=== PATIENT | male | born 1945 | race Caucasian/White ===

== ENCOUNTER 2021-10-08 00:49 | Day surgery (SDC) | payer MEDICARE, SELFPAY ==
[2021-10-08] VITALS (19 sets, daily range): BP systolic 109–181; BP diastolic 40–74; PULSE 77–96; RESP 10–20; TEMP 36.1; O2SAT 94–98; BMI 22.6
[2021-10-08 07:57] LABS: Basophils Absolute Auto 0.1 K/mm3 (0.0-0.1); Basophils Percent Auto 0.8 % (0.2-1.2); Eosinophils Absolute Auto 0.3 K/mm3 (0-0.3); Eosinophils Percent Auto 4.2 % (0-4.4); Hematocrit 32.8 % (42.0-52.0); Hemoglobin 10.8 g/dL (14.0-18.0); Immature Granulocyte Absolute 0.02 K/mm3 (0.00-0.031); Immature Granulocyte Percent A 0.3 % (0-0.5); Lymphocytes Absolute Auto 1.74 K/mm3 (0.9-3.2); Lymphocytes Percent Auto 27.1 % (18.3-44.2); Mean Corpuscular HGB Conc 32.9 g/dl (32-36); Mean Corpuscular Hemoglobin 31.2 pg (26-34); Mean Corpuscular Volume 94.8 fl (80-100); Mean Platelet Volume 9.7 fl (7.4-10.4); Monocytes Absolute Auto 0.5 K/mm3 (0.1-0.6); Monocytes Percent Auto 8.1 % (2.6-8.5); Neutrophils Absolute Auto 3.8 K/mm3 (1.3-6.7); Neutrophils Percent Auto 59.5 % (45.5-73.1); Platelet Count Result 222 k/mm3 (150-375); Red Blood Count 3.46 M/mm3 (4.6-6.20); Red Cell Distribution Width 12.2 % (11.5-14.5); White Blood Count 6.4 K/mm3 (4.5-10.0)
[2021-10-08] MEDS: SODIUM CHLORIDE 0.9% IV 500 ML 100 ML IV CONT (08:00)
[2021-10-08 08:09] LABS: Anion Gap 7 mmol/L (8-16); Blood Urea Nitrogen 17 mg/dL (9-20); Calcium 8.1 mg/dL (8.4-10.2); Carbon Dioxide 28 mmol/L (22-30); Chloride 103 mmol/L (98-107); Estimated CRCL calculation 71 ml/min; Estimated Glomerular Filt Rate > 60; Glucose 198 mg/dL (65-110); Potassium 3.8 mmol/L (3.4-5.0); Sodium 138 mmol/L (137-145)
[2021-10-08 08:13] LABS: INR 1.1; Prothrombin Time 14.1 Seconds (11.1-14.7)
--- NOTE | 2021-10-08 08:46 | PM.IMHP ---
H&P: HPI History of Present Illness Date/Time: 10/08/21 08:46 Chief Complaint: Admission for elective catheterization because of at coronary CTA. Narrative: This is a 76-year-old man with longstanding diabetes who was a previous smoker. He experienced an episode of chest pain while walking out in the extremely cold weather earlier this winter. Following that a coronary CTA was performed which demonstrated a high calcium score of 4164. According to the angiogram he had a 70% stenosis within the proximal RCA, proximal LAD and 1st OM. According to this an angiogram was then recommended for today. The patient states that since then he has been carrying on normal activities when he is not in the cold and does not experience any exertional symptomatology. Previous to this he is not known to have coronary artery disease. He has been seen in the past for asymptomatic PVCs. Review of Systems Constitutional: Constitutional: Reports no additional constitutional complaints Eyes: Eyes: Reports no additional eye complaints ENT: Reports system reviewed and no additional complaints, except as documented Cardiovascular: Cardiovascular: Reports as per HPI Respiratory: Respiratory: Reports no additional respiratory complaints Gastrointestinal: Gastrointestinal: Reports no additional gastrointestinal complaints Musculoskeletal: Musculoskeletal: Reports arthralgias Integumentary/Breasts: Skin/Breast: Reports system reviewed and no additional complaints, except as docu Neurologic: Reports system reviewed and no additional complaints, except as documented [facility] Past Medical History Medical History Irregular heart beat Red blood cell abnormality Social History Social History Smoking status: Former smoker Alcohol intake: never Meds Home Medications and Allergies Home Medications Medication Instructions Recorded Confirmed Type aspirin 81 mg tablet,delayed 81 mg PO DAILY 02/21/21 10/08/21 History release dorzolamide-timolol (PF) 2 %-0.5 % 1 drp EACH EYE BID 02/21/21 10/08/21 History eye drops in a dropperette doxazosin 8 mg tablet 8 mg PO DAILY tablet 02/21/21 10/08/21 History esomeprazole magnesium 40 mg 40 mg PO DAILY PRN 02/21/21 10/08/21 History capsule,delayed release finasteride 5 mg tablet 5 mg PO DAILY 02/21/21 10/08/21 History insulin lispro 100 unit/mL 100 unit SUBCUT DAILY ml 02/21/21 10/08/21 History subcutaneous pen latanoprost 0.005 % eye drops 1 drp EACH EYE DAILY 02/21/21 10/08/21 History multivitamin 1 tablet PO DAILY 02/21/21 10/08/21 History quinapril 20 mg tablet 20 mg PO DAILY 02/21/21 10/08/21 History simvastatin 40 mg tablet 40 mg PO DAILY 02/21/21 10/08/21 History levetiracetam 1,000 mg tablet See Rx Instructions .ROUTE 03/09/21 10/08/21 Rx .COMPLEX #360 tablet phenytoin sodium extended 100 mg See Rx Instructions .ROUTE 08/01/21 10/08/21 Rx capsule .COMPLEX #90 cap furosemide 40 mg PO DAILY 10/05/21 10/08/21 History meloxicam 15 mg PO DAILY 10/05/21 10/08/21 History metoprolol tartrate 25 mg PO BID 10/05/21 10/08/21 History potassium chloride 20 meq PO DAILY 10/05/21 10/08/21 History simethicone 125 mg PO DAILY PRN 10/05/21 10/08/21 History Allergies Allergy/AdvReac Type Severity Reaction Status Date / Time No Known Allergies Allergy Unknown Other Verified 10/05/21 16:00 Vital Signs Vital Signs - 24 hr 10/08/21 07:45 Temperature 36.1 C L Pulse Rate 77 Respiratory Rate 14 Blood Pressure 181/66 H Pulse Oximetry 98 Exam Const: General: comfortable and no acute distress Other: Thin white male no apparent distress HENMT: Mouth: Yes moist mucous membranes Eyes: Sclera: sclerae normal Neck: Neck: supple and no JVD Other: Prescribed upstrokes with no bruits Resp: Effort & Inspection: normal respiratory effort Auscultation: clear to auscultation bilaterally Cardio
--- NOTE | 2021-10-08 08:51 | WPDMODSED ---
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 Longstanding diabetes Present Complaint: No complaints today Procedure to be performed/Plan: Left heart catheterization Allergies Allergy/AdvReac Type Severity Reaction Status Date / Time No Known Allergies Allergy Unknown Other Verified 10/05/21 16:00 Home Medications Medication Instructions Recorded Confirmed Type aspirin 81 mg tablet,delayed 81 mg PO DAILY 02/21/21 10/08/21 History release dorzolamide-timolol (PF) 2 %-0.5 % 1 drp EACH EYE BID 02/21/21 10/08/21 History eye drops in a dropperette doxazosin 8 mg tablet 8 mg PO DAILY tablet 02/21/21 10/08/21 History esomeprazole magnesium 40 mg 40 mg PO DAILY PRN 02/21/21 10/08/21 History capsule,delayed release finasteride 5 mg tablet 5 mg PO DAILY 02/21/21 10/08/21 History insulin lispro 100 unit/mL 100 unit SUBCUT DAILY ml 02/21/21 10/08/21 History subcutaneous pen latanoprost 0.005 % eye drops 1 drp EACH EYE DAILY 02/21/21 10/08/21 History multivitamin 1 tablet PO DAILY 02/21/21 10/08/21 History quinapril 20 mg tablet 20 mg PO DAILY 02/21/21 10/08/21 History simvastatin 40 mg tablet 40 mg PO DAILY 02/21/21 10/08/21 History levetiracetam 1,000 mg tablet See Rx Instructions .ROUTE 03/09/21 10/08/21 Rx .COMPLEX #360 tablet phenytoin sodium extended 100 mg See Rx Instructions .ROUTE 08/01/21 10/08/21 Rx capsule .COMPLEX #90 cap furosemide 40 mg PO DAILY 10/05/21 10/08/21 History meloxicam 15 mg PO DAILY 10/05/21 10/08/21 History metoprolol tartrate 25 mg PO BID 10/05/21 10/08/21 History potassium chloride 20 meq PO DAILY 10/05/21 10/08/21 History simethicone 125 mg PO DAILY PRN 10/05/21 10/08/21 History Current Medications: Active Medications Sodium Chloride (Normal Saline Iv) 500 mls @ 100 mls/hr IV CONT .Q5H RODOLFO Last Admin: 10/08/21 08:00 Dose: 100 mls/hr Documented by: Sedation/Anesthesia: No previous sedation/anesthesia problems (including family history). [facility] Past Medical History Medical History Irregular heart beat Red blood cell abnormality Social History Social History Smoking status: Former smoker Alcohol intake: never Mod Sed Physical Exam Physical Exam Pre Procedural Exam: Normal: Neck, Throat, Airway, Lungs, Heart Size, Heart Rate, Neuro Exam and Extremities and Variation: Appearance (Thin gentleman no apparent distress) and Heart Rhythm (Frequent ectopic activity) Hours since solid foods: 12 Hours since liquid intake: 12 Mallampati Classification: class II Internal Medicine - PN: Obj Da Vital Signs Vital Signs: Vital Signs - 24 hr 10/08/21 07:45 Temperature 36.1 C L Pulse Rate 77 Respiratory Rate 14 Blood Pressure 181/66 H Pulse Oximetry 98 Meds/Results Medications: Active Medications Generic Name Dose Route Start Last Admin Trade Name Freq PRN Reason Stop Dose Admin Sodium Chloride 500 mls @ 100 mls/hr 10/08/21 07:00 10/08/21 08:00 Normal Saline Iv IV CONT 100 mls/hr .Q5H [facility] Administration Labs CBC & Chem 7: 10/08/21 07:50 10/08/21 07:50 Labs: Laboratory Results - last 24 hr 10/08/21 10/08/21 10/08/21 07:49 07:50 07:50 WBC 6.4 RBC 3.46 L Hgb 10.8 L Hct 32.8 L MCV 94.8 MCH 31.2 MCHC 32.9 RDW 12.2 Plt Count 222 MPV 9.7 Immature Gran % (Auto) 0.3 Neut % (Auto) 59.5 Lymph % (Auto) 27.1 [place] % (Auto) 8.1 Eos % (Auto) 4.2 Baso % (Auto) 0.8 Lymph # (Auto) 1.74 [place] # (Auto) 0.5 Eos # (Auto) 0.3 Baso # (Auto) 0.1 Abs Immat Gran (auto) 0.02 Absolute Neuts (auto) 3.8 Absolute Nucleated RBC 0.0 Nucleated RBC % 0.0 PT 14.1 INR 1.1 Sodium 138 Potassium 3.8 Chloride 103 Carbon
--- NOTE | 2021-10-08 09:36 | WPDCARDPROC ---
Cardiac Cath Procedure Note Date of procedure:: 10/08/21 Performing physician:: Ludwin Buchanan MD Indication:: Episode of exertional chest discomfort abnormal coronary CTA Brief clinical history:: this is a 76-year-old man with longstanding diabetes who recently experienced an episode of exertional chest discomfort flutter. He for that reason underwent a coronary CTA which demonstrated calcified arteries with multivessel disease. An angiogram was therefore recommended. He does not report any going exertional symptoms warmer weather. Procedure Procedure performed:: Left ventriculogram coronary angiogram Sedation/Medication given:: fentanyl 25 mg Versed 2 mg case start time 9:05 a.m. case end time 9:26 a.m. Access site:: right femoral artery Estimated blood loss:: 20 cc Procedure note:: the patient was brought to the cardiac catheterization lab in the postabsorptive state the right femoral triangle was prepared and draped in the usual fashion. Anesthesia was provided with 1% lidocaine infiltrated locally. Using the modified Seldinger 5 Indonesian sheath was placed into the right femoral artery after this left heart catheterization was carried out. I used a 5 Indonesian angled pigtail catheter to perform a left ventriculogram in the OROPEZA projection and to measure left-sided hemodynamics. Following this A standard 5 Indonesian FL4 catheter was used to engage and inject the left coronary artery. A 5 Indonesian WRP catheter was used to engage and inject the right coronary artery. The cineangiograms were then reviewed and the case was terminated. The patient was taken to the holding area for manual sheath removal. Procedure was otherwise uncomplicated in there were no signs of groin hematoma upon leaving the cardiac cath lab technologist. Findings:: Hemodynamics: Central pressure is 1 86 over 56 left ventricle 1 78 over 5 end-diastolic pressure 16 there is no significant gradient on pullback across aortic valve. Left ventricle: The LV is normal in size all segments contract appropriately the global ejection fraction angiographically is 60-60%. The coronary arteries are heavily calcified particularly the left main and LAD prior to any angiography being performed. The left main coronary artery is large in caliber. It is a calcified vessel with a nodule of calcium in the midportion does not appear to be creating flow-limiting stenosis. There is from this nodule distal to the bifurcation mild diffuse narrowing of the left once again is a heavily calcified vessel but does not appear to have flow-limiting stenosis. The left anterior descending is heavily calcified as well. There is an 80-85% stenosis in the midportion of the LAD this segment that is heavily calcified and significantly tortuous as well. Distally the LAD continues down to around the apex is free of significant lesions. The circumflex is a moderate caliber artery giving rise to a bifurcating marginal branch. The circumflex is less severely calcified. The smaller of the bifurcating segments with marginal has a 60-70% proximal stenosis. Right coronary artery is Moderate to severely calcified and is dominant to the posterior circulation.. Proximally there is about a 70% stenosis in the RCA trunk. There is then a calcified [id number] disease. The RPDA has about 70% mid stenosis the PL branch is free of significant lesions. Conclusion:: 1. Right coronary dominant circulation heavily calcified vessels. 2. 80-85% mid LAD stenosis in a segment that is heavily calcified and tortuous. 3. 60-70% stenosis in subbranch of the OM circumflex. 4. Heavily calcified right coronary artery with about 70% proximal stenosis and about 70% mid stenosis in the RPDA. 5. Preserved left ventricular systolic function Ludwin Buchanan MD [facility]
[2021-10-08] MEDS: SODIUM CHLORIDE 0.9% IV 1,000 ML 125 ML IV CONT (09:49)
--- NOTE | 2021-10-08 10:36 | SUR.PHASEII ---
Dr Ocasio speaking with patient and about findings of [facility]
--- NOTE | 2021-10-08 14:01 | SUR.PHASEII ---
Discharge instructions read and given to pt and . Pt and states understanding.
--- NOTE | 2021-10-08 15:41 | SUR.PHASEII ---
Pt discharged home by wheelchair to front of hospital at 's vehicle. Re-inforced groin instructions - any bleeding, swelling - lye flat, put pressure over the r groin and call 911 - it's a medical emergency
== END 2021-10-08 15:30 | disposition home or self-care (01) ==
PROVIDERS: PCP Family Medicine; Visit Provider Specialist
PROC: 4A023N7 Measurement of Cardiac Sampling and Pressure, Left Heart, Percutaneous Approach (ICD-10-PCS; CPT 93452; principal; 2021-10-08 08:30)
DX: I25.10 Atherosclerotic heart disease of native coronary artery without angina pectoris (principal); R00.1 Bradycardia, unspecified; E10.59 Type 1 diabetes mellitus with other circulatory complications; R00.8 Other abnormalities of heart beat; R53.83 Other fatigue; R07.89 Other chest pain; I11.9 Hypertensive heart disease without heart failure; I15.2 Hypertension secondary to endocrine disorders; N40.0 Benign prostatic hyperplasia without lower urinary tract symptoms; M19.90 Unspecified osteoarthritis, unspecified site; G40.909 Epilepsy, unspecified, not intractable, without status epilepticus; G47.30 Sleep apnea, unspecified; Z87.891 Personal history of nicotine dependence; Z82.49 Family history of ischemic heart disease and other diseases of the circulatory system; Z79.82 Long term (current) use of aspirin; Z79.4 Long term (current) use of insulin; E78.2 Mixed hyperlipidemia; E10.319 Type 1 diabetes mellitus with unspecified diabetic retinopathy without macular edema
CPT/HCPCS: 36415; 80048; 85025; 85610; 93458; C1887; C1894; J1644; J2250; J3010; J7030; J7040

== ENCOUNTER 2022-02-28 11:00 | Outpatient (RCR) | payer MEDICARE, SELFPAY | END 2022-03-06 11:33 | disposition home or self-care (01) | LOC: ANHCPREHAB 11:00 | PROVIDERS: PCP Family Medicine; Visit Provider Internal Medicine Cardiovascular Disease | DX: Z95.5 Presence of coronary angioplasty implant and graft (principal) | CPT/HCPCS: 93798 ==

== ENCOUNTER 2022-03-02 10:44 | Emergency (ER) | payer MEDICARE, SELFPAY ==
--- NOTE | ~2022-03-02 | XR_ITS ---
[[id number] ] INDICATION: Left rib pain after fall TECHNIQUE: Frontal projection of the upper left ribs, frontal projection of the lower left ribs, obli que projection of all the left ribs, frontal inspiratory chest x-ray for interpretation. FINDINGS: There are no displaced rib fractures identified. There are no soft tissue abnormality see n. There is left basilar atelectasis. No pneumothorax. Osteopenia. IMPRESSION: 1:No acute displaced rib fractures. Reviewed, dictated and finalized at location A.
--- NOTE | ~2022-03-02 | XR_ITS ---
XR knee LT min 4V 03/02/2022 12:00 Indication: Left knee pain Procedure: 4 views left knee Comparison: No prior studies for comparison. Findings: There is a side plate and screws transfixing the proximal tibia. Osteopenia. There are vasc ular calcifications. There is a nondisplaced transverse patellar fracture inferiorly. Small joint eff usion. Impression: 1: Nondisplaced transversely oriented patellar fracture inferiorly. Reviewed, dictated and finalized at location A. Impression: 1: Nondisplaced transversely oriented patellar fracture inferiorly.
--- NOTE | ~2022-03-02 | XR_ITS ---
XR hand RT min 3V 03/02/2022 11:59 INDICATION: Right hand pain after fall PROCEDURE: 3 views right hand COMPARISON: No prior studies for comparison. FINDINGS: Fracture, dislocation or subluxation is not identified. Osteopenia. Mild polyarticular oste oarthritis. The soft tissues appear within normal limits. No foreign bodies are identified. IMPRESSION: 1: NO ACUTE BONE OR JOINT ABNORMALITY IDENTIFIED. Reviewed, dictated and finalized at location A.
--- NOTE | ~2022-03-02 | CT_ITS ---
EXAMINATION: CT BRAIN W/O DATE: 03/02/2022 12:05 INDICATION: Head injury. Patient on blood thinners. TECHNIQUE: Computed tomography (CT) of the head was performed without intravenous contrast. The dose- length product was 605.33 mGy-cm. Automated exposure control and iterative reconstruction technique w ere employed. COMPARISON: No prior studies for comparison. FINDINGS: Mild generalized atrophy. There are scattered mild periventricular and subcortical white ma tter changes, most likely related to small vessel ischemic disease (microangiopathy). There is intrac ranial atherosclerosis. No ventriculomegaly or midline shift. Midline sagittal images demonstrate a normal corpus callosum, c raniovertebral junction and sella turcica. Basilar cisterns are patent. Paranasal sinuses and mastoids are pneumatized. No depressed skull fractures. IMPRESSION: 1. No acute intracranial abnormality. Reviewed, dictated and finalized at location A.
--- NOTE | ~2022-03-02 | XR_ITS ---
XR elbow LT min 3V 03/02/2022 11:59 INDICATION: Left elbow pain PROCEDURE: 4 views left elbow COMPARISON: No prior studies for comparison. FINDINGS: Fracture, dislocation or subluxation is not identified. Osteopenia. The soft tissues appear within normal limits. No foreign bodies are identified. IMPRESSION: 1: NO ACUTE BONE OR JOINT ABNORMALITY IDENTIFIED. Reviewed, dictated and finalized at location A.
[2022-03-02 11:15] VITALS: BP 130/52; PULSE 64; RESP 16; TEMP 36.2; O2SAT 97
--- NOTE | 2022-03-02 11:32 | ED.FALL ---
HPI - Fall General Chief Complaint: Fall Stated Complaint: glf - hit head on concrete and left knee-thinners+ Time Seen by Provider: 03/02/22 11:10 Source: patient, family, RN notes reviewed and old records reviewed Limitations: no limitations History of Present Illness HPI Narrative: This is a 76 year old male who presents for evaluation after suffering a fall. He states he was coming to ER to pick someone up, and he tripped on curb walking into ER. He has abrasion to left elbow, right fingers, and left knee. He states his reports that he hit his head, and he takes plavix for heart disease. He denies headache, dizziness, nausea, vomiting or shortness of breath. He does think he hit his left ribs. He is unsure of last tetanus Related Data Home Medications Medication Instructions Recorded Confirmed aspirin 81 mg tablet,delayed 81 mg PO DAILY 02/21/21 10/08/21 release (Day Low Dose Aspirin) dorzolamide-timolol (PF) 2 %-0.5 % 1 drp EACH EYE BID 02/21/21 12/25/21 eye drops in a dropperette doxazosin 8 mg tablet 8 mg PO DAILY 02/21/21 10/08/21 esomeprazole magnesium 40 mg 40 mg PO DAILY PRN Acid Reflux 02/21/21 12/25/21 capsule,delayed release (Nexium) finasteride 5 mg tablet 5 mg PO DAILY 02/21/21 12/25/21 insulin lispro 100 unit/mL 100 unit subcut DAILY 02/21/21 10/08/21 subcutaneous pen latanoprost 0.005 % eye drops 1 drp EACH EYE DAILY 02/21/21 12/25/21 multivitamin 1 tablet PO DAILY 02/21/21 12/25/21 quinapril 20 mg tablet 20 mg PO DAILY 02/21/21 10/08/21 simvastatin 40 mg tablet 40 mg PO DAILY 02/21/21 10/08/21 furosemide 40 mg tablet 20 mg PO DAILY 10/05/21 12/25/21 metoprolol tartrate 25 mg tablet 25 mg PO BID 10/05/21 12/25/21 potassium chloride 20 mEq 20 meq PO DAILY 10/05/21 10/08/21 tablet,extended release simethicone 125 mg tablet 125 mg PO DAILY PRN (Drug) 10/05/21 12/25/21 Ingestion clopidogrel 75 mg tablet 75 mg PO DAILY 12/25/21 12/25/21 isosorbide mononitrate 30 mg 30 mg PO DAILY 12/25/21 12/25/21 tablet,extended release 24 hr Allergies Allergy/AdvReac Type Severity Reaction Status Date / Time No Known Allergies Allergy Unknown Other Verified 03/02/22 13:11 Review of Systems Review of Systems: All systems reviewed & are unremarkable except as noted in HPI and below PMFSH Past Medical History Medical History (Updated 03/02/22 @ 13:18 by Kait Neves MD) Irregular heart beat Red blood cell abnormality Surgical History Surgical History (Updated 03/02/22 @ 11:36 by Kait Neves MD) Stented coronary artery Family History Family History Father Heart disease Diabetes mellitus Heart attack Mother Diabetes mellitus Lung cancer Social History Social History Smoking packs per day: 3 Smoking cigarettes per day: 60.0 Years smoked: 37 Smoking pack-years: 111.00 Smoking status: Former smoker Tobacco type: cigarettes Alcohol intake: never Exam Const: General: alert Nutritional Appearance: well nourished Orientation/consciousness: patient oriented x3 Limitations: no limitations HENMT: Head: normal to inspection Ears: external ears normal Face and sinus: normal facial exam Mouth: Yes Normal oral and palatal mucosa present Throat: posterior oropharynx normal Eyes: Pupils: Equal, round and reactive pupils present EOM: EOMs intact bilaterally Neck: Neck: normal visual inspection Chest: Chest palpation & inspection: normal inspection of the chest and no tenderness Resp: Effort & Inspection: normal respiratory effort Auscultation: clear to auscultation bilaterally Cardio: Rate: regular rate Rhythm: regular rhythm Heart sounds: no murmurs GI: GI Palp: Yes Soft to palpation, No Tenderness to palpation present (GI), No Guarding due to palpation present (GI) and No Rigid due to palpation Auscultation: normal bowel sounds Skin:
[2022-03-02] MEDS: TETANUS,DIPHTHERIA,AC PERTUSSIS ADULT (0.5 ML) BOOSTRIX IM (12:13)
[2022-03-02 13:40] VITALS: BP 125/54; PULSE 62; RESP 16; O2SAT 98
== END 2022-03-02 14:00 | disposition home or self-care (01) ==
PROVIDERS: Emergency Provider General Practice; PCP Family Medicine
DX: S82.035A Nondisplaced transverse fracture of left patella, initial encounter for closed fracture (principal); S50.312A Abrasion of left elbow, initial encounter; S60.414A Abrasion of right ring finger, initial encounter; Z23 Encounter for immunization; Z95.5 Presence of coronary angioplasty implant and graft; Z79.82 Long term (current) use of aspirin; Z79.4 Long term (current) use of insulin; Z87.891 Personal history of nicotine dependence; W10.1XXA Fall (on)(from) sidewalk curb, initial encounter
CPT/HCPCS: 70450; 71101; 73080; 73130; 73564; 90471; 90715; 99284

== ENCOUNTER 2022-03-09 10:50 | Emergency (ER) | payer MEDICARE, SELFPAY ==
[2022-03-09] VITALS (21 sets, daily range): BP systolic 108–137; BP diastolic 38–48; PULSE 61–75; RESP 12–21; O2SAT 96–100
--- NOTE | ~2022-03-09 | CT_ITS ---
EXAMINATION: CT abdomen pelvis w con DATE: 03/09/2022 13:27 INDICATION: Left upper quadrant abdominal pain post fall TECHNIQUE: Computed tomography (CT) of the abdomen and pelvis was performed with 100 mL Omnipaque-300 intravenous contrast. Automated exposure control and iterative reconstruction technique were employe d. The dose-length product was 322.55 mGy-cm. COMPARISON: 02/18/2012 FINDINGS: Groundglass opacities and some septal line thickening at the bilateral lung bases most likely mild pu lmonary edema and/or atelectasis. No pleural effusion. Heart size is normal. Atherosclerotic coronary artery calcifications. No pericardial effusion. Liver, gallbladder, spleen, pancreas and bilateral a drenal glands are normal. Small linear atherosclerotic calcifications consistent with renal arteries at the bilateral renal veto. Unchanged 6 mm low-attenuation cyst at the upper pole of the left kidney . Prominent distention of the bladder which measures 16.9 x 13.7 x 9.5 cm. Minimal prostatomegaly acacia suring 3.7 x 2.6 cm. Large amount of stool scattered throughout the colon which could be seen with co nstipation. No bowel obstruction. The appendix is not visualized. No pericecal inflammatory change to suggest acute appendicitis. No free intraperitoneal gas or fluid. No pathologically enlarged abdomin al or pelvic lymphadenopathy. There is calcified atherosclerosis of the aorta and many of the other a rteries. Severe disc height loss with degenerative endplate changes at L2-L3. Nondisplaced fractures of the anterolateral left sixth-eighth ribs. Likely vasectomy clips along the bilateral spermatic cor ds. IMPRESSION: 1. Nondisplaced fractures of the anterolateral left sixth-eighth ribs. 2. No acute intra-abdominal/pelvic process. Reviewed, dictated and finalized at location A.
--- NOTE | ~2022-03-09 | CT_ITS ---
EXAMINATION: CT brain wo con DATE: 03/09/2022 11:20 INDICATION: Seizure and fall TECHNIQUE: Computed tomography (CT) of the head was performed without intravenous contrast. Sagittal and coronal reconstructions were performed. The mA was adjusted according to patient size. Iterative reconstruction technique was employed. The dose-length product was 605.33 mGy-cm. COMPARISON: head CT dated 03/02/2022 FINDINGS: No fracture. No acute intracranial hemorrhage, acute infarction or abnormal extra axial fluid collect ion. There is minimal scattered white matter hypoattenuation consistent with chronic small vessel isc hemic disease. Symmetric prominence of the sulci consistent with mild age-appropriate diffuse cerebra l volume loss. Ventricles are normal and symmetric. No mass/mass effect. The orbits, paranasal sinuse s and mastoid air cells are normal. Intracranial calcified cerebral atherosclerosis is noted. IMPRESSION: 1. No fracture or acute intracranial process. 2. Age-related changes including mild diffuse volume loss and mild scattered white matter hypoattenua tion consistent with chronic small vessel ischemic disease. Reviewed, dictated and finalized at location A. IMPRESSION: 1. No fracture or acute intracranial process. 2. Age-related changes including mild diffuse volume loss and mild scattered wh ite matter hypoattenuation consistent with chronic small vessel ischemic diseas e.
--- NOTE | ~2022-03-09 | XR_ITS ---
EXAMINATION: XR ribs LT 2V DATE: 03/09/2022 13:07 INDICATION: Lateral lower left rib pain post fall TECHNIQUE: 3 views of the left ribs were obtained. COMPARISON: Chest radiograph and CT abdomen and pelvis dated 03/09/2022 FINDINGS: No displaced rib fractures identified. There are nondisplaced fractures of the anterolateral left six th-eighth ribs which can be seen on the CT images but which are occult on the current radiographs. Vi sualized portions of the lungs are clear. No pulmonary edema, pneumothorax or left-sided pleural effu josesito. Cardiomediastinal silhouette is normal. Coronary artery stenting. IMPRESSION: 1. Nondisplaced anterolateral left sixth-eighth rib fractures which can be seen on the CT of the abdo men but which are occult on the current study. Reviewed, dictated and finalized at location A. IMPRESSION: 1. Nondisplaced anterolateral left sixth-eighth rib fractures which can be seen on the CT of the abdomen but which are occult on the current study.
--- NOTE | ~2022-03-09 | XR_ITS ---
EXAMINATION: XR chest 1V DATE: 03/09/2022 11:23 INDICATION: Seizure and fall TECHNIQUE: frontal view of the chest was obtained. COMPARISON: None FINDINGS: The lungs are clear with no focal airspace opacities, pulmonary edema, pleural effusion or pneumothor ax. The cardiomediastinal silhouette is normal. Coronary artery stenting. Mild scattered degenerative skeletal changes. IMPRESSION: 1. No acute cardiopulmonary disease. Reviewed, dictated and finalized at location A.
--- NOTE | 2022-03-09 10:55 | ECG_ITS ---
Measurements Intervals [place] Rate: 64 P: 75 [place]: 187 QRS: 71 QRSD: 98 T: 37 QT: 426 QTc: 440 Interpretive Statements SINUS RHYTHM FREQUENT VENTRICULAR PREMATURE COMPLEXES ABNORMAL ECG Electronically Signed On 03-09-2022 16:34:45 CDT by Sim Collins D.O.
--- NOTE | 2022-03-09 11:11 | PC.NURSE ---
Patient off unit to CT.
[2022-03-09 11:19] LABS: Basophils Percent Auto 0.7 % (0.2-1.2); Eosinophils Absolute Auto 0.2 K/mm3 (0-0.3); Eosinophils Percent Auto 3.8 % (0-4.4); Hematocrit 27.9 % (42.0-52.0); Hemoglobin 8.4 g/dL (14.0-18.0); Immature Granulocyte Absolute 0.02 K/mm3 (0.00-0.031); Immature Granulocyte Percent A 0.4 % (0-0.5); Mean Corpuscular HGB Conc 30.1 g/dl (32-36); Mean Corpuscular Hemoglobin 27.8 pg (26-34); Mean Corpuscular Volume 92.4 fl (80-100); Mean Platelet Volume 9.3 fl (7.4-10.4); Monocytes Absolute Auto 0.6 K/mm3 (0.1-0.6); Monocytes Percent Auto 9.8 % (2.6-8.5); Neutrophils Absolute Auto 3.4 K/mm3 (1.3-6.7); Neutrophils Percent Auto 60.3 % (45.5-73.1); Platelet Count Result 232 k/mm3 (150-375); Red Blood Count 3.02 M/mm3 (4.6-6.20); Red Cell Distribution Width 13.9 % (11.5-14.5); White Blood Count 5.6 K/mm3 (4.5-10.0)
[2022-03-09 11:29] LABS: Alanine Aminotransferase 20 U/L (6-50); Albumin Level 3.5 g/dL (3.5-5.1); Alkaline Phosphatase 116 U/L (38-126); Anion Gap 8 mmol/L (8-16); Aspartate Amino Transferase 28 U/L (17-59); Bilirubin,Total 0.2 mg/dL (0.2-1.3); Blood Urea Nitrogen 19 mg/dL (9-20); Calcium 7.8 mg/dL (8.4-10.2); Carbon Dioxide 27 mmol/L (22-30); Chloride 104 mmol/L (98-107); Estimated CRCL calculation 55 ml/min; Estimated Glomerular Filt Rate > 60; Glucose 137 mg/dL (65-110); Potassium 4.4 mmol/L (3.4-5.0); Sodium 139 mmol/L (137-145)
[2022-03-09 11:33] LABS: Phenytoin Dilantin 12 ug/mL (10-20)
[2022-03-09 11:41] LABS: INR 1.1; Prothrombin Time 13.3 Seconds (11.1-14.7)
--- NOTE | 2022-03-09 11:44 | ED.GENADULT ---
HPI - General Adult General Chief complaint: Seizure Stated complaint: SEIZURES Source: RN notes reviewed History of Present Illness HPI narrative: Patient presents to emergency department from home via EMS for seizures. Patient states he was working on the yard this morning when he began to feel unwell with some abdominal cramping and nauseous he then was noted to begin to have a seizure by the family who was able to catch him and keep him from falling. Patient was then moved inside he had a second seizure that was tonic-clonic in nature per the patient's EMS was called and the patient was transferred to the ER where he had a third seizure in route patient was postictal following the seizures. Patient states he has a seizure disorder and is followed by Dr. Coates he is currently on Keppra and Dilantin and states he has taken both of those including his doses this morning. He states that he is having some left-sided rib pain from a fall that he sustained a week ago and it had imaging was negative at that time but when he was held up by family they did squeeze on his ribs. He denies any fevers or chills chest pain shortness of breath or any other symptoms Related Data Home Medications Medication Instructions Recorded Confirmed aspirin 81 mg tablet,delayed 81 mg PO DAILY 02/21/21 10/08/21 release (Day Low Dose Aspirin) dorzolamide-timolol (PF) 2 %-0.5 % 1 drp EACH EYE BID 02/21/21 12/25/21 eye drops in a dropperette doxazosin 8 mg tablet 8 mg PO DAILY 02/21/21 10/08/21 esomeprazole magnesium 40 mg 40 mg PO DAILY PRN Acid Reflux 02/21/21 12/25/21 capsule,delayed release (Nexium) finasteride 5 mg tablet 5 mg PO DAILY 02/21/21 12/25/21 insulin lispro 100 unit/mL 100 unit subcut DAILY 02/21/21 10/08/21 subcutaneous pen latanoprost 0.005 % eye drops 1 drp EACH EYE DAILY 02/21/21 12/25/21 multivitamin 1 tablet PO DAILY 02/21/21 12/25/21 quinapril 20 mg tablet 20 mg PO DAILY 02/21/21 10/08/21 simvastatin 40 mg tablet 40 mg PO DAILY 02/21/21 10/08/21 furosemide 40 mg tablet 20 mg PO DAILY 10/05/21 12/25/21 metoprolol tartrate 25 mg tablet 25 mg PO BID 10/05/21 12/25/21 potassium chloride 20 mEq 20 meq PO DAILY 10/05/21 10/08/21 tablet,extended release simethicone 125 mg tablet 125 mg PO DAILY PRN (Drug) 10/05/21 12/25/21 Ingestion clopidogrel 75 mg tablet 75 mg PO DAILY 12/25/21 12/25/21 isosorbide mononitrate 30 mg 30 mg PO DAILY 12/25/21 12/25/21 tablet,extended release 24 hr Allergies Allergy/AdvReac Type Severity Reaction Status Date / Time No Known Allergies Allergy Unknown Other Verified 03/02/22 13:11 Review of Systems Review of Systems: Gen.: Denies fevers or chills Eyes: Denies eye pain or visual change ENT: Denies congestion Respiratory: Denies shortness of breath or cough CV: Denies chest pain or palpitations reports rib pain on the left GI: Reports lower abdominal pain and nausea vomiting x1 denies diarrhea Musculoskeletal: Denies back pain or muscle pain Neuro: See HPI Skin: Denies rash Except as documented, all other systems reviewed and negative REPLACED BY [facility] Past Medical History Medical History Irregular heart beat Red blood cell abnormality Surgical History Surgical History (Updated 03/02/22 @ 11:36 by Kait Neves MD) Stented coronary artery Family History Family History Father Heart disease Diabetes mellitus Heart attack Mother Diabetes mellitus Lung cancer Social History Social History Smoking packs per day: 3 Smoking cigarettes per day: 60.0 Years smoked: 37 Smoking pack-years: 111.00 Smoking status: Former smoker Tobacco type: cigarettes Alcohol intake: never Exam Narrative: APPEARANCE: No acute distress, nontoxic, resting in bed EYES: EOMI HEENT: Normocephalic, atraumatic, OMM RESP
[2022-03-09 12:35] LABS: Appearance Urine Clear (Clear); Bilirubin Urine Negative (Negative); Blood Urine Negative (Negative); Glucose Urine UA Negative (Negative); Ketones Urine Negative (Negative); Leukocyte Esterase Ur Negative LEU/UL (Negative); Nitrate Urine Negative (Negative); Protein Urine Negative (Negative); Urobilinogen Urine 0.2 mg/dL (<2.0); pH Urine 5.5 (5.0-9.0)
[2022-03-09 12:39] LABS: Add Urine Microscopic? NO; Color Urine Light Yellow (Yellow)
[2022-03-09 12:56] LABS: Lipase 57 U/L (23-300)
--- NOTE | 2022-03-09 15:15 | PC.NURSE ---
Patient report given to SAMUEL Aguirre. All questions answered and care of patient transferred.
--- NOTE | 2022-03-09 16:47 | PC.NURSE ---
[facility] phoned for report. Stated they would return call once pt has room.
[2022-03-09 18:10] LABS: SARS-CoV-2 RNA PCR Negative
--- NOTE | 2022-03-09 19:57 | PC.NURSE ---
This RN gave phone report to SAMUEL Paez at [facility].
== END 2022-03-09 19:03 | disposition short-term general hospital (02) ==
PROVIDERS: Emergency Provider Emergency Medicine; PCP Family Medicine
DX: G40.909 Epilepsy, unspecified, not intractable, without status epilepticus (principal); S22.42XA Multiple fractures of ribs, left side, initial encounter for closed fracture; R33.9 Retention of urine, unspecified; Z20.822 Contact with and (suspected) exposure to COVID-19; Z95.5 Presence of coronary angioplasty implant and graft; Z87.891 Personal history of nicotine dependence; Z79.4 Long term (current) use of insulin; Z79.82 Long term (current) use of aspirin; X58.XXXA Exposure to other specified factors, initial encounter
CPT/HCPCS: 36415; 51702; 70450; 71045; 71100; 74177; 80053; 80185; 81003; 83690; 83735; 85025; 85610; 85730; 93005; 96365; 99284; 99285; C9803; J0131; Q9967; U0003; U0005

== ENCOUNTER 2022-11-17 02:43 | Inpatient (IN) | payer MEDICARE, SELFPAY ==
[2022-11-17] VITALS (55 sets, daily range): BP systolic 100–163; BP diastolic 35–78; PULSE 38–107; RESP 11–35; TEMP 36.1–38.4; O2SAT 96–99
--- NOTE | ~2022-11-17 | CT_ITS ---
EXAMINATION: CTA abdomen pelvis DATE: 11/17/2022 04:44 INDICATION: Bloody stools. Generalized abdominal pain. Ischemic colitis. TECHNIQUE: Computed tomography (CT) of the abdomen and pelvis was performed with 100 CC Omnipaque 350 intravenous contrast. Automated exposure control and iterative reconstruction technique were employe d. Exam dose: 459.40 mGy-cm total exam DLP. COMPARISON: 03/09/2022 CT abdomen pelvis FINDINGS: There is mild bilateral dependent lower lobe atelectasis. Normal heart size. Coronary artery calcification. The liver, gallbladder, bile duct system, spleen, pancreas, pancreatic duct, and adrenal glands and k idneys are unremarkable. There is extensive atherosclerotic calcification of the abdominal aorta and prominent calcification a t the origins of the celiac, superior mesenteric and renal arteries. No abdominal aortic aneurysm. No intraperitoneal or retroperitoneal or pelvic mass lesion or adenopathy or ascites is detected. Diffuse prominent distention of the urinary bladder the bladder wall does not appear thickened. Prost ate enlargement. Prominent fluid level in the stomach. Proximal jejunum measures up to 3 cm, upper limits of normal ca liber with some jejunal air-fluid levels. Normal caliber of the ileum. No bowel obstruction, bowel wa ll thickening, pneumatosis or intraperitoneal free air is detected. Status post bilateral mastectomies. Diffuse osteopenia. Mild anterior wedging of L2. Severe degenerative disc disease and mild retrolisthesis at L2-3 IMPRESSION: Prominent gastric air-fluid level and some borderline dilated jejunum with air-fluid lev els. Consider gastroenteritis or adynamic ileus. Consider ischemic bowel. No bowel obstruction is evident No intraperitoneal free air Prostatomegaly, urinary bladder distention Extensive abdominal aortic, celiac, SMA, [place]OR[place] and renal atherosclerosis Reviewed, dictated and finalized at [facility]. Reviewed, dictated and finalized at location A. IMPRESSION: Prominent gastric air-fluid level and some borderline dilated jeju num with air-fluid levels. Consider gastroenteritis or adynamic ileus. Consider ischemic bowel. No bowel obstruction is evident No intraperitoneal free air Prostatomegaly, urinary bladder distention Extensive abdominal aortic, celiac, SMA, [place]OR[place] and renal atherosclerosis
[2022-11-17 03:16] LABS: INR 1.1; Prothrombin Time 13.3 Seconds (11.1-14.7)
[2022-11-17 03:17] LABS: Partial Thromboplastin Time 25.5 SECONDS (22.3-36.8)
[2022-11-17 03:18] LABS: Alanine Aminotransferase 29 U/L (6-50); Albumin Level 4.4 g/dL (3.5-5.1); Alkaline Phosphatase 148 U/L (38-126); Anion Gap 5 mmol/L (8-16); Aspartate Amino Transferase 47 U/L (17-59); Bilirubin,Total 0.5 mg/dL (0.2-1.3); Blood Urea Nitrogen 18 mg/dL (9-20); Calcium 8.3 mg/dL (8.4-10.2); Carbon Dioxide 32 mmol/L (22-30); Chloride 102 mmol/L (98-107); Estimated CRCL calculation 48 ml/min; Estimated Glomerular Filt Rate > 60; Glucose 156 mg/dL (65-110); Potassium 4.7 mmol/L (3.4-5.0); Sodium 139 mmol/L (137-145)
[2022-11-17 03:28] LABS: Basophils Absolute Auto 0.1 K/mm3 (0.0-0.1); Basophils Percent Auto 0.5 % (0.2-1.2); Eosinophils Absolute Auto 0.2 K/mm3 (0-0.3); Eosinophils Percent Auto 0.9 % (0-4.4); Hematocrit 37.4 % (42.0-52.0); Hemoglobin 12.3 g/dL (14.0-18.0); Immature Granulocyte Absolute 0.09 K/mm3 (0.00-0.031); Immature Granulocyte Percent A 0.5 % (0-0.5); Lymphocytes Absolute Auto 2.92 K/mm3 (0.9-3.2); Lymphocytes Percent Auto 15.7 % (18.3-44.2); Mean Corpuscular HGB Conc 32.9 g/dl (32-36); Mean Corpuscular Hemoglobin 31.9 pg (26-34); Mean Corpuscular Volume 96.9 fl (80-100); Mean Platelet Volume 9.5 fl (7.4-10.4); Monocytes Absolute Auto 1.9 K/mm3 (0.1-0.6); Monocytes Percent Auto 10.4 % (2.6-8.5); Neutrophils Absolute Auto 13.4 K/mm3 (1.3-6.7); Platelet Count Result 298 k/mm3 (150-375); Red Blood Count 3.86 M/mm3 (4.6-6.20); Red Cell Distribution Width 12.5 % (11.5-14.5); White Blood Count 18.6 K/mm3 (4.5-10.0)
--- NOTE | 2022-11-17 04:10 | ED.GIBLEED ---
HPI - GI Bleed General Chief complaint: GI Bleed <Eugenia Snell PA-C - Last Filed: 11/17/22 04:14> Stated complaint: blood in stool. <Eugenia Snell PA-C - Last Filed: 11/17/22 04:14> Time Seen by Provider: 11/17/22 03:59 <Eugenia Snell PA-C - Last Filed: 11/17/22 04:14> History of Present Illness HPI Narrative: 77-year-old male with a history of diabetes, seizure disorder, ischemic colitis reports for evaluation of abdominal pain and hematochezia that started 5 hours ago. Patient states 5 hours ago he began having severe generalized abdominal pain that is similar to his previous episodes of ischemic colitis, and had an episode of vomiting with diaphoresis. States 2 and half hours ago, he had a large volume of stool followed by a large amount of bright red blood per rectum that filled the toilet bowl. Patient has not had an episode of hematochezia or a bowel movement since. He reports 2 previous episodes of ischemic colitis. He saw a GI specialist about 10 years ago for ischemic colitis who did not perform any interventions at that time. He has not been evaluated since. Patient is taking aspirin and Plavix, he is not on anticoagulants. Denies fever, body aches, chills, chest pain, shortness of breath, urinary complaints. <Eugenia Snell PA-C - Last Filed: 11/17/22 04:14> Related Data Home medications: Home Medications Medication Instructions Recorded Confirmed aspirin 81 mg tablet,delayed 81 mg PO DAILY 02/21/21 11/18/22 release (Day Low Dose Aspirin) dorzolamide-timolol (PF) 2 %-0.5 % 1 drp EACH EYE BID 02/21/21 11/18/22 eye drops in a dropperette finasteride 5 mg tablet 5 mg PO DAILY 02/21/21 11/18/22 insulin lispro 100 unit/mL 100 unit subcut DAILY 02/21/21 11/17/22 subcutaneous pen latanoprost 0.005 % eye drops 1 drp EACH EYE HS 02/21/21 11/18/22 multivitamin 1 tablet PO DAILY 02/21/21 11/18/22 simvastatin 40 mg tablet 40 mg PO HS 02/21/21 11/18/22 furosemide 40 mg tablet 20 mg PO DAILY 10/05/21 11/18/22 metoprolol tartrate 25 mg tablet 25 mg PO BID 10/05/21 11/18/22 simethicone 125 mg tablet 125 mg PO TID PRN (Drug) Ingestion 10/05/21 11/18/22 clopidogrel 75 mg tablet 75 mg PO DAILY 12/25/21 11/18/22 isosorbide mononitrate 30 mg 30 mg PO DAILY 12/25/21 11/18/22 tablet,extended release 24 hr tamsulosin 0.4 mg capsule 0.4 mg PO 1700 03/20/22 11/18/22 lisinopril 20 mg tablet 20 mg PO DAILY 11/18/22 11/18/22 <Eugenia Snell PA-C - Last Filed: 11/17/22 04:14> Allergies/Adverse reactions: Allergies Allergy/AdvReac Type Severity Reaction Status Date / Time No Known Allergies Allergy Unknown Other Verified 11/19/22 10:10 <Eugenia Snell PA-C - Last Filed: 11/17/22 04:14> Review of Systems Review of Systems: CONSTITUTIONAL: Denies fever, chills EYES: Denies visual changes, redness, or discharge. ENT: Denies rhinorrhea, congestion, sore throat, or otalgia. CARDIOVASCULAR: Denies chest pain, palpitations, or edema. RESPIRATORY: Denies cough or dyspnea. GASTROINTESTINAL: See HPI GENITOURINARY: Denies dysuria or hematuria. SKIN: Denies rash or itching. MUSCULOSKELETAL: Denies back pain, joint pain, or myalgia. NEUROLOGIC: Denies headache, numbness, dizziness, or weakness. PSYCHIATRIC: Denies anxiety or depression. <Eugenia Snell PA-C - Last Filed: 11/17/22 04:14> [facility] Past Medical History Medical History: Medical History (Updated 11/19/22 @ 10:31 by Alfredito Multani MD) Acute ischemic colitis Bloody diarrhea BPH (benign prostatic hyperplasia) CAD (coronary artery disease) Diabetes HTN (hypertension) Hyperlipidemia Insulin pump in place Irregular heart beat JEAN CLAUDE (obstructive sleep apnea) Osteoarthritis Red blood cell abnormality Seizure disorder <Eugenia Snell PA-C - Last Filed: 11/17/22 04:14> Surgical History Surgical History: Surgical History Stented coronary a
--- NOTE | 2022-11-17 04:11 | ECG_ITS ---
Measurements Intervals [place] Rate: 69 P: 51 [place]: 156 QRS: 67 QRSD: 109 T: 44 QT: 431 QTc: 463 Interpretive Statements SINUS RHYTHM WITH FREQUENT VENTRICULAR PREMATURE COMPLEXES NONSPECIFIC T-WAVE ABNORMALITY ABNORMAL ECG COMPARED TO ECG 03/09/2022 10:54:29 T-WAVE ABNORMALITY NOW PRESENT Electronically Signed On 11-17-2022 13:46:27 CDT by Zion Demspey M.D.
[2022-11-17] MEDS: SODIUM CHLORIDE 0.9% IV 1,000 ML 999 ML IV CONT (04:26)
[2022-11-17] MEDS: MORPHINE SULFATE (*CRX) 4 MG/ML INJ IV PUSH (04:26)
[2022-11-17] MEDS: ONDANSETRON INJ 4 MG/2 ML VIAL IV PUSH (04:27)
[2022-11-17 04:40] LABS: Lipase 133 U/L (23-300)
[2022-11-17 04:41] LABS: Lactic Acid Reflex 1.4 mmol/L (0.7-2.0)
[2022-11-17 04:53] LABS: Troponin I 0.016 ng/mL (0.000-0.034)
[2022-11-17] MEDS: PIPERACILLN/TAZ 3.375GM/NS50ML 3.375 GM/50 ML BAG IVPB ×3 (05:36→19:35)
[2022-11-17 07:41] LABS: Hemoglobin 10.7 g/dL (14.0-18.0)
[2022-11-17 08:03] LABS: Troponin I < 0.012 ng/mL (0.000-0.034)
[2022-11-17] MEDS: HYDROmorphone HCL INJ (*CRX) 1 MG/ML SYR IV PUSH (10:42)
--- NOTE | 2022-11-17 11:03 | PC.NURSE ---
Pt accepted to [facility], no current bed assignment.Pt condition reported
[2022-11-17 11:41] LABS: Appearance Urine Clear (Clear); Bilirubin Urine Negative (Negative); Blood Urine Negative (Negative); Color Urine Yellow (Yellow); Glucose Urine UA Negative (Negative); Ketones Urine Negative (Negative); Leukocyte Esterase Ur Negative LEU/UL (Negative); Nitrate Urine Negative (Negative); Protein Urine Negative (Negative); Specific Grav Ur 1.025 (1.001-1.035); Urobilinogen Urine 0.2 mg/dL (<2.0)
[2022-11-17 11:48] LABS: Add Urine Microscopic? NO
[2022-11-17] MEDS: SODIUM CHLORIDE 0.9% IV 1,000 ML 125 ML IV CONT (11:48)
--- NOTE | 2022-11-17 17:09 | PC.NURSE ---
placed pt in a hospital bed at this time
[2022-11-17 17:17] LABS: Hematocrit 34.3 % (42.0-52.0); Hemoglobin 11.2 g/dL (14.0-18.0)
[2022-11-17 17:32] LABS: Anion Gap 5 mmol/L (8-16); Blood Urea Nitrogen 12 mg/dL (9-20); Calcium 7.8 mg/dL (8.4-10.2); Carbon Dioxide 27 mmol/L (22-30); Chloride 104 mmol/L (98-107); Estimated CRCL calculation 67 ml/min; Estimated Glomerular Filt Rate > 60; Glucose 135 mg/dL (65-110); Potassium 4.3 mmol/L (3.4-5.0); Sodium 136 mmol/L (137-145)
--- NOTE | 2022-11-17 22:13 | PC.NURSE ---
RN spoke with Ludivina at [facility] transfer center. Pt is still on the waitlist and unknown bed status.
[2022-11-17] MEDS: levETIRAcetam 500 MG TABLET 1000 MG PO (23:36)
[2022-11-18] VITALS (42 sets, daily range): BP systolic 112–175; BP diastolic 55–76; PULSE 80–114; RESP 11–21; TEMP 36.5–36.7; O2SAT 95–99; BMI 21.7
[2022-11-18] MEDS: PIPERACILLN/TAZ 3.375GM/NS50ML 3.375 GM/50 ML BAG IVPB ×4 (02:26→18:34)
[2022-11-18] MEDS: PHENYTOIN SODIUM 100 MG EXTENDED RELEASE CAP 200 MG PO (02:30)
--- NOTE | 2022-11-18 07:45 | PC.NURSE ---
This patient, Pablo Almeida, was admitted to [facility] Surg Room 329-01. Patient/family oriented to hospital policies and general routines including ID bracelet, bed and alarms, visiting hours, pain management, procedures, bathroom and other care routines, personal items, smoking policy, room service/diet, and visiting hours. Information on how to activate the Rapid Response Team has been discussed. Patient/Family are encouraged to report perceived risks to care and to ask questions if they do not understand what they are told or what they should do.
[2022-11-18 08:48] LABS: Hematocrit 31.1 % (42.0-52.0); Hemoglobin 10.4 g/dL (14.0-18.0)
[2022-11-18] MEDS: SIMVASTATIN 20 MG TABLET 40 MG PO (10:15)
[2022-11-18] MEDS: ISOSORBIDE MONONITRATE 30 MG TAB.ER.24H PO (10:15)
[2022-11-18] MEDS: METOPROLOL TARTRATE 25 MG TABLET PO ×2 (10:15→21:27)
[2022-11-18] MEDS: MULTIVITAMINS THERAPEUTIC TAB (*BKC) 1 TABLET PO (10:16)
[2022-11-18] MEDS: lisinopriL 20 MG TABLET PO (10:16)
[2022-11-18] MEDS: levETIRAcetam 500 MG TABLET 2000 MG BY MOUTH ×2 (10:16→21:26)
[2022-11-18] MEDS: ASPIRIN 81 MG ENTERIC TABLET PO (10:17)
[2022-11-18] MEDS: FINASTERIDE 5 MG TABLET PO (10:17)
[2022-11-18] MEDS: PHENYTOIN SODIUM 100 MG EXTENDED RELEASE CAP BY MOUTH (10:17)
[2022-11-18] MEDS: FUROSEMIDE 20 MG TABLET PO (10:18)
[2022-11-18] MEDS: DORZOLAMIDE/TIMOLOL OPHTH SOL 10 ML BOTTLE 1 DROP EACH EYE ×2 (10:18→21:26)
[2022-11-18] MEDS: LATANOPROST 0.005% OP SOLN 2.5 ML BTL 1 DROP EACH EYE (10:18)
[2022-11-18] MEDS: LACOSAMIDE (*CRX) 100 MG TABLET PO ×2 (10:25→17:33)
[2022-11-18 11:45] LABS: Glucose Point of Care 122 mg/dl (65-105)
--- NOTE | 2022-11-18 12:19 | PM.IMHP ---
H&P: HPI History of Present Illness Date/Time: 11/18/22 12:19 Chief Complaint: Abdominal pain and rectal bleeding Narrative: ED-HPI Narrative: ? ? ? 77-year-old male with a history of diabetes, seizure disorder, ischemic colitis reports for evaluation of abdominal pain and hematochezia that started 5 hours ago.? Patient states 5 hours ago he began having severe generalized abdominal pain that is similar to his previous episodes of ischemic colitis, and had an episode of vomiting with diaphoresis.? States 2 and half hours ago, he had a large volume of stool followed by a large amount of bright red blood per rectum that filled the toilet bowl.? Patient has not had an episode of hematochezia or a bowel movement since.? He reports 2 previous episodes of ischemic colitis. He saw a GI specialist about 10 years ago for ischemic colitis who did not perform any interventions at that time.? He has not been evaluated since.? Patient is taking aspirin and Plavix, he is not on anticoagulants.? Denies fever, body aches, chills, chest pain, shortness of breath, urinary complaints. Currently patient states the pain has improved and bleeding had resolved since yesterday, denies any abdominal pain nausea or vomiting, patient hemoglobin is slightly trending down will continue to monitor, patient has been accepted for transfer by GI department at [facility] however will consult GI and surgery service for further recommendation, will continue to monitor. Patient is admitted as observation status Review of Systems Review of Systems: CONSTITUTIONAL: Denies fever, chills EYES: Denies visual changes, redness, or discharge. ENT: Denies rhinorrhea, congestion, sore throat, or otalgia. CARDIOVASCULAR: Denies chest pain, palpitations, or edema. RESPIRATORY: Denies cough or dyspnea. GASTROINTESTINAL: See HPI GENITOURINARY: Denies dysuria or hematuria. SKIN: Denies rash or itching. MUSCULOSKELETAL: Denies back pain, joint pain, or myalgia. NEUROLOGIC: Denies headache, numbness, dizziness, or weakness. PSYCHIATRIC: Denies anxiety or depression. [facility] Past Medical History Medical History Irregular heart beat Red blood cell abnormality Surgical History Surgical History Stented coronary artery Family History Family History Father Heart disease Diabetes mellitus Heart attack Mother Diabetes mellitus Lung cancer Social History Social History Smoking packs per day: 3 Smoking cigarettes per day: 60.0 Years smoked: 30 Smoking pack-years: 90.00 Smoking status: Former smoker Tobacco type: cigarettes Second hand tobacco smoke exposure: Yes Smoking end date: 08/11/99 Alcohol intake: never Substance use: never Lack of Transportation: No Lack of Food: Never True Current Housing: I Have Housing Concerned About Future Housing: No Difficulty Paying Gas/Electric Bills: No Difficulty Paying for Meds: No Currently Unemployed: No Education: Decline to Answer Difficulty w/ Childcare or Family Care: No Spiritual care concerns: No Meds Home Medications and Allergies Home Medications Medication Instructions Recorded Confirmed Type aspirin 81 mg tablet,delayed 81 mg PO DAILY 02/21/21 11/18/22 History release (Day Low Dose Aspirin) dorzolamide-timolol (PF) 2 %-0.5 % 1 drp EACH EYE BID 02/21/21 11/18/22 History eye drops in a dropperette finasteride 5 mg tablet 5 mg PO DAILY 02/21/21 11/18/22 History insulin lispro 100 unit/mL 100 unit subcut DAILY 02/21/21 11/17/22 History subcutaneous pen latanoprost 0.005 % eye drops 1 drp EACH EYE HS 02/21/21 11/18/22 History multivitamin 1 tablet PO DAILY 02/21/21 11/18/22 History simvastatin 40 mg tablet 40 mg PO HS 02/21/21 11/18/22 History furosemide 40 mg tablet 20 mg
[2022-11-18 12:32] LABS: Anion Gap 4 mmol/L (8-16); Blood Urea Nitrogen 10 mg/dL (9-20); Calcium 7.5 mg/dL (8.4-10.2); Carbon Dioxide 24 mmol/L (22-30); Chloride 105 mmol/L (98-107); Estimated CRCL calculation 67 ml/min; Estimated Glomerular Filt Rate > 60; Glucose 129 mg/dL (65-110); Potassium 3.9 mmol/L (3.4-5.0); Sodium 133 mmol/L (137-145)
--- NOTE | 2022-11-18 13:11 | WPDGICN ---
Assessment and Plan Assessment and plan (1) Bloody diarrhea: Code(s): R19.7 - Diarrhea, unspecified Status: Acute Assessment and Plan: Bloody diarrhea noted admission. Differential diagnosis includes ischemic colitis because of patient's prior history as well as infectious colitis. Plan for broad-spectrum antibiotic coverage. Colonoscopy will be performed after preparation. It is noted patient's white count is elevated. His lactic acid level is normal. He has had a stable hemoglobin with only slight decline since admission. (2) Acute ischemic colitis: Code(s): K55.039 - Acute (reversible) ischemia of large intestine, extent unspecified Status: Acute Assessment and Plan: Patient gives a prior diagnosis of ischemic colitis with several episodes intermittently over the last 20 years. This appears consistent with CT scan imaging which shows atherosclerosis. Although no specific colitis identified. Nonspecific air-fluid levels were identified the small bowel. Clinically this has resolved. Plan to proceed with colonoscopy tomorrow. GI Consult Note Consult date/time: 11/18/22 13:11 Reason for consult: Lower GI bleeding, abdominal pain. HPI: Pablo Almeida is a 77 year old male In usual state of health till Friday evening. Friday evening he developed rather significant low abdominal pain. He ultimately developed rather significant diarrhea that became bloody with bright red blood. For this reason he went to the emergency room. CT scan imaging revealed some evidence of colitis. Patient was noted to have significant atherosclerosis. Patient reports that the abdominal pain has since abated over the of intervening day. He no longer has ongoing diarrhea stools. Fact he has had no recent stools. He has been kept NPO. Patient reports that 20 years ago was diagnosed with ischemic colitis. He has had several bouts of abdominal pain diarrhea and bleeding very similar to what occurred over the weekend. He states that typically were not this severe. Most recent episode was fiber 6 years ago. Previously treated in [place] as well as [facility]. He has never required surgery. Recent past history is significant for heart stent placement. He has been maintained on Plavix and aspirin. Patient currently denies any fever. He denies any recent travel. No one else in the family has been ill. Review of Systems Review of Systems: Review of systems noncontributory. [facility] Past Medical History Medical History Irregular heart beat Red blood cell abnormality Surgical History Surgical History Stented coronary artery Family History Family History Father Heart disease Diabetes mellitus Heart attack Mother Diabetes mellitus Lung cancer Social History Social History Smoking packs per day: 3 Smoking cigarettes per day: 60.0 Years smoked: 30 Smoking pack-years: 90.00 Smoking status: Former smoker Tobacco type: cigarettes Second hand tobacco smoke exposure: Yes Smoking end date: 08/11/99 Alcohol intake: never Substance use: never Lack of Transportation: No Lack of Food: Never True Current Housing: I Have Housing Concerned About Future Housing: No Difficulty Paying Gas/Electric Bills: No Difficulty Paying for Meds: No Currently Unemployed: No Education: Decline to Answer Difficulty w/ Childcare or Family Care: No Spiritual care concerns: No Meds Home Medications and Allergies Home Medications Medication Instructions Recorded Confirmed Type aspirin 81 mg tablet,delayed 81 mg PO DAILY 02/21/21 11/18/22 History release (Day Low Dose Aspirin) dorzolamide-timolol (PF) 2 %-0.5 % 1 drp EACH EYE BID 02/21/21 11/18/22 History ey
--- NOTE | 2022-11-18 15:24 | PM.CNGS ---
Assessment and Plan Assessment and plan (1) Acute ischemic colitis: Code(s): K55.039 - Acute (reversible) ischemia of large intestine, extent unspecified Status: Acute Assessment and Plan: exam benign today, lactate is normal, ok to have clears, plan for colonoscopy per GI tomorrow History of Present Illness Consult details Consult date: 11/18/22 Reason for consult: abdominal pain Requesting physician: Ludwin Dasilva MD Narrative: The patient is in the 77-year-old male presenting to the hospital complaining of severe lower abdominal pain associated with diarrhea and bright red blood per rectum. The patient reports that this started acutely early Friday morning and progressed through the day on Friday. The patient reports similar episodes in the past, stating he has a history of ischemic colitis. The patient denies any previous surgical intervention. Imaging in the emergency department is consistent with possible ischemic colitis. Of note, the patient reports that he has felt much better as of this morning. He reports that his abdominal pain is largely resolved at this time and he is hungry. Review of Systems Constitutional: Constitutional: Reports as per HPI, Reports anorexia, Denies chills, Reports fatigue, Denies fever(s), Denies increased appetite, Reports lethargy, Denies malaise, Reports poor appetite, Denies weakness, Denies weight gain and Denies weight loss Eyes: Eyes: Reports no additional eye complaints ENT: Reports system reviewed and no additional complaints, except as documented Cardiovascular: Cardiovascular: Reports no additional cardiovascular complaints Respiratory: Respiratory: Reports no additional respiratory complaints Gastrointestinal: Gastrointestinal: Reports as per HPI, Reports abdominal pain, Reports hematochezia, Reports change in bowel habits, Reports change in stool character, Reports GI cramping, Reports diarrhea, Reports loose stools, Denies nausea, Denies vomiting and Denies hematemesis Genitourinary: Genitourinary: Reports no additional male genitourinary complaints Musculoskeletal: Musculoskeletal: Reports no additional musculoskeletal complaints Integumentary/Breasts: Skin/Breast: Reports system reviewed and no additional complaints, except as docu Neurologic: Reports system reviewed and no additional complaints, except as documented Psychiatric: Psychiatric: Reports no additional psychiatric complaints Endocrine: Endocrine: Reports no additional endocrine complaints Hematologic/Lymphatic: Hematologic/Lymphatic: Reports no additional hematologic/lymphatic complaints Allergic/Immunologic: Allergic/Immunologic: Reports no additional allergic/immunologic complaints PMFSH Past Medical History Medical History Irregular heart beat Red blood cell abnormality Surgical History Surgical History Stented coronary artery Family History Family History Father Heart disease Diabetes mellitus Heart attack Mother Diabetes mellitus Lung cancer Social History Social History Smoking packs per day: 3 Smoking cigarettes per day: 60.0 Years smoked: 30 Smoking pack-years: 90.00 Smoking status: Former smoker Tobacco type: cigarettes Second hand tobacco smoke exposure: Yes Smoking end date: 08/11/99 Alcohol intake: never Substance use: never Lack of Transportation: No Lack of Food: Never True Current Housing: I Have Housing Concerned About Future Housing: No Difficulty Paying Gas/Electric Bills: No Difficulty Paying for Meds: No Currently Unemployed: No Education: Decline to Answer Difficulty w/ Childcare or Family Care: No Spiritual care concerns: No Meds Home Medications and Allergies Home Medications Me
[2022-11-18 17:06] LABS: Glucose Point of Care 137 mg/dl (65-105)
[2022-11-18] MEDS: PEG (High)/E-LYTE SOLN 4,000 ML BTL 4000 ML PO (17:28)
[2022-11-18 17:50] LABS: Hematocrit 29.6 % (42.0-52.0); Hemoglobin 9.6 g/dL (14.0-18.0)
[2022-11-18 21:24] LABS: Glucose Point of Care 177 mg/dl (65-105)
[2022-11-18] MEDS: PHENYTOIN SODIUM 100 MG EXTENDED RELEASE CAP 200 MG BY MOUTH (21:27)
[2022-11-19] VITALS (16 sets, daily range): BP systolic 108–149; BP diastolic 49–70; PULSE 66–98; RESP 16–19; TEMP 36.4–36.8; O2SAT 96–100
[2022-11-19] MEDS: PIPERACILLN/TAZ 3.375GM/NS50ML 3.375 GM/50 ML BAG IVPB ×3 (00:03→12:20)
[2022-11-19 01:17] LABS: Hematocrit 28.8 % (42.0-52.0); Hemoglobin 9.6 g/dL (14.0-18.0)
[2022-11-19 07:14] LABS: Hematocrit 28.9 % (42.0-52.0); Hemoglobin 9.5 g/dL (14.0-18.0)
--- NOTE | 2022-11-19 08:07 | PM.PNGS ---
Progress Note: A&P Assessment and Plan (1) Acute ischemic colitis: Code(s): K55.039 - Acute (reversible) ischemia of large intestine, extent unspecified Status: Acute Assessment and Plan: exam benign, await scope today Subjective Subjective Date/Time Seen: 11/19/22 08:07 no acute issues overnight, autumn clears, awaiting colonoscopy today Review of Systems Review of Systems: All systems reviewed & are unremarkable except as noted in HPI and below Exam Const: General: cooperative, comfortable and no acute distress Resp: Auscultation: clear to auscultation bilaterally Cardio: Rate: regular rate Rhythm: regular rhythm GI: Inspection: normal to inspection and non-distended GI Palp: No abdominal tenderness, Yes Soft to palpation, No Tenderness to palpation present (GI), No Guarding due to palpation present (GI) and No Rigid due to palpation Objective Data Vital Signs Vital Signs: Vital Signs - 24 hr 11/18/22 10:15 11/18/22 14:00 11/18/22 12:00 Temperature 36.6 C Pulse Rate 101 H 90 85 Respiratory Rate 16 Blood Pressure 112/55 L Pulse Oximetry 96 Oxygen Delivery 11/18/22 16:00 11/18/22 20:00 11/18/22 22:00 Temperature 36.5 C Pulse Rate 86 86 101 H Respiratory Rate 16 16 Blood Pressure 155/62 H Pulse Oximetry 96 99 Oxygen Delivery Room Air 11/19/22 00:00 11/19/22 04:00 11/19/22 05:43 Temperature 36.5 C Pulse Rate 98 83 82 Respiratory Rate 16 Blood Pressure 125/49 L Pulse Oximetry 97 Oxygen Delivery Intake/Output Intake/Output: Intake & Output 11/16/22 11/17/22 11/18/22 11/19/22 23:59 23:59 23:59 23:59 Intake Total 2200 370 250 Output Total 1000 1500 500 Balance 1200 -1130 -250 Meds/Results Medications: Active Medications Generic Name Dose Route Start Last Admin Trade Name Freq PRN Reason Stop Dose Admin Aspirin 81 mg 11/18/22 09:00 11/18/22 10:17 Aspirin 81 Mg Enteric Tablet PO 81 mg DAILY RODOLFO Administration Dextrose 12.5 gm 11/18/22 12:05 Dextrose 50% 25 Gm/50 Ml Syringe IV PUSH PRN PRN Hypoglycemia Protocol Dorzolamide/Timolol 1 drop 11/18/22 09:00 11/18/22 21:26 Dorzolamide/Timolol Ophth Tiffany 10 Ml Bottle EACH EYE 1 drop Q12HR RODOLFO Administration Finasteride 5 mg 11/18/22 09:00 11/18/22 10:17 Finasteride 5 Mg Tablet PO 5 mg DAILY RODOLFO Administration Furosemide 20 mg 11/18/22 09:00 11/18/22 10:18 Furosemide 20 Mg Tablet PO 20 mg DAILY RODOLFO Administration Glucagon 1 mg 11/18/22 12:05 Glucagon For Inj 1 Mg Vial IM PRN PRN Hypoglycemia Protocol Glucose 15 gm 11/18/22 12:05 Glucose Oral Gel 15 Gm Of Glucse In 37.5 Gm Tube PO PRN PRN Hypoglycemia Protocol Dextrose 1,000 mls @ 100 mls/hr 11/18/22 12:05 Dextrose 5% 1,000 Ml IVPB PRN PRN Hypoglycemia Protocol Piperacillin/Tazobactam/Dextrose 3.375 gm in 50 mls @ 100 mls/hr 11/18/22 14:00 11/19/22 05:45 Zosyn 3.375 Gm/Ns 50 Ml IVPB Infused Q6HR RODOLFO Infusion Insulin Human Regular 0 each 11/18/22 14:00 11/19/22 06:31 Insulin Lispro Insulin Pump XX 6 each Q8HR RODOLFO Administration Isosorbide Mononitrate 30 mg 11/18/22 09:00 11/18/22 10:15 Isosorbide Mononitrate 30 Mg Tab.Er.24h PO 30 mg DAILY RODOLFO Administration Lacosamide 100 mg 11/18/22 09:00 11/18/22 17:33 Lacosamide (*Crx) 100 Mg Tablet PO 100 mg BID RODOLFO Administration Latanoprost 1 drop 11/18/22 09:00 11/18/22 10:18 Latanoprost 0.005% Op Soln 2.5 Ml Btl EACH EYE 1 drop DAILY RODOLFO Administration Levetiracetam 2,000 mg 11/18/22 09:00 11/18/22 21:26 Levetiracetam 500 Mg Tablet BY MOUTH 2,000 mg Q12HR RODOLFO Administration Lisinopril 20 mg 11/18/22 09:00 11/18/22 10:16 Lisinopril 20 Mg Tablet PO 20 mg QAM RODOLFO Administration Metoprolol Tartrate 25 mg 11/18/22 09:00 11/18/22 21:27 Metoprolol Tartrate 25 Mg Tablet PO 25 m
[2022-11-19 08:12] LABS: Glucose Point of Care 162 mg/dl (65-105)
[2022-11-19] MEDS: DORZOLAMIDE/TIMOLOL OPHTH SOL 10 ML BOTTLE 1 DROP EACH EYE ×2 (09:09→20:26)
[2022-11-19] MEDS: lisinopriL 20 MG TABLET PO (09:13)
[2022-11-19] MEDS: levETIRAcetam 500 MG TABLET 2000 MG BY MOUTH ×2 (09:13→20:26)
[2022-11-19] MEDS: METOPROLOL TARTRATE 25 MG TABLET PO ×2 (09:14→20:25)
[2022-11-19] MEDS: PHENYTOIN SODIUM 100 MG EXTENDED RELEASE CAP BY MOUTH (09:14)
[2022-11-19] MEDS: LACOSAMIDE (*CRX) 100 MG TABLET PO ×2 (09:17→17:43)
[2022-11-19] MEDS: FUROSEMIDE 20 MG TABLET PO (09:17)
[2022-11-19] MEDS: ISOSORBIDE MONONITRATE 30 MG TAB.ER.24H PO (09:18)
--- NOTE | 2022-11-19 09:45 | PC.NURSE ---
To GI lab via [employer].
[2022-11-19 10:24] LABS: Glucose Point of Care 129 mg/dl (65-105)
[2022-11-19] MEDS: LACTATED RINGERS 1,000 ML 150 ML IV CONT (10:25)
--- NOTE | 2022-11-19 10:29 | WPDANESEPPF ---
Anes - Initial Pre Proc Eval Procedure: Operation Date: 11/19/22 14:15 Proposed Procedures p Colonoscopy - Thomas Beach MD Date/Time: 11/19/22 10:29 Surgeon: Terrie Mcintyre MD Pre Op Diagnosis: Ischemic Colitis,bloody stool Patient Data Age: 77 Gender: M Height: 1.7 m Weight: 63.1 kg Last Vital Signs Temp 36.6 C 11/19/22 10:13 Pulse 69 11/19/22 10:13 Resp 16 11/19/22 10:13 BP 127/56 L 11/19/22 10:13 Pulse Ox 97 11/19/22 10:13 O2 Del Method Room Air 11/19/22 10:13 Allergies Allergy/AdvReac Type Severity Reaction Status Date / Time No Known Allergies Allergy Unknown Other Verified 11/19/22 10:10 Home Medications Medication Instructions Recorded Confirmed Type aspirin 81 mg tablet,delayed 81 mg PO DAILY 02/21/21 11/18/22 History release (Day Low Dose Aspirin) dorzolamide-timolol (PF) 2 %-0.5 % 1 drp EACH EYE BID 02/21/21 11/18/22 History eye drops in a dropperette finasteride 5 mg tablet 5 mg PO DAILY 02/21/21 11/18/22 History insulin lispro 100 unit/mL 100 unit subcut DAILY 02/21/21 11/17/22 History subcutaneous pen latanoprost 0.005 % eye drops 1 drp EACH EYE HS 02/21/21 11/18/22 History multivitamin 1 tablet PO DAILY 02/21/21 11/18/22 History simvastatin 40 mg tablet 40 mg PO HS 02/21/21 11/18/22 History furosemide 40 mg tablet 20 mg PO DAILY 10/05/21 11/18/22 History metoprolol tartrate 25 mg tablet 25 mg PO BID 10/05/21 11/18/22 History simethicone 125 mg tablet 125 mg PO TID PRN (Drug) Ingestion 10/05/21 11/18/22 History clopidogrel 75 mg tablet 75 mg PO DAILY 12/25/21 11/18/22 History isosorbide mononitrate 30 mg 30 mg PO DAILY 12/25/21 11/18/22 History tablet,extended release 24 hr phenytoin sodium extended 100 mg See Rx Instructions .Route 03/01/22 11/18/22 Rx capsule .COMPLEX #270 caps tamsulosin 0.4 mg capsule 0.4 mg PO 1700 03/20/22 11/18/22 History levetiracetam 1,000 mg tablet See Rx Instructions .Route 03/26/22 11/18/22 Rx .COMPLEX #360 tabs lacosamide 100 mg tablet 100 mg PO BID #60 tabs 07/29/22 11/18/22 Rx lisinopril 20 mg tablet 20 mg PO DAILY 11/18/22 11/18/22 History Laboratory Tests 11/18/22 11/18/22 11/18/22 08:41 08:41 11:41 Hgb Hct Sodium 133 mmol/L L mmol/L (137-145) Potassium 3.9 mmol/L mmol/L (3.4-5.0) Chloride 105 mmol/L mmol/L (98-107) Carbon Dioxide 24 mmol/L mmol/L (22-30) Anion Gap 4 mmol/L L mmol/L (8-16) BUN 10 mg/dL mg/dL (9-20) Creatinine 0.70 mg/dL mg/dL (0.7-1.3) Estim Creat Clear Calc 67 ml/min ml/min Estimated GFR > 60 (59 - ) Glucose 129 mg/dL H mg/dL (65-110) POC Capillary Glucose 122 mg/dl H mg/dl (65-105) Calcium 7.5 mg/dL L mg/dL (8.4-10.2) Magnesium Cancelled 2.0 mg/dL mg/dL (1.6-2.3) 11/18/22 11/18/22 11/18/22 17:01 17:39 20:42 Hgb 9.6 g/dL L g/dL (14.0-18.0) Hct 29.6 % L % (42.0-52.0) Sodium Potassium Chloride Carbon Dioxide Anion Gap BUN Creatinine Estim Creat Clear Calc Estimated GFR Glucose POC Capillary Glucose 137 mg/dl H mg/dl 177 mg/dl H mg/dl (65-105) (65-105) Calcium Magnesium 11/19/22 11/19/22 11/19/22 00:39 06:58 07:57 Hgb 9.6 g/dL L g/dL 9.5 g/dL L g/dL (14.0-18.0) (14.0-18.0) Hct 28.8 % L % 28.9 % L % (42.0-52.0) (42.0-52.0) Sodium Potassium Chloride Carbon Dioxide Anion Gap BUN Creatinine Estim Creat Clear Calc Estimated GFR Glucose POC Capillary Glucose 162 mg/dl H mg/dl (65-105) Calcium Magnesium 11/19/22 10:21 Hgb H
--- NOTE | 2022-11-19 11:45 | PC.NURSE ---
Pt returned to floor from GI lab via stretcher.
[2022-11-19 12:05] LABS: Glucose Point of Care 162 mg/dl (65-105)
[2022-11-19] MEDS: MULTIVITAMINS THERAPEUTIC TAB (*BKC) 1 TABLET PO (12:21)
[2022-11-19] MEDS: FINASTERIDE 5 MG TABLET PO (12:22)
[2022-11-19] MEDS: SIMVASTATIN 20 MG TABLET 40 MG PO (12:22)
[2022-11-19] MEDS: ASPIRIN 81 MG ENTERIC TABLET PO (12:22)
[2022-11-19] MEDS: TAMSULOSIN HCL 0.4 MG CAPSULE PO (12:22)
--- NOTE | 2022-11-19 13:02 | PM.IMPN ---
Progress Note: A&P Assessment and Plan (1) Acute ischemic colitis: Code(s): K55.039 - Acute (reversible) ischemia of large intestine, extent unspecified Status: Acute Assessment and Plan: 11/18: patient states the pain has improved and bleeding had resolved since yesterday, denies any abdominal pain nausea or vomiting, patient hemoglobin is slightly trending down will continue to monitor Patient has been accepted for transfer by GI department at [facility] however will consult GI and surgery service for further recommendation, will continue to monitor. Zosyn started 11/18 11/19: GI saw the patient and recommended a colonoscopy which was completed this morning, surgery consult appreciated, recommended scope by GI, day 2 of Zosyn Colonoscopy from 11/19 showed left-sided colitis concerning for ischemic colitis, cannot exclude infectious etiology, biopsies taken and pending, GI is recommending 7-10 days of empiric antibiotic treatment, okay to discharge when pain and diarrhea improved, advanced diet and activity as tolerated (2) Seizure disorder: Code(s): G40.909 - Epilepsy, unspecified, not intractable, without status epilepticus Status: Acute Assessment and Plan: Patient remains clinically stable will continue home regimen Plan DVT prophylaxis with SCDs GI prophylaxis not indicated Code status full code Subjective Date/time seen: 11/19/22 13:02 Interval history: 77-year-old male with a history of diabetes, seizure disorder, ischemic colitis reports for evaluation of abdominal pain and hematochezia that started 5 hours before presenting to the ER.?Patient states he had severe generalized abdominal pain that is similar to his previous episodes of ischemic colitis, and had an episode of vomiting with diaphoresis.?States prior to coming to the ER he had a large volume of stool followed by a large amount of bright red blood per rectum that filled the toilet bowl.?Patient has not had an episode of hematochezia or a bowel movement since. He reports 2 previous episodes of ischemic colitis. He saw a GI specialist about 10 years ago for ischemic colitis who did not perform any interventions at that time.? He has not been evaluated since.?Patient is taking aspirin and Plavix, he is not on anticoagulants. Denies fever, body aches, chills, chest pain, shortness of breath, urinary complaints. No overnight events noted. No chest pain or shortness of breath. No nausea, vomiting or diarrhea. No fevers or chills. Review of Systems Review of Systems: 12 point review of systems was assessed and was negative except as noted in the HPI Exam Narrative: General: No acute distress, alert and oriented per baseline HEENT: Atraumatic, normocephalic, mucous membranes moist CV: Regular rate and rhythm, S1, S2 Lungs: Clear to auscultation bilaterally, no rales or crackles noted, no wheezes, good air entry Abdomen: Soft, nontender, nondistended Extremities: Normal to inspection Skin: No rashes noted, no lesions or wounds seen Psych: Euthymic, normal affect Objective Data Vital Signs Vital Signs: Vital Signs - 24 hr 11/18/22 14:00 11/18/22 16:00 11/18/22 20:00 Temperature 98 F Pulse Rate 90 86 86 Respiratory Rate 16 16 Blood Pressure 112/55 L Pulse Oximetry 96 96 Oxygen Delivery Room Air 11/18/22 22:00 11/19/22 00:00 11/19/22 04:00 Temperature 97.7 F Pulse Rate 101 H 98 83 Respiratory Rate 16 Blood Pressure 155/62 H Pulse Oximetry 99 Oxygen Delivery 11/19/22 05:43 11/19/22 09:14 11/19/22 10:13 Temperature 97.7 F 97.8 F Pulse Rate 82 88 69 Respiratory Rate 16 16 Blood Pressure 125/49 L 127/56 L Pulse Oximetry 97 97 Oxygen Delivery Room Air 11/19/22 11:11 11/19/22 11:21 11/19/22 11:31 Temperature Pulse Rate 75 82 74 Respiratory Rate 17 19 19 Blood Pressure 108/49 L 126/61 143/70 H Pulse Oximetry 96 100 100 Oxygen Delivery Room Air R
[2022-11-19 13:35] LABS: Hematocrit 27.6 % (42.0-52.0)
[2022-11-19 16:51] LABS: Glucose Point of Care 155 mg/dl (65-105)
[2022-11-19 19:04] LABS: Hematocrit 25.8 % (42.0-52.0); Hemoglobin 8.6 g/dL (14.0-18.0)
[2022-11-19] MEDS: CIPROFLOXACIN 500 MG TAB PO (20:25)
[2022-11-19] MEDS: PHENYTOIN SODIUM 100 MG EXTENDED RELEASE CAP 200 MG BY MOUTH (20:32)
[2022-11-19 21:35] LABS: Glucose Point of Care 262 mg/dl (65-105)
[2022-11-19] MEDS: metroNIDAZOLE 250 MG TABLET 500 MG PO (22:36)
[2022-11-20] VITALS: PULSE 88
[2022-11-20 01:00] LABS: Hematocrit 26.2 % (42.0-52.0); Hemoglobin 8.9 g/dL (14.0-18.0)
[2022-11-20 04:00] VITALS: PULSE 91
[2022-11-20 05:03] VITALS: BP 125/58; PULSE 93; RESP 16; TEMP 36.6; O2SAT 95
[2022-11-20] MEDS: metroNIDAZOLE 250 MG TABLET 500 MG PO ×2 (05:24→13:46)
[2022-11-20 06:34] LABS: Hematocrit 26.6 % (42.0-52.0); Hemoglobin 8.7 g/dL (14.0-18.0)
[2022-11-20 08:00] VITALS: PULSE 108
[2022-11-20 08:02] LABS: Glucose Point of Care 152 mg/dl (65-105)
--- NOTE | 2022-11-20 08:14 | WPDGIPROGNO ---
Progress Note: A&P Assessment and Plan (1) Acute ischemic colitis: Code(s): K55.039 - Acute (reversible) ischemia of large intestine, extent unspecified Status: Acute Assessment and Plan: Patient with acute episode of colitis most consistent with ischemic colitis. This should improve with conservative management. Recommend completing 1 week broad-spectrum antibiotics after discharge. If diarrhea or abdominal pain persists follow-up in the office GI office electively, otherwise follow-up with primary care office as scheduled. Subjective Date/time seen: 11/20/22 08:14 Interval history: Patient alert comfortable this morning. Tolerating diet with no pain. Denies any ongoing diarrhea or bleeding. Anxious to go home. Review of Systems Review of Systems: Review of systems noncontributory. Exam Narrative: Physical exam reveals patient be alert. Vital signs stable. HEENT exam unremarkable. Patient anicteric. Lungs are clear. Heart without murmur. Abdomen bowel sounds present soft nontender with no organomegaly. Objective Data Vital Signs Vital Signs: Vital Signs - 24 hr 11/19/22 09:14 11/19/22 10:13 11/19/22 11:11 Temperature 97.8 F Pulse Rate 88 69 75 Respiratory Rate 16 17 Blood Pressure 127/56 L 108/49 L Pulse Oximetry 97 96 Oxygen Delivery Room Air Room Air 11/19/22 11:21 11/19/22 11:31 11/19/22 12:30 Temperature 98.2 F Pulse Rate 82 74 74 Respiratory Rate 19 19 18 Blood Pressure 126/61 143/70 H 130/69 Pulse Oximetry 100 100 100 Oxygen Delivery Room Air Room Air 11/19/22 14:56 11/19/22 09:15 11/19/22 12:00 Temperature Pulse Rate 66 Respiratory Rate Blood Pressure Pulse Oximetry 97 Oxygen Delivery Room Air Room Air 11/19/22 14:07 11/19/22 16:00 11/19/22 21:38 Temperature 97.5 F L 97.6 F Pulse Rate 78 79 97 Respiratory Rate 16 16 Blood Pressure 123/69 149/59 H Pulse Oximetry 97 96 Oxygen Delivery 11/19/22 20:00 11/19/22 20:00 11/20/22 00:00 Temperature Pulse Rate 94 88 Respiratory Rate Blood Pressure Pulse Oximetry Oxygen Delivery Room Air 11/20/22 04:00 11/20/22 05:03 Temperature 97.8 F Pulse Rate 91 93 Respiratory Rate 16 Blood Pressure 125/58 L Pulse Oximetry 95 Oxygen Delivery Intake/Output Intake/Output: Intake & Output 11/17/22 11/18/22 11/19/22 11/20/22 23:59 23:59 23:59 23:59 Intake Total 2200 370 1260 400 Output Total 1000 1500 1675 200 Balance 1200 -1130 -415 200 Meds/Results Medications: Active Medications Generic Name Dose Route Start Last Admin Trade Name Freq PRN Reason Stop Dose Admin Aspirin 81 mg 11/18/22 09:00 11/19/22 12:22 Aspirin 81 Mg Enteric Tablet PO 81 mg DAILY RODOLFO Administration Ciprofloxacin 500 mg 11/19/22 21:00 11/19/22 20:25 Ciprofloxacin 500 Mg Tab PO 500 mg Q12HR RODOLFO Administration Dextrose 12.5 gm 11/18/22 12:05 Dextrose 50% 25 Gm/50 Ml Syringe IV PUSH PRN PRN Hypoglycemia Protocol Dextrose 12.5 gm 11/19/22 22:49 Dextrose 50% 25 Gm/50 Ml Syringe IV PUSH PRN PRN Hypoglycemia Protocol Dorzolamide/Timolol 1 drop 11/18/22 09:00 11/19/22 20:26 Dorzolamide/Timolol Ophth Tiffany 10 Ml Bottle EACH EYE 1 drop Q12HR RODOLFO Administration Finasteride 5 mg 11/18/22 09:00 11/19/22 12:22 Finasteride 5 Mg Tablet PO 5 mg DAILY RODOLFO Administration Furosemide 20 mg 11/18/22 09:00 11/19/22 09:17 Furosemide 20 Mg Tablet PO 20 mg DAILY RODOLFO Administration Glucagon 1 mg 11/18/22 12:05 Glucagon For Inj 1 Mg Vial IM PRN PRN Hypoglycemia Protocol Glucagon 1 mg 11/19/22 22:49 Glucagon For Inj 1 Mg Vial IM PRN PRN Hypoglycemia Protocol Glucose 15 gm 11/18/22 12:05 Glucose Oral Gel 15 Gm Of Glucse In 37.5 Gm Tube PO PRN PRN Hypoglycemia Protocol Glucose 15 gm 11/19/22 22:49 Glucose Oral Gel 15 G
[2022-11-20] MEDS: DORZOLAMIDE/TIMOLOL OPHTH SOL 10 ML BOTTLE 1 DROP EACH EYE (08:39)
[2022-11-20 08:40] VITALS: PULSE 94
[2022-11-20] MEDS: MULTIVITAMINS THERAPEUTIC TAB (*BKC) 1 TABLET PO (08:40)
[2022-11-20] MEDS: TAMSULOSIN HCL 0.4 MG CAPSULE PO (08:40)
[2022-11-20] MEDS: ISOSORBIDE MONONITRATE 30 MG TAB.ER.24H PO (08:40)
[2022-11-20] MEDS: lisinopriL 20 MG TABLET PO (08:40)
[2022-11-20] MEDS: LACOSAMIDE (*CRX) 100 MG TABLET PO (08:40)
[2022-11-20] MEDS: SIMVASTATIN 20 MG TABLET 40 MG PO (08:40)
[2022-11-20] MEDS: FUROSEMIDE 20 MG TABLET PO (08:40)
[2022-11-20] MEDS: FINASTERIDE 5 MG TABLET PO (08:40)
[2022-11-20] MEDS: METOPROLOL TARTRATE 25 MG TABLET PO (08:40)
[2022-11-20] MEDS: ASPIRIN 81 MG ENTERIC TABLET PO (08:41)
[2022-11-20] MEDS: CIPROFLOXACIN 500 MG TAB PO (08:41)
[2022-11-20] MEDS: levETIRAcetam 500 MG TABLET 2000 MG BY MOUTH (08:41)
[2022-11-20] MEDS: PHENYTOIN SODIUM 100 MG EXTENDED RELEASE CAP BY MOUTH (08:45)
--- NOTE | 2022-11-20 09:53 | PM.DS ---
DS: Admitting Diagnosis Discharge Date 11/20/2022 Admitting Diagnosis Abdominal pain and rectal bleeding DS: Discharge Diagnosis Discharge Diagnosis (1) Acute ischemic colitis: Code(s): K55.039 - Acute (reversible) ischemia of large intestine, extent unspecified Status: Acute Assessment and Plan: 11/18: patient states the pain has improved and bleeding had resolved since yesterday, denies any abdominal pain nausea or vomiting, patient hemoglobin is slightly trending down will continue to monitor Patient has been accepted for transfer by GI department at [facility] however will consult GI and surgery service for further recommendation, will continue to monitor. Zosyn started 11/18 11/19: GI saw the patient and recommended a colonoscopy which was completed this morning, surgery consult appreciated, recommended scope by GI, day 2 of Zosyn Colonoscopy from 11/19 showed left-sided colitis concerning for ischemic colitis, cannot exclude infectious etiology, biopsies taken and pending, GI is recommending 7-10 days of empiric antibiotic treatment, okay to discharge when pain and diarrhea improved, advanced diet and activity as tolerated (2) Seizure disorder: Code(s): G40.909 - Epilepsy, unspecified, not intractable, without status epilepticus Status: Acute Assessment and Plan: Patient remains clinically stable will continue home regimen Plan DVT prophylaxis with SCDs GI prophylaxis not indicated Code status full code DS: Summary Hospital Course Reason for hospitalization: Abdominal pain and rectal bleeding Narrative: ED-HPI Narrative: ? ? ? 77-year-old male with a history of diabetes, seizure disorder, ischemic colitis reports for evaluation of abdominal pain and hematochezia that started 5 hours ago.? Patient states 5 hours ago he began having severe generalized abdominal pain that is similar to his previous episodes of ischemic colitis, and had an episode of vomiting with diaphoresis.? States 2 and half hours ago, he had a large volume of stool followed by a large amount of bright red blood per rectum that filled the toilet bowl.? Patient has not had an episode of hematochezia or a bowel movement since.? He reports 2 previous episodes of ischemic colitis. He saw a GI specialist about 10 years ago for ischemic colitis who did not perform any interventions at that time.? He has not been evaluated since.? Patient is taking aspirin and Plavix, he is not on anticoagulants.? Denies fever, body aches, chills, chest pain, shortness of breath, urinary complaints. Currently patient states the pain has improved and bleeding had resolved since yesterday, denies any abdominal pain nausea or vomiting, patient hemoglobin is slightly trending down will continue to monitor, patient has been accepted for transfer by GI department at [facility] however will consult GI and surgery service for further recommendation, will continue to monitor. Hospital Course: 11/18: patient states the pain has improved and bleeding had resolved since yesterday, denies any abdominal pain nausea or vomiting, patient hemoglobin is slightly trending down will continue to monitor Patient has been accepted for transfer by GI department at [facility] however will consult GI and surgery service for further recommendation, will continue to monitor.? Zosyn started 11/18 11/19: GI saw the patient and recommended a colonoscopy which was completed this morning, surgery consult appreciated, recommended scope by GI, day 2 of Zosyn Colonoscopy from 11/19 showed left-sided colitis concerning for ischemic colitis, cannot exclude infectious etiology, biopsies taken and pending, GI is recommending 7-10 days of empiric antibiotic treatment, okay to discharge when pain and diarrhea improved, advanced diet and activity as tolerated Patient with a ischemic colitis seen by surgery service patient does not need any surgical intervention recommended conservat
[2022-11-20 11:12] LABS: Glucose Point of Care 193 mg/dl (65-105)
[2022-11-20 11:53] LABS: Hematocrit 26.2 % (42.0-52.0); Hemoglobin 8.8 g/dL (14.0-18.0)
[2022-11-20 12:00] VITALS: PULSE 87
--- NOTE | 2022-11-20 12:04 | PM.PNGS ---
Progress Note: A&P Assessment and Plan (1) Acute ischemic colitis: Code(s): K55.039 - Acute (reversible) ischemia of large intestine, extent unspecified Status: Acute Assessment and Plan: resolving c conservative measures, endoscopy report reviewed, exam benign, no acute surgical issues, will sign off Subjective Subjective Date/Time Seen: 11/20/22 12:04 feels good, no further bleeding, pain Review of Systems Review of Systems: All systems reviewed & are unremarkable except as noted in HPI and below Exam Const: General: cooperative, comfortable and no acute distress Resp: Auscultation: clear to auscultation bilaterally Cardio: Rate: regular rate Rhythm: regular rhythm GI: Inspection: normal to inspection GI Palp: No abdominal tenderness, Yes Soft to palpation, No Firmness to palpation present (GI), No Tenderness to palpation present (GI), No Guarding due to palpation present (GI) and No Rigid due to palpation Percussion: Yes normal to percussion Objective Data Vital Signs Vital Signs: Vital Signs - 24 hr 11/19/22 12:30 11/19/22 14:56 11/19/22 14:07 Temperature 36.8 C 36.4 C L Pulse Rate 74 78 Respiratory Rate 18 16 Blood Pressure 130/69 123/69 Pulse Oximetry 100 97 97 Oxygen Delivery Room Air 11/19/22 16:00 11/19/22 21:38 11/19/22 20:00 Temperature 36.4 C Pulse Rate 79 97 Respiratory Rate 16 Blood Pressure 149/59 H Pulse Oximetry 96 Oxygen Delivery Room Air 11/19/22 20:00 11/20/22 00:00 11/20/22 04:00 Temperature Pulse Rate 94 88 91 Respiratory Rate Blood Pressure Pulse Oximetry Oxygen Delivery 11/20/22 05:03 11/20/22 08:40 11/20/22 08:00 Temperature 36.6 C Pulse Rate 93 94 108 H Respiratory Rate 16 Blood Pressure 125/58 L Pulse Oximetry 95 Oxygen Delivery Intake/Output Intake/Output: Intake & Output 11/17/22 11/18/22 11/19/22 11/20/22 23:59 23:59 23:59 23:59 Intake Total 2200 370 1260 640 Output Total 1000 1500 1675 200 Balance 1200 1130 -415 440 Meds/Results Medications: Active Medications Generic Name Dose Route Start Last Admin Trade Name Freq PRN Reason Stop Dose Admin Aspirin 81 mg 11/18/22 09:00 11/20/22 08:41 Aspirin 81 Mg Enteric Tablet PO 81 mg DAILY RODOLFO Administration Ciprofloxacin 500 mg 11/19/22 21:00 11/20/22 08:41 Ciprofloxacin 500 Mg Tab PO 500 mg Q12HR RODOLFO Administration Dextrose 12.5 gm 11/18/22 12:05 Dextrose 50% 25 Gm/50 Ml Syringe IV PUSH PRN PRN Hypoglycemia Protocol Dextrose 12.5 gm 11/19/22 22:49 Dextrose 50% 25 Gm/50 Ml Syringe IV PUSH PRN PRN Hypoglycemia Protocol Dorzolamide/Timolol 1 drop 11/18/22 09:00 11/20/22 08:39 Dorzolamide/Timolol Ophth Tiffany 10 Ml Bottle EACH EYE 1 drop Q12HR RODOLFO Administration Finasteride 5 mg 11/18/22 09:00 11/20/22 08:40 Finasteride 5 Mg Tablet PO 5 mg DAILY RODOLFO Administration Furosemide 20 mg 11/18/22 09:00 11/20/22 08:40 Furosemide 20 Mg Tablet PO 20 mg DAILY RODOLFO Administration Glucagon 1 mg 11/18/22 12:05 Glucagon For Inj 1 Mg Vial IM PRN PRN Hypoglycemia Protocol Glucagon 1 mg 11/19/22 22:49 Glucagon For Inj 1 Mg Vial IM PRN PRN Hypoglycemia Protocol Glucose 15 gm 11/18/22 12:05 Glucose Oral Gel 15 Gm Of Glucse In 37.5 Gm Tube PO PRN PRN Hypoglycemia Protocol Glucose 15 gm 11/19/22 22:49 Glucose Oral Gel 15 Gm Of Glucse In 37.5 Gm Tube PO PRN PRN Hypoglycemia Protocol Dextrose 1,000 mls @ 100 mls/hr 11/18/22 12:05 Dextrose 5% 1,000 Ml IVPB PRN PRN Hypoglycemia Protocol Dextrose 1,000 mls @ 100 mls/hr 11/19/22 22:49 Dextrose 5% 1,000 Ml IVPB PRN PRN Hypoglycemia Protocol Insulin Aspart 4 - 8 units 11/20/22 08:00 11/20/22 08:47 Insulin Aspart (*Bkc) 100 Units/Ml SUB-Q Not Given TIDWM RODOLFO Pro
== END 2022-11-20 16:00 | disposition home health service (06) | DRG 394 ==
LOC: ANHED 11-18 06:39 → ANH3MEDSUR 11-18 07:00
PROVIDERS: Emergency Medicine; Internal Medicine Gastroenterology; Admitting Provider Internal Medicine; Emergency Provider Physician Assistant; PCP Family Medicine; Visit Provider Family Medicine
PROC: 0DJD8ZZ Inspection of Lower Intestinal Tract, Via Natural or Artificial Opening Endoscopic (ICD-10-PCS; CPT 45378; principal; 2022-11-19 14:15)
DX: K55.039 Acute (reversible) ischemia of large intestine, extent unspecified (principal); K92.1 Melena; E11.9 Type 2 diabetes mellitus without complications; G40.909 Epilepsy, unspecified, not intractable, without status epilepticus; Z79.82 Long term (current) use of aspirin; Z79.02 Long term (current) use of antithrombotics/antiplatelets; Z79.4 Long term (current) use of insulin; Z95.5 Presence of coronary angioplasty implant and graft; Z87.891 Personal history of nicotine dependence
CPT/HCPCS: 36415; 51702; 74174; 80048; 80053; 81003; 82948; 83605; 83690; 83735; 84484; 85014; 85018; 85025; 85610; 85730; 86850; 86900; 86901; 87040; 88305; 93005; 96361; 96365; 96375; 99285; A9270; J0131; J1170; J2270; J2405; J2543; J2704; J7030; J7120; Q9967

== ENCOUNTER 2024-12-05 03:32 | Emergency (ER) | payer MEDICARE, SELFPAY ==
--- NOTE | ~2024-12-05 | CT_ITS ---
EXAMINATION: CT abdomen pelvis w con DATE: 12/05/2024 05:06 INDICATION: Abdominal pain TECHNIQUE: Computed tomography (CT) of the abdomen and pelvis was performed with 100 mL Omnipaque-350 intravenous contrast. Automated exposure control and iterative reconstruction technique were employe d. The dose-length product was 569.01 mGy-cm. COMPARISON: None FINDINGS: There are peripheral groundglass opacities with irregular septal line thickening and honeycombing at the bilateral lung bases consistent with usual interstitial pneumonia (UIP) pattern chronic interstit ial lung disease. Small calcified right lower lobe nodule consistent with old granulomatous disease. Heart size is normal. Atherosclerotic coronary artery calcifications. No pericardial effusion. Liver, gallbladder, spleen, pancreas, bilateral adrenal glands are normal. Subcentimeter left renal cyst. A therosclerotic calcifications at the bilateral renal veto. Prominent distention of the bladder which measures 17.3 x 12.6 x 14.7 cm occupying and large portion of the pelvis. No bowel obstruction. There are appears be diffuse wall thickening of the colon suspicious for colitis.. Vasectomy clips along t he bilateral spermatic cords. No free intraperitoneal gas or fluid. No pathologically enlarged abdomi nal or pelvic lymphadenopathy. There is calcified atherosclerosis of the normal caliber abdominal aor ta and many of the other arteries. There is a moderate 50-70% stenosis at the origin of the superior mesenteric and right renal arteries. Additional mild, <50% stenosis of the origin of the superior mes enteric and left renal arteries. Likely at least moderate stenosis at the origin of the inferior mese nteric artery but with evaluation limited by the small caliber of the vessel. Severe upper lumbar spo ndylosis with chronic mild anterior wedging at L2. IMPRESSION: 1. Diffuse colonic wall thickening consistent with colitis which could be infectious, inflammatory or ischemic in etiology. 2. Extensive atherosclerotic disease with moderate stenosis at the origins of the superior mesenteric , right renal and likely inferior mesenteric artery and mild stenosis at the superior mesenteric and left renal arteries. 3. Marked distention of the bladder. Which is also present at the time of the prior study suggesting possible outlet obstruction or neurogenic bladder. 4. Interval worsening in UIP pattern chronic interstitial lung disease at the bilateral lung bases. Reviewed, dictated and finalized at location A. IMPRESSION: 1. Diffuse colonic wall thickening consistent with colitis which could be infec tious, inflammatory or ischemic in etiology. 2. Extensive atherosclerotic disease with moderate stenosis at the origins of t he superior mesenteric, right renal and likely inferior mesenteric artery and m ild stenosis at the superior mesenteric and left renal arteries. 3. Marked distention of the bladder. Which is also present at the time of the p rior study suggesting possible outlet obstruction or neurogenic bladder. 4. Interval worsening in UIP pattern chronic interstitial lung disease at the b ilateral lung bases.
[2024-12-05 03:35] VITALS: PULSE 87; RESP 15; TEMP 36.6
[2024-12-05 03:59] LABS: Basophils Absolute Auto 0.1 K/mm3 (0.0-0.1); Basophils Percent Auto 0.5 % (0.2-1.2); Eosinophils Absolute Auto 0.3 K/mm3 (0-0.3); Eosinophils Percent Auto 2.4 % (0-4.4); Hematocrit 34.9 % (42.0-52.0); Hemoglobin 10.6 g/dL (14.0-18.0); Immature Granulocyte Absolute 0.08 K/mm3 (0.00-0.031); Immature Granulocyte Percent A 0.6 % (0-0.5); Lymphocytes Absolute Auto 3.86 K/mm3 (0.9-3.2); Mean Corpuscular HGB Conc 30.4 g/dl (32-36); Mean Corpuscular Hemoglobin 27.7 pg (26-34); Mean Corpuscular Volume 91.1 fl (80-100); Mean Platelet Volume 9.3 fl (7.4-10.4); Monocytes Absolute Auto 0.7 K/mm3 (0.1-0.6); Monocytes Percent Auto 5.3 % (2.6-8.5); Neutrophils Absolute Auto 8.3 K/mm3 (1.3-6.7); Neutrophils Percent Auto 62.2 % (45.5-73.1); Platelet Count Result 368 k/mm3 (150-375); Red Blood Count 3.83 M/mm3 (4.6-6.20); Red Cell Distribution Width 13.4 % (11.5-14.5); White Blood Count 13.3 K/mm3 (4.5-10.0)
[2024-12-05 04:08] LABS: Alanine Aminotransferase 31 U/L (6-50); Albumin Level 4.4 g/dL (3.5-5.1); Alkaline Phosphatase 236 U/L (38-126); Anion Gap 14 mmol/L (4-12); Aspartate Amino Transferase 44 U/L (17-59); Bilirubin,Total 0.3 mg/dL (0.2-1.3); Blood Urea Nitrogen 25 mg/dL (9-20); Calcium 8.5 mg/dL (8.4-10.2); Carbon Dioxide 24 mmol/L (22-30); Chloride 99 mmol/L (98-107); Estimated CRCL calculation 39 ml/min; Estimated Glomerular Filt Rate 55; Glucose 160 mg/dL (65-110); Lipase 178 U/L (23-300); Potassium 4.4 mmol/L (3.4-5.0); Sodium 137 mmol/L (137-145)
[2024-12-05 05:25] VITALS: BP 122/51; PULSE 94; RESP 16; O2SAT 99
[2024-12-05 07:02] VITALS: BP 125/59; PULSE 95; RESP 16; O2SAT 98
--- OUTSIDE RECORDS SUMMARY | 2024-12-05 07:06 | XMS_ITS | Encounter Summary ---
Author Organization [facility] Address [address] [place] [address] Care Team Providers Care Nut Process Helper Name Role Phone aRdha Arauz MD Primary Care Provider [phone] Encounter Details Date Type Department Care Team (Late st Contact Info) Description 08/28/2023 Lab Requisition [facility] - DermPath Lab [address] [place] [id number] Cally Huntley MD [address] [facility] [address] [place] [address] Social History Tobacco Use Types Packs/Day Years Used Date Smoking Tobacco: Never Assessed Sex and Gender Information Value Date Recorded Sex Assigned at Not on file Legal Sex Male 6:02 PM CARDIAC MONITOR Gender Identity Not on file Sexual Orientation Not on file documented as of this encounter Plan of Treatment Not on file documented as of this encounter Procedures Procedure Name Priority Date/Time Associated Diagnosis Comments DERMATOPATHOLOGY Routine 08/28/2023 3:50 PM CARDIAC MONITOR documented in this encounter Results * DERMATOPATHOLOGY (08/28/2023 3:50 PM CARDIAC MONITOR) Case Report Dermatopathology Report Case: [id number] Authorizing Provider: Cally Huntley MD Collected: 08/28/2023 03:50 PM Ordering Location: [facility] DermPath Lab Received: 09/01/2023 10:54 AM Pathologist: Nhi Xiao MD Specimen: Skin, right forearm 4:26 PM CARDIAC MONITOR DERMATOPATHOLOGY LABORATORY Final Diagnosis Specimen A. 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 Check margins. 4:26 PM [facility] DERMATOPATHOLOGY LABORATORY Gross Description Specimen A: Received is one formalin filled container labeled with the patient's name and designated right forearm.The specimen consists of an ellipse measuring 28o29o1 mm and is oriented with the suture/notch at the 12 o'clock position labeled on the requisition as Superior. The 12 to 6 o'clock margin is inked green. The 6 o'clock to 12 o'clock margin is inked red. The 12 o'clock tip is submitted in cassette 1. The 6 o'clock tip is submitted in cassette 2. The remainder of the ellipse is serially sectioned and submitted in cassettes 3-5. Jar 0. 4:26 PM [facility] DERMATOPATHOLOGY LABORATORY Microscopic Description Specimen A. SKIN, right forearm: The epidermis shows focal parakeratosis, full thickness disorderly maturation of keratinocytes, mitoses at different levels, and dyskeratotic cells. This lesion is not present at the margin of the specimen. There are fibroblasts and collagen bundles oriented parallel to the skin surface with elongated blood vessels, some of which are oriented perpendicular to the skin surface. 4:26 PM [facility] DERMATOPATHOLOGY LABORATORY Disclaimer An external and internal positive and negative controls are appropriate for the histochemical, immunohistochemical and immunofluorescence stain(s) in this case (if any), except where stated explicitly. The performance characteristics of the stain(s) cited in this report were developed and its performance characteristic determined by the Dermatopathology Laboratory at [facility], directed by Dr. Caleb Goldman. These tests need not be, and therefore are not, approved by the [place] Food and Drug Administration. The tests are used for clinical purposes. Billing Codes Specimen Charges Stain Charges 71072 1 4:26 PM [facility] DERMATOPATHOLOGY LABORATORY Embedded Images 4:26 PM [facility] DERMATOPATHOLOGY LABORATORY Pathology/Cytolo gy TISSUE SPECIMEN FROM SKIN / Unknown 08/28/2023 3:50 PM CARDIAC MONITOR 09/01/2023 10:54 AM CARDIAC MONITOR us Cally Huntley MD LAB - PATHOLOGY/CYTOLOGY ORD ERABLES Final Result DERMATOPATHOLOGY LABORATORY [facility] - Department of Dermatology [facility] [address] [place] [address], [address] [phone] documented in this encounter Visit Diagnoses Not on filedocumented in this encounter Care Teams Nut Process Helper Relationship Specialty Start Date End Date Radha Arauz MD [address] [place] [address] [place] [address] PCP - General 12/05/22 documented as of this encounter
--- OUTSIDE RECORDS SUMMARY | 2024-12-05 07:06 | XMS_ITS | Referral Summary ---
Author Organization [address] Address [address] [place] [address] Care Team Providers Care Erp Business Analyst Name Role Phone Gus AlatorreNeri DO Unavailable [phone] Cj Ireland MD Primary Care Provider [phone] Encounters Date Type Department Care Team Description 12/03/2024 Results Follow-Up [facility] Diabetes and Endocrinology [address] [place] [phone] Jenna Jha NP 12/02/2024 9:05 PM CDT - 12/02/2024 11:59 PM CDT Hospital Encounter [address] [address] Type 1 diabetes mellitus with hyperglycemia, with long-term current use of insulin (HCC); Hypertension associated with type 1 diabetes mellitus (HCC); 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 (CMS/HCC) (HCC) Discharge Disposition: Discharge to home or self care 12/02/2024 12:15 PM CDT Lab [facility] Outpatient Lab at [address] [phone] Type 1 diabetes mellitus with hyperglycemia, with long-term current use of insulin (HCC) (Primary Dx); Hypertension associated with type 1 diabetes mellitus (HCC) 12/02/2024 11:30 AM CDT Office Visit [facility] Diabetes and Endocrinology [address] [place] [phone] Jenna Jha NP Type 1 diabetes mellitus with hyperglycemia, with long-term current use of insulin (HCC) (Primary Dx); Hypertension associated with type 1 diabetes mellitus (HCC); 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 (CMS/HCC) (HCC); Diabetic peripheral neuropathy (HCC); Insulin pump status 11/29/2024 Telephone [facility] Medical [facility] Diabetes and Endocrinology [address] [place] [phone] Jeanette Stack MD request to pcp for insurance referral 10/13/2024 Telephone [facility] Medical [facility] Diabetes and Endocrinology [address] [place] [phone] Jenna Jha NP Forms/questionnaires ([facility]) 09/22/2024 Telephone [facility] [id number] [place] [address] [address] [address] Jenna Jha NP Med Refill 09/09/2024 1:00 PM REMOTE SENSING TECHNOLOGIST Office Visit [facility] Cardiology [address] [place] [address] Kevin Ocasio MD 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 (Primary Dx); 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 (CMS/HCC) (HCC); Hypertension associated with type 1 diabetes mellitus (HCC); Ventricular ectopy from Last 3 Months Allergies No known active allergies Medications lancets (ONETOUCH SURESOFT LANCING DEV) [facility] Test sugars daily and as directed patient tests 4-6 times daily 750 3 03/02/20 07 Active phenytoin ER (DILANTIN) 100 mg ER capsuleIndication s:wean off over 3 months as instructed by neurology Take three by mouth one time per day 0 0 12/20/19 09 Active multivitamin tablet tablet take 1 tablet by oral route every day with food 0 09/25/19 11 Active simvastatin (ZOCOR) 40 mg tablet take 1 tablet (40MG) by oral route every day in the evening 90 3 09/25/19 11 Active aspirin 81 mg tablet take 1 tablet (81MG) by oral route every day 0 04/14/20 12 Active finasteride (PROSCAR) 5 mg tablet take 1 tablet (5MG) by oral route every day 0 04/14/20 12 Active dorzolamide-timol ol (COSOPT) 22.3-6.8 mg/mL ophthalmic solution instill 1 drop by ophthalmic route 2 times every day into affected eye(s) 0 09/16/19 13 Active levETIRAcetam (KEPPRA) 1,000 mg tablet take 2 tablet by oral route every 12 hours 0 0 06/09/20 13 Active Additional Information Patient taking differently: 2,000 mg oral 2 times daily, Reported on 12/02/2024 simethicone 125 mg tablet Take 1 tablet by mouth as needed Active DEXCOM G6 SENSOR deviceIndications :Type 1 diabetes mellitus with hyperglycemia (HCC) Change sensor every 10 days 3 Device 13 05/19/20 19 Active glucagon (glucagon) 1 mg kit Use as directed for low blood sugar. 1 kit 3 08/24/19 20 Active furosemide (LASIX) 20 mg tabletIndications :Bilateral lower extremity edema TAKE 1 TABLET(20 MG) BY MOUTH DAILY NEEDED FOR SWELLING 30 tablet 5 08/27/19 22 Active nitroglycerin (NITROSTAT) 0.[address] 1 tablet (0.4 mg total) under the tongue every 5 (five) minutes as needed for chest pain 90 tablet 10/20/19 22 Active tamsulosin (FLOMAX) 0.4 mg extended release capsule Take 1 capsule (0.4 mg total) by mouth daily with dinner 30 capsule 3 03/11/20 22 Active multivit blvnykkg-gimd-GO- calcium (THERA-M) 9 mg iron-400 mcg tablet Take 1 tablet by mouth daily 30 tablet 3 03/11/20 22 Active lidocaine (LIDODERM) 5 % Place 3 patches on the skin daily as needed for pain (back or hip pain) Remove & discard patch within 12 hours or as directed by . 30 patch 3 03/11/20 22 Active HYDROcodone-aceta minophen (NORCO) 5-325 mg per tabletIndications :Pain Take 1 tablet by mouth 4 (four) times a day as needed for pain 15 tablet 03/11/20 22 Active lacosamide (VIMPAT) 100 mg tablet Take 1 tablet (100 mg total) by mouth 2 (two) times a day 60 tablet 3 03/11/20 22 Active albuterol HFA (PROVENTIL HFA,VENTOLIN HFA,PROAIR HFA) 90 mcg/actuation inhaler 2 puffs every 4 (four) hours as needed 06/26/20 22 Active benzonatate (TESSALON) 100 mg capsule TAKE 1 CAPSULE BY MOUTH EVERY 8 HOURS NEEDED 06/26/20 22 Active doxazosin (CARDURA) 4 mg tablet Take 1 tablet (4 mg total) by mouth daily 05/29/20 22 Active celecoxib (CeleBREX) 200 mg capsule celecoxib 200 mg capsule Take 1 capsule twice a day by oral route as needed. Active diclofenac sodium (VOLTAREN) 1 % gel diclofenac 1 % topical gel APPLY 2 GRAM TO THE AFFECTED AREA(S) BY TOPICAL ROUTE 4 TIMES PER DAY prn Active diclofenac DR (VOLTAREN) 50 mg EC tablet diclofenac sodium 50 mg tablet,delayed release Take 1 tablet twice a day by oral route. Active lisinopriL (PRINIVIL,ZESTRIL ) 20 mg tablet Take 1 tablet (20 mg total) by mouth daily 11/07/19 23 Active furosemide (LASIX) 40 mg tablet Take 1 tablet (40 mg total) by mouth daily 11/25/19 23 Active glucagon (Baqsimi) 3 mg/actuation spray,non-aerosol Administer 1 spray (3 mg total) into one nostril as needed (to treat severe hypoglycemia) 2 each 03/04/20 23 Active mupirocin (BACTROBAN) 2 % ointment APPLY TO WOUND TWICE DAILY 09/11/19 24 Active lacosamide (VIMPAT) 50 mg tablet TAKE 1 TABLET BY MOUTH DAILY IN THE MORNING WITH 100 MG FOR A TOTAL OF 150 MG 12/14/19 24 Active lacosamide (VIMPAT) 50 mg tablet TAKE 1 TABLET BY MOUTH DAILY IN THE MORNING WITH 100 MG FOR A TOTAL OF 150 MG 11/18/19 24 Active lacosamide (VIMPAT) 150 mg tablet Take 1 tablet (150 mg total) by mouth every 12 (twelve) hours 02/25/[address] (PROTONIX) 40 mg EC tabletIndications :Gastroesophageal reflux disease, unspecified whether esophagitis present TAKE 1 TABLET BY MOUTH EVERY DAY 90 tablet 2 05/31/20 24 Active metoprolol tartrate (LOPRESSOR) 25 mg immediate release tabletIndications :Ventricular ectopy,Ventricula r trigeminy TAKE 1 TABLET(25 MG) BY MOUTH TWICE DAILY 180 tablet 3 09/14/19 25 Active blood glucose diagnostic (OneTouch Ultra Blue Test Strip) stripIndications: Type 1 diabetes mellitus with hyperglycemia (HCC) Use to test glucose 8 times daily on pump therapy 800 each 1 09/22/19 25 Active clopidogreL (PLAVIX) 75 mg tablet TAKE 1 TABLET(75 MG) BY MOUTH DAILY 90 tablet 2 09/28/19 25 Active isosorbide mononitrate ER (IMDUR) 30 mg 24 hr tablet TAKE 1 TABLET BY MOUTH EVERY DAY 90 tablet 2 10/08/19 25 Active latanoprost (XALATAN) 0.005 % ophthalmic solution INSTILL 1 DROP IN BOTH EYES EVERY DAY AT BEDTIME 11/14/19 25 Active traMADoL (ULTRAM) 50 mg tablet TAKE 1 TABLET BY MOUTH EVERY 6 TO 8 HOURS NEEDED 10/10/19 25 Active triamcinolone (KENALOG) 0.1 % cream APPLY TOPICALLY TO ITCHY AREA EVERY DAY NEEDED 10/05/19 25 Active insulin aspart (NovoLOG) 100 unit/mL vial for injectionIndicati ons:Type 1 diabetes mellitus with hyperglycemia, with long-term current use of insulin ([facility]) INJECT UP TO 100 UNITS VIA INSULIN PUMP DAILY 90 mL 2 12/03/19 25 Active insulin aspart (NovoLOG) 100 unit/mL vial for injectionIndicati ons:Type 1 diabetes mellitus with hyperglycemia, with long-term current use of insulin ([facility]) INJECT UP TO 100 UNITS VIA INSULIN PUMP DAILY 90 mL 2 01/06/20 24 025 Discontin ued(Reord er) Active Problems Problem Noted Date Diagnosed Date BMI 22.0-22.9, adult 09/03/2022 Assessment & Plan (09/03/2022 11:29 AM REMOTE SENSING TECHNOLOGIST): Discussed healthy diet and importance of regular physical activity (20- 30min/day, 150min/wk). 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 12/04/2021 CAD, multiple vessel 10/08/2021 Overview (10/08/2021): Added automatically from request for surgery [id number] Exertional chest pain 08/24/2021 Bilateral lower extremity edema 04/18/2021 Ventricular ectopy 06/15/2019 LANGE (dyspnea on exertion) 05/03/2019 Ventricular trigeminy 05/03/2019 JEAN CLAUDE (obstructive sleep apnea) 05/03/2019 Other fatigue 05/03/2019 Bradycardia 05/03/2019 Anemia, unspecified 11/27/2018 Iron deficiency anemia 09/18/2018 Mixed diabetic hyperlipidemi a associated with type 1 diabetes mellitus ([facility]) 07/09/2018 Assessment & Plan (12/02/2024 11:36 AM CDT): Chronic problem. Currently taking simvastatin 40mg daily. Last lipid panel: 09/18/23 LDL=99, ZN=827. Will update labs.Verified that he uses [employer]. Aware to check results/results letter in [employer]. Will contact by phone if needed. Assessment & Plan (07/06/2024 2:00 PM REMOTE SENSING TECHNOLOGIST): Chronic problem. Currently taking simvastatin 40mg daily. Last lipid panel: 09/18/23 LDL=99, ZZ=929. Assessment & Plan (03/24/2024 2:03 PM CDT): Chronic problem. Currently taking simvastatin 40mg daily. Last lipid panel: 09/18/23 LDL=99, PA=485. Assessment & Plan (01/06/2024 11:33 AM CDT): Chronic problem. Currently taking simvastatin 40mg daily. Last lipid panel: 09/18/23 LDL=99, FM=146. Assessment & Plan (09/18/2023 2:22 PM REMOTE SENSING TECHNOLOGIST): Chronic problem. Currently taking simvastatin 40mg daily. Last lipid panel: 09/03/22 LDL=83, TG=90. Will update labs today. Verified that he uses [employer]. Aware to check results/results letter in [employer]. Will contact by phone if needed. Assessment & Plan (06/12/2023 1:53 PM CDT): Chronic problem. Currently taking simvastatin 40mg daily. Last lipid panel: 09/03/22 LDL=83, TG=90. No changes at this time. Assessment & Plan (03/04/2023 1:31 PM CDT): Chronic, well-controlled Continue statin therapy with simvastatin Assessment & Plan (12/03/2022 11:31 AM CDT): Chronic problem. Currently taking simvastatin 40mg daily. Last lipid panel: 09/03/22 LDL=83, TG=90. No changes at this time. Assessment & Plan (09/02/2022 1:15 PM REMOTE SENSING TECHNOLOGIST): Chronic problem. Currently taking simvastatin 40mg daily. Will update lipid panel today. Verified that he uses [employer]. Aware to check results/results letter in [employer]. Will contact by phone if needed. Assessment & Plan (06/06/2022 1:18 PM CDT): Chronic problem. On statin therapy, no changes. Assessment & Plan (10/11/2021 10:56 AM REMOTE SENSING TECHNOLOGIST): Chronic problem. On statin therapy, no changes. Assessment & Plan (07/12/2021 4:55 PM REMOTE SENSING TECHNOLOGIST): LDL cholesterol goal under 80 Continue simvastatin 40 mg daily Check lipid profile today Assessment & Plan (05/10/2021 11:41 AM CDT): Chronic problem. On statin therapy, no changes. Assessment & Plan (01/26/2021 11:55 AM CDT): Continue statin Assessment & Plan (10/27/2020 11:32 AM CDT): LDL 91. Controlled on current medications. Continue plan. Assessment & Plan (06/29/2020 2:12 PM REMOTE SENSING TECHNOLOGIST): Goal of treatment , LDL cholesterol less than 100 ( less than 70 in patients with history of heart attacks and / or strokes ) NonHDL cholesterol ( total cholesterol minus HDL cholesterol ) goal less than 130 ( less than 100 in patients with history of heart attacks and / or strokes ) Low cholesterol, low fat diet was discussed and advised. Daily exercise On statin therapy with Simvastatin Assessment & Plan (03/30/2020 3:42 PM CDT): At goal on current medications. Continue statin therapy. Assessment & Plan (01/06/2020 2:32 PM CDT): At goal on current medications. Continue statin therapy. Assessment & Plan (09/19/2019 3:13 PM REMOTE SENSING TECHNOLOGIST): At goal on current medications. Continue statin therapy. Assessment & Plan (05/06/2019 11:50 AM CDT): Goal of treatment , LDL cholesterol less than 100 ( less than 70 in patients with history of heart attacks and / or strokes ) NonHDL cholesterol ( total cholesterol minus HDL cholesterol ) goal less than 130 ( less than 100 in patients with history of heart attacks and / or strokes ) Low cholesterol, low fat diet was discussed and advised. Daily exercise On statin therapy Assessment & Plan (01/28/2019 4:20 PM CDT): Continue statin therapy Assessment & Plan (10/15/2018 2:37 PM REMOTE SENSING TECHNOLOGIST): Continue statin therapy Assessment & Plan (07/09/2018 11:57 AM REMOTE SENSING TECHNOLOGIST): Goal of treatment , LDL cholesterol less than 100 ( less than 70 in patients with history of heart attacks and / or strokes ) NonHDL cholesterol ( total cholesterol minus HDL cholesterol ) goal less than 130 ( less than 100 in patients with history of heart attacks and / or strokes ) Low cholesterol, low fat diet was discussed and advised. Daily exercise On statin therapy Diabetic peripheral neuropathy 10/02/2017 Assessment & Plan (12/02/2024 12:03 PM CDT): Chronic problem. Reviewed foot care; needs to lotion daily. Aware to check feet nightly, not to go barefoot. Check with neurologist to see if you can use Gabapentin for nerve pain. Discussed OTC pain creams that may be helpful. Assessment & Plan (07/06/2024 2:00 PM REMOTE SENSING TECHNOLOGIST): Chronic problem. Reviewed foot care; needs to lotion daily. Aware to check feet nightly, not to go barefoot. Assessment & Plan (03/24/2024 2:03 PM CDT): Chronic problem. Reviewed foot care; needs to lotion daily. Aware to check feet nightly, not to go barefoot. Assessment & Plan (01/06/2024 11:34 AM CDT): Chronic problem. Reviewed foot care; needs to lotion daily. Aware to check feet nightly, not to go barefoot. Assessment & Plan (09/18/2023 2:22 PM REMOTE SENSING TECHNOLOGIST): Chronic problem. Aware to check feet nightly & to not go barefoot. Assessment & Plan (06/12/2023 2:13 PM CDT): Chronic problem. Aware to check feet nightly & to not go barefoot. Assessment & Plan (10/02/2017 11:33 AM REMOTE SENSING TECHNOLOGIST): foot care discussed. Insulin pump status 04/08/2017 Assessment & Plan (12/02/2024 12:03 PM CDT): Put pump settings back to what there were at last appt: -decreased correction factor from 60 to 45 -changed carb ratio back to 18 all day (from 12a 20, 630a 18, 8p 20 -set up sleep schedule for every day. Turn off if not helpful (in activity section). Current medications: Novolog via T-slimx2 insulin pump, CIQ Basal 12a 0.7 CR 18 CF 45 Target 110 AIT 5 hours Assessment & Plan (07/06/2024 1:59 PM REMOTE SENSING TECHNOLOGIST): No changes. Will take off exercise mode at HS to see if BG will come back into range overnoc. Assessment & Plan (03/24/2024 2:03 PM CDT): No pump setting at this time. Bolus with evening snack. Assessment & Plan (09/18/2023 3:45 PM REMOTE SENSING TECHNOLOGIST): No pump setting changes at this time. Will contact [employer] about either software upgrade or new pump. Assessment & Plan (06/12/2023 2:27 PM CDT): No pump setting changes at this time. Discussed correctional bolus. Not to undercalculate HS snack bolus. Assessment & Plan (12/03/2022 12:14 PM CDT): No pump setting changes at this time. Assessment & Plan (09/03/2022 12:59 PM REMOTE SENSING TECHNOLOGIST): No pump setting changes. Assessment & Plan (06/06/2022 3:47 PM CDT): No pump setting changes. Assessment & Plan (01/15/2022 12:04 PM CDT): In case of pump failure, take long acting insulin ( e.g Tresiba ), 18 units every 24 hours and bolus with Humalog, calculating according with your carbs and sugars readings. Assessment & Plan (10/11/2021 12:58 PM REMOTE SENSING TECHNOLOGIST): No pump setting changes. Assessment & Plan (01/26/2021 11:55 AM CDT): Continue current settings Assessment & Plan (03/30/2020 3:42 PM CDT): Lower MN basal to 0.6, 0430 to 0.7, 0630 to 0.7, 8 pm to 0.6, 10 pm to 0.6. = TD basal 15 units Change SF to 50 which is a 50% reduction. IC 20 Assessment & Plan (01/06/2020 2:14 PM CDT): No change to current settings as I do not see a pattern of hypoglycemia. Provided with samples of stainless infusions sets which he will try. We can change to this if he prefers. Instruction for use reviewed. Will contact [employer] to provide link for training and download for Control IQ Assessment & Plan (09/19/2019 3:09 PM REMOTE SENSING TECHNOLOGIST): No change to settings. Dexcom set up and connected with pump which will prevent hypoglycemia with basal IQ. Also instructed on use of temp basal for increased activity like shopping Assessment & Plan (01/28/2019 4:16 PM CDT): No change to settings today Assessment & Plan (07/09/2018 11:56 AM REMOTE SENSING TECHNOLOGIST): Have long acting , basal insulin ( e.g. Lantus, Levemir, NPH, ) and insulin syringes as back up in case of pump failure If you have to take your insulin pump off for more than 12 h, start taking basal insulin, every 24 h ( take 80 % of the 24 h insulin delivered to you via insulin pump as calculated based on your basal rates ) and inject meal time insulin by injections, calculating the same way you do with your pump bolus ( according with carb intake and blood sugar readings ) Assessment & Plan (03/26/2018 2:57 PM CDT): Education provided on various pump and sensor options. He would like to go with T Slim and Dexcom sensor. Pt is lean. Discussed using Sure T infusion set or similar stainless needle set. For now, increase 430 am basal to 0.8. Then can change. Time appt = 50 minutes Time spent on education = 40 minutes Assessment & Plan (12/30/2017 3:28 PM CDT): Have long acting , basal insulin ( e.g. Lantus, Levemir, NPH, ) and insulin syringes as back up in case of pump failure If you have to take your insulin pump off for more than 12 h, start taking basal insulin, every 24 h ( take 80 % of the 24 h insulin delivered to you via insulin pump as calculated based on your basal rates ) and inject meal time insulin by injections, calculating the same way you do with your pump bolus ( according with carb intake and blood sugar readings ) Assessment & Plan (04/08/2017 12:18 PM CDT): No severe lows in past few weeks. Will not make any adjustments to settings. Due to hypoglycemia unawareness, would benefit from CGM. Discussed options with [employer] pumps. He will check this out and let us know how to proceed. Type 1 diabetes mellitus wit h hyperglycemia, with long-term current use of insulin 01/16/2017 Assessment & Plan (12/02/2024 12:09 PM CDT): Chronic problem. A1c not at goal and worsened from 7.4% to now 7.7%. Put pump settings back to what there were at last appt: -decreased correction factor from 60 to 45 -changed carb ratio back to 18 all day (from 12a 20, 630a 18, 8p 20 -set up sleep schedule for every day. Turn off if not helpful (in activity section). -to get a hold of [employer] re: issues with pump & needles bending. May need to go to the steel set again. Current medications: Novolog via T-slimx2 insulin pump, CIQ Basal 12a 0.7 CR 18 CF 45 Target 110 AIT 5 hours Will update labs. Verified that he uses [employer]. Aware to check results/results letter in [employer]. Will contact by phone if needed. MND DM eye exam (09/2023). Has appt q10-11 weeks; letter sent to [facility] to get copy of recent eye exam. Strive for regular exercise (30min most days) and diet (get at least 4-5 servings of fruit and veggies daily, avoid processed foods, increase lean protein intake and decrease carb portions as well as fruit juices, regular soda & desserts). Watch carbs and simple sugars. Check the blood sugar dexcom. Check the feet daily for skin breakdown and infection. Assessment & Plan (07/06/2024 1:59 PM REMOTE SENSING TECHNOLOGIST): Chronic problem. A1c at goal at 6.9%. Has improved from 7.1% 12/2823. Has been using exercise mode on [employer] at HS to avoid lows but subsequently staying too high. Will not make BR changes at this time but will take off exercise mode at HS to see if overnoc readings improve. Current medications: Novolog via T-slimx2 insulin pump, CIQ Basal 12a 0.7 CR 18 CF 45 Target 110 AIT 5 hours UTD on labs. UTD DM eye exam (09/2023). Strive for regular exercise (30min most days) and diet (get at least 4-5 servings of fruit and veggies daily, avoid processed foods, increase lean protein intake and decrease carb portions as well as fruit juices, regular soda & desserts). Watch carbs and simple sugars. Check the blood sugar dexcom. Check the feet daily for skin breakdown and infection. Assessment & Plan (03/24/2024 2:03 PM CDT): Chronic problem. A1c at goal at 6.9%. Has improved from 7.1% 12/2823. Not feeling well today. Has not been eating nor drinking water. Will not make any pump setting changes today. To bolus more with evening snack. Current medications: Humalog via T-slimx2 insulin pump, CIQ Basal 12a 0.7, 630a 0.7, 8p 0.7 CR 18 CF 45 Target 110 AIT 5 hours UTD on labs. UTD DM eye exam (09/2023). Strive for regular exercise (30min most days) and diet (get at least 4-5 servings of fruit and veggies daily, avoid processed foods, increase lean protein intake and decrease carb portions as well as fruit juices, regular soda & desserts). Watch carbs and simple sugars. Check the blood sugar dexcom. Check the feet daily for skin breakdown and infection. Assessment & Plan (01/06/2024 11:33 AM CDT): Chronic problem. A1c near goal at 7.1%. Has improved from 7.6% 09/2023. Increased basal rates: -12a increased from 0.6 to 0.7 units/hr -8p increased from 0.6 to 0.7 units/hr -10p increased from 0.6 to 0.7 units/hr Current medications: Humalog via T-slimx2 insulin pump, CIQ Basal 12a 0.7, 630a 0.7, 8p 0.7 CR 18 CF 45 Target 110 AIT 5 hours UTD on labs. UTD DM eye exam (09/2023). Strive for regular exercise (30min most days) and diet (get at least 4-5 servings of fruit and veggies daily, avoid processed foods, increase lean protein intake and decrease carb portions as well as fruit juices, regular soda & desserts). Watch carbs and simple sugars. Check the blood sugar dexcom. Check the feet daily for skin breakdown and infection. Assessment & Plan (09/18/2023 3:45 PM REMOTE SENSING TECHNOLOGIST): Chronic problem. A1c near goal at 7.6%. has risen from 7.3% 06/12/23. No pump setting changes at this time. Unable to download Dexcom & [employer] today. To contact [employer] to get software update so we can download pump at our office. Will also see if he's due for a pump upgrade (if warranty is out). Unable to download dexcom clarity mimi on his phone d/t not knowing his apple ID. Will see if he can get it at home (aware he may need to get it reset). Share code for Dexcom given to Mrs Almeida to use once he can get into Dexcom Clarity so we can see his Dexcom info. Has been bolusing after eating d/t slow digestion. If he bolus before eating--he experiences lows. No pump setting changes at this time as we cannot see his pump nor CGM information. Discussed correctional bolus. Not to undercalculate HS snack bolus. Current medications: T-slim with Dexcom Basal 12a 0.6, 430a 0.7, 630a 0.7, 8p 0.6, 10p 0.6 CR 19 CF 45 AIT 4 Will update labs today. Verified that he uses mychart. Aware to check results/results letter in [employer]. Will contact by phone if needed. UTD DM eye exam 06/11/23. Had appt 09/17/23; letter sent to get copy of report. Strive for regular exercise (30min most days) and diet (get at least 4-5 servings of fruit and veggies daily, avoid processed foods, increase lean protein intake and decrease carb portions as well as fruit juices, regular soda & desserts). Watch carbs and simple sugars. Check the blood sugar dexcom. Check the feet daily for skin breakdown and infection. Assessment & Plan (06/12/2023 2:27 PM CDT): Chronic problem. A1c near goal at 7.3%. has risen from 6.9% 03/04/23. No pump setting changes at this time. Has been bolusing after eating d/t slow digestion. If he bolus before eating--he experiences lows. No pump setting changes at this time. Discussed correctional bolus. Not to undercalculate HS snack bolus. Current medications: T-slim with Dexcom Basal 12a 0.6, 430a 0.7, 630a 0.7, 8p 0.6, 10p 0.6 CR 19 CF 45 AIT 4 UTD on labs. DM eye exam Strive for regular exercise (30min most days) and diet (get at least 4-5 servings of fruit and veggies daily, avoid processed foods, increase lean protein intake and decrease carb portions as well as fruit juices, regular soda & desserts). Watch carbs and simple sugars. Check the blood sugar dexcom. Check the feet daily for skin breakdown and infection. Assessment & Plan (03/04/2023 1:30 PM CDT): Chronic, well-controlled with occasional hypoglycemia Continue pump at current settings Patient has long-acting insulin insulin syringes in case he needs to take injections because of pump failure Assessment & Plan (12/03/2022 12:15 PM CDT): Chronic problem. A1c at goal but still w/hyper/hypoglycemia. Current medications: T-slim with Dexcom Basal 12a 0.6, 430a 0.7, 630a 0.7, 8p 0.6, 10p 0.6 CR 19 CF 45 AIT 4 No pump setting changes at this time. Has been bolusing after eating d/t slow digestion. If he bolus before eating--he experiences lows. Assessment & Plan (09/03/2022 1:03 PM REMOTE SENSING TECHNOLOGIST): Chronic problem. Unable to download today. States that he calibrated today as dexcom stated 206 & [id number]. Current medications: T-slim with Dexcom Basal 12a 0.6, 430a 0.7, 630a 0.7, 8p 0.6, 10p 0.6 IC 19 SF 45 AI 4 Will update labs today. Verified that he uses [employer]. Aware to check results/results letter in [employer]. Will contact by phone if needed. Assessment & Plan (06/06/2022 3:47 PM CDT): Chronic stable problem. He's high pC with frequent CIQ boluses, but this is partially because he boluses pC (unsure what he'll be eating) and states he has slowed stomach emptying so prefers CIQ bolus methods. He puts pump on exercise mode overnight as this works better for him than sleep mode (less hypoglycemia). No pump setting changes today. Assessment & Plan (10/15/2018 2:39 PM REMOTE SENSING TECHNOLOGIST): A1c 7.1. Will not recommend any changes to insulin pump settings. Reviewed importance of rotating site to improve absorption and reduce site fatigue. Can change to stainless needle if continues with issues with current infusion sets crimping. Assessment & Plan (10/02/2017 11:17 AM REMOTE SENSING TECHNOLOGIST): Hba1c was 7.6 today, indicating sub-optimal DM control 1800 calorie, consistent carb diet recommended 30 min daily exercise, combining both aerobic and resistance exercise is strongly recommended and needed as part of diabetes management plan. The need to monitor blood glucose before meals and bedtime was discussed. Take prandial insulin before meals based on carb intake and blood glucose readings. Prevention and treatment of hyypoglcyemia discussed. Assessment & Plan (01/16/2017 12:07 PM CDT): hba1c 7.6 BG monitoring ac and hs and any time pt has symptoms of hypoglycemia Pump settings: Basal rates 12a 0.675, 530a 0.75, 12p 0.825 , 10p 0.675 ic 20, s 25, t 110 ait 4 h . For sugars over 300, take insulin injection ( with a syringe ), using one unit per every 25 over 150, no more than 12 u at a time. Recheck sugars in 2 h Hypertension associated with type 1 diabetes fran litus 06/09/2013 Overview (11/14/2016): HYPERTENSION NOS Assessment & Plan (12/02/2024 11:36 AM CDT): Chronic problem. Well controlled with current lisinopril 20mg daily, metoprolol tartrate 25mg bid, Imdur ER 30mg daily & lasix 20mg daily. No changes at this time. Will update labs. Verified that he uses [employer]. Aware to check results/results letter in [employer]. Will contact by phone if needed. Assessment & Plan (07/06/2024 2:00 PM REMOTE SENSING TECHNOLOGIST): Chronic problem. Well controlled with current lisinopril 20mg daily, metoprolol tartrate 25mg bid, Imdur ER 30mg daily & lasix 20mg daily. No changes at this time. Assessment & Plan (03/24/2024 2:03 PM CDT): Chronic problem. Well controlled with current lisinopril 20mg daily, metoprolol tartrate 25mg bid, Imdur ER 30mg daily & lasix 20mg daily. No changes at this time. Assessment & Plan (01/06/2024 11:34 AM CDT): Chronic problem. Well controlled with current lisinopril 20mg daily, metoprolol tartrate 25mg bid, Imdur ER 30mg daily & lasix 20mg daily. No changes at this time. Assessment & Plan (09/18/2023 2:22 PM REMOTE SENSING TECHNOLOGIST): Chronic problem. Well controlled with current lisinopril 20mg daily, metoprolol tartrate 25mg bid, Imdur ER 30mg daily & lasix 20mg daily. No changes at this time. Will update labs today. Verified that he uses [facility]. Aware to check results/results letter in [employer]. Will contact by phone if needed. Assessment & Plan (06/12/2023 1:51 PM CDT): Chronic problem. Well controlled with current lisinopril 20mg daily, metoprolol tartrate 25mg bid, Imdur ER 30mg daily & lasix 20mg daily. No changes at this time. Assessment & Plan (03/04/2023 1:31 PM CDT): Chronic, well-controlled Continue current regimen including lisinopril Assessment & Plan (12/03/2022 11:31 AM CDT): Chronic problem. Well controlled with current lisinopril 20mg daily, metoprolol tartrate 25mg bid, Imdur ER 30mg daily & lasix 20mg daily. No changes at this time. Assessment & Plan (09/02/2022 1:16 PM REMOTE SENSING TECHNOLOGIST): Chronic problem. Well controlled with current quinapril 20mg daily, metoprolol tartrate 25mg bid & lasix 20mg daily. Will update labs today. Verified that he uses [facility]. Aware to check results/results letter in [employer]. Will contact by phone if needed. Assessment & Plan (06/06/2022 1:17 PM CDT): Controlled on current medications, no changes. Assessment & Plan (10/11/2021 10:56 AM REMOTE SENSING TECHNOLOGIST): Controlled on current medications, no changes. Assessment & Plan (07/12/2021 4:55 PM REMOTE SENSING TECHNOLOGIST): Well controlled Continue quinapril 20 mg daily Check microalbumin today Assessment & Plan (05/10/2021 11:40 AM CDT): Controlled on current medications, no changes. Assessment & Plan (01/26/2021 11:55 AM CDT): Controlled on current medications. Continue plan. Assessment & Plan (10/27/2020 11:31 AM CDT): Controlled on current medications. Continue plan. Assessment & Plan (06/29/2020 2:12 PM REMOTE SENSING TECHNOLOGIST): Goal blood pressure is less than 140/85 Low salt diet was discussed andd recommended The importance of daily aerobic exercise was also emphasized. Continue current meds, including RUPERT-I or ARB, e.g. Assessment & Plan (03/30/2020 3:42 PM CDT): Controlled on current medications. Continue plan. Assessment & Plan (01/06/2020 2:31 PM CDT): Controlled on current medications. Continue plan. Assessment & Plan (09/19/2019 3:12 PM REMOTE SENSING TECHNOLOGIST): Controlled on current medications. Continue plan. Assessment & Plan (05/06/2019 11:50 AM CDT): Goal blood pressure is less than 140/85 Low salt diet recommended Daily aerobic exercise Continue current meds, including RUPERT-I or ARB Assessment & Plan (01/28/2019 4:20 PM CDT): Controlled on current medications. Assessment & Plan (10/15/2018 2:41 PM REMOTE SENSING TECHNOLOGIST): Controlled on current medications. Assessment & Plan (07/09/2018 11:57 AM REMOTE SENSING TECHNOLOGIST): Goal blood pressure is less than 140/85 Low salt diet recommended Daily aerobic exercise Continue current meds, including RUPERT-I or ARB Assessment & Plan (03/26/2018 2:58 PM CDT): Controlled on current medications. Assessment & Plan (10/02/2017 11:16 AM REMOTE SENSING TECHNOLOGIST): Goal blood pressure is less than 140/85 Low salt diet recommended Daily aerobic exercise Continue current meds, including RUPERT-I or ARB Assessment & Plan (07/10/2017 3:17 PM REMOTE SENSING TECHNOLOGIST): Goal blood pressure is less than 140/85 Low salt diet recommended Daily aerobic exercise Continue current meds, including RUPERT-I or ARB Assessment & Plan (04/08/2017 12:20 PM CDT): Controlled on current medications. Resolved Problems Problem Noted Date Diagnosed Date Resolved Date Type 1 diabetes mellitus with hyperglycemia 04/08/2017 09/02/2022 Assessment & Plan (01/15/2022 12:04 PM CDT): Hba1c was Lab Results Component Value Date HGBA1C 8.1 01/15/2022 today, indicating adequate DM control Goal Hba1c and blood glucose explained Diet and exercise were advised Prevention and treatment of hyypoglcyemia were discussed with the patient Blood glucose monitoring : DEXCOM Adjustment to medications: These are your new pump settings: Basal 12a 0.6, 430a 0.7, 630a 0.7, 8p 0.6, 10p 0.6 IC 18 SF 45 AI 4 Assessment & Plan (10/11/2021 1:03 PM REMOTE SENSING TECHNOLOGIST): Chronic problem, overall stable. No pump setting changes. Unfortunately, even on exercise mode with higher target he has trouble with fluctuating sugars and can drop low. In Control IQ there is not an option for further insulin decrease and he's understandably concerned about hypoglycemia prior to his procedure. Discussed options including setting a new profile, or exiting CIQ and using lower temp basal which he prefers as he can control it more. Eat a snack the night before the procedure w/o bolus and start temp rate at 40%. He has dexcom high alarm at 250, so if it alarms he should increase the temp basal by 10%. He'll try this out one night prior to his procedure as well to see how it works for him. Discussed insulin needs s/p CABG, call if any issues. Assessment & Plan (07/12/2021 4:54 PM REMOTE SENSING TECHNOLOGIST): Hba1c was Lab Results Component Value Date HGBA1C 6.9 07/12/2021 today, indicating adequate DM control Goal Hba1c and blood glucose explained Diet and exercise , discussed Prevention and treatment of hyypoglcyemia discussed. Blood glucose monitoring : DEXCOM Adjustment to medications: Continue pump at current settings. Assessment & Plan (05/10/2021 12:21 PM CDT): Chronic condition, overall stable based on pump settings. Recommend he call luz rosado if it is a current lot of products he's having more issues with. We also reviewed alternate site placement since he's thin and likely has some scar tissue from years of injections. He will try out some new locations and monitor closely. Also discussed trying extended bolus for certain meals. Assessment & Plan (01/26/2021 11:56 AM CDT): A1c 6.3 with rare hypoglycemia. CIQ working well. Continue current pump settings Assessment & Plan (10/27/2020 11:33 AM CDT): A1c 6.6 without hypoglycemia. Continue current settings. Assessment & Plan (06/29/2020 2:09 PM REMOTE SENSING TECHNOLOGIST): Hba1c was Lab Results Component Value Date HGBA1C 6.6 06/29/2020 today, indicating 134 DM control Goal blood sugars in the 120-150 range , with Hb1c under 7.0 % was explained 1800 calorie, consistent carb diet recommended. No more than 30-45 grams of carbs per meal recommended, as well as avoiding high concentrated sweet drinks . 25-45 min daily exercise, combining both aerobic and resistance exercise recommended. The need to monitor blood glucose before meals and bedtime was discussed. Prevention and treatment of hyypoglcyemia discussed. Pump settings adjusted: MN basal to 0.6, 0430 to 0.7, 0630 to 0.7, 8 pm to 0.6, 10 pm to 0.6. = TD basal 15 units SF to 50. IC 25 Assessment & Plan (03/30/2020 3:40 PM CDT): A1c is 6.2. Good understanding of how Control IQ works however he is over riding settings to prevent hypoglycemia. Not entering carbs for same reason. Will reduce basal pattern and lighten SF. Advised to bolus for food so we can evaluate setting. Instructed to lower SF to 45 if BG are now elevated after bolusing for elevated BG. Education provided on use of sleep and exercise program. Schedule eye exam Assessment & Plan (01/06/2020 2:34 PM CDT): A1c 6.7. No change to pump settings as daily pattern is stable. Any hyperglycemia is d/t site or cartridge issues. Will contact [employer] about the Control IQ training and evaluate pattern after in this mode for 2 weeks. BG goals reviewed. Assessment & Plan (09/19/2019 3:12 PM REMOTE SENSING TECHNOLOGIST): A1c 7.1. Variability will be addressed now that sensor is connected to pump. Will be further helped with in next month when Leonardo Rosado has Connect IQ. Rx sent for [place]. Advised to download pump once Connect IQ is downloaded. Schedule eye exam. Assessment & Plan (05/06/2019 11:50 AM CDT): Hba1c was Lab Results Component Value Date HGBA1C 6.9 05/06/2019 today, indicating adequate DM control 1800 calorie, consistent carb diet recommended. No more than 30-45 grams of carbs per meal recommended, as well as avoiding high concentrated sweet drinks . 25-45 min daily exercise, combining both aerobic and resistance exercise recommended. The need to monitor blood glucose before meals and bedtime was discussed. Will request DEXCOM Prevention and treatment of hyypoglcyemia discussed. Insulin dose: Continue pump at current settings. Assessment & Plan (01/28/2019 4:19 PM CDT): A1c 7.1 without hypoglycemia. Probably reasonable result as recent hyperglycemia is only last week and associated with infection. Will not recommend change to settings today since they appear to be appropriate for time prior to recent hospitalization. However advised to call if he notices that BG start to trend upward. Assessment & Plan (07/09/2018 11:56 AM REMOTE SENSING TECHNOLOGIST): Hba1c was Lab Results Component Value Date HGBA1C 7.0 07/09/2018 today, indicating adequate DM control 1800 calorie, consistent carb diet recommended 25-45 min daily exercise, combining both aerobic and resistance exercise recommended. The need to monitor blood glucose before meals and bedtime was discussed. Dose of basal and prandial insulin adjusted as follows: Continue pump at current settings. Prevention and treatment of hyypoglcyemia discussed. Assessment & Plan (03/26/2018 2:58 PM CDT): A1c 7.3. Wt loss and polys may be d/t higher BG not captured by finger sticks. Will make gentle changes to basal rate but will be able to make better adjustments with CGM. Will send in paperwork to start T Slim and Dexcom. Once trained on Dexcom, come in after 1-2 weeks for download and evaluation of basal rates. Assessment & Plan (12/30/2017 3:20 PM CDT): Your Hba1c today was: Lab Results Component Value Date HGBA1C 7.5 12/30/2017 meaning a 3 month average sugar of : 164 Your goal hba1c is under 7.0 to prevent oil heaterman diabetes complications ( eye , kidney and nerve damage ) . Your goal sugars are in the 90-130 range Daily aerobic ( walking, riding a bike, swimming ) and resistance exercises ( light weight lifting, resistance band stretching ) for at least 30 minutes is recommended If you can not walk, chair exercises is very acceptable. As little as 15-20 minutes exercise , in one or two sessions a day, is still very helpful and will help to improve your diabetes control . Eat small portion meals, no more than 1800 calories Diet Try to eat not more than than 2-3 servings of carbs ( starches ) wiith your meals. Avoid soft drinks, including regular sodas , fruit juices and sweetened tea. Drink water instead. Eat plenty of green and leafy vegetables, including salads. Take your medications regularly,including your insulin injections. Monitor your sugar levels with finger sticks regularly and keep a log sheet or book. Bring your sugar meter and /or a log book or log sheet to every office visit. Pump settings: Basal rates: 12 a 0.7, 430 a 0.775 12p 0.8 8p 0.7 IC 19, S 25 T 110 Assessment & Plan (07/10/2017 3:31 PM REMOTE SENSING TECHNOLOGIST): Hba1c was today, indicating DM control 1800 calorie, consistent carb diet recommended 30 min daily exercise, combining both aerobic and resistance exercise is strongly recommended and needed as part of diabetes management plan. The need to monitor blood glucose before meals and bedtime was discussed. Take prandial insulin before meals based on carb intake and blood glucose readings. Prevention and treatment of hyypoglcyemia discussed. Set reminders with your smart phone so do not forget to bolus Basal rates: 12a 0.7 430 s 0.775 12p 0.8 8p 0.7 ic 19, s 25, t 110 ait 4 h Assessment & Plan (04/08/2017 12:19 PM CDT): Variability appears d/t site issues or over treatment to prevent lows. Advised to be sure he is checking sugars regularly including hs. He is to call for pump download if he has severe or frequent lows. Hypoglycemia 08/24/2013 10/09/2018 Overview (11/14/2016): HYPOGLYCEMIA NOS Assessment & Plan (12/30/2017 3:28 PM CDT): Prevention and treatment of hypoglycemia were discussed Pa has glucagon emergency kit at home and family knows how to use it. Assessment & Plan (07/10/2017 3:35 PM REMOTE SENSING TECHNOLOGIST): Prevention and treatment of hypoglycemia were discussed Pa has glucagon emergency kit at home and family knows how to use it. Assessment & Plan (01/16/2017 12:08 PM CDT): Keep glucagon emergency kit Use it for major hypoglycemia For sugars under 60, take 3 glucose tabs or 30-45 grams of carbs Hyperlipidemia 06/09/2013 10/09/2018 Overview (11/14/2016): HYPERLIPIDEMIA NEC/NOS Assessment & Plan (03/26/2018 2:58 PM CDT): LDL at goal on statin Assessment & Plan (10/02/2017 11:18 AM REMOTE SENSING TECHNOLOGIST): Goal of treatment , LDL cholesterol less than 100 ( less than 70 in patients with history of heart attacks and / or strokes ) NonHDL cholesterol ( total cholesterol minus HDL cholesterol ) goal less than 130 ( less than 100 in patients with history of heart attacks and / or strokes ) Low cholesterol, low fat diet was discussed and advised. Daily exercise On statin therapy Assessment & Plan (07/10/2017 3:17 PM REMOTE SENSING TECHNOLOGIST): Goal of treatment , LDL cholesterol less than 100 ( less than 70 in patients with history of heart attacks and / or strokes ) NonHDL cholesterol goal less than 130 ( less than 100 in patients with history of heart attacks and / or strokes ) Continue statin therapy Assessment & Plan (04/08/2017 12:20 PM CDT): At goal on current medications. Assessment & Plan (01/16/2017 12:07 PM CDT): Lipids within range. continue simvastatin Low cholesterol diet. Type 1 diabetes mellitus 07/19/200903/2017 Overview (11/14/2016): DMI NEURO UNCNTRLD Immunizations Immunization Administration Dates Next Due Influenza, Unspecified 05/05/2020,05/11/2018 Pfizer SARS-CoV-2 Monovalent Vaccination (12+ Yrs) PURPLE 09/25/2020,09/04/2020 Pneumococcal Polysaccharide PPV23 08/11/2016 ZOSTER LIVE 08/11/2014 Social History Tobacco Use Types Packs/Day Years Used Date Smoking Tobacco: Former Cigarettes 3 30 0 05/03/1969 - 05/03/1999 Smokeless Tobacco: Never Alcohol Use Standard Drinks/Week Comments No 0 (1 standard drink = 0.6 oz pur e alcohol) AUDIT-C Answer Date Recorded Frequency of Alcohol Consumption Not on file 09/12/2022 Q2: How many drinks containi ng alcohol do you have on a typical day when you are drinking? 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 Not on file Not on file Last Filed Vital Signs Vital Sign Reading Time Taken Comments Blood Pressure 112/72 12/02/2024 11:14 AM CDT Pulse 64 12/02/2024 11:14 AM CDT Temperature 37.8 C (100 F) 03/24/2024 1:22 PM CDT Respiratory Rate 16 12/02/2024 11:14 AM CDT Oxygen Saturation 97% 09/09/2024 12:57 PM REMOTE SENSING TECHNOLOGIST Inhaled Oxygen Concentration - - Weight 68 kg (150 lb) 12/02/2024 11:14 AM CDT Height 170.2 cm (5' 7.01 ) 12/02/2024 11:14 AM C DT Body Mass Index 23.49 12/02/2024 11:14 AM CDT Plan of Treatment Not on file Medical Devices Implanted Type Area Career And Guidance Counselor Device Identifier Shelf Expiration Date Model / Serial / Lot Perclose 6fr Vascular Closure 24646-65 - [id number] Implanted:Qty: 1 on 11/15/2021 by Walter Green MD at [facility] V[facility] 07/10/2023 [id number] / / Perclose 6fr Vascular Closure [id number] - [id number] Implanted:Qty: 1 on 11/15/2021 by Walter Green MD at [facility] 07/10/2023 [id number] / / Impella Cp Percutaneous Left Ventricular Assist Device [id number] - [id number] Implanted:Qty: 1 on 11/15/2021 by Walter Green MD at [facility] [employer] 06/10/2023 [id number] / / Medtronic [employer] X [id number] Resolute [place] 3mm 2.1-2.7fr 12mm 140cm Rapid Exchange Radiopaque - [id number] Implanted:Qty: 1 on 11/15/2021 by Walter Green MD at [facility] [employer] 08/25/2024 [id number] / / Med[employer] X [id number] Resolute [place] 2.75mm 2.1-2.7fr 22mm 140cm Rapid Exchange - [id number] Implanted:Qty: 1 on 11/15/2021 by Walter Green MD at [facility] [employer] 07/19/2024 [id number] / / [employer] X [id number] Resolute Jaden 3mm 2.1-2.7fr 34mm 140cm Rapid Exchange Radiopaque - [id number] Implanted:Qty: 1 on 11/15/2021 by Walter Green MD at [facility] [employer] [facility] 08/22/2024 [id number] / / Perclose 6fr Vascular Closure [id number] - [id number] Implanted:Qty: 1 on 11/15/2021 by Walter Green MD at [facility] [employer] [facility] 07/10/2023 [id number] / / [employer] Angio-Seal Vip Bondek-Plus 8fr .038in 70cm Hemostatic Latex Free [id number] - [id number] Implanted:Qty: 1 on 11/15/2021 by Walter Green MD at [facility] [employer] 06/10/2022 [id number] / / [employer] Vascade 6/7fr Bioabsorbable Vascular System Compression Collagen [id number] - [id number] Implanted:Qty: 1 on 09/12/2022 by Walter Green MD at [facility] [employer] 01/03/2024 [id number] / / [id number] [facility] 3.5 X 12mm [place] Osborne Rx Coronary Stent [id number] - [id number] Implanted:Qty: 1 on 09/12/2022 by Walter Green MD at [facility] 01/21/2024 [id number] / / [id number] Procedures Procedure Name Priority Date/Time Associated Diagnosis Comments EGFR Routine 12/02/2024 12:00 PM CDT Type 1 diabetes mellitus with hyperglycemia, with long-term current use of insulin (HCC) Hypertension associated with type 1 diabetes mellitus (HCC) LIPID PANEL Routine 12/02/2024 12:00 PM CDT Type 1 diabetes mellitus with hyperglycemia, with long-term current use of insulin (HCC) 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 (CMS/HCC) (HCC) COMPREHENSIVE METABOLIC PANEL Routine 12/02/2024 12:00 PM CDT Type 1 diabetes mellitus with hyperglycemia, with long-term current use of insulin (HCC) Hypertension associated with type 1 diabetes mellitus (HCC) ALBUMIN CREATININE RATIO, URINE Routine 12/02/2024 12:00 PM CDT Type 1 diabetes mellitus with hyperglycemia, with long-term current use of insulin (HCC) POCT GLUCOSE Routine 12/02/2024 11:18 AM CDT Type 1 diabetes mellitus with hyperglycemia, with long-term current use of insulin ([facility]) POCT HEMOGLOBIN A1C Routine 12/02/2024 1 1:18 AM CDT Type 1 diabetes mellitus with hyperglycemia, with long-term current use of insulin ([facility]) HM DIABETES EYE EXAM Routine 09/17/2023 7:44 AM REMOTE SENSING TECHNOLOGIST THYROID FUNCTION CASCADE STAT 03/09/2022 8:58 PM CDT from Last 3 Months or Most Recently Relevant to Health Maintenance Results * eGFR (12/02/2024 12:00 PM CDT) [facility] eGFR 78 >=60 mL/min/1. 73 m2 Comment: Interpretive Data Reference Interval Normal >/= 90 mL/min/1.73m2 Mildly decreased* 60 - 89 mL/min/1.73m2 Mildly to moderately decreased 45 - 59 mL/min/1.73m2 Moderately to severely decreased 30 - 44 mL/min/1.73m2 Severely decreased 15 - 29 mL/min/1.73m2 Kidney Failure < 15 mL/min/1.73m2 *Relative to young adult level Estimated glomerular filtration rate is determined by the 2020 CKD-EPI equation recommended by the National Kidney Foundation (A Unifying Approach to GFR Estimation: Recommendations of the NKF-ASK Task Force on Reassessing the Inclusion of Race in Diagnosing Kidney Disease, JASN 2020). The CKD-EPI equation should not be used for patients with unstable renal function and has not been validated in children and those over 70. Current interpretive data was last reviewed 2021. Blood 12/02/2024 12:0 0 PM CDT 12/02/2024 9:36 PM CDT us Jennadinah Jha NP LAB BLOOD ORDERABLES María l Result Performing Organization Address City/[facility] Co de Phone Number BALJIT FLOREZ [id number] [place] [address] * Albumin Creatinine Ratio, Urine (12/02/2024 12:00 PM CDT) Albumin Ur <12.0 mg/L Comment: Interpretive Data No reference range established. Current interpretive data was last revised 2018. Creatinine Ur 33.0 mg/dL BALJIT FLOREZ Comment: Interpretive Data No reference range established. Current interpretive data was last revised 2018. Albumin Creatinine Ratio, Ur See Comment 1 - 29 BALJIT FLOREZ Comment:Unable to calculate Urine 12/02/2024 12:0 0 PM CDT 12/02/2024 9:27 PM CDT us Jenna Jha NP LAB URINE ORDERABLES María l Result Performing Organization Address City/[facility]/ZIP Co de Phone Number BALJIT FLOREZ [id number] [employer] [place], [place] [id number] * Lipid panel (12/02/2024 12:00 PM CDT) Cholesterol 192 30 - 199 mg/dL Comment: Interpretive Data Ages < or = 19 years Acceptable: <170 mg/dL Borderline high: 170-199 mg/dL High: >or= 200 mg/dL Ages > or = 20 years Desirable: <200 mg/dL Borderline high: 200-239 mg/dL High: >or= 240 mg/dL Literature References: 1. Expert Panel on Integrated Guidelines for Cardiovascular Health and Risk Reduction in Children and Adolescents. Pediatrics 2011;128:S213 2. NCEP Expert Panel. Circulation 2004;110:227 Current Interpretive Data was last revised on 2018. Triglycerides 74 <=149 mg/dL BALJIT FLOREZ Comment: Interpretive Data Ages < or = 9 years Acceptable: <75 mg/dL Borderline high: 75-99 mg/dL High: >or= 100 mg/dL Ages 10 to 20 years Acceptable: <90 mg/dL Borderline high: 90-129 mg/dL High: >or= 130 mg/dL Ages > or = 20 years Desirable: <150 mg/dL Borderline high: 150-199 mg/dL High: 200-499 mg/dL Very high: >or= 499 mg/dL Literature References: 1. Expert Panel on Integrated Guidelines for Cardiovascular Health and Risk Reduction in Children and Adolescents. Pediatrics 2011;128:S213 2. NCEP Expert Panel. Circulation 2004;110:227 Current Interpretive Data was last revised on 2018. HDL 78 >=40 mg/dL BALJIT FLOREZ Comment: Interpretive Data Ages < or = 19 years Acceptable: >45 mg/dL Borderline low: 40-45 mg/dL Low: <40 mg/dL Ages > or = 20 years Desirable: >or= 60 mg/dL Low: <40 mg/dL Literature References: 1. Expert Panel on Integrated Guidelines for Cardiovascular Health and Risk Reduction in Children and Adolescents. Pediatrics 2011;128:S213 2. NCEP Expert Panel. Circulation 2004;110:227 Current Interpretive Data was last revised on 2018. LDL, calculated 101 <=129 mg/dL BALJIT FLOREZ Comment: Interpretive Data Ages < or = 19 years Acceptable: <110 mg/dL Borderline high: 110-129 mg/dL High: >or= 130 mg/dL Ages > or = 20 years Optimal: <100 mg/dL Near optimal: 100-129 mg/dL Borderline high: 130-159 mg/dL High: >160 mg/dL Calculated using the Doty LDL-C estimating equation. This equation was implemented on 2024. Prior to this date LDL-C was estimated using the Friedewald equation. Literature References: 1. Expert Panel on Integrated Guidelines for Cardiovascular Health and Risk Reduction in Children and Adolescents. Pediatrics 2011;128:S213 2. NCEP Expert Panel. Circulation 2004;110:227 3. Soren Gastelum et al. CHARLY Cardiol. 2019December 09;5(5):540-548. doi: 10.1001/jamacardio.2020.0013 Current Interpretive Data was last revised on 2024. Non-HDL Cholesterol 114 mg/dL [facility] Comment: Interpretive Data Ages < or = 19 years Acceptable: <120 mg/dL Borderline high: 120-144 mg/dL High: >145 mg/dL Ages > or = 20 years When triglycerides are >200 mg/dL, Non-HDL cholesterol is a secondary target of therapy with treatment goals that are 30 mg/dL greater than the LDL cholesterol target. Literature References: 1. Expert Panel on Integrated Guidelines for Cardiovascular Health and Risk Reduction in Children and Adolescents. Pediatrics 2011;128:S213 2. NCEP Expert Panel. Circulation 2004;110:227 Current Interpretive Data was last revised on 2018. Chol/HDL ratio 2 [facility] Blood 12/02/2024 12:0 0 PM CDT 12/02/2024 9:27 PM CDT us Jenna Jha NP LAB BLOOD ORDERABLES María reed Result BALJIT [id number] [place] [address] * (ABNORMAL) Comprehensive metabolic panel (12/02/2024 12:00 PM CDT) Sodium 137 135 - 145 mmol/L Potassium, pl 5.4(H) 3.3 - 4.9 mmol/L [facility] Chloride 100 97 - 110 mmol/L [facility] CO2 28 22 - 32 mmol/L [facility] Anion gap 9 2 - 15 mmol/L [facility] BUN 21 6 - 25 mg/dL [facility] Creatinine 0.98 0.80 - 1.30 mg/dL [facility] Glucose 155 70 - 199 mg/dL [facility] Comment: Interpretive Data Fasting glucose >/= 126 mg/dl is diagnostic for diabetes. Fasting is defined as no caloric intake for at least 8 hours. Fasting glucose between 100 mg/dl to 125 mg/dl is diagnostic of prediabetes. In a patient with classic symptoms of hyperglycemia or hyperglycemic crisis, a random glucose >/= 200 mg/dl is diagnostic for diabetes. In the absence of unequivocal hyperglycemia, results should be confirmed by repeat testing. The classification and Diagnosis of Diabetes Diabetes Care 2021; 46: S19-S40. Current interpretive data was last revised 2022. Calcium 8.7 8.5 - 10.3 mg/dL [facility] Bilirubin, total <0.2 0.1 - 1.2 mg/dL [facility] Protein, pl 6.7 6.5 - 8.5 g/dL [facility] Albumin 4.0 3.5 - 5.0 g/dL [facility] Alk phos 162(H) 40 - 130 Units/L [facility] ALT 18 7 - 55 Units/L [facility] AST 34 10 - 50 Units/L [facility] Blood 12/02/2024 12:0 0 PM CDT 12/02/2024 9:27 PM CDT us Jenna Jha NP LAB BLOOD ORDERABLES María l Result [facility] [id number] [place] [address] * (ABNORMAL) POCT hemoglobin A1c (12/02/2024 11:18 AM CDT) Hemoglobin A1C, POC 7.7 4.0 - 5.6 % Blood 12/02/2024 11:1 8 AM CDT us Jenna Jha NP POINT OF CARE TEST ORDERA BLES Final Result * (ABNORMAL) POCT glucose (12/02/2024 11:18 AM CDT) Glucose Blood, POC 210 mg/dL Blood 12/02/2024 11:1 8 AM CDT Jenna Jha FAMILY REUNIFICATION SPECIALIST POINT OF CARE TEST ORDERA BLES Final Result * (ABNORMAL) DIABETES EYE EXAM (09/17/2023 7:44 AM REMOTE SENSING TECHNOLOGIST) Historical Provider HEALTH MAINTENANCE Final Result * TSH reflex to free T4 (03/09/2022 8:58 PM CDT) Pathologist [facility] TSH 0.57 0.30 - 4.20 mcIUnit/mL BALJIT Blood 03/09/2022 8:58 PM CDT 03/09/2022 9:08 PM CDT Sienna Man FAMILY REUNIFICATION SPECIALIST LAB BLOOD ORDERABLES Fi nal Result BALJIT [address] [facility] [place] [address] from Last 3 Months or Most Recently Relevant to Health Maintenance Insurance [facility] MEDICARE UHC MEDICARE ADVANTAGE [facility] MEDICARE Advance Directives For more information, please contact: [phone] * LIMITED - No CPR (Latest Code Status on File) Date Activated Date Inactivated Comments 03/10/2022 2:25 AM 03/11/2022 10:01 PM Question Answer Comments Provide aggressive medical m anagement before a full cardiopulmonary arrest occurs. Use antibiotics, IV Fluids, and medical treatment unless specifically selected below: No intubation Discussed with the following attending physician: Do not resuscitate/do not intubate * Full Code Date Activated Date Inactivated Comments 03/09/2022 8:28 PM 03/10/2022 2:25 AM Care Teams Erp Business Analyst Relationship Specialty Start Date End Date Cj Ireland MD [address] [address] PCP - General Family Medicine 02/03/24 Gus Alatorre DO [address] [place] [id number] Medical Oncologist/Wet Crown Blocking Operator Hematology and Oncology 09/21/18
--- OUTSIDE RECORDS SUMMARY | 2024-12-05 07:06 | XMS_ITS | CONTINUITY OF CARE DOCUMENT ---
Author Name nik zaragoza Address Unknown Organization [facility] Address [address] [place] [address] [address] [place] [address] Phone [phone] Care Team Providers Care Bridge Contractor Name Role Phone Tono Hughes MD Unavailable [phone] YAEL VALADEZ DO Unavailable [phone] YAEL VALADEZ DO Unavailable [phone] INSURANCE PROVIDERS Payer name Policy type / Coverage type [place] red libertarian ID [facility] MEDICARE ADVANTAGE (PPO) Other [id number]
--- OUTSIDE RECORDS SUMMARY | 2024-12-05 07:06 | XMS_ITS | Clinical Summary ---
[facility] Organization [facility] Address [address] [place] [address] Care Team Providers Care Lead Embedded Software Engineer Name Role Phone Gus AlatorreNeri DO Unavailable [phone] Cj Ireland MD Primary Care Provider [phone] Allergies No known active allergies Medications lancets (ONETOUCH SURESOFT LANCING DEV) misc Test sugars daily and as directed patient [...] 30 capsule 3 03/11/20 22 Active multivit qwiahyjm-opqm-FV- calcium (THERA-M) 9 mg iron-400 mcg tablet Take 1 tablet by mouth daily 30 tablet 3 03/11/20 22 Active lidocaine (LIDODERM) 5 % Place 3 patches on the skin daily as needed for pain (back or hip pain) Remove & discard patch within 12 hours or as directed by MD. 30 patch 3 03/11/20 22 Active HYDROcodone-aceta [...] needed (to treat severe hypoglycemia) 2 each 11 03/04/20 23 Active mupirocin (BACTROBAN) 2 % [...] 3 09/14/19 25 Active blood glucose diagnostic (Golf Pipelineuch Ultra Blue Test Strip) stripIndications: Type 1 [...] BOTH EYES EVERY DAY AT BEDTIME 11/14/19 Active traMADoL (ULTRAM) 50 mg tablet TAKE 1 TABLET BY MOUTH EVERY 6 TO 8 HOURS NEEDED 10/10/19 Active triamcinolone (KENALOG) 0.1 % cream APPLY TOPICALLY TO ITCHY AREA EVERY DAY NEEDED 10/05/19 25 Active insulin aspart (NovoLOG) 100 unit/mL vial for injectionIndicati ons:Type 1 diabetes mellitus with hyperglycemia, with long-term current use of insulin (HCC) INJECT UP TO 100 UNITS VIA INSULIN PUMP DAILY 90 mL 2 12/03/19 25 Active insulin aspart (NovoLOG) 100 unit/mL vial for injectionIndicati ons:Type 1 diabetes mellitus with hyperglycemia, with long-term current use of insulin (HCC) INJECT UP TO 100 UNITS VIA INSULIN PUMP DAILY 90 mL 2 01/06/20 24 025 Discontin ued(Reord er) Active Problems Problem Noted Date Diagnosed Date BMI 22.0-22.9, adult 09/03/2022 Assessment & Plan (09/03/2022 11:29 AM BINGO FLOATER): Discussed healthy diet and importance of regular physical activity (20- 30min/day, 150min/wk). Abnormal stress test 08/30/2022 Overview (08/30/2022): Added automatically from request for surgery [id number] Gastroesophageal reflux disease 08/16/2022 Chest pain 08/16/2022 BPH (benign prostatic hyperplasia) 03/10/2022 Fracture of multiple ribs 03/10/2022 Patellar fracture 03/10/2022 Fall 03/10/2022 Convulsions 03/09/2022 Dysuria 01/15/2022 Assessment & Plan (01/15/2022 1:14 PM CDT): UA reflex urine culture PSA Coronary artery disease of n ative artery of [place] heart with stable angina pectoris 12/04/2021 CAD, multiple vessel 10/08/2021 Overview (10/08/2021): Added automatically from request for surgery [id number] Exertional chest pain 08/24/2021 Bilateral lower extremity edema 04/18/2021 Ventricular ectopy 06/15/2019 LANGE (dyspnea on exertion) 05/03/2019 Ventricular trigeminy 05/03/2019 JEAN CLAUDE (obstructive sleep apnea) 05/03/2019 Other fatigue 05/03/2019 Bradycardia 05/03/2019 Anemia, unspecified 11/27/2018 Iron deficiency anemia 09/18/2018 Mixed diabetic hyperlipidemi a associated with type 1 diabetes mellitus (CMS/HCC) 07/09/2018 Assessment & Plan (12/02/2024 11:36 AM CDT): Chronic problem. Currently taking simvastatin 40mg daily. Last lipid panel: 09/18/23 LDL=99, UK=678. Will update labs.Verified that he uses [email or web address]. Aware to check results/results letter in [email or web address]. Will contact by phone if needed. Assessment & Plan (07/06/2024 2:00 PM BINGO FLOATER): Chronic problem. Currently taking simvastatin 40mg daily. Last lipid panel: 09/18/23 LDL=99, ID=618. Assessment & Plan (03/24/2024 2:03 PM CDT): Chronic problem. Currently taking simvastatin 40mg daily. Last lipid panel: 09/18/23 LDL=99, BW=017. Assessment & Plan (01/06/2024 11:33 AM CDT): Chronic problem. Currently taking simvastatin 40mg daily. Last lipid panel: 09/18/23 LDL=99, DF=946. Assessment & Plan (09/18/2023 2:22 PM BINGO FLOATER): Chronic problem. Currently taking simvastatin 40mg daily. Last lipid panel: 09/03/22 LDL=83, TG=90. Will update labs today. Verified that he uses [employer]. Aware to check results/results letter in [email or web address]. Will contact by phone if needed. Assessment [...] time. Assessment & Plan (09/02/2022 1:15 PM BINGO FLOATER): Chronic problem. Currently taking simvastatin 40mg daily. Will update lipid panel today. Verified that he uses [email or web address]. Aware to check results/results letter in [email or web address]. Will contact by phone if needed. Assessment & Plan (06/06/2022 1:18 PM CDT): Chronic problem. On statin therapy, no changes. Assessment & Plan (10/11/2021 10:56 AM BINGO FLOATER): Chronic problem. On statin therapy, no changes. Assessment & Plan (07/12/2021 4:55 PM BINGO FLOATER): LDL cholesterol goal under 80 Continue simvastatin 40 mg daily Check lipid profile today Assessment & Plan (05/10/2021 11:41 AM CDT): Chronic problem. On statin therapy, no changes. Assessment & Plan (01/26/2021 11:55 AM CDT): Continue statin Assessment & Plan (10/27/2020 11:32 AM CDT): LDL 91. Controlled on current medications. Continue plan. Assessment & Plan (06/29/2020 2:12 PM BINGO FLOATER): Goal of treatment , LDL cholesterol less [...] therapy. Assessment & Plan (09/19/2019 3:13 PM BINGO FLOATER): At goal on current medications. Continue statin [...] therapy Assessment & Plan (10/15/2018 2:37 PM BINGO FLOATER): Continue statin therapy Assessment & Plan (07/09/2018 11:57 AM BINGO FLOATER): Goal of treatment , LDL cholesterol less [...] helpful. Assessment & Plan (07/06/2024 2:00 PM BINGO FLOATER): Chronic problem. Reviewed foot care; needs to [...] barefoot. Assessment & Plan (09/18/2023 2:22 PM BINGO FLOATER): Chronic problem. Aware to check feet nightly & to not go barefoot. Assessment & Plan (06/12/2023 2:13 PM CDT): Chronic problem. Aware to check feet nightly & to not go barefoot. Assessment & Plan (10/02/2017 11:33 AM BINGO FLOATER): foot care discussed. Insulin pump status 04/08/2017 [...] hours Assessment & Plan (07/06/2024 1:59 PM BINGO FLOATER): No changes. Will take off exercise mode at HS to see if BG will come back into range overnoc. Assessment & Plan (03/24/2024 2:03 PM CDT): No pump setting at this time. Bolus with evening snack. Assessment & Plan (09/18/2023 3:45 PM BINGO FLOATER): No pump setting changes at this time. Will contact tandem about either software upgrade or new pump. Assessment & Plan (06/12/2023 2:27 PM CDT): No pump setting changes at this time. Discussed correctional bolus. Not to undercalculate HS snack bolus. Assessment & Plan (12/03/2022 12:14 PM CDT): No pump setting changes at this time. Assessment & Plan (09/03/2022 12:59 PM BINGO FLOATER): No pump setting changes. Assessment & Plan (06/06/2022 3:47 PM CDT): No pump setting changes. Assessment & Plan (01/15/2022 12:04 PM CDT): In case of pump failure, take long acting insulin ( e.g Tresiba ), 18 units every 24 hours and bolus with Humalog, calculating according with your carbs and sugars readings. Assessment & Plan (10/11/2021 12:58 PM BINGO FLOATER): No pump setting changes. Assessment & Plan [...] IQ Assessment & Plan (09/19/2019 3:09 PM BINGO FLOATER): No change to settings. Dexcom set up and connected with pump which will prevent hypoglycemia with basal IQ. Also instructed on use of temp basal for increased activity like shopping Assessment & Plan (01/28/2019 4:16 PM CDT): No change to settings today Assessment & Plan (07/09/2018 11:56 AM BINGO FLOATER): Have long acting , basal insulin ( [...] would benefit from CGM. Discussed options with Medtronic pumps. He will check this out and [...] Will update labs. Verified that he uses [email or web address]. Aware to check results/results letter in [email or web address]. Will contact by phone if needed. UTD DM eye exam (09/2023). Has appt q10-11 weeks; letter sent to [facility] to get copy of recent eye [...] infection. Assessment & Plan (07/06/2024 1:59 PM BINGO FLOATER): Chronic problem. A1c at goal at 6.9%. [...] infection. Assessment & Plan (09/18/2023 3:45 PM BINGO FLOATER): Chronic problem. A1c near goal at 7.6%. has risen from 7.3% 06/12/23. No pump setting changes at this time. Unable to download Dexcom & Tandem today. To contact [employer] to get software update so we can download pump at our office. Will also see if he's due for a pump upgrade (if warranty is out). Unable to download dexcom PasswordBox mimi on his phone d/t not knowing [...] mychart. Aware to check results/results letter in [email or web address]. Will contact by phone if needed. UTD [...] lows. Assessment & Plan (09/03/2022 1:03 PM BINGO FLOATER): Chronic problem. Unable to download today. States that he calibrated today as dexcom stated 206 & gbrmihnibno=706. Current medications: T-slim with Dexcom Basal 12a 0.6, 430a 0.7, 630a 0.7, 8p 0.6, 10p 0.6 IC 19 SF 45 AI 4 Will update labs today. Verified that he uses [employer]. Aware to check results/results letter in [email or web address]. Will contact by phone if needed. Assessment [...] today. Assessment & Plan (10/15/2018 2:39 PM BINGO FLOATER): A1c 7.1. Will not recommend any changes to insulin pump settings. Reviewed importance of rotating site to improve absorption and reduce site fatigue. Can change to stainless needle if continues with issues with current infusion sets crimping. Assessment & Plan (10/02/2017 11:17 AM BINGO FLOATER): Hba1c was 7.6 today, indicating sub-optimal DM [...] Will update labs. Verified that he uses [email or web address]. Aware to check results/results letter in [email or web address]. Will contact by phone if needed. Assessment & Plan (07/06/2024 2:00 PM BINGO FLOATER): Chronic problem. Well controlled with current lisinopril [...] time. Assessment & Plan (09/18/2023 2:22 PM BINGO FLOATER): Chronic problem. Well controlled with current lisinopril 20mg daily, metoprolol tartrate 25mg bid, Imdur ER 30mg daily & lasix 20mg daily. No changes at this time. Will update labs today. Verified that he uses [employer]. Aware to check results/results letter in [email or web address]. Will contact by phone if needed. Assessment [...] time. Assessment & Plan (09/02/2022 1:16 PM BINGO FLOATER): Chronic problem. Well controlled with current quinapril 20mg daily, metoprolol tartrate 25mg bid & lasix 20mg daily. Will update labs today. Verified that he uses [employer]. Aware to check results/results letter in [email or web address]. Will contact by phone if needed. Assessment & Plan (06/06/2022 1:17 PM CDT): Controlled on current medications, no changes. Assessment & Plan (10/11/2021 10:56 AM BINGO FLOATER): Controlled on current medications, no changes. Assessment & Plan (07/12/2021 4:55 PM BINGO FLOATER): Well controlled Continue quinapril 20 mg daily Check microalbumin today Assessment & Plan (05/10/2021 11:40 AM CDT): Controlled on current medications, no changes. Assessment & Plan (01/26/2021 11:55 AM CDT): Controlled on current medications. Continue plan. Assessment & Plan (10/27/2020 11:31 AM CDT): Controlled on current medications. Continue plan. Assessment & Plan (06/29/2020 2:12 PM BINGO FLOATER): Goal blood pressure is less than 140/85 Low salt diet was discussed andd recommended The importance of daily aerobic exercise was also emphasized. Continue current meds, including RUPERT-I or ARB, e.g. Assessment & Plan (03/30/2020 3:42 PM CDT): Controlled on current medications. Continue plan. Assessment & Plan (01/06/2020 2:31 PM CDT): Controlled on current medications. Continue plan. Assessment & Plan (09/19/2019 3:12 PM BINGO FLOATER): Controlled on current medications. Continue plan. Assessment & Plan (05/06/2019 11:50 AM CDT): Goal blood pressure is less than 140/85 Low salt diet recommended Daily aerobic exercise Continue current meds, including RUPERT-I or ARB Assessment & Plan (01/28/2019 4:20 PM CDT): Controlled on current medications. Assessment & Plan (10/15/2018 2:41 PM BINGO FLOATER): Controlled on current medications. Assessment & Plan (07/09/2018 11:57 AM BINGO FLOATER): Goal blood pressure is less than 140/85 Low salt diet recommended Daily aerobic exercise Continue current meds, including RUPERT-I or ARB Assessment & Plan (03/26/2018 2:58 PM CDT): Controlled on current medications. Assessment & Plan (10/02/2017 11:16 AM BINGO FLOATER): Goal blood pressure is less than 140/85 Low salt diet recommended Daily aerobic exercise Continue current meds, including RUPERT-I or ARB Assessment & Plan (07/10/2017 3:17 PM BINGO FLOATER): Goal blood pressure is less than 140/85 [...] 4 Assessment & Plan (10/11/2021 1:03 PM BINGO FLOATER): Chronic problem, overall stable. No pump setting [...] issues. Assessment & Plan (07/12/2021 4:54 PM BINGO FLOATER): Hba1c was Lab Results Component Value Date HGBA1C 6.9 07/12/2021 today, indicating adequate DM control Goal Hba1c and blood glucose explained Diet and exercise , discussed Prevention and treatment of hyypoglcyemia discussed. Blood glucose monitoring : DEXCOM Adjustment to medications: Continue pump at current settings. Assessment & Plan (05/10/2021 12:21 PM CDT): Chronic condition, overall stable based on pump settings. Recommend he call t- slim if it is a current lot of [...] settings. Assessment & Plan (06/29/2020 2:09 PM BINGO FLOATER): Hba1c was Lab Results Component Value Date [...] reviewed. Assessment & Plan (09/19/2019 3:12 PM BINGO FLOATER): A1c 7.1. Variability will be addressed now that sensor is connected to pump. Will be further helped with in next month when Leonardo Rosado has Connect IQ. Rx sent for [employer] [place]. Advised to download pump once Connect IQ [...] upward. Assessment & Plan (07/09/2018 11:56 AM BINGO FLOATER): Hba1c was Lab Results Component Value Date [...] Will send in paperwork to start T Alonzo and Dexcom. Once trained on Dexcom, come in after 1-2 weeks for download and evaluation of basal rates. 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 Assessment & Plan (07/10/2017 3:35 PM BINGO FLOATER): Prevention and treatment of hypoglycemia were discussed [...] statin Assessment & Plan (10/02/2017 11:18 AM BINGO FLOATER): Goal of treatment , LDL cholesterol less [...] therapy Assessment & Plan (07/10/2017 3:17 PM BINGO FLOATER): Goal of treatment , LDL cholesterol less [...] mellitus 07/19/200903/2017 Overview (11/14/2016): DMI NEURO UNCNTRLD Encounters Date Type Department Care Team Description 12/03/2024 Results Follow-Up [facility] Diabetes and Endocrinology [address] [place] [phone] Jenna Jha NP 12/02/2024 9:05 PM CDT - 12/02/2024 11:59 PM CDT Hospital Encounter [address] [address] Type 1 diabetes mellitus with hyperglycemia, with long-term current use of insulin (HCC); Hypertension associated with type 1 diabetes mellitus (HCC); 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 (CMS/HCC) (HCC) Discharge Disposition: Discharge to home or self care 12/02/2024 12:[address] [facility] Outpatient Lab at [address] [phone] Type 1 diabetes mellitus with hyperglycemia, with long-term current use of insulin (HCC) (Primary Dx); Hypertension associated with type 1 diabetes mellitus (HCC) 12/02/2024 11:30 AM CDT Office Visit [facility] Diabetes and Endocrinology [address] [place] [phone] Jenna Jha NP Type 1 diabetes mellitus with hyperglycemia, with long-term current use of insulin (HCC) (Primary Dx); Hypertension associated with type 1 diabetes mellitus (HCC); 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 (CMS/HCC) (HCC); Diabetic peripheral neuropathy (HCC); Insulin pump status 11/29/[address] [facility] Diabetes and Endocrinology [address] [place] [phone] Jeanette Stack MD request to pcp for insurance referral 10/13/2024 Telephone [facility] Diabetes and Endocrinology [address] [place] [phone] Jenna Jha NP Forms/questionnaires (Chloe) 09/22/2024 Telephone [facility] [id number] [place] [address] [address], [place] [address] Jenna Jha NP Med Refill 09/09/2024 1:00 PM BINGO FLOATER Office Visit [facility] Cardiology [address] [place] [address] Kevin Ocasio MD Coronary artery disease of [place] artery of [place] heart with stable angina pectoris (Primary Dx); 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 (CMS/HCC) (HCC); Hypertension associated with type 1 diabetes mellitus (HCC); Ventricular ectopy from Last 3 Months Immunizations Immunization Administration Dates Next Due Influenza, Unspecified 05/05/2020,05/11/2018 Pfizer SARS-CoV-2 Monovalent Vaccination (12+ Yrs) PURPLE 09/25/2020,09/04/2020 Pneumococcal Polysaccharide PPV23 08/11/2016 ZOSTER LIVE 08/11/2014 Surgical History Surgery Date Site/Laterality Comments OTHER SURGICAL HISTORY 08/11/2009 - 08/10/2010 Rotator cuff tear (right): Drug therapy OTHER SURGICAL HISTORY 08/11/2009 - 08/10/2010 skin cancer of the right upper arm: wide and deep excision TIBIA FRACTURE SURGERY ARTHROSCOPIC SURGERY Bilateral knees ORCHIECTOMY Left LIPOMA RESECTION CARDIAC CATHETERIZATION Medical History Medical History Date Comments Hx Other Medical 2009 Rotator cuff te ar (right); Outcome: worsened Hx Other Medical 2009 skin cancer of the right upper arm; Outcome: improved Seizure disorder (HCC) Epilepsy Hx Other Medical 2011 ischemic cholit is Hx Other Medical Not Claustropho bic; Comments: [facility] 06/01/2014 - Diabetes mellitus (HCC) Sleep apnea Osteoarthritis of lower back BPH (benign prostatic hyperplasia) Pneumonia Glaucoma Cataracts, bilateral Enlarged prostate Retinopathy Bradycardia Ventricular ectopy Hard to intubate Hypertension Lung nodule Ischemic colitis GERD (gastroesophageal reflux disease) Diabetes mellitus type I (HCC) Petit mal (HCC) History of skin cancer History of blood transfusion Osteoporosis Torn rotator cuff Bilateral Family History Medical History Relation Name Comments No Known Problems Brother Cancer Father Coronary artery disease Father Diabetes type II Father Diabetes me llitus type 2; Heart disease Father Heart disease; Heart failure Father No Known Problems Maternal Grandfather No Known Problems Maternal Grandmother Diabetes type II Mother Lung cancer Mother Cancer, lung; No Known Problems Paternal Grandfather No Known Problems Paternal Grandmother Relation Name Status Comments Brother Father (Age 78) Maternal Grandfather Maternal Grandmother Mother (Age 78) Paternal Grandfather Paternal Grandmother Social History Tobacco Use Types Packs/Day Years [...] on file Legal Sex Male 10:32 AM BINGO FLOATER Gender Identity Not on file Sexual Orientation Not on file 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 Not on file Not on file Obstetrics History Last Filed Vital Signs Vital Sign Reading Time Taken Comments Blood Pressure 112/72 12/02/2024 11:14 AM CDT Pulse 64 12/02/2024 11:14 AM CDT Temperature 37.8 C (100 F) 03/24/2024 1:22 PM CDT Respiratory Rate 16 12/02/2024 11:14 AM CDT Oxygen Saturation 97% 09/09/2024 12:57 PM BINGO FLOATER Inhaled Oxygen Concentration - - Weight 68 kg (150 lb) 12/02/2024 11:14 AM CDT Height 170.2 cm (5' 7.01 ) 12/02/2024 11:14 AM C DT Body Mass Index 23.49 12/02/2024 11:14 AM CDT Plan of Treatment Health Maintenance Due Date Last Done Comments DTaP/Tdap/Td Vaccine (1 - Tdap) 1956 Hepatitis B Screening 1962 Abdominal Aortic Aneurysm (A AA) Screen 2009 Well Visit 65+ 2009 Zoster Vaccine (2 of 3) 05/01/2016 03/06/2016, 08/11 Pneumococcal vaccine 65+ (2 of 2 - PCV) 08/11/2017 08/11/2016 Depression Screening 01/15/2023 01/15/2022, 05/10/2021, 06/29/2020, Additional history exists TSH Level 03/09/2023 03/09/2022, 05/06/2019 Fall Risk Assessment 09/12/2023 09/12/2022 Covid-19 Vaccine (2023-2 5 season) 2024 05/10/2021, 09/25/2020, 09/04/2020, Additional history exists Dilated Eye Exam 09/17/2024 09/17/2023, 08/2022, 12/22/2020, Additional history exists Influenza Vaccine (Season Ended) 2025 05/13/2022, 04/17/2021, 04/12/2021, Additional history exists Hemoglobin A1C 06/03/2025 12/02/2024, 06/12, 03/24/2024, Additional history exists Albumin Creatinine Ratio, Urine 12/02/2025 12/02/2024, 09/18/2023, 09/03/2022, Additional history exists Foot Exam 12/02/2025 12/02/2024, 06/12, 06/12/2023, Additional history exists Lipid Panel 12/02/2025 12/02/2024, 0 03/2024, 09/03/2022, Additional history exists eGFR 12/02/2025 12/02/2024, 0 03/2024, 09/09/2022, Additional history exists Medical Devices Implanted Type Area Photogrammetric Technician Device Identifier Shelf Expiration Date Model / Serial / Lot Perclose 6fr Vascular Closure 02453-17 - [id number] Implanted:Qty: 1 on 11/15/2021 by Walter Green MD at [facility] Vascular 07/10/2023 63662-59 / / Perclose 6fr Vascular Closure 87795-99 - [id number] Implanted:Qty: 1 on 11/15/2021 by Walter Green MD at [facility] V[facility] 07/10/2023 [id number] / / Impella Cp Percutaneous Left Ventricular Assist Device 0976-0497 - [id number] Implanted:Qty: 1 on 11/15/2021 by Walter Green MD at [facility] [employer] 06/10/2023 [id number] / / Medtronic U[employer] X [id number] Resolute Jaden 3mm 2.1-2.7fr 12mm 140cm Rapid Exchange Radiopaque - [id number] Implanted:Qty: 1 on 11/15/2021 by Walter Green MD at [facility] Medtronic Inc 08/25/2024 [id number] / / Medtronic Usa Inc X [id number] Resolute Shiner 2.75mm 2.1-2.7fr 22mm 140cm Rapid Exchange - [id number] Implanted:Qty: 1 on 11/15/2021 by Walter Green MD at [facility] Medtronic Inc 07/19/2024 [id number] / / Medtronic Usa Inc X [id number] Resolute Shiner 3mm 2.1-2.7fr 34mm 140cm Rapid Exchange Radiopaque - [id number] Implanted:Qty: 1 on 11/15/2021 by Walter Green MD at [facility] Medtronic Inc 08/22/2024 [id number] / / Perclose 6fr Vascular Closure 25960-72 - [id number] Implanted:Qty: 1 on 11/15/2021 by Walter Green MD at [facility] [employer] 07/10/2023 [id number] / / [employer] Bob Angio-Seal Vip Bondek-Plus 8fr .038in 70cm Hemostatic Latex Free [id number] - [id number] Implanted:Qty: 1 on 11/15/2021 by Walter Green MD at [facility] [employer] Bob 06/10/2022 [id number] / / Cardiva Medical Inc Vascade 6/7fr Bioabsorbable Vascular System Compression Collagen [id number] - [id number] Implanted:Qty: 1 on 09/12/2022 by Walter Green MD at [facility] [employer] 01/03/2024 [id number] / / [id number] Medtronic Card Vasc Surgery 3.5 X 12mm Shiner [place] Rx Coronary Stent [id number] - [id number] Implanted:Qty: 1 on 09/12/2022 by Walter Green MD at [facility] Medtronic Card Vasc Surgery 01/21/2024 [id number] / / [id number] Procedures Procedure Name Priority Date/Time Associated Diagnosis [...] long-term current use of insulin (HCC) POCT HEMOGLOBIN A1C Routine 12/02/2024 1 1:18 AM CDT Type 1 diabetes mellitus with hyperglycemia, with long-term current use of insulin (HCC) HM DIABETES EYE EXAM Routine 09/17/2023 7:44 AM BINGO FLOATER THYROID FUNCTION CASCADE STAT 03/09/2022 8:58 PM CDT from Last 3 Months or Most Recently Relevant to Health Maintenance Results * eGFR (12/02/2024 12:00 PM CDT) eGFR 78 >=60 mL/min/1. 73 m2 Comment: [...] PM CDT 12/02/2024 9:36 PM CDT us Jenna Jha NP LAB BLOOD ORDERABLES María reed Result [facility] [address] Department [place] [address] * Albumin Creatinine Ratio, Urine (12/02/2024 12:00 [...] NP LAB URINE ORDERABLES María l Result BALJIT FLOREZ [address] Department [place] [address] * Lipid panel (12/02/2024 12:00 PM CDT) [...] mg/dL High: >160 mg/dL Calculated using the Soren LDL-C estimating equation. This equation was implemented on 2024. Prior to this date LDL-C was estimated using the Friedewald equation. Literature References: 1. Expert Panel on Integrated Guidelines for Cardiovascular Health and Risk Reduction in Children and Adolescents. Pediatrics 2011;128:S213 2. NCEP Expert Panel. Circulation 2004;110:227 3. Soren Alexander. CHARLY Cardiol. 2019December 09;5(5):540-548. doi: 10.1001/jamacardio.2020.0013 Current Interpretive Data was last revised on 2024. Non-HDL Cholesterol 114 mg/dL BALJIT FLOREZ Comment: Interpretive Data Ages [...] 12/02/2024 9:27 PM CDT us Jenna Jha SEISMOGRAPH OPERATOR HELPER LAB BLOOD ORDERABLES María brianna Result [facility] [address] Department [place] [address] * (ABNORMAL) Comprehensive metabolic panel (12/02/2024 12:00 PM CDT) Sodium 137 135 - 145 mmol/L Potassium, pl 5.4(H) 3.3 - 4.9 mmol/L CERNER [facility] Chloride 100 97 - 110 mmol/L [facility] CO2 28 22 - 32 mmol/L [facility] Anion gap 9 2 - 15 mmol/L [facility] BUN 21 6 - 25 mg/dL [facility] Creatinine 0.98 0.80 - 1.30 mg/dL [facility] Glucose 155 70 - 199 mg/dL CERNER [facility] Comment: Interpretive Data Fasting glucose >/= 126 [...] classification and Diagnosis of Diabetes Diabetes Care 202; 46: S19-S40. Current interpretive data was last revised 2022. Calcium 8.7 8.5 - 10.3 mg/dL CERNER CH Bilirubin, total <0.2 0.1 - 1.2 mg/dL CERN[facility] Protein, pl 6.7 6.5 - 8.5 g/dL [facility] Albumin 4.0 3.5 - 5.0 g/dL [facility] Alk phos 162(H) 40 - 130 Units/L [facility] ALT 18 7 - 55 Units/L [facility] AST 34 10 - 50 Units/L [facility] Blood 12/02/2024 12:0 0 PM CDT 12/02/2024 9:27 PM CDT Jenna Jha NP LAB BLOOD ORDERABLES María l Result BALJIT [address] [place] [address] * (ABNORMAL) POCT hemoglobin A1c (12/02/2024 11:18 AM CDT) Hemoglobin A1C, POC 7.7 4.0 - 5.6 % Blood 12/02/2024 11:1 8 AM CDT us Jenna Jha NP POINT OF CARE TEST ORDERA BLES Final Result * (ABNORMAL) POCT glucose (12/02/2024 11:18 AM CDT) Glucose Blood, POC 210 mg/dL Blood 12/02/2024 11:1 8 AM CDT Jenna Jha NP POINT OF CARE TEST ORDERA BLES Final Result * (ABNORMAL) DIABETES EYE EXAM (09/17/2023 7:44 AM BINGO FLOATER) us Historical Provider HEALTH MAINTENANCE Final Result * TSH reflex to free T4 (03/09/2022 8:58 PM CDT) TSH 0.57 0.30 - 4.20 mcIUnit/mL [facility] Blood 03/09/2022 8:58 PM CDT 03/09/2022 9:08 PM CDT us Sienna Man NP LAB BLOOD ORDERABLES nal Result [facility] [address] [facility] Department [place] [address] from Last 3 Months or Most Recently Relevant to Health Maintenance Insurance [facility] MEDICARE [facility] MEDICARE ADVANTAGE [facility] MEDICARE Advance Directives For more information, please contact: [phone] * LIMITED - No CPR (Latest Code [...] 8:28 PM 03/10/2022 2:25 AM Care Teams Lead Embedded Software Engineer Relationship Specialty Start Date End Date Cj Ireland MD [address] [address] PCP - General Family Medicine 02/03/24 Gus Alatorre DO [address] [place] [address] Medical Oncologist/Independent Jeweler Hematology and Oncology 09/21/18
--- OUTSIDE RECORDS SUMMARY | 2024-12-05 07:06 | XMS_ITS | Encounter Summary ---
Author Organization [facility] Address [address] [place] [address] Care Team Providers Care Knife Machine Operator Name Role Phone Radha Arauz MD Primary Care Provider [phone] Encounter Details Date Type Department Care Team (Late st Contact Info) Description 12/10/2018 Lab Requisition [facility] Care Pathology Lab [address] [place] [address] Claudio Ballard MD [address] [facility] [address] [place] [address] Social History Tobacco Use Types Packs/Day Years Used Date Smoking Tobacco: Never Assessed Sex and Gender Information Value Date Recorded Sex Assigned at Not on file 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 Gender Identity Not on file Sexual Orientation Not on file documented as of this encounter Plan of Treatment Not on file documented as of this encounter Procedures Procedure Name Priority Date/Time Associated Diagnosis Comments BONE MARROW BIOPSY (STL) Routine 12/08/2018 9:40 AM CDT documented in this encounter Results * BONE MARROW BIOPSY (STL) (12/08/2018 9:40 AM CDT) Case Report Bone Marrow Patholog y Report Case: [id number] Authorizing Provider: Claudio Ballard MD Collected: 12/08/2018 09:40 AM Pathologist: Luz Marina Alfredo MD Received: 12/10/2018 09:41 AM Specimens: A) - Bone Marrow Core, [id number] B) - Bone Marrow Clot, BM19-13 C) - Blood Peripheral, BM19-13 D) - Bone Marrow Aspirate, [id number] 12/11/2018 10:16 AM CDT [facility] Final Diagnosis Bone marrow, aspirate, clot section, and core biopsy (B19-13): - Mildly hypocellular marrow with maturing trilineage hematopoiesis. - No evidence of lymphoma, high-grade myeloid neoplasm, or plasma cell dyscrasia. - See description. Peripheral blood smear: - Normochromic, normocytic anemia. - See description. 12/11/2018 10:16 AM [facility] Comment Overall, the bone marrow specimen is mildly hypocellular for age with maturing trilineage hematopoiesis and no evidence of lymphoma, a high-grade myeloid neoplasm, a plasma cell dyscrasia, or significant dyspoiesis. Due to the inadequate nature of the aspirate smears, adequate evaluation for dyspoiesis is hindered. Concurrent bone marrow flow cytometry ([id number]) demonstrates no evidence of non-Hodgkin lymphoma or a high-grade myeloid neoplasm. Correlation with clinical findings and relevant cytogenetic/molecular testing is required. AQ/NW 12/11/2018 10:16 AM [facility] Peripheral Smear Description Outside CBC results: WBC = 5.8 K/uL RBC = 3.89 M/uL Plt = 259 K/uL Hgb = 12.3 g/dL Hct = 37.4% MCV = 96.1 fL MCH = 31.6 pg MCHC = 32.9 g/dL RDW = 13.2% Manual Differential Count (100 cells): 59% neutrophils, 29% lymphocytes, 8% monocytes, 3% eosinophils, and 1% basophils. Leukocyte number: normal. Granulocyte morphology: normal. Lymphocyte morphology: normal. Erythrocyte number: decreased. Erythrocyte morphology: normochromic/normocyt ic. Anisopoikilocytosis: not signifcant. Polychromasia: not significant. Platelet number: normal. Platelet morphology: normal. 12/11/2018 10:16 AM [facility] Bone Marrow Aspirate Due to the aspicular, paucicellular, and hemodilute nature of the specimen, microscopic assessment of the bone marrow aspirate is not performed. No overt dyspoiesis is identified. Please note that due to the lack of spicules, the morphologic assessment is limited. An iron stain performed on the aspirate smear, with appropriately reactive control, shows decreased stainable storage and sideroblastic iron, but is suboptimal due to a lack of spicules and low number of erythroid progenitor cells present. 12/11/2018 10:16 AM [facility] Bone Marrow Core Biopsy and Clot Section Description Specimen quality: Suboptimal; short with abundant aspiration artifact. Cellularity: Mildly hypocellular; estimated 20%. Trilineage Hematopoiesis: present. Myeloid: Erythroid ratio: Normal to decreased. Myeloid maturation: normal. Erythroid maturation: normal. Megakaryocyte number: normal. Megakaryocyte distribution: normal. Lymphoid aggregates: absent. Bone trabeculae: normal. Blood vessels: normal. Other: No increased numbers or clusters of blasts or plasma cells, granulomas, extrinsic cell population, or other marrow infiltrative process seen. Clot section marrow particles: present. Clot section morphology: similar to core biopsy. Clot section storage iron (by special stain): adequate. Immunohistochemical stains and EVARISTO stains for kappa and lambda light chains are performed on the clot in the [facility] Department of Pathology, with appropriately reactive controls, and demonstrate the following: CD34 shows no increase in blasts (estimated less than 1%). CD138 highlights a population of plasma cells comprising an estimated 2-3% of marrow cellularity. [place] and lambda each highlight appropriate proportions of the plasma cells, confirming a polyclonal population. 12/11/2018 10:16 AM [facility] Flow Cytometry Summary Concurrent bone marrow flow cytometry ([id number]) demonstrates no evidence of non-Hodgkin lymphoma or a high-grade myeloid neoplasm. 12/11/2018 10:16 AM [facility] Clinical History 12/11/2018 10:16 AM [facility] Materials Received Received are 15 slides and 2 blocks labeled as [id number] along with the outside pathology report. The [place] [address]. All materials are returned to the referring institution, along with a copy of our final report. 12/11/2018 10:16 AM [facility] Disclaimer The performance characteristics of all immunohistochemical and indirect immunofluorescence stains (if any) cited in this report were determined by the Histopathology Laboratory of [facility]. Some of these tests were developed by our own laboratory and have not been cleared or approved by the US Food and Drug Administration. The FDA does not require this test to go through premarket FDA review. These tests are used for clinical purposes. They should not be regarded as investigational or for research. This laboratory is certified under the Clinical Laboratory Improvement Amendments (CLIA) as qualified to perform high complexity clinical laboratory testing. This case has been personally reviewed and interpreted by the attending (teaching) pathologist. 12/11/2018 10:16 AM CDT [facility] PATH[facility] Embedded Images 12/11/2018 10:16 AM CDT [facility] Pathology/Cytology SPECIMEN FROM BONE MARROW OBTAINED BY ASPIRATION / Unknown 12/08/2018 9:40 AM CDT 12/10/2018 9:41 AM CDT Miscellaneous samples (specimen) BONE MARROW CLOT SPECIMEN / Unknown 12/08/2018 9:40 AM CDT 12/10/2018 9:41 AM CDT Miscellaneous samples (specimen) PERIPHERAL BLOOD / Unknown 12/08/2018 9:40 AM CDT 12/10/2018 9:41 AM CDT Miscellaneous samples (specimen) SPECIMEN FROM BONE MARROW OBTAINED BY ASPIRATION / Unknown 12/08/2018 9:40 AM CDT 12/10/2018 9:41 AM CDT Claudio Ballard MD LAB - PATHOLOGY/CYTOLOGY ORDER JEFFERSON Final Result [facility] PATH[facility] LAB [address] [phone] documented in this encounter Visit Diagnoses Not on filedocumented in this encounter Care Teams Knife Machine Operator Relationship Specialty Start Date End Date Radha Arauz MD [address] [id number] PCP - General 12/05/22 documented as of this encounter
--- OUTSIDE RECORDS SUMMARY | 2024-12-05 07:06 | XMS_ITS | Encounter Summary ---
Author Organization [facility] Address [address] [place] [address] Care Team Providers Care Reinforcer Name Role Phone Radha Arauz MD Primary Care Provider Encounter Details Date Type Department Care Team (Late st Contact Info) Description 12/08/2018 Lab Requisition 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 Gender Identity Not on file Sexual Orientation Not on file documented as of this encounter Plan of Treatment Not on file documented as of this encounter Procedures Procedure Name Priority Date/Time Associated Diagnosis Comments FLOW CYTOMETRY BONE MARROW Routine 12/08/2018 10:00 AM CDT Anemia documented in this encounter Results * FLOW CYTOMETRY BONE MARROW (12/08/2018 10:00 AM CDT) Case Report Flow Cytometry Case: [id number] Authorizing Provider: Claudio Ballard MD Collected: 12/08/2018 10:00 AM Pathologist: Luz Marina Alfredo MD Received: 12/08/2018 01:06 PM Specimen: Bone Marrow 12/09/2018 9:55 AM CDT [facility] Final Diagnosis Bone marrow, flow cytometric immunophenotypic analysis ([id number]): - No evidence of non-Hodgkin lymphoma or high-grade myeloid neoplasm. - See interpretation. 12/09/2018 9:55 AM CDT [facility] Flow Cytometry Interpretation The bone marrow specimen has a viability of 89%. The lymphocyte and monocyte badillo show mild relative expansion. Within the lymphocyte gate, there is no monotypic B-cell population identified (kappa: lambda ratio = 2.1:1). There is no aberrant co-expression of CD5 or CD10 on the B-cells. There is no expanded T-cell population seen. By CD34, 0.2% of all events analyzed are blasts. A bone marrow aspirate smear prepared from the flow cytometry specimen is reviewed for rn quality purposes. The bone marrow aspirate specimen shows no evidence of involvement by non-Hodgkin lymphoma or a high-grade myeloid neoplasm. Correlation with clinical findings, concurrent bone marrow core biopsy, and relevant cytogenetic/molecu lar studies is required. AQ/NW 12/09/2018 9:55 AM [facility] Flow Cytometry Results Differential Result Comment Flow Cell Count /uL [id number] Total Viability % 89.0 Lymphocytes % 15 Dim CD45 Region % 1 Monocytes % 12 Granulocytes % 68 12/09/2018 9:55 AM [facility] Reason for test Anemia 285.9 019 9:55 AM [facility] Client Specimen ID # [id number] 12/09/2018 9:55 AM [facility] Number of markers 10 were performed. A Flow CD10 A Flow CD13 A Flow CD20 A Flow CD5 A Flow CD19 A Flow CD33 A Flow CD34 A Flow CD45 A [place]+CD19+ A Lambda+CD19+ 12/09/2018 9:55 AM [facility] Disclaimer Test performed at [facility], [address] [place] [address], [address]. *The established laboratory minimum viability is 70%. Values below the minimum may result in the failure to find an abnormal population of cells. This test was developed and its performance characteristics determined by the Flow Cytometry Laboratory. It has not been cleared by the [place] Food and Drug Administration (FDA). The FDA has determined that such clearance or approval is not necessary. This test is used for clinical purposes. It should not be regarded as investigational or for research. This laboratory is regulated under the Clinical Laboratory Improvement Amendments of 1998 (CLIA) as a qualified to perform high complexity clinical testing. 12/09/2018 9:55 AM CDT [facility] Embedded Images 9:55 AM CDT [facility] Pathology/Cytolo gy BONE MARROW SPECIMEN / Unknown 12/08/2018 10:00 AM CDT 12/08/2018 1:06 PM CDT Claudio Ballard MD LAB - PATHOLOGY/CYTOLOGY ORDER JEFFERSON Final Result Performing Organization Address City/State/[facility] Co de Phone Number [facility] [address] [phone] documented in this encounter Visit Diagnoses Diagnosis Anemia Anemia, unspecified documented in this encounter Care Teams Reinforcer Relationship Specialty Start Date End Date Radha Arauz MD [address] [place] [phone] PCP - General 12/05/22 documented as of this encounter
--- OUTSIDE RECORDS SUMMARY | 2024-12-05 07:06 | XMS_ITS | Clinical Summary ---
Author Organization [facility] Address [address] [facility] [place] [address] Care Team Providers Care Grinder Outside Diameter Name Role Phone Radha Arauz MD Primary Care Provider [phone] Source Comments [facility],non-owned Affiliates and Associated Physician Practices is amultiple site organization consisting of ambulatory clinics and hospital sitesin [place], [place], [place] and [place]. This disclosure is being madepursuant to the Care Everywhere program and may not contain all information available regarding this patient. 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 Gender Identity Not on file Sexual Orientation Not on file Plan of Treatment Health Maintenance Due Date Last Done Comments DTAP/TDAP/TD VACCINES (1 - Tdap) 1963 PNEUMOCOCCAL VACCINE 50+ (1 of 1 - PCV) 1994 ZOSTER VACCINE (1 of 2) 1994 Respiratory Syncytial Virus (RSV) Vaccine Pt: or over 60 yrs (1 - 1-dose 75+ series) 2019 COVID-19 VACCINE ( - 2023-2 5 season) 2024 DEPRESSION SCREENING 08/11/2024 MEDICARE AWV CALENDAR YEAR 2024 INFLUENZA VACCINE (Season Ended) 2025 HEPATITIS B VACCINE Aged Out No longe r eligible based on patient's age to complete this topic HIB VACCINE Aged Out No longer eligi ble based on patient's age to complete this topic HPV VACCINE Aged Out No longer eligi ble based on patient's age to complete this topic MENINGOCOCCAL (Group B) VACC INE SHARED DECISION-MAKING Aged Out No longer eligibl e based on patient's age to complete this topic MENINGOCOCCAL GROUPS A/C/Y/W VACCINE Aged Out No longer eligible b ased on patient's age to complete this topic Insurance AETNA AETNA MEDICARE [facility] Care Teams Grinder Outside Diameter Relationship Specialty Start Date End Date Radha Arauz MD [address] [place] [address] [place] [phone] PCP - General 12/05/22
--- OUTSIDE RECORDS SUMMARY | 2024-12-05 07:06 | XMS_ITS | Data Portability ---
Author Organization [place] [facility] [employer], Main Office Address [address] [place] [address] Assessment Encounter Date Assessment Date Assessment LastModified by Organization Details LastModified Time 10/08/2024 10/08/2024 By x-ray and exam the patient is noted to have a minimally displaced fracture of the distal clavicle left shoulder after a fall in the yd yesterday. He has a sling he is using this for comfort. He also has been icing and keeping it protected. I have advised him he can do some gentle Codman exercises and some passive motion with the shoulder at home his can help him with this. He is not to overdo it nothing heavy or repetitive he is not to sleep on that side. He will wear the sling full-time except to take it off to do some very gentle exercises with passive range of motion and he can work on active range of motion of his hand wrist and elbow to keep that loosen and limber. I will see him back in 2 weeks for another x-ray to make sure the fracture is staying in good alignment. The patient was also given 20 tramadol to be taken every 8 hours p.r.n. severe pain he states he will use this mainly to sleep at night. The patient voiced understanding agreed with the above plan he will call for any further problems difficulties or questions. We talked about the fact this may take 8-12 weeks to completely heal anticipate getting him out of the sling and the next few weeks as long as he is comfortable. Not available 10/08/2024 12:00:31 10/22/2024 10/22/2024 The patient has a healing fracture of the left distal clavicle. Today's x-rays show good maintenance of the alignment. No significant callus formation noted yet he is only 1 week status post injury. I will see him back in a couple of weeks we will continue to monitor this he can be out of the sling as tolerated. He is going to work on gentle range of motion with active assisted motion at home with his . If he has any problems difficulties or questions he is instructed call he is not to do anything heavy repetitive for now. Not available 10/22/2024 11:31:23 11/02/2024 11/02/2024 The patient has a healing fracture of the left distal clavicle. Today's x-rays show new callus formation the fracture lines are barely visible at this point he has made a nice leap towards recovery and healing. He is going to work on gentle range of motion he is not to do anything heavy or repetitive with the shoulder quite yet given another month. Today's x-rays look so good and he has such good comfort and function that I think he can be dismissed I have offered to see him back again in 1 month for final recheck if necessary but he thinks that he can get by with continue with what he is doing. I will see him back as needed if he has any problems difficulties or questions he is instructed call if he still has significant pain in a month he will call and we will get him back in for another x-ray he voiced understanding and agreed with the above plan. Not available 11/02/2024 11:35:38 Plan of Treatment Reminders Order Date Submit Date Provider Last Modified By Organization Details Last Modified Time Details Appointments Any 30 2024 02:30P Oriana Atkins NP Not available Not available Not available Lab CBC w/ auto diff 2023 024 [email or web address] [facility], [address] [address], [place], [address], 04/26/2024 08:13:03 CMP, serum or plasma 2023 024 [facility], [address] [address], [place], [address], 04/26/2024 08:13:03 Referral None recorded. Procedures None recorded. Surgeries None recorded. Imaging XR, clavicle 2024 025 [facility] [place], [address], [place], [address], 11/02/2024 11:36:34 XR, clavicle 2024 025 [facility] [place], [address], [address], 10/22/2024 11:53:01 Medication Orders tramadol 50 mg tablet 2024 025 [id number], [address], [place], [place], [id number], 10/08/2024 12:24:23 Patient TargetsNo targets recorded. Patient InstructionsNo instructions recorded. Reason for Referral None Reported. Results Created Date Observation Date Name Description Value Unit Range Abnormal Flag Note LastModifiedBy Organization Detail LastModifiedTime 10/07/1910/07/2024 XR, shoul adrienne, 2 or more view No observ ation record ed. [facility] [address] [place], [address], 10/09/2024 13:44:33 10/23/19 25 XR, clavi cyndi No observ ation record ed. [facility] [place] [address], [address], 10/22/2024 11:32:04 11/03/19 25 XR, clavi cyndi No observ ation record ed. [facility] [place] [address], [address], 11/02/2024 11:36:33 Result Notes None recorded. Problems Name Problem SNOMED Code Status Onset Date Resolution Date Notes Provider Name and Address Organization Details Recorded Time Closed fracture of left patella 77807253365 173427 Active 2021 Not Available [facility] 02:29:34 Leukocyt osis 274925668 Active Not Available [facility] 02:29:34 Benign essentia l hyperten josesito 1877864 Active Not Available [facility] 3 02:29:34 Se[address] 9[address]48 [address] Coates neurolog y Not Available [facility] 3 02:29:34 Constipa tion 37541028 Active Not Available [facility] 3 02:29:34 Cobalami n deficien cy 397660402 Active 2017 Not Available [facility] 02:29:34 Anemia of chronic disease 080866218 Active Not Available [facility] 3 02:29:34 Gastroes ophageal reflux disease 850050725 Active Not Available [facility] 02:29:34 Glaucoma 62719701 Active Not Available [facility] 3 02:29:34 Benign prostati c hyperpla marielena 546758751 Active Not Available [facility] 3 02:29:34 Anemia 322219303 Completed Not Available [facility] 02:29:34 Malaise and fatigue 914689567 Active Not Available [facility] 3 02:29:34 History of gastroin testinal bleed 565993854 Active due to ischemic colitis in 2011 Not Available [facility] 3 02:29:34 Low back pain 113461078 Active Not Available [facility] 3 02:29:35 Ischemic colitis 22379952 Active Not Available [facility] 02:29:35 Type 2 diabetes mellitus without complica tion 513453855 Completed Not Available [facility] 02:29:35 Hyperten sive disorder 99008759 Completed Not Available [facility] 3 02:29:35 Neurogen ic urinary bladder 994492837 Active Not Available [facility] 3 02:29:35 Dizzines s 776115243 Active Not Available [facility] 3 02:29:35 Blood leukocyt e number above referenc e range 706890816 Active Not Available [facility] 3 02:29:35 Pain of left knee joint 45055259296 4107 Active 2021 Not Available [facility] 02:29:35 Pain of hip region 26237031 Active Not Available [facility] 02:29:35 Upper respirat ory infectio n 32754661 Active Not Available [facility] 3 02:29:35 Hyperlip idemia 40204460 Active Not Available [facility] 02:29:35 Pain of joint 84969303 Active Not Available [facility] 3 02:29:35 Essentia l hyperten josesito 14908332 Active Not Available [facility] 3 02:29:35 Colitis 66089704 Completed Not Available [facility] 3 02:29:36 Rhinitis 00452284 Active Not Available [facility] 3 02:29:36 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 703896841 Active 2018 Not Available [facility] 02:29:36 Diabetes mellitus 22971729 Active on insulin pump Not Available [facility] 02:29:36 Sleep apnea 76704791 Active Not Available [facility] 3 02:29:36 Obstruct marlyn sleep apnea syndrome 78147004 Active Not Available [facility] 3 02:29:36 Seizure 60231900 Active Not Available [facility] 3 02:29:36 Iron deficien cy anemia 11900616 Active 2022 Radha Arauz MD [address], [place], [address] , [facility] 3 14:44:01 Vitamin D deficien cy 74312163 Active 2022 Radha Arauz MD [address], [place], [address] , [facility] [employer] [facility] 3 14:44:20 Acute sinusiti s 48653954 Active 2023 Radha Arauz MD [address], [place], [address] , [employer] 4 15:58:57 COVID-19 752114834 Active 2023 JOAN Bradshaw [address], [address], [place], [address] , [employer] 4 14:00:17 Plantar fasciiti s 104027358 Active 2023 JOAN Bradshaw [address], [address], [place], [address] , [employer] 4 14:36:10 Fracture of clavicle 14166365 Active 2024 Ignacia Wellington ATC L null, [employer] 5 11:35:52 Closed fracture of left clavicle 90532320739 138863 Active 2024 LEILA Sanford [address], [place], [address] , [employer] 5 11:48:45 Notes:Medical History: Epile psy Bilateral glaucoma Bilateral cataracts Rhinitis Eosinophils 240/uL IgE 53 IU/mL Alpha-1 antitrypsin PiMM 161 mg% Early REM onset Moderate OSAHS, AHI = 28, 10/08/04, on Henriquez CPAP c/o IVRC Hypertension Hyperlipidemia T2DM with gastroparesis/retinopathy CAD Left pulm nodule MICHELLE Ischemic colitis with LGIB BPH Neurogenic bladder B12 deficiency Iron deficiency Normocytic anemia Dr. 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 Procedures Surgical History Date Name Laterality Status Provider Name and Address Organization Details Recorded Time 01/15/20 24 Cerumen Removal completed JOAN Bradshaw [address], [place], [address], [employer] 01/15/2024 16:32:42 10/27/19 24 Medicare Wellness CPT Code, subsequent completed Jennifer Guajardo RN [employer] 10/27/2023 14:45:48 11/20/19 23 colonoscopy completed Kiersten Reyesiner [facility] [employer] 12/02/2022 15:31:25 10/23/19 23 Medicare Wellness CPT Code, Initial completed Ying Miller RN [facility] [employer] 10/21/2022 12:22:22 08/11/19 08 Rotator cuff surgery completed Not Available [facility] 10/09/2022 02:27:10 Imaging Results Imaging Date Name Status LastModified by Organiz ation Details LastModified Time 10/07/2024 XR, shoulder, 2 or more view completed [email or web address] [facility] [address] [place], [address], 10/09/2024 13:44:33 10/22/2024 XR, clavicle completed [facility] [place] [address] [facility] [address], [place], [address], 10/22/2024 11:32:04 11/02/2024 XR, clavicle completed [facility] [place] [address] [facility] [address], [place], [address], 11/02/2024 11:36:33 Procedure Notes None recorded. Medical Equipment None Reported. Allergies No known drug allergies Medications Name Sig Start Date Stop Date Status Note LastModified by Organization Details LastModified Time celecoxib 200 mg capsule Take 1 capsule twice a day by oral route as needed. active Not Available Not Available No t Available furosemide 40 mg tablet TAKE 1 TABLET BY MOUTH EVERY DAY active Not Available Not Available No t Available latanoprost 0.005 % eye drops INSTILL 1 DROP IN BOTH EYES EVERY DAY AT BEDTIME active Not Available Not Available No t Available Colace 100 mg capsule Take 1 capsule twice a day by oral route. 10/01 completed Not Available Not Available Not Available doxycycline hyclate 100 mg capsule TAKE 1 CAPSULE BY MOUTH TWICE DAILY FOR 7 DAYS 01/14 completed Not Available Not Available Not Available azithromyci n 250 mg tablet TAKE 2 TABLETS (500 MG) BY ORAL ROUTE ONCE DAILY FOR 1 DAY THEN 1 TABLET (250 MG) BY ORAL ROUTE ONCE DAILY FOR 4 DAYS active Not Available Not Available No t Available Glucagon Emergency Kit 1 mg solution for injection 10/01 completed Not Available Not Available Not Available ofloxacin 0.3 % eye drops 01/14 completed Not Available Not Available Not Available levetiracet am 500 mg tablet active Not Available Not Available Not Available hydrocodone 5 mg-acetamin ophen 325 mg tablet TAKE 1 TABLET BY MOUTH FOUR TIMES DAILY NEEDED FOR PAIN 01/14 completed Not Available Not Available Not Available meloxicam 15 mg tablet 1 po qday active Not Available Not Available No t Available lisinopril 20 mg tablet TAKE 1 TABLET BY MOUTH EVERY DAY active Not Available Not Available No t Available isosorbide mononitrate ER 30 mg tablet,exte nded release 24 hr TAKE 1 TABLET BY MOUTH EVERY DAY active Not Available Not Available No t Available atenolol 25 mg tablet TAKE 1 TABLET BY MOUTH DAILY 04/28 completed Not Available Not Available Not Available Lantus U-100 Insulin 100 unit/mL subcutaneou s solution 04/26 completed Not Available Not Available Not Available cyanocobala min (vit B-12) 1,000 mcg tablet 1 sl qday active Not Available Not Available Not Available Nexium 40 mg capsule,del ayed release take 1 capsule daily active Not Available Not Available No t Available metronidazo le 500 mg tablet 03/30 completed Not Available Not Available Not Available phenytoin sodium extended 100 mg capsule TAKE 1 CAPSULE BY MOUTH EVERY MORNING AND 2 CAPSULES BY MOUTH AT BEDTIME active Not Available Not Available No t Available clopidogrel 75 mg tablet active Not Available Not Available Not Available ciprofloxac in 250 mg tablet active Not Available Not Available Not Available ciprofloxac in 500 mg tablet Take 1 tablet every 12 hours by oral route for 10 days. 03/06 completed Not Available Not Available Not Available tramadol 50 mg tablet TAKE 1 TABLET BY MOUTH EVERY 6 TO 8 HOURS NEEDED active Not Available Not Available No t Available triamcinolo ne acetonide 0.1 % topical cream APPLY TOPICALLY TO ITCHY AREA EVERY DAY NEEDED active Not Available Not Available No t Available simvastatin 40 mg tablet TAKE 1 TABLET BY MOUTH EVERY DAY 2024 active Not Available Not Available Not Avai lable ketorolac 0.5 % eye drops INSTILL 1 DROP IN BOTH EYES THREE TIMES DAILY 01/14 completed Not Available Not Available Not Available bethanechol chloride 25 mg tablet TAKE 1/2 TABLET BY MOUTH TWICE DAILY 07/26 completed Not Available Not Available Not Available Nexium 20 mg capsule,del ayed release Take 1 capsule every day by oral route. 01/25 completed Not Available Not Available Not Available erythromyci n 250 mg tablet 1 po TID 30 minutes prior to meals active Not Available Not Available No t Available Azopt 1 % eye drops,suspe nsion INSTILL 1 DROP INTO AFFECTED EYE(S) BY OPHTHALMI C ROUTE 3 TIMES PER DAY 01/25 completed Not Available Not Available Not Available amoxicillin 875 mg tablet Take 1 tablet every 12 hours by oral route for 7 days. 01/14 completed Not Available Not Available Not Available doxazosin 8 mg tablet 1 tablet daily active Not Available Not Available No t Available prednisolon e acetate 1 % eye drops,suspe nsion SHAKE LIQUID AND INSTILL 1 DROP IN BOTH EYES TWICE DAILY 04/19 completed Not Available Not Available Not Available metoclopram jhonny 5 mg tablet Take 1 tablet 4 times a day by oral route. active Not Available Not Available No t Available tamsulosin 0.4 mg capsule 01/14 completed Not Available Not Available Not Available levetiracet am 250 mg tablet TK 8 TS PO Q 12 H 01/25 completed Not Available Not Available Not Available Xylocaine 10 mg/mL (1 %) injection solution 3 ml injected right shoulder x 1 03/30 completed Not Available Not Available Not Available Humalog U-100 Insulin 100 unit/mL subcutaneou s solution INJECT UP TO 100 UNITS VIA INSULIN PUMP DAILY 01/14 completed Not Available Not Available Not Available Kenalog 10 mg/mL suspension for injection In office injection administe red by the provider 04/26 completed [facility]: [phone] Not Available Not Available Not Available benzonatate 100 mg capsule TAKE 1 CAPSULE BY MOUTH EVERY 8 HOURS NEEDED 01/14 completed Not Available Not Available Not Available triamcinolo ne acetonide 40 mg/mL suspension for injection 2 ml injected right shoulder x 1 10/01 completed Not Available Not Available Not Available pantoprazol e 40 mg tablet,geovanny yed release TAKE 1 TABLET BY MOUTH EVERY DAY active Not Available Not Available No t Available naproxen sodium 550 mg tablet Take 1 tablet every 12 hours by oral route. active Not Available Not Available No t Available ferrous sulfate 325 mg (65 mg iron) tablet 1 po qhs 09/10 completed Not Available Not Available Not Available diclofenac 0.1 % eye drops INSTILL 1 DROP INTO BOTH EYES TWICE DAILY 04/19 completed Not Available Not Available Not Available lidocaine 5 % topical patch 04/19 completed Not Available Not Available Not Available nitroglycer in 0.4 mg sublingual tablet 2023 active Not Available Not Available Not Avai lable Xylocaine 20 mg/mL (2 %) injection solution 3 ml injected right shoulder x 1 10/01 completed Not Available Not Available Not Available doxazosin 4 mg tablet TAKE 1 TABLET BY MOUTH EVERY DAY 01/14 completed Not Available Not Available Not Available dorzolamide 22.3 mg-timolol 6.8 mg/mL eye drops INSTILL 1 DROP IN BOTH EYES TWICE DAILY active Not Available Not Available No t Available hydrocodone 5 mg-acetamin ophen 500 mg tablet active Not Available Not Available No t Available codeine 10 mg-guaifene sin 100 mg/5 mL oral liquid TAKE 5 TO 10 ML BY MOUTH EVERY 6 HOURS NEEDED FOR COUGH 01/14 completed Not Available Not Available Not Available quinapril 20 mg tablet TK 1 T PO QD 11/05 completed Not Available Not Available Not Available mupirocin 2 % topical ointment APPLY TO WOUND TWICE DAILY 01/14 completed Not Available Not Available Not Available diclofenac sodium 50 mg tablet,geovanny yed release Take 1 tablet twice a day by oral route. 01/14 completed Not Available Not Available Not Available furosemide 20 mg tablet 08/27 completed Not Available Not Available Not Available Levaquin 500 mg tablet Take 1 tablet every 24 hours by oral route in the morning for 10 days. 10/14 completed Not Available Not Available Not Available metoprolol succinate ER 25 mg tablet,exte nded release 24 hr TK 1 T PO QD 03/30 completed Not Available Not Available Not Available Novolog U-100 Insulin aspart 100 unit/mL subcutaneou s solution INJECT UP TO 100 UNITS VIA INSULIN PUMP DAILY active Not Available Not Available No t Available diazepam 10 mg tablet 03/30 completed Not Available Not Available Not Available albuterol sulfate HFA 90 mcg/actuati on aerosol inhaler INHALE 2 PUFFS BY MOUTH EVERY 4 HOURS NEEDED 01/14 completed Not Available Not Available Not Available timolol maleate 0.5 % eye drops 1 drop in affected eye (s) daily 01/25 completed Not Available Not Available Not Available ketoconazol e 2 % topical cream active Not Available Not Available Not Available fluticasone propionate 50 mcg/actuati on nasal spray,suspe nsion Inhale 1 spray twice a day by intranasa l route as directed for 30 days. active Not Available Not Available No t Available doxycycline hyclate 100 mg tablet TAKE 1 TABLET BY MOUTH TWICE DAILY 01/14 completed Not Available Not Available Not Available atenolol 50 mg tablet guille 1 tab by mouth qd active Not Available Not Available No t Available finasteride 5 mg tablet TAKE 1 TABLET BY MOUTH EVERY DAY active Not Available Not Available No t Available amoxicillin 500 mg-potassiu m clavulanate 125 mg tablet TAKE 1 TABLET BY MOUTH EVERY 8 HOURS 01/14 completed Not Available Not Available Not Available metoprolol tartrate 25 mg tablet bid active Not Available Not Available No t Available doxazosin ER 8 mg tablet,exte nded release 24 hr Take 1 tablet every day by oral route. [address]Ra zapata Not Available Not Available Not Available Calcium 500 + D daily 01/25 completed Not Available Not Available Not Available levetiracet am 1,000 mg tablet TAKE 2 TABLET BY MOUTH EVERY 12 HOURS active Not Available Not Available No t Available lidocaine (PF) 10 mg/mL (1 %) injection solution In office injection administe red by the provider 04/26 completed [facility]: [phone]- [phone]- [phone] Not Available Not Available Not Available Zostavax (PF) 19,400 unit/0.65 mL subcutaneou s suspension 01/25 completed Not Available Not Available Not Available diclofenac 1 % topical gel APPLY 2 GRAM TO THE AFFECTED AREA(S) BY TOPICAL ROUTE 4 TIMES PER DAY prn active Not Available Not Available No t Available aspirin 81 mg effervescen t tablet Take 1 tablet every day by oral route. 2023 active Not Available Not Available Not Avai lable lacosamide 50 mg tablet TAKE 1 TABLET BY MOUTH DAILY IN THE MORNING WITH 100 MG FOR A TOTAL OF 150 MG 01/14 completed Not Available Not Available Not Available lacosamide 150 mg tablet TAKE 1 TABLET BY MOUTH EVERY 12 HOURS active Not Available Not Available No t Available lacosamide 100 mg tablet TAKE 1 TABLET BY MOUTH TWICE DAILY 04/19 completed Not Available Not Available Not Available Prevnar 13 (PF) 0.5 mL intramuscul ar syringe ADM 0.5ML IM UTD active Not Available Not Available No t Available OneTouch Verio test strips TEST BLOOD SUGAR 8 TIMES DAILY ON PUMP THERAPY active Not Available Not Available No t Available dorzolamide -timolol (PF) 2 %-0.5 % eye drops in a dropperette INT 1 GTT IN OU BID 10/01 completed Not Available Not Available Not Available [employer] D 12 Hour 5 mg-120 mg tablet,exte nded release TK 1 T PO Q 12 H PRN active Not Available Not Available No t Available potassium chloride ER 20 mEq tablet,exte nded release TAKE 1 TABLET BY MOUTH EVERY DAY 01/14 completed Not Available Not Available Not Available Fluzone High-Dose (PF) 180 mcg/0.5 mL intramuscul ar syringe INJECT 0.5 ML INTRAMUSC ULARLY DIRECTED. active Not Available Not Available No t Available Fluzone High-Dose (PF) 180 mcg/0.5 mL intramuscul ar syringe 03/04 completed Not Available Not Available Not Available Fluzone High-Dose (PF) 180 mcg/0.5 mL intramuscul ar syringe ADM 0.5ML IM UTD active Not Available Not Available No t Available ferrous sulfate 220 mg (44 mg iron)/5 mL oral elixir 03/30 completed Not Available Not Available Not Available Linzess 72 mcg capsule TAKE ONE CAPSULE BY MOUTH ONCE DAILY 05/31 completed Not Available Not Available Not Available Fluzone High-Dose (PF) 180 mcg/0.5 mL intramuscul ar syringe ADM 0.5ML IM UTD active Not Available Not Available No t Available OneTouch Ultra Blue Test Strip USE TO TEST GLUCOSE 8 TIMES DAILY ON PUMP THERAPY 10/01 completed Not Available Not Available Not Available Fluad 2018- 65yr up(PF)45 mcg(15 mcgx3)/0.5 mL intramuscul ar syringe PHARMACIS T ADMINISTE RED IMMUNIZAT ION ADMINISTE RED AT TIME OF DISPENSIN G 10/01 completed Not Available Not Available Not Available Baqsimi 3 mg/actuatio n nasal spray ADMINISTE R 1 SPRAY INTO ONE NOSTRIL NEEDED FOR SEVERE HYPOGLYCE ARI 01/14 completed Not Available Not Available Not Available Paxlovid 300 mg (150 mg x 2)-100 mg tablets in a dose pack TAKE 1 TABLET BY MOUTH TWICE DAILY DIRECTED FOR 5 DAYS 04/19 completed Not Available Not Available Not Available Vitals Date Recorded Body height Body mass index (BMI) Body weight Respiratory rate Heart rate Oxygen saturation Oxygen saturation in Arterial blood by Pulse oximetry Body temperature Systolic blood pressure Diastolic blood pressure Provider Name and Address Organization Details Last Updated DateTime 4 167.64 cm 24 kg/m2 96336.1 2 g 16 /min 72 /min 97 % 97 % 97.9 [degF] 128 mm[Hg] 62 mm[Hg] Denton [place] [employer] OB10 4 14:51:48 Date Recorded Body height Body mass index (BMI) Body weight Body temperature Heart rate Respiratory rate Oxygen saturation Oxygen saturation in Arterial blood by Pulse oximetry Pain severity - 0-10 verbal numeric rating [Score] - Reported Systolic blood pressure Diastolic blood pressure Provider Name and Address Organization Details Last Updated DateTime 4 167.64 cm 24.3 kg/m2 52576.0 1 g 97.3 [degF] 79 /min 20 /min 97 % 97 % 0 142 mm[Hg] 58 mm[Hg] Dixie Ng RN [facility] [employer] 4 14:06:50 Date Recorded Body height Body mass index (BMI) Body weight Provider Name and Address Organization Details Last Updated DateTime 10/08/2024 170.18 cm 24.1 kg/m2 07900.22 g Gemma Robertson CNA [facility] 10/08/2024 11:11:57 Date Recorded Body height Body mass index (BMI) Body weight Provider Name and Address Organization Details Last Updated DateTime 10/22/2024 170.18 cm 23.8 kg/m2 52769.04 porter Ignacia Wellington, LEELA L [place] [employer] [facility] [employer] 10/22/2024 10:43:00 Date Recorded Body height Body mass index (BMI) Body weight Provider Name and Address Organization Details Last Updated DateTime 11/02/2024 170.18 cm 23.8 kg/m2 06786.04 porter CamMARTITA garcia [place] [employer] [facility] [employer] 11/02/2024 11:02:50 Social History Question Answer Notes LastModified by Organization Details LastModified Time Tobacco Smoking Status Former Smoker Patient stated he quit 30 years ago. Ying Miller RN [facility], [place] [employer] [facility] [employer] 10/21/2022 12:24:00 Do You Have An Advance Directive? Yes Information not available 10/21/2022 What Is Your Level Of Alcohol Consumption? None MIGRATION.030 [id number] Information not available 10/09/2022 Are You Blind Or Do You Have Difficulty Seeing? Yes Cataracts Information not available 10/21/2022 Is Blood Transfusion Acceptable In An Emergency? Yes Information not available 04/19/2024 What Is Your Level Of Caffeine Consumption? Moderate MIGRATION.0301 [id number] Information not available 10/09/2022 What Is Your Code Status? DNR Information not available 04/19/2024 In The 14 Days Before Symptom Onset, Have You Had Close Contact With A Laboratory-conf irmed COVID-19 While That Case Was Ill? No MIGRATION.030 [id number] Information not available 10/09/2022 In The 14 Days Before Symptom Onset, Have You Had Close Contact With A Person Who Is Under Investigation For COVID-19 While That Person Was Ill? No MIGRATION.0301 [id number] Information not available 10/09/2022 Are You Currently Employed? No Information not available 04/19/2024 Are You Deaf Or Do You Have Serious Difficulty Hearing? No MIGRATION.0301 [id number] Information not available 10/09/2022 What Type Of Diet Are You Following? REGULAR Information not available 10/21/2022 Do You Have An Electrostatic Air Filter? No MIGRATION.0301 678353 Information not available 10/09/2022 What Is Your Occupation? Retired MIGRATION.0301 [id number] Information not available 10/09/2022 Have There Been Any Changes To Your Family Or Social Situation? No Information not available 04/19/2024 When Did You Quit Smoking? 16+yearssincelastc igarette Information not available 10/21/2022 Are There Any Guns Present In Your Home? No MIGRATION.0301 [id number] Information not available 10/09/2022 Do You Have A Humidifier? No MIGRATION.0301 [id number] Information not available 10/09/2022 Do You Use Insect Repellent Routinely? No Information not available 10/21/2022 [facility] MIGRATION.0301 [id number] Information not available 10/09/2022 Presence Of Domestic Violence No Information not available 10/21/2022 Guns Present In The Home? No Information not available 10/21/2022 Are You Able To Care For Yourself? Yes Information not available 10/21/2022 Are You Blind Or Do Yo Have Difficulty Seeing? Yes Cataracts Information not available 10/21/2022 Are You Deaf Or Do You Have Serious Difficulty Hearing? No Information not available 10/21/2022 General Stress Level? Low Information not available 10/21/2022 Live Alone Of With Others? 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 Yes Evelyn Almeida Information not available 04/19/2024 Do You Have Moisture Problems In Your Home? No MIGRATION.0301 267491 Information not available 10/09/2022 What Was The Date Of Your Most Recent Tobacco Screening? 10/21/2022 Information not available 10/21/2022 How Many Children Do You Have? 2 Information not available 04/19/2024 Do You Have Any Pets? Yes Dog MIGRATION.0301 [id number] Information not available 10/09/2022 What Is Your Relationship Status? Information not available 10/21/2022 Do You Use Your Seat Belt Or Car Seat Routinely? Yes Information not available 10/21/2022 Do You Have Smoke And Carbon Monoxide Detectors In Your Home? Yes MIGRATION.0301 [id number] Information not available 10/09/2022 Are You Passively Exposed To Smoke? No MIGRATION.0301 592013 Information not available 10/09/2022 Are There Any Smokers In Your House? No Information not available 10/21/2022 How Much Tobacco Do You Smoke? No MIGRATION.0301 039206 Information not available 10/09/2022 Do You Participate In Social [employer]? Yes Information not available 04/19/2024 Do You Feel Stressed (tense, Restless, Nervous, Or Anxious, Or Unable To Sleep At Night)? [id number] Information not available 10/21/2022 Do You Use Sunscreen Routinely? No Information not available 10/21/2022 Has Tobacco Cessation Counseling Been Provided? No Information not available 10/21/2022 Have You Recently Traveled Abroad? No Information not available 04/19/2024 Do You Have Any Dietary Restrictions? No Information not available 10/21/2022 Sex: Male Functional Status Question Answer Note LastModified by Organizat ion Details LastModified Time Do you have difficulty walking or climbing stairs? No MIGRATION.59203 16090 Information not available 10/09/2022 Do you have transportation difficulties? No MIGRATION.39675 94775 Information not available 10/09/2022 Are you able to walk? YESASSIST occasional use of assistive device Information not available 10/21/2022 Do you have difficulty doing errands alone? Yes Patient stated he does not drive. Information not available 10/21/2022 Are you able to care for yourself? Yes MIGRATION.92305 00043 Information not available 10/09/2022 Do you have difficulty dressing or bathing? No MIGRATION.11163 05859 Information not available 10/09/2022 What is your exercise level? Occasional Information not available 10/21/2022 Mental Status Question Answer Note LastModified by Organizat ion Details LastModified Time Do you have difficulty concentrating, remembering or making decisions? No MIGRATION.[id number] 6 Information not available 10/09/2022 Family History Relationship Description Onset Age of this Age Resolved Age Notes LastModified by Organization Details LastModified Time Father Heart disease MIGRATION.880 [id number] Not available 10/09/2022 02:27:11 Father Type 1 diabetes mellitus MIGRATION.880 [id number] Not available 10/09/2022 02:27:11 Father Family history of stroke MIGRATION.020 [id number] Not available 10/09/2022 02:27:11 Father Hypertensive disorder MIGRATION.630 [id number] Not available 10/09/2022 02:27:11 Mother Family history of malignant neoplasm MIGRATION.405 [id number] Not available 10/09/2022 02:27:11 Paternal Uncle Type 1 diabetes mellitus [email or web address] Not available 2024 11:15:30 Medical History Condition Response BLINDNESS N KIDNEY STONES N MRSA N CARPAL TUNNEL SYNDROME N LUNG DISEASE/DISORDER N HISTORY OF DRUG ABUSE N COPD N RADIATION / CHEMOTHERAPY N SPORTS INJURY N ANKLE PAIN N BLOOD DISEASES N SCHIZOPHRENIA N SHINGLES N SHOULDER PAIN N DEPRESSION (INCLUDING POST ) N BOWEL PROBLEMS N STROKE/TIA N ULCERS N KNEE PAIN N BENIGN PROSTATIC HYPERPLASIA N OBESITY N GERD/NAUSEA N ANEURYSM N URINARY/BLADDER/KIDNEY PROBLEMS N CORONARY ARTERY DISEASE (CAD) Y ADDICTION CONCERNS N USE OF BLOOD THINNERS Y SKIN PROBLEMS N EMPHYSEMA N MUSCLE,JOINT OR BONE PROBLEMS N DVT N STOMACH ULCERS N BLOOD CLOTS N USE OF NSAIDS N CONCUSSION OR SPINAL TRAUMA N NEUROPATHY N AIDS/HIV N FRACTURES N HYPERTENSION Y ELBOW PAIN N TOURETTE'S N Metal allergy N ANXIETY DISORDER N BLOOD TRANSFUSION N ANEMIA/BLOOD DISORDER Y BIPOLAR DISORDER N BRONCHITIS N OSTEOARTHRITIS N TUBERCULOSIS N GLAUCOMA Y FOOT PROBLEM Y HEART VALVE DISORDERS N SLEEP APNEA Y ALLERGIES/HAYFEVER N SOFT TISSUE INJURY N INFECTIOUS DISEASE N HEART ARRHYTHMIA N PROSTATE Y INSOMNIA N HIGH CHOLESTEROL / HYPERLIPIDEMIA Y RHEUMATOID ARTHRITIS N EYE PROBLEMS Y EDEMA N CHRONIC PAIN SYNDROME N CAROTID BLOCKAGE N BACK / NECK PROBLEMS N HAVE YOU BEEN HOSPITALIZED OR SEEN IN [facility] ER IN THE PAST YEAR ? N BURSITIS N HERNIATED DISC N DIALYSIS N FIBROMYALGIA N OSTEOPOROSIS N ARTHRITIS Y NO SIGNIFICANT PAST MEDICAL HISTORY N PERIPHERAL NEUROPATHY N DIABETES, TYPE Y HEARTBURN / REFLUX N HEPATITIS / LIVER DISEASE N GOUT N ALZHEIMER'S DISEASE N SLEEP DISORDER Y HERPES N HEADACHES/MIGRAINES N SEIZURES/EPILEPSY Y VASCULAR DISEASE N Blood Disorder N HIP PAIN N DIZZINESS N HEAD TRAUMA OR INJURY N HEART DISEASE/HEART PROBLEMS Y MULTIPLE SCLEROSIS N CANCER: SPECIFY N CARDIAC ARRHYTHMIA N ANESTHESIA COMPLICATIONS N ATRIAL FIBRILLATION N AUTOIMMUNE DISEASE N Immunizations Vaccine Type Date Status Note Provider Nam e and Address Organization Details Recorded Time influenza, [id number] 4 completed Not Available [facility] 10/09/2022 02:33:09 Influenza, high-dose, trivalent, PF 2 completed Not Available [facility] 10/09/2022 02:33:09 Influenza, high-dose, trivalent, PF 7 completed Dixie Ng RN null, [facility] 04/19/2024 14:01:43 Td (adult) 7 completed Dixie Ng RN null, [facility] 04/19/2024 14:01:43 pneumococcal polysaccharide PPV23 7 completed Dixie Ng RN null, [facility] 04/19/2024 14:01:43 Influenza, high-dose, trivalent, PF 3 completed Dixie Ng RN null, [facility] 04/19/2024 14:01:43 Influenza, split virus, quadrivalent, preservative 1 completed Not Available [facility] 10/09/2022 02:33:10 SARS-COV-2 (COVID-19) vaccine, UNSPECIFIED 1 completed Dixie Ng RN null, [facility] 04/19/2024 14:01:43 SARS-COV-2 (COVID-19) vaccine, UNSPECIFIED 1 completed Not Available [facility] 10/09/2022 02:33:10 Pneumococcal conjugate PCV 13 6 completed Dixie Ng RN null, [facility] 04/19/2024 14:01:43 Influenza, high-dose, trivalent, PF 0 completed Dixie Ng RN null, [facility] 04/19/2024 14:01:43 Influenza, high-dose, trivalent, PF 8 completed Not Available [facility] 10/09/2022 02:33:10 influenza, unspecified formulation completed Dixie Ng RN [facility], [place] - [facility] 04/19/2024 14:01:43 Past Encounters Encounter ID Performer Location Encounter Start Date Encounter Closed Date Diagnosis/Indication Diagnosis SNOMED-CT Code Diagnosis ICD10 Code Diagnosis Note [id number] [facility] [place] [address] [facility] [address] [place] [address] 10/24/2020 00:00:00 10/24/2020 13:36:42 [id number] [facility] [place] [address] [facility] [address] [place] [address] 11/07/2020 00:00:00 11/07/2020 14:59:12 [id number] [facility] [place] [address] [facility] [address] [place] [address] 04/26/2021 00:00:00 05/08/2021 18:44:37 [id number] [facility] [place] [address] [facility] [address] [place] [address] 07/26/2021 00:00:00 08/09/2021 10:40:26 [id number] [facility] [place] [address] [address] 10/03/2021 00:00:00 10/03/2021 12:51:16 [id number] [facility] [place] [address] [facility] [address] [place] [address] 10/24/2021 00:00:00 11/08/2021 07:57:18 [id number] [facility] [place] [address] [facility] [address] [place] [address] 12/05/2021 00:00:00 12/07/2021 09:32:15 [id number] [facility] [place] [address] [facility] [address] [place] [address] 03/04/2022 00:00:00 03/04/2022 18:27:51 [id number] [facility] [place] [address] [facility] [address] [place] [address] 03/06/2022 00:00:00 03/08/2022 10:46:43 [id number] [facility] [place] [address] [place] [address] 04/01/2022 00:00:00 04/01/2022 17:07:[id number] [facility] [place] [address] [facility] [address] [place] [address] 04/24/2022 00:00:00 05/09/2022 19:24:46 [id number] [facility] [place] [address] [place] [address] 05/06/2022 00:00:00 05/06/2022 16:02:[id number] [facility] Primary Care [place] [address] [facility] [address] [place] [address] 10/22/2022 14:03:51 10/22/2022 15:20:20 Adult health examination 898255832 Z00.00 Up to date with pneumonia vaccinesSh ingrix vaccine recommende d Screening for disorder 336780473 Z13.9 Essential hypertension 96162560 I10 Benign pro static hyperplasia 421848761 N40.1 Cobalamin deficiency 190 294425 E53.8 Hyperlipidemia 38254459 E78.5 Z79.899 Iron defic iency anemia 26082088 D50.9 Vitamin D deficiency 347 20335 E55.9 E83.51 [id number] [facility] Primary Care [place] [address] [facility] [address] [place] [address] 03/12/2023 16:04:56 03/12/2023 16:42:43 Essential hypertension 50557701 I10 In good controlcon tinue daily walkingsee s cardiology Dr. Ocasio q4 months Cobalamin deficiency 190 611612 E53.8 recheck labs Iron defic iency anemia 34008647 D50.9 recheck labs Vitamin D deficiency 347 02056 E55.9 E83.[id number] [facility] [address] [facility] [address] [place] [address] 10/27/2023 14:41:37 10/27/2023 15:58:14 Adult health examination 070007576 Z00.00 Up to date with pneumonia vaccinesSh ingrix vaccine recommende d Pnuemovax 23 2007Prevna r 13 2017Shingr ix x 2RSVfastin g labs up to date-sees endocrinol ogy Acute sinusitis 11735485 J01.90 [id number] JOAN Bradshaw [facility] Kenny [address] [place] [address] 01/15/2024 14:42:10 01/15/2024 17:20:40 Hyperlipidemia 79660299 E78.5 Z79.899 Annual labs with [facility] in ontinue low fat/grease diet Diabetes mellitus 078773 09 E13.9 Type 1, insulin pumpContin ue FU with endocrineC urrently bridging from Humalog to Novolog Glaucoma 10463121 H40.9 Continue procedure as planned with [facility] [id number] JOAN Bradshaw [facility] [address] [place] [address] 04/19/2024 13:55:54 04/19/2024 15:15:23 Plantar fasciitis 484824704 M72.2 VoltarenCo ntinue PTIce/heat Adult heal th examination 279380717 Z00.00 [id number] [facility] [place] [address] [place] [address] 10/08/2024 10:55:11 10/08/2024 12:46:03 Closed fracture of left clavicle 0309915625 3727269 S42.035A [id number] [facility] [place] [address] [place] [address] 10/22/2024 10:40:02 10/22/2024 11:34:12 Closed fracture of left clavicle 3024716678 0622248 S42.002D [id number] LEILA Sanford [facility] [place] [address] [facility] [address] [place] [address] 11/02/2024 10:58:25 11/02/2024 11:28:01 Closed fracture of left clavicle 0696696393 1350670 S42.002D Health Concerns Section Related Observation LastModified by Organization Detai ls LastModified Time None Recorded Concern Status LastModified by Organization Details LastModified Time None Recorded Advance Directives Directive Y: Payers Encounter Date Sequence Insurance Name Policy Number Policy Kirby Covered Member ID Kirby Member ID Guarantor Name 01/15/2024 1 [employer] (MEDICARE REPLACEMENT PPO) [id number] Pablo Cantus [id number] Pablo Cantus 04/19/2024 1 [employer] (MEDICARE REPLACEMENT PPO) [id number] Pablo Cantus [id number] Pablo Cantus 10/08/2024 1 [employer] (MEDICARE REPLACEMENT PPO) [id number] Pablo Cantus [id number] Pablo Cantus 10/22/2024 1 [employer] (MEDICARE REPLACEMENT PPO) [id number] Pablo Almeida [id number] Pablo Cantus 11/02/2024 1 [employer] (MEDICARE REPLACEMENT PPO) [id number] Pablo Almeida [id number] Pablo Almeida Notes Date Note Type Note Provider Name and Address Organization Details Recorded Time 01/15/2024 text/html Pablo is a 78 y ear old male here to establish care. He was previously under the care of Dr. Arauz. His past medical history is significant for type 1 DM. This is managed by endocrinology. He goes in for A1C q3 months. He is currently taking Novolog via insulin pump. He has a history of hypertension. His BP on arrival is 128/62. He does ocasionally take his BP at home. He is currently taking, lisinopril, metoprolol tartrate 25mg bid. He does see cardiology. He has a history of epilepsy. He is seeing neurology. He has a history of hyperlipidemia. His last lipid panel (10/22/2022) was WNL. He is taking simvastatin 40 mg PO HS. He denies muscle cramping. He has multiple eye issues. He recently had cataract surgery which did not correct his vision issues, He is now having injections in his eyes. Somewhat recently had an exacerbation of ischemic colitis over [place], caused petite mal seizure. Surgery HistoryT&A 1956Left testicular tumor excision 1982Left rotator cuff repair 1991Left leg plate placement 1999Left arm lipoma resection 2012Nasal skin ca excision 2016 Social HistoryHas a dog, keeps him and his activeEx-smoker quit 25 years ago 40 pack year historyNo alcohol or drug use PreventativePnuemov ax 23 2007Prevnar 13 2017Shingrix both doses 2022RSV OVID-19 05/10/23Annual labs will be with [facility] in april JOAN Bradshaw [address] [facility] [address], [place], [address], [employer] 01/16/2024 12:25:52 04/19/2024 text/html Pablo Almeida i s an 79 year old male patient here today for a follow-up. He has concerns with plantar fascitis in the right foot. He is doing physical therapy. Discussed topical anti-inflammatory. Want to avoid oral anti-inflammatory to protect kidneys. Fatigue. States heart doctor told him this is likely due to heart issues. states he sleeps all day. JOAN Bradshaw [address] [facility] [address], [place], [address], [employer] 04/19/2024 15:10:07 10/08/2024 text/html The patient is a n 79-year-old male who suffered an injury to his left shoulder yesterday. The patient states he was walking in the yd when he stumbled fell and landed on his left shoulder. He had immediate pain started to develop swelling and ecchymosis. He went to [facility] had x-rays performed. X-rays demonstrated a closed acute traumatic minimally displaced fracture of the distal left clavicle. No other fracture lesion or mass is seen. He does have some advanced degenerative change of the AC joint moderate changes in the glenohumeral joint otherwise unremarkable. I have reviewed the x-rays in detail today with the patient I agree with the above findings. He is in a sling currently he states his pain is about a 9 on a scale of 1-10 if he tries to move his shoulder much or if he has to cough or sneeze. He has difficulty getting his clothing change but otherwise is in no acute distress. He denies any neck pain no radicular pain down the arm no numbness or tingling no abrasions or lacerations to the skin. He was given a very limited amount of tramadol he needs a refill on that he states because it does help him sleep. He will not have enough to get him through the weekend into next week. Comes in today for initial evaluation treatment. New past medical history sheet was reviewed and signed on the intake sheet of today's date drug allergies current medications family social history previous surgical history 10 point review of systems was reviewed and discussed in detail today with the patient. LEILA Sanford [address]ing[address], [place], [address], [employer] 10/08/2024 12:24:25 10/22/2024 text/html Patient returns for recheck of his left shoulder he had a minimally displaced fracture of the distal clavicle of the left shoulder. He had fallen 1 week ago. He is using a sling for comfort and support but working on Codman exercises. He states his pain has significantly improved over the last week. The pain today is about a 3 on a scale of 1-10 is able to raise his arm up easily beyond 90 he has had some chronic stiffness in weakness in the shoulder because he had a previous rotator cuff repair and has had some chronic issues with the shoulder but overall is starting to improve quite a bit the ecchymosis is resolving and he is feeling pretty good at rest. He comes in today for new x-rays and recheck. LEILA Sanford [address], [place], [address], [employer] 10/22/2024 11:33:09 11/02/2024 text/html Patient returns he is now 1 month status post injury to his left distal clavicle. The patient fell on his shoulder he suffered a mildly displaced distal clavicle fracture. Previous x-rays showed good alignment he comes in today for new x-rays. His comfort level is getting much better it is about a 3 on a scale of 1-10. He can raise his arm up overhead does have some chronic rotator cuff issues from previous repair and has somewhat limited motion and weakness otherwise unremarkable. He has resolving ecchymosis doing much better comes in today for new x-rays and recheck. LEILA Sanford [address] [facility] [address], [place], [address], [facility] [employer] 11/02/2024 11:37:01
--- OUTSIDE RECORDS SUMMARY | 2024-12-05 07:06 | XMS_ITS | Clinical Summary ---
Author Organization [facility] Address [address] [place] [address] Care Team Providers Care Bath Mix Operator Name Role Phone Dev Guzman MD Primary Care Provider [phone] Social History Tobacco Use Types Packs/Day Years Used Date Smoking Tobacco: Never Assessed Sex and Gender Information Value Date Recorded Sex Assigned at Not on file Legal Sex Male 4:47 PM CDT Gender Identity Not on file Sexual Orientation Not on file Plan of Treatment Health Maintenance Due Date Last Done Comments DTaP, Tdap and Td Vaccines ( 1 - Tdap) 1963 Pneumococcal Vaccine: 50+ Ye ars (1 of 1 - PCV) 1994 Zoster Vaccines (1 of 2) 1994 RSV Immunization or 60+ Years (1 - 1-dose 75+ series) 2019 COVID-19 Vaccine ( - 2023-2 5 season) 2024 Meningococcal B Vaccine Aged Out No l onger eligible based on patient's age to complete this topic Meningococcal Vaccine Aged Out No goldie po eligible based on patient's age to complete this topic RSV Immunizations Under 20 Months Aged Out No longer eligible based on patient's age to complete this topic Care Teams Bath Mix Operator Relationship Specialty Start Date End Date Dev Guzman MD PCP - General 02/13/13
--- OUTSIDE RECORDS SUMMARY | 2024-12-05 07:06 | XMS_ITS | Encounter Summary ---
Author Organization [facility] Address [address] [place] [address] Care Team Providers Care Salon Coordinator Name Role Phone Radha Arauz MD Primary Care Provider [phone] Encounter Details Date Type Department Care Team (Late st Contact Info) Description 07/28/2023 Lab Requisition [facility] - DermPath Lab [address] [facility] [facility] [place] [id number] Cally Huntley MD [address] [facility] [address] [place] [address] Social History Tobacco Use Types Packs/Day Years Used Date Smoking Tobacco: Never Assessed Sex and Gender Information Value Date Recorded Sex Assigned at Not on file Legal Sex Male 6:02 PM FUSE ASSEMBLER Gender Identity Not on file Sexual Orientation Not on file documented as of this encounter Plan of Treatment Not on file documented as of this encounter Procedures Procedure Name Priority Date/Time Associated Diagnosis Comments DERMATOPATHOLOGY Routine 07/28/2023 2:25 PM FUSE ASSEMBLER documented in this encounter Results * DERMATOPATHOLOGY (07/28/2023 2:25 PM FUSE ASSEMBLER) Case Report Dermatopathology Report Case: [id number] Authorizing Provider: Cally Huntley MD Collected: 07/28/2023 02:25 PM Ordering Location: [facility] DermPath Lab Received: 07/29/2023 01:10 PM Pathologist: Sunshine Garcia MD Specimens: A) - Skin, left buddhism B) - Skin, right forearm 11:34 AM FUSE ASSEMBLER DERMATOPATHOLOGY LABORATORY Final Diagnosis Specimen A. 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 SKIN, right forearm: SQUAMOUS CELL CARCINOMA IN SITU (SNOWDEN'S DISEASE), PIGMENTED (D04.61) 11:[address] [facility] DERMATOPATHOLOGY LABORATORY Clinical History A: R/O [place] Plaque, Drug Eruption, Nevus, SCC B: R/O Brown papule, Melanoma, Other 11:[address] [facility] DERMATOPATHOLOGY LABORATORY Gross Description Specimen A: Received is one formalin filled container labeled with the patient's name and designated left buddhism. The specimen consists of a shave biopsy measuring 84w97t7 mm. Jar 0. Specimen B: Received is one formalin filled container labeled with the patient's name and designated right forearm. The specimen consists of a shave biopsy measuring 6x4x1 mm. Jar 0. 11:[address] [facility] DERMATOPATHOLOGY LABORATORY Microscopic Description Specimen A. SKIN, left buddhism: The epidermis shows parakeratosis, full thickness disorderly maturation of keratinocytes, mitoses at different levels, and dyskeratotic cells. There is overlying parakeratosis with serum and neutrophils. Specimen B. SKIN, right forearm: The epidermis shows focal parakeratosis, full thickness disorderly maturation of keratinocytes, and mitoses at different levels. There is prominent basilar hyperpigmentation. 11:[address] [facility] DERMATOPATHOLOGY LABORATORY Disclaimer An external and internal positive and negative controls are appropriate for the histochemical, immunohistochemical and immunofluorescence stain(s) in this case (if any), except where stated explicitly. The performance characteristics of the stain(s) cited in this report were developed and its performance characteristic determined by the Dermatopathology Laboratory at [facility], directed by Dr. Caleb Goldman. These tests need not be, and therefore are not, approved by the [place] Food and Drug Administration. The tests are used for clinical purposes. Billing Codes Specimen Charges Stain Charges 71100 [id number] 1 1 3 11:[address] [facility] DERMATOPATHOLOGY LABORATORY Embedded Images 11:[address] [facility] DERMATOPATHOLOGY LABORATORY Pathology/Cytology TISSUE SPECIMEN FROM SKIN / Unknown 07/28/2023 2:25 PM FUSE ASSEMBLER 07/29/2023 1:10 PM FUSE ASSEMBLER Miscellaneous samples (specimen) TISSUE SPECIMEN FROM SKIN / Unknown 07/28/2023 2:25 PM FUSE ASSEMBLER 07/29/2023 1:10 PM FUSE ASSEMBLER Cally Huntley MD LAB - PATHOLOGY/CYTOLOGY ORD ERABLES Final Result DERMATOPATHOLOGY LABORATORY [facility] - Department of Dermatology [facility] [address] [place] [address], [address] [phone] documented in this encounter Visit Diagnoses Not on filedocumented in this encounter Care Teams Salon Coordinator Relationship Specialty Start Date End Date Radha Arauz MD [address] [place] [id number] PCP - General 12/05/22 documented as of this encounter
--- NOTE | 2024-12-05 07:35 | ED_ITS ---
HPI - General Adult General Chief complaint: Weakness Stated complaint: weakness Time Seen by Provider: 12/05/24 06:55 History of Present Illness HPI narrative: 79-year-old male history of colitis presents emergency department for evaluation for onset of nausea vomiting diarrhea at approximately 2:00 a.m. in the morning. Patient does feel this is similar to previous bouts of colitis. At time of evaluation patient states he does feel improved. Patient denies any current abdominal pain. Patient does not currently follow up with GI. And patient is currently between primary care physicians. Related Data Home Medications ?Medication ?Instructions ?Recorded ?Confirmed ?Last Taken ?Type aspirin 81 mg tablet,delayed 81 mg PO DAILY 02/21/21 11/18/22 11/16/22 History release (Day Low Dose Aspirin) dorzolamide-timolol (PF) 2 %-0.5 % 1 drp EACH EYE BID 02/21/21 11/18/22 11/16/22 History eye drops in a dropperette finasteride 5 mg tablet 5 mg PO DAILY 02/21/21 11/18/22 11/16/22 History insulin lispro 100 unit/mL 100 unit subcut DAILY 02/21/21 11/17/22 10/07/21 18:00 History subcutaneous pen multivitamin 1 tablet PO DAILY 02/21/21 11/18/22 11/16/22 History simvastatin 40 mg tablet 40 mg PO HS 02/21/21 11/18/22 11/16/22 History furosemide 40 mg tablet 20 mg PO DAILY 10/05/21 11/18/22 11/16/22 History metoprolol tartrate 25 mg tablet 25 mg PO BID 10/05/21 11/18/22 11/16/22 History simethicone 125 mg tablet 125 mg PO TID PRN (Drug) Ingestion 10/05/21 11/18/22 10/07/21 22:00 History clopidogrel 75 mg tablet 75 mg PO DAILY 12/25/21 11/18/22 11/16/22 History isosorbide mononitrate 30 mg 30 mg PO DAILY 12/25/21 11/18/22 11/16/22 History tablet,extended release 24 hr lisinopril 20 mg tablet 20 mg PO DAILY 11/18/22 11/18/22 11/16/22 History diclofenac sodium 0.1 % eye drops 1 drp EACH EYE QID 11/13/23 Unknown History hydrocodone 5 mg-acetaminophen 325 1 tablet PO QHS PRN 11/13/23 Unknown History mg tablet nitroglycerin 0.4 mg sublingual 0.4 mg sublingual Q5M PRN 11/13/23 Unknown History tablet prednisolone acetate 1 % eye 1 drp EACH EYE Q12H 11/13/23 Unknown History drops,suspension Allergies Allergy/AdvReac Type Severity Reaction Status Date / Time No Known Allergies Allergy Unknown Other Verified 12/05/24 03:39 Review of Systems 2 Review of Systems: All systems reviewed & are unremarkable except as noted in HPI and below PMFSH Past Medical History Medical History Acute ischemic colitis Bloody diarrhea BPH (benign prostatic hyperplasia) CAD (coronary artery disease) Diabetes HTN (hypertension) Hyperlipidemia Insulin pump in place Irregular heart beat JEAN CLAUDE (obstructive sleep apnea) Osteoarthritis Red blood cell abnormality Seizure disorder Surgical History Surgical History History of cataract surgery 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 of left buddhism Stented coronary artery Family History Family History Father Heart disease Diabetes mellitus Heart attack Mother Diabetes mellitus Lung cancer Social History Social History Social History: Caffeine- daily Smoking packs per day: 3 Smoking cigarettes per day: 60.0 Years smoked: 30 Smoking pack-years: 90.00 Smoking status: Former smoker Tobacco type: cigarettes Second hand tobacco smoke exposure: Yes Smoking end date: 08/11/99 Alcohol intake: never Substance use: never Substance use type: does not use Lack of Transportation: No Lack of Food: Never True Current Housing: I Have Housing Concerned About Future Housing: No Difficulty Paying Gas/Electric Bills: No Difficulty Paying for Meds: No Currently Unemployed: No Education: Decline to Answer Difficulty w/ Childcare or Family Care: No Spiritual care concerns: No Exam 2 Narrative: APPEARANCE: Well appearing, no pain, no distress, well-nourished. HEAD: normocephalic, atraumatic. EYES: PERRLA/EOMI, conjunctivae clear. NOSE: Normal no drainage EARS:TMS clear with good light reflex. THROAT: Pharynx clear, no exudate. NECK: Supple. No adenopathy, no masses. RESPIRATORY: Airway patent, respirations nonlabored. Clear to auscultation bilaterally, no rales, rhonchi, wheezing. CARDIOVASCULAR: Regular rate and rhythm without murmurs rubs or gallops. ABDOMINAL: Soft, nontender, nondistended, normal bowel sounds MUSCULOSKELETAL: Moves all extremities. Strength/ROM intact, No edema, No calf tenderness. NEURO: Alert. Cranial nerves II through XII intact. Good gait. Good coordination SKIN: Warm, dry. Normal Color Course Vital Signs Vital signs: Vital Signs Temperature 97.8 F 12/05/24 03:35 Pulse Rate 87 12/05/24 03:35 Respiratory Rate 15 12/05/24 03:35 Oxygen Delivery Room Air 12/05/24 03:35 Temperature 97.8 F 12/05/24 03:35 Pulse Rate 98 12/05/24 07:45 Respiratory Rate 16 12/05/24 07:45 Blood Pressure 125/60 12/05/24 07:45 Pulse Oximetry 98 12/05/24 07:45 Oxygen Delivery Room Air 12/05/24 03:35 Medical Decision Making MDM Narrative Medical decision making narrative: 79-year-old male presents emergency department for evaluation for nausea vomiting diarrhea. Patient is currently afebrile but does have a leukocytosis of 13.3 hemoglobin of 10.6. Patient's kidney function is similar to his baseline. Patient does have diabetes with insulin pump and his blood sugars are running about 160 with mild anion gap. Patient was offered IV fluids but declined states he feels improved and is requesting to be discharged home. Patient's family is also comfortable this plan. CT scan did show diffuse mild to moderate colonic wall thickening concerning for infectious versus inflammatory colitis. Patient was advised to follow a clear liquid diet, patient will be provided antibiotics for colitis. Patient declined any medications for pain control. Differential Diagnosis Differential Diagnosis: Colitis, diverticulitis, ischemic bowel, small bowel obstruction, nausea vomiting diarrhea Vital Signs Vital Signs: Vital Signs Temperature 97.8 F 12/05/24 03:35 Pulse Rate 87 12/05/24 03:35 Respiratory Rate 15 12/05/24 03:35 Oxygen Delivery Room Air 12/05/24 03:35 Temperature 97.8 F 12/05/24 03:35 Pulse Rate 98 12/05/24 07:45 Respiratory Rate 16 12/05/24 07:45 Blood Pressure 125/60 12/05/24 07:45 Pulse Oximetry 98 12/05/24 07:45 Oxygen Delivery Room Air 12/05/24 03:35 Lab Data Lab results reviewed: Yes I reviewed the patient's lab results. 12/05/24 03:51 12/05/24 03:51 Labs: Lab Results 12/05/24 Range/Units 03:51 WBC 13.3 H (4.5-10.0) K/mm3 RBC 3.83 L (4.6-6.20) M/mm3 Hgb 10.6 L (14.0-18.0) g/dL Hct 34.9 L (42.0-52.0) % MCV 91.1 (80-100) fl MCH 27.7 (26-34) pg MCHC 30.4 L (32-36) g/dl RDW 13.4 (11.5-14.5) % Plt Count 368 (150-375) k/mm3 MPV 9.3 (7.4-10.4) fl Immature Gran % (Auto) 0.6 H (0-0.5) % Neut % (Auto) 62.2 (45.5-73.1) % Lymph % (Auto) 29.0 (18.3-44.2) % [place] % (Auto) 5.3 (2.6-8.5) % Eos % (Auto) 2.4 (0-4.4) % Baso % (Auto) 0.5 (0.2-1.2) % Lymph # (Auto) 3.86 H (0.9-3.2) K/mm3 [place] # (Auto) 0.7 H (0.1-0.6) K/mm3 Eos # (Auto) 0.3 (0-0.3) K/mm3 Baso # (Auto) 0.1 (0.0-0.1) K/mm3 Abs Immat Gran (auto) 0.08 H (0.00-0.031) K/mm3 Absolute Neuts (auto) 8.3 H (1.3-6.7) K/mm3 Absolute Nucleated RBC 0.000 (0.0-0.012) K/mm3 Nucleated RBC % 0.0 (0.0-0.2) % Sodium 137 (137-145) mmol/L Potassium 4.4 (3.4-5.0) mmol/L Chloride 99 (98-107) mmol/L Carbon Dioxide 24 (22-30) mmol/L Anion Gap 14 H (4-12) mmol/L BUN 25 H D (9-20) mg/dL Creatinine 1.26 (0.7-1.3) mg/dL Estim Creat Clear Calc 39 ml/min Estimated GFR 55 L (59 - ) Glucose 160 H (65-110) mg/dL Calcium 8.5 (8.4-10.2) mg/dL Total Bilirubin 0.3 (0.2-1.3) mg/dL AST 44 (17-59) U/L ALT 31 (6-50) U/L Alkaline Phosphatase 236 H (38-126) U/L Total Protein 8.0 (6.3-8.2) g/dL Albumin 4.4 (3.5-5.1) g/dL Lipase 178 (23-300) U/L Discharge Plan Discharge Clinical Impression: Colitis Patient Disposition: Home Condition: Stable Instructions: Antibiotic Form, Clear Liquid Diet (ED), Colitis (ED) Additional Instructions: Clear liquid diet for the next few days. Zofran as needed for nausea control. Antibiotics as directed until completed. Have close follow-up with your primary care physician. Have close follow-up with GI. If you have any worsening symptoms then please call or return to the emergency department. Patient Language: Kenyan Prescriptions: New ondansetron 4 mg tablet,disintegrating 4 mg PO Q8H PRN (Reason: nausea and vomiting) Qty: 14 0RF amoxicillin-pot clavulanate 875-125 mg tablet 1 tablet PO Q12H 7 Days Qty: 14 0RF No Action insulin lispro 100 unit/mL insulin pen 100 unit subcut DAILY Patient Comments: insulin pump- last bolus 10/07/21 1800 3.6 units Rx Instructions: use as directed simvastatin 40 mg tablet 40 mg PO HS finasteride 5 mg tablet 5 mg PO DAILY dorzolamide-timolol (PF) 2-0.5 % dropperette 1 drp EACH EYE BID aspirin [Day Low Dose Aspirin] 81 mg tablet,delayed release (DR/EC) 81 mg PO DAILY multivitamin Tablet 1 tablet PO DAILY prednisolone acetate 1 % drops,suspension 1 drp EACH EYE Q12H diclofenac sodium 0.1 % drops 1 drp EACH EYE QID nitroglycerin 0.4 mg tablet, sublingual 0.4 mg sublingual Q5M PRN Rx Instructions: do not exceed 3 doses per episode hydrocodone-acetaminophen 5-325 mg tablet 1 tablet PO QHS PRN phenytoin sodium extended 100 mg capsule See Rx Instructions .ROUTE .COMPLEX Qty: 270 3RF Dose Instruction: TAKE ONE CAPSULE BY MOUTH EVERY MORNING AND 2 CAPSULES AT BEDTIME Rx Instructions: TAKE ONE CAPSULE BY MOUTH EVERY MORNING AND 2 CAPSULES AT BEDTIME furosemide 40 mg tablet 20 mg PO DAILY metoprolol tartrate 25 mg tablet 25 mg PO BID simethicone 125 mg Tablet 125 mg PO TID PRN (Reason: (Drug) Ingestion) clopidogrel 75 mg Tablet 75 mg PO DAILY isosorbide mononitrate 30 mg Tablet Extended Release 24 Hr 30 mg PO DAILY lisinopril 20 mg tablet 20 mg PO DAILY lacosamide 150 mg tablet 150 mg PO Q12H Qty: 180 1RF levetiracetam 1,000 mg tablet See Rx Instructions .ROUTE .COMPLEX Qty: 360 3RF Dose Instruction: TAKE 2 TABLETS BY MOUTH EVERY 12 HOURS Rx Instructions: TAKE 2 TABLETS BY MOUTH EVERY 12 HOURS Follow-up/Referrals: Sin Minor MD [Physician] - [place],Cha Larose NP [Primary Care Provider] -
[2024-12-05 07:45] VITALS: BP 125/60; PULSE 98; RESP 16; O2SAT 98
== END 2024-12-05 07:45 | disposition home or self-care (01) ==
PROVIDERS: Emergency Medicine; Emergency Provider Emergency Medicine; PCP Nurse Practitioner Family
DX: K52.9 Noninfective gastroenteritis and colitis, unspecified (principal); I25.10 Atherosclerotic heart disease of native coronary artery without angina pectoris; I10 Essential (primary) hypertension; E11.9 Type 2 diabetes mellitus without complications; E78.5 Hyperlipidemia, unspecified; G47.33 Obstructive sleep apnea (adult) (pediatric); N40.0 Benign prostatic hyperplasia without lower urinary tract symptoms; M19.90 Unspecified osteoarthritis, unspecified site; G40.909 Epilepsy, unspecified, not intractable, without status epilepticus; Z95.5 Presence of coronary angioplasty implant and graft; Z85.828 Personal history of other malignant neoplasm of skin; Z98.49 Cataract extraction status, unspecified eye; Z87.891 Personal history of nicotine dependence; Z79.4 Long term (current) use of insulin; Z79.899 Other long term (current) drug therapy; Z79.02 Long term (current) use of antithrombotics/antiplatelets; Z79.82 Long term (current) use of aspirin
CPT/HCPCS: 36415; 74177; 80053; 83690; 85025; 99284; Q9967

== ENCOUNTER 2025-04-14 03:12 | Inpatient (IN) | payer MEDICARE, SELFPAY ==
--- OUTSIDE RECORDS SUMMARY | 2010-06-07 03:30 | XMS_ITS | Continuity of Care Document ---
Author Organization [facility] Address [address] [facility] [address] Khanna [address] [place] [id number] Phone Care Team Providers Care Auger Operator Name Role Phone Rip Johnston Unavailable Unavailable Procedures Procedure Date Office/outpatient Visit, Est Optic Nerve Head Eval IPO Reduced 15% Office/outpatient Visit, Est Optic Nerve Head Eval IPO Reduced 15% Dilated Retinal Exam W Interpretation Ju Dilated Macular Or Fundus Exam Findings Communicat Macular Or Fundus Exam Performed 2009 Communication Performed Fundus Photography W/ Report Visual Field Examination-Professional Jennifer Visual Field Examination(s) Office/outpatient Visit, Est Optic Nerve Head Eval IPO Reduced 15% No Script Eye Exam & Treatment Fundus Photography W/ Report Visual Field Examination(s) Office/outpatient Visit, Est Visual Field Examination(s) Office/outpatient Visit, Est Fundus Photography W/ Report Post-op Follow-up Visit Laser Surgery Of Eye Eye Exam Established Pt Visual Field Examination(s) Office/outpatient Visit, Est Office/outpatient Visit, Est Office/outpatient Visit, Est Fundus Photography W/ Report Advance Directives Directive Yes / No Effective Date File Name No Information Encounters Encounter Description Practice Location Reason(s) For Visit Diagnoses Date Provider Providers Copied on Encounter Office/outpat ient Visit, [facility], [address] [place] [address] [address], [place], [place], [id number], tel:[phone] [facility] No Information 8201 0 Vickie Erwin. [facility] , [address], [place], [place], [facility], . tel:[phone] Office/outpat ient Visit, [facility], [address] [place] [address] [address], [place], [place], [id number], tel:[phone] [facility] No Information 1-201 0 Vickie Erwin. [facility] [address], [address], [place], [place], [facility], . tel:[phone] Referring Provider: Mark Chung [facility] [address], [place], [facility]. tel:[phone] [facility], [address] [place] [address] [address], [place], [place], [id number], tel:[phone] [facility] No Information 4-201 0 Vickie Erwni. [facility] [address] [place], [address], [place], [facility], . tel:[phone] Referring Provider: Mark Chung [employer] [address], [place], [facility]. tel:[phone] [facility], [address] [place] [address] [address], [place], [place], [id number], tel:[phone] [facility] No Information 3-201 0 Vickie Erwin. [facility] [address] [place], [address], [place], [facility], . tel:[phone] Referring Provider: Rip Ferrara, [facility] [address], [place], [address]. tel:[phone] Office/outpat ient Visit, [facility], [address], [place], [place], [id number], tel:[phone] [facility] No Information May- 4-200 9 Vickie Erwin. [facility] [facility] , [address], [place], [facility], [place]. tel:[phone] [facility], [address], [place], [place], [address], [place] tel:[phone] [facility] No Information Darin- 0-200 9 Vickie Erwin. [facility] , [address], [place], [facility], . tel:[phone] Referring Provider: Rip Ferrara, [facility] [address], [place], [facility]. tel:[phone] [facility], [address], [place], [place], [address], [place] tel:[phone] [facility] No Information Feb- 0-200 9 Vickie Erwin. [facility] [address] [place], [address], [place], [facility], [place]. tel:[phone] Referring Provider: Rip Ferrara, [facility] [address], [place], [facility]. tel:[phone] Office/outpat ient Visit, [facility], [address], [place], [place], [address], [place] tel:[phone] [facility] No Information May-1 6-200 8 Vickie Erwin. [facility] , [address], [place], [facility], [place]. tel:[phone] [facility], [address] [place] [address] [address], [place], [place], [id number], [place] tel:[phone] [facility] No Information 8 Vickie Erwin. [address] [facility] , [address], [place], [address], [place]. tel:[phone] Referring Provider: Rip Ferrara, [facility] [address], [place], [facility]. tel:[phone] Office/outpat ient Visit, [facility], [address] [place] [address] [address], [place], [place], [address], [place] tel:[phone] [facility] No Information 8 Vickie Erwin. [facility] [address] [place], [address], [place], [facility], [place]. tel:[phone] Referring Provider: Rip Ferrara, [facility] [address], [place], [facility]. tel:[phone] [facility], [address] [place] [address] [address], [place], [place], [id number], [place] tel:[phone] [facility] No Information 7 Vickie Erwin. [facility] [address] [place], [address], [place], [address], [place]. tel:[phone] [facility], [address] [place] [address] [address], [place], [place], [address], [place] tel:[phone] [facility] No Information 7 Vickie Erwin. [address] [facility] [address], [address], [place], [address], [place]. tel:[phone] Referring Provider: Mark Chung [address], [place], [address]. tel:[phone] [facility], [address] [place], [place] [address] [address], [place], [place], [id number], [place] tel:[phone] [facility] No Information May-1 7-200 7 Vickie Erwin. [address] [facility] , [address], [place], [address], [place]. tel:[phone] [facility], [address], [place], [place], [id number], [place] tel:[phone] [facility] No Information May-0 8-200 7 Vickie Erwin. [address] [facility] , [address], [place], [address], [place]. tel:[phone] Referring Provider: Rip Ferrara, [address] [place], [place] [address], [place], [facility]. tel:[phone] Office/outpat ient Visit, [facility], [address] [place] [address] [address], [place], [place], [id number], [place] tel:[phone] [facility] No Information 3 0-200 7 Vickie Erwin. [address] [facility] , [address], [place], [facility], [place]. tel:[phone] Office/outpat ient Visit, [facility], [address], [place], [place], [address], [place] tel:[phone] [facility] No Information 2 3-200 7 Margi Langford. [address] [facility], [address], [place], [place], [address], [place]. tel:[phone] Office/outpat ient Visit, [facility], [address], [place], [place], [address], [place] tel:[phone] [facility] No Information 3 1-200 7 Vickie Erwin. [address] [facility] , [address], [place], [address], [place]. tel:[phone] Referring Provider: Rip Ferrara, [address], [place], [address]. tel:[phone] Family History Family Member Type Diagnosis Age At Onset No Information Payers Payer name Insurance type Covered republican ID Authoriza tion(s) [place] [id number] Social History Type Description Quantity Date Captured Comments Sex Male Smoking Status No Information Chief Complaint And Reason For Visit No Information Reason For Referral Reason For Referral No Information History Of Present Illness Encounter Date Complaint History Of Prese nt Illness No Information Functional Status Date Functional Assessmen t No Information Instructions Date Instruction Additional Infor mation No Information Assessments Type Assessment Date No Information Patient Care Teams Name Effective Dates (start - stop) Status Members No Information
[2025-04-14] VITALS (32 sets, daily range): BP systolic 90–153; BP diastolic 37–56; PULSE 58–119; RESP 12–18; TEMP 34.8–38.7; O2SAT 87–99; BMI 23.8
--- NOTE | ~2025-04-14 | CT_ITS ---
EXAMINATION: CTA abdomen pelvis DATE: 04/14/2025 04:19 INDICATION: Left lower quadrant abdominal pain. Possible ischemic colitis. TECHNIQUE: Computed tomographic angiography (CTA) of the abdomen and pelvis was performed with 100 mL Omnipaque-350 intravenous contrast. Additional 3D reconstructions utilizing rotating maximum intensity projection (MIP) were performed. Automated exposure control and iterative reconstruction technique were employed. The dose-length product was 395.07 mGy-cm. COMPARISON: 12/05/2024 FINDINGS: Increased interstitial pattern and mild groundglass opacities in the bilateral lower lungs most prominent in the dependent lower lobes which could be due to atelectasis, mild pulmonary edema, pneumonia or chronic interstitial lung disease. Calcified nodules in the right lower lobe consistent with old g ranulomatous disease. Heart size is normal. Atherosclerotic coronary artery calcific location. No pericardial or pleural effusion. There is calcified atherosclerosis of the normal caliber aorta and many of the other arteries. There is a moderate 60% stenosis at the origin of the superior mesenteric art morales, 70% stenosis at the origin of the right common iliac artery, 50% stenosis along the right internal iliac artery and 50% stenosis at the right common femoral artery. Liver, gallbladder, spleen, pancreas, bilateral adrenal glands and kidneys are normal. Marked distention of the bladder which extends into the right lower quadrant above the level of the umbilicus measuring approximately 18.6 x 13.7 x 11.3 cm. There is fluid throughout the colon consistent with nonspecific diarrhea. No bowel obstruction. The appendix is not visualized. No pericecal inflammatory change to suggest acute appendicitis. No bowel wall thickening and uniform mucosal enhancement throughout the bowels. No free intraperitoneal gas or fluid. No pathologically enlarged abdominal or pelvic lymphadenopathy. Severe upper lumbar spondylosis. Bilateral vasectomy clips along the spermatic cords at the base of the scrotum. Likely old healed avulsion fracture fragment at the right ischial tuberosity. IMPRESSION: 1. Nonspecific diarrhea. No other acute intra-abdominal/pelvic process. 2. Prominent distention of the bladder. 3. Scattered atherosclerotic disease consistent with a prominent coronary artery calcifications and with moderate stenosis at the superior mesenteric and right common iliac arteries and mild to moderate stenosis at the right internal iliac and right common femoral arteries. 4. Persistent increased interstitial pattern and groundglass opacities at the bilateral lung bases with dependent predominance which could represent atelectasis, mild pulmonary edema or pneumonia in the acute setting or more chronic interstitial lung disease. Reviewed, dictated and finalized at location A. IMPRESSION: 1. Nonspecific diarrhea. No other acute intra-abdominal/pelvic process. 2. Prominent distention of the bladder. 3. Scattered atherosclerotic disease consistent with a prominent coronary arter y calcifications and with moderate stenosis at the superior mesenteric and righ t common iliac arteries and mild to moderate stenosis at the right internal june ac and right common femoral arteries. 4. Persistent increased interstitial pattern and groundglass opacities at the b ilateral lung bases with dependent predominance which could represent atelectas is, mild pulmonary edema or pneumonia in the acute setting or more chronic inte rstitial lung disease.
--- NOTE | ~2025-04-14 | CT_ITS ---
EXAMINATION: CT diagnostic chest wo con DATE: 04/14/2025 14:13 INDICATION: Cough, fever and hypotension TECHNIQUE: Computed tomography (CT) of the chest was performed without intravenous contrast. The dose-length product was 183.71 mGy-cm. Automated exposure control and iterative reconstruction technique were employed. COMPARISON: Chest x-ray dated 03/09/[address] dated 04/14/2025 FINDINGS: There are groundglass opacities and nodular opacities of the right middle and lower lobes predominantly, consistent with pneumonia. No endobronchial abnormality. No pneumothorax. No significant mediastinal or hilar lymph node enlargement. There is atherosclerosis of the aorta and coronary art eries. There is dependent atelectasis in the left lower lobe. No pneumothorax. There is residual contrast in the renal collecting systems and ureters, consistent with prior contrast study. IMPRESSION: 1. Persistent mixed groundglass and nodular opacities of the right middle and lower lobes, consistent with pneumonia. Reviewed, dictated and finalized at location O. IMPRESSION: 1. Persistent mixed groundglass and nodular opacities of the right middle and l ower lobes, consistent with pneumonia.
--- NOTE | 2025-04-14 03:13 | ECG_ITS ---
Test Date: 2025-04-14 03:13:39 Measurements Intervals [place] Rate: 59 P: 75 MT: 192 QRS: 87 QRSD: 109 T: 70 QT: 453 QTc: 452 Interpretive Statements SINUS BRADYCARDIA No previous ECG available for comparison Electronically Signed On 04-14-2025 11:37:07 CDT by Ender Castillo M.D.
[2025-04-14] MEDS: SODIUM CHLORIDE 0.9% IV 1,000 ML 999 ML (03:25)
[2025-04-14] MEDS: ONDANSETRON INJ 4 MG/2 ML VIAL IV PUSH (03:26)
[2025-04-14] MEDS: MORPHINE SULFATE (*CRX) 4 MG/ML INJ IV PUSH (03:27)
[2025-04-14 03:29] LABS: Hematocrit 32.2 % (42.0-52.0); Hemoglobin 10.0 g/dL (14.0-18.0); Immature Granulocyte Percent A 0.3 % (0-0.5); Lymphocytes Absolute Auto 3.64 K/mm3 (0.9-3.2); Mean Corpuscular HGB Conc 31.1 g/dl (32-36); Mean Corpuscular Hemoglobin 27.9 pg (26-34); Mean Corpuscular Volume 89.9 fl (80-100); Nucleated Red Blood Cells Absolute Auto 0.000 K/mm3 (0.0-0.012); Nucleated Red Blood Cells Perc 0.0 % (0.0-0.2); Platelet Count Result 335 k/mm3 (150-375); Red Blood Count 3.58 M/mm3 (4.6-6.20); White Blood Count 7.7 K/mm3 (4.5-10.0)
--- NOTE | 2025-04-14 03:39 | ED.NAVMDI ---
HPI - Nausea/Vomiting/Diarrhea General Chief complaint: Nausea/Vomiting/Diarrhea Stated complaint: HYPOTENSIVE S/P 3 HOURS OF DIARRHEA Time Seen by Provider: 04/14/25 03:14 History of Present Illness HPI Narrative: this is an 80-year-old male with history of diabetes, JEAN CLAUDE, hyperlipidemia, hypertension, CAD Status post stents x2, ischemic colitis, seizure disorder who presents to the ED for abdominal pain, nausea, vomiting, diarrhea. Patient states that about 2 hours prior to arrival, he had onset of diarrhea and left lower quadrant abdominal pain. He states this was similar to his prior episodes ischemic colitis. Denies lightheadedness, dizziness. No recent illnesses. No known sick contacts. He is on Plavix but no blood thinners. Related Data Home Medications ?Medication ?Instructions ?Recorded ?Confirmed ?Last Taken ?Type aspirin 81 mg tablet,delayed 81 mg PO DAILY 02/21/21 11/18/22 11/16/22 History release (Day Low Dose Aspirin) dorzolamide-timolol (PF) 2 %-0.5 % 1 drp EACH EYE BID 02/21/21 11/18/22 11/16/22 History eye drops in a dropperette finasteride 5 mg tablet 5 mg PO DAILY 02/21/21 11/18/22 11/16/22 History insulin lispro 100 unit/mL 100 unit subcut DAILY 02/21/21 11/17/22 10/07/21 18:00 History subcutaneous pen multivitamin 1 tablet PO DAILY 02/21/21 11/18/22 11/16/22 History simvastatin 40 mg tablet 40 mg PO HS 02/21/21 11/18/22 11/16/22 History furosemide 40 mg tablet 20 mg PO DAILY 10/05/21 11/18/22 11/16/22 History metoprolol tartrate 25 mg tablet 25 mg PO BID 10/05/21 11/18/22 11/16/22 History clopidogrel 75 mg tablet 75 mg PO DAILY 12/25/21 11/18/22 11/16/22 History isosorbide mononitrate 30 mg 30 mg PO DAILY 12/25/21 11/18/22 11/16/22 History tablet,extended release 24 hr lisinopril 20 mg tablet 20 mg PO DAILY 11/18/22 11/18/22 11/16/22 History diclofenac sodium 0.1 % eye drops 1 drp EACH EYE QID 11/13/23 Unknown History nitroglycerin 0.4 mg sublingual 0.4 mg sublingual Q5M PRN 11/13/23 Unknown History tablet Allergies Allergy/AdvReac Type Severity Reaction Status Date / Time No Known Allergies Allergy Unknown Other Verified 01/17/25 14:28 Review of Systems Review of Systems: Gen.: Denies fevers or chills Eyes: Denies eye pain or visual change ENT: Denies congestion Respiratory: Denies shortness of breath or cough CV: Denies chest pain or palpitations GI: As per HPI denies burning, urgency, frequency or hematuria Musculoskeletal: Denies back pain or muscle pain Neuro: Denies numbness, tingling, weakness or focal weakness Skin: Denies rash Except as documented, all other systems reviewed and negative [facility] Past Medical History Medical History Broken collarbone Insulin pump in place Diabetes Osteoarthritis BPH (benign prostatic hyperplasia) JEAN CLAUDE (obstructive sleep apnea) Hyperlipidemia HTN (hypertension) CAD (coronary artery disease) Bloody diarrhea Acute ischemic colitis Seizure disorder Red blood cell abnormality Irregular heart beat Surgical History Surgical History 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 of left anabaptist History of cataract surgery Stented coronary artery Family History Family History Father Heart disease Diabetes mellitus Heart attack Mother Diabetes mellitus Lung cancer Social History Social History Social History: Caffeine- daily Smoking packs per day: 3 Smoking cigarettes per day: 60.0 Years smoked: 30 Smoking pack-years: 90.00 Smoking status: Former smoker Tobacco type: cigarettes Second hand tobacco smoke exposure: Yes Smoking end date: 08/11/99 Alcohol intake: never Substance use: never Substance use type: does not use Lack of Transportation: No Lack of Food: Never True Current Housing: I Have Housing Concerned About Future Housing: No Difficulty Paying Gas/Electric Bills: No Difficulty Paying for Meds: No Currently Unemployed: No Education: Decline to Answer Difficulty w/ Childcare or Family Care: No Spiritual care concerns: No Exam Narrative: APPEARANCE: toxic appearing, cool to touch, resting in bed EYES: EOMI HEENT: Normocephalic, atraumatic, OMM RESPIRATORY: No respiratory distress Clear to auscultation bilaterally with no rhonchi wheezing or rales. CARDIOVASCULAR: Regular rate and rhythm without murmurs rubs or gallops. ABDOMINAL: Soft, tenderness palpation to the left lower quadrant MUSCULOSKELETAl: Moves all extremities. No clubbing, cyanosis or edema. NEURO: Awake and alert. Following commands, speech normal, no focal deficits SKIN:: Pale. cool to touch, dry. No rashes lesions or abrasions PSYCHIATRIC: Normal affect/mood, Course Vital Signs Vital signs: Vital Signs Pulse Rate 68 04/14/25 03:17 Respiratory Rate 18 04/14/25 03:17 Blood Pressure 105/50 L 04/14/25 03:17 Pulse Oximetry 95 04/14/25 03:17 Temperature 94.7 F L 04/14/25 03:52 Pulse Rate 87 04/14/25 04:26 Respiratory Rate 18 04/14/25 04:53 Blood Pressure 115/56 L 04/14/25 04:53 Pulse Oximetry 97 04/14/25 04:53 MDM - Nausea/Vomiting/Diarrhea MDM Narrative Medical decision making narrative: 80-year-old male who presented to the ED for diarrhea and abdominal pain. On initial evaluation, patient was hypotensive to 80s/60s. He was also hypothermic to 94.7. He was given 2 L NS bolus. He was placed on the Summer Hugger. Abdomen is soft with tenderness to palpation of the left lower quadrant. CBC showed a mild anemia at 10.0. CMP without significant abnormalities. Lactic acid elevated at 2.9. CTA abdomen/ pelvis showed mild diffuse colonic wall prominence which could be inflammatory or infectious. his blood pressure did improve to the 130s/40s. his bladder was significantly distended and had greater than 900 cc so Ruiz was placed and this was slowly drained with fluid replacement at the same time. Patient will require admission for hypothermia and hypotension of unclear source at this point. It may be the colitis but this seems rather extreme for his colitis. Patient was given vanc/Zosyn. Discussed case with hospitalist who will admit the patient. CRITICAL CARE Indication: Time type: intermittent I provided a total of 35 minutes of critical care excluding separately billable procedures. This includes time w/ EMS, initial bedside evaluation, reviewing old records, review of testing done while under my care, discussion w/ the family, nurses, business sales consultant and guiding the patient's care while in the emergency department. Differential Diagnosis Differential diagnosis: Likely other ( Ischemic colitis, colitis, enterocolitis, UTI, urinary retention, anemia, sepsis) Medical Records Attestation: I reviewed the patient's medical records. Lab Data Attestation: I reviewed the patient's lab results. 04/14/25 03:23 04/14/25 03:23 Labs: Lab Results 04/14/25 04/14/25 04/14/25 Range/Units 03:19 03:23 05:53 WBC 7.7 (4.5-10.0) K/mm3 RBC 3.58 L (4.6-6.20) M/mm3 Hgb 10.0 L (14.0-18.0) g/dL Hct 32.2 L (42.0-52.0) % MCV 89.9 (80-100) fl MCH 27.9 (26-34) pg MCHC 31.1 L (32-36) g/dl RDW 13.2 (11.5-14.5) % Plt Count 335 (150-375) k/mm3 MPV 9.2 (7.4-10.4) fl Immature Gran % (Auto) 0.3 (0-0.5) % Neut % (Auto) 42.6 L (45.5-73.1) % Lymph % (Auto) 47.2 H (18.3-44.2) % Will % (Auto) 6.7 (2.6-8.5) % Eos % (Auto) 2.6 (0-4.4) % Baso % (Auto) 0.6 (0.2-1.2) % Lymph # (Auto) 3.64 H (0.9-3.2) K/mm3 Will # (Auto) 0.5 (0.1-0.6) K/mm3 Eos # (Auto) 0.2 (0-0.3) K/mm3 Baso # (Auto) 0.1 (0.0-0.1) K/mm3 Abs Immat Gran (auto) 0.02 (0.00-0.031) K/mm3 Absolute Neuts (auto) 3.3 (1.3-6.7) K/mm3 Absolute Nucleated RBC 0.000 (0.0-0.012) K/mm3 Nucleated RBC % 0.0 (0.0-0.2) % Sodium 135 L (137-145) mmol/L Potassium 4.8 (3.4-5.0) mmol/L Chloride 100 (98-107) mmol/L Carbon Dioxide 22 (22-30) mmol/L Anion Gap 13 H (4-12) mmol/L BUN 29 H (9-20) mg/dL Creatinine 1.38 H (0.7-1.3) mg/dL Estim Creat Clear Calc 35 ml/min Estimated GFR 49 L (59 - ) Glucose 166 H (65-110) mg/dL POC Capillary Glucose 146 H (65-105) mg/dl Lactic Acid 2.9 H 1.2 (0.7-2.0) mmol/L Calcium 9.0 (8.4-10.2) mg/dL Total Bilirubin 0.2 (0.2-1.3) mg/dL AST 57 (17-59) U/L ALT 34 (6-50) U/L Alkaline Phosphatase 198 H (38-126) U/L Total Protein 7.8 (6.3-8.2) g/dL Albumin 4.5 (3.5-5.1) g/dL Lipase 206 (23-300) U/L Blood Type A Positive Antibody Screen Negative Imaging Data Radiologist's impression: V rad read: Discoid atelectasis seen in the lower lobes. Mild diffuse colonic wall prominence which could be from inflammatory or infectious colitis. No bowel or biliary obstruction. Urinary bladder is distended, measuring up to 17.7 cm in length, similar to prior study from 12/05/2024. Moderately advanced degenerative disc disease changes seen in the upper lumbar spine Critical Care Time Critical Care Time Critical Care Time: Yes Total Critical Care Time: 35 Discharge Plan Discharge Clinical Impression: Acute colitis, Acute hypotension, Acute urinary retention, Acute lactic acidosis Hypothermia Qualifiers: Encounter type: initial encounter Qualified Code(s): T68.XXXA - Hypothermia, initial encounter Anemia Qualifiers: Anemia type: unspecified type Qualified Code(s): D64.9 - Anemia, unspecified Patient Disposition: Still a Patient Condition: Guarded Prognosis Patient Language: Slovenian Prescriptions: No Action insulin lispro 100 unit/mL insulin pen 100 unit subcut DAILY Patient Comments: insulin pump- last bolus 10/07/21 1800 3.6 units Rx Instructions: use as directed simvastatin 40 mg tablet 40 mg PO HS finasteride 5 mg tablet 5 mg PO DAILY dorzolamide-timolol (PF) 2-0.5 % dropperette 1 drp EACH EYE BID aspirin [Day Low Dose Aspirin] 81 mg tablet,delayed release (DR/EC) 81 mg PO DAILY multivitamin Tablet 1 tablet PO DAILY diclofenac sodium 0.1 % drops 1 drp EACH EYE QID nitroglycerin 0.4 mg tablet, sublingual 0.4 mg sublingual Q5M PRN Rx Instructions: do not exceed 3 doses per episode lacosamide 150 mg tablet 150 mg PO Q12H Qty: 180 1RF levetiracetam 1,000 mg tablet See Rx Instructions .ROUTE .COMPLEX Qty: 360 3RF Dose Instruction: TAKE 2 TABLETS BY MOUTH EVERY 12 HOURS Rx Instructions: TAKE 2 TABLETS BY MOUTH EVERY 12 HOURS phenytoin sodium extended 100 mg capsule See Rx Instructions .ROUTE .COMPLEX Qty: 270 3RF Dose Instruction: TAKE ONE CAPSULE BY MOUTH EVERY MORNING AND 2 CAPSULES AT BEDTIME Rx Instructions: TAKE ONE CAPSULE BY MOUTH EVERY MORNING AND 2 CAPSULES AT BEDTIME furosemide 40 mg tablet 20 mg PO DAILY metoprolol tartrate 25 mg tablet 25 mg PO BID clopidogrel 75 mg Tablet 75 mg PO DAILY isosorbide mononitrate 30 mg Tablet Extended Release 24 Hr 30 mg PO DAILY lisinopril 20 mg tablet 20 mg PO DAILY Follow-up/Referrals: Wilbert,Cha Larose NP [Primary Care Provider, Unknown]
[2025-04-14 03:45] LABS: Alanine Aminotransferase 34 U/L (6-50); Albumin Level 4.5 g/dL (3.5-5.1); Alkaline Phosphatase 198 U/L (38-126); Anion Gap 13 mmol/L (4-12); Aspartate Amino Transferase 57 U/L (17-59); Bilirubin,Total 0.2 mg/dL (0.2-1.3); Blood Urea Nitrogen 29 mg/dL (9-20); Calcium 9.0 mg/dL (8.4-10.2); Carbon Dioxide 22 mmol/L (22-30); Chloride 100 mmol/L (98-107); Estimated CRCL calculation 35 ml/min; Estimated Glomerular Filt Rate 49; Glucose 166 mg/dL (65-110); Lipase 206 U/L (23-300); Sodium 135 mmol/L (137-145); Total Protein 7.8 g/dL (6.3-8.2)
--- NOTE | 2025-04-14 03:52 | PC.NURSE ---
ERP made aware of temperature. Summer zazueta applied.
[2025-04-14 03:53] LABS: Potassium 4.8 mmol/L (3.4-5.0)
--- NOTE | 2025-04-14 04:26 | PC.NURSE ---
pt back from CT. Bladder scanning pt per ERP
[2025-04-14] MEDS: SODIUM CHLORIDE 0.9% IV 1,000 ML 999 ML IV CONT (04:51)
--- NOTE | 2025-04-14 04:52 | PC.NURSE ---
temp sensing valentino placed
--- NOTE | 2025-04-14 04:52 | PC.NURSE ---
400ml drained from valentino. Clamped at this time.
--- NOTE | 2025-04-14 06:15 | PC.NURSE ---
600ml urine drained. Ruiz catheter clamped again. ERP aware.
[2025-04-14] MEDS: PIPERACILLIN/TAZOBACTAM SOD 4.5 GM in SODIUM CHLORIDE 0.9% IV 100 ML 200 ML IVPB (06:34)
[2025-04-14] MEDS: VANCOMYCIN 1,750 MG/NS 500 ML 1,750 MG/500 ML BAG 250 MG IVPB (06:42)
--- NOTE | 2025-04-14 06:45 | PC.NURSE ---
pt o2 dropped to 85% on room air. 2L NC applied.
--- NOTE | 2025-04-14 07:54 | PM.IMHP ---
H&P: HPI History of Present Illness Date/Time: 04/14/25 07:54 Chief Complaint: abdominal pain, diarrhea Narrative: Patient is a 80 year old male with PMH of DM, HTN, HLD, CAD, seizure disorder, BPH, JEAN CLAUDE and colitis. Patient presented to the ER with complaints of acute onset of abdomnial pain, diarrhea, vomiting and diaphoresis. Patient reports he was feeling well prior to this and tolerating a regular diet. Patient does report a productive cough that started a few days ago. Patient was hypotensive on arrival and responded to IV fluid resucitation. Patient was hypothermic on arrival and was placed on a valerie hugger. Patient had an abdominal CTA in the ER and was admitted for acute colitis. Patient was started on IV vancomycin and IV zosyn. GI was consulted. Patient was admitted to ICU as an IMU overflow patient. Review of Systems Review of Systems: All systems reviewed & are unremarkable except as noted in HPI and below PMFSH Past Medical History Medical History (Updated 04/14/25 @ 16:27 by Camron Bowers MD) Lower abdominal pain Pneumonia Pre-syncope Dehydration Diarrhea Broken collarbone Insulin pump in place Diabetes Osteoarthritis BPH (benign prostatic hyperplasia) JEAN CLAUDE (obstructive sleep apnea) Hyperlipidemia HTN (hypertension) CAD (coronary artery disease) Bloody diarrhea Acute ischemic colitis Seizure disorder Red blood cell abnormality Irregular heart beat Surgical History Surgical History 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 of left jew History of cataract surgery Stented coronary artery Family History Family History Father Heart disease Diabetes mellitus Heart attack Mother Diabetes mellitus Lung cancer Social History Social History Social History: Caffeine- daily Smoking packs per day: 3 Smoking cigarettes per day: 60.0 Years smoked: 30 Smoking pack-years: 90.00 Smoking status: Former smoker Second hand tobacco smoke exposure: Yes Alcohol intake: never Substance use: never Substance use type: does not use Lack of Transportation: No Lack of Food: Never True Current Housing: I Have Housing Concerned About Future Housing: No Difficulty Paying Gas/Electric Bills: No Difficulty Paying for Meds: No Currently Unemployed: No Education: Bachelor's Degree Difficulty w/ Childcare or Family Care: No Spiritual care concerns: No Meds Home Medications and Allergies Home Medications ?Medication ?Instructions ?Recorded ?Confirmed ?Type aspirin 81 mg tablet,delayed 81 mg PO DAILY 02/21/21 04/14/25 History release (Day Low Dose Aspirin) dorzolamide-timolol (PF) 2 %-0.5 % 1 drp EACH EYE BID 02/21/21 11/18/22 History eye drops in a dropperette finasteride 5 mg tablet 5 mg PO DAILY 02/21/21 04/14/25 History insulin lispro 100 unit/mL 100 unit subcut DAILY 02/21/21 04/14/25 History subcutaneous pen multivitamin 1 tablet PO DAILY 02/21/21 04/14/25 History simvastatin 40 mg tablet 40 mg PO HS 02/21/21 04/14/25 History furosemide 40 mg tablet 40 mg PO DAILY 10/05/21 04/14/25 History metoprolol tartrate 25 mg tablet 25 mg PO BID 10/05/21 04/14/25 History clopidogrel 75 mg tablet 75 mg PO DAILY 12/25/21 04/14/25 History isosorbide mononitrate 30 mg 30 mg PO DAILY 12/25/21 04/14/25 History tablet,extended release 24 hr lisinopril 20 mg tablet 20 mg PO DAILY 11/18/22 04/14/25 History diclofenac sodium 0.1 % eye drops 1 drp EACH EYE QID 11/13/23 History nitroglycerin 0.4 mg sublingual 0.4 mg sublingual Q5M PRN chest 11/13/23 04/14/25 History tablet pain lacosamide 150 mg tablet 150 mg PO Q12H #180 tabs 01/17/25 04/14/25 Rx levetiracetam 1,000 mg tablet See Rx Instructions .Route 01/17/25 04/14/25 Rx .COMPLEX #360 tabs phenytoin sodium extended 100 mg See Rx Instructions .Route 01/17/25 04/14/25 Rx capsule .COMPLEX #270 caps latanoprost 0.005 % eye drops 1 drp EACH EYE QPM 04/14/25 04/14/25 History pantoprazole 40 mg tablet,delayed 40 mg PO DAILY 04/14/25 04/14/25 History release Allergies Allergy/AdvReac Type Severity Reaction Status Date / Time No Known Allergies Allergy Unknown Other Verified 01/17/25 14:28 Vital Signs Vital Signs - 24 hr 04/14/25 03:17 04/14/25 03:30 04/14/25 03:35 Temperature 94.7 F L Pulse Rate 68 63 58 L Respiratory Rate 18 18 18 Blood Pressure 105/50 L 90/40 L 90/40 L Pulse Oximetry 95 98 96 04/14/25 03:42 04/14/25 03:45 04/14/25 03:52 Temperature 94.7 F L Pulse Rate 62 60 Respiratory Rate 18 18 Blood Pressure 110/37 L 108/39 L Pulse Oximetry 97 97 04/14/25 04:00 04/14/25 04:26 04/14/25 04:30 Temperature Pulse Rate 84 87 84 Respiratory Rate 18 18 18 Blood Pressure 114/40 L 140/48 L 143/48 H Pulse Oximetry 97 96 99 04/14/25 04:53 04/14/25 05:00 04/14/25 05:30 Temperature 95.1 F L 95.6 F L Pulse Rate 79 84 Respiratory Rate 18 18 18 Blood Pressure 115/56 L 117/46 L 123/53 L Pulse Oximetry 97 97 98 04/14/25 05:30 04/14/25 05:45 04/14/25 06:00 Temperature 95.6 F L 95.9 F L 96.4 F L Pulse Rate 84 87 89 Respiratory Rate 18 18 18 Blood Pressure 123/53 L 139/46 L 153/51 H Pulse Oximetry 97 99 99 04/14/25 06:15 04/14/25 06:37 04/14/25 06:45 Temperature 96.9 F L 98.0 F Pulse Rate 85 87 90 Respiratory Rate 18 18 18 Blood Pressure 120/42 L 118/42 L 131/38 L Pulse Oximetry 97 92 87 L 04/14/25 06:59 Temperature 99.0 F Pulse Rate 94 Respiratory Rate 18 Blood Pressure Pulse Oximetry 95 Exam Narrative: General: alert, elderly, in no acute distress HEENT: normocephalic, . Mucous membranes moist. EOMI Respiratory: crackles to bilateral bases. Cardiovascular: Regular rate and rhythm, normal S1-S2 upon ascultation. No murmurs, rubs, or clicks. Abdomen: Soft, round, no pulsatile masses, nondistended and nontender. No rebound, no guarding. Bowel sounds present to all four quadrants Extremities: No cyanosis, clubbing, or edema present. Neuro: Alert and orientated x 4. Cranial nerves 2-12 intact without focal deficit. Skin: Warm, dry, and intact, without rash, erythema, or lesion.? Psych: pleasant, cooperative, normal speech, normal affect H&P: Results Labs Labs: Short CBC 04/14/25 Range/Units 03:23 WBC 7.7 (4.5-10.0) K/mm3 Hgb 10.0 L (14.0-18.0) g/dL Hct 32.2 L (42.0-52.0) % Plt Count 335 (150-375) k/mm3 BMP 04/14/25 03:23 Sodium 135 L Potassium 4.8 Chloride 100 Carbon Dioxide 22 BUN 29 H Creatinine 1.38 H Glucose 166 H Calcium 9.0 Liver Function 04/14/25 Range/Units 03:23 Total Bilirubin 0.2 (0.2-1.3) mg/dL AST 57 (17-59) U/L ALT 34 (6-50) U/L Alkaline Phosphatase 198 H (38-126) U/L Albumin 4.5 (3.5-5.1) g/dL Imaging CT scan - abdomen: Radiologist's impression: EXAMINATION: CTA abdomen pelvis DATE: 04/14/2025 04:19 INDICATION: Left lower quadrant abdominal pain. Possible ischemic colitis. TECHNIQUE: Computed tomographic angiography (CTA) of the abdomen and pelvis was performed with 100 mL Omnipaque-350 intravenous contrast. Additional 3D reconstructions utilizing rotating maximum intensity projection (MIP) were performed. Automated exposure control and iterative reconstruction technique were employed. The dose-length product was 395.07 mGy-cm. COMPARISON: 12/05/2024 FINDINGS: Increased interstitial pattern and mild groundglass opacities in the bilateral lower lungs most prominent in the dependent lower lobes which could be due to atelectasis, mild pulmonary edema, pneumonia or chronic interstitial lung disease. Calcified nodules in the right lower lobe consistent with old granulomatous disease. Heart size is normal. Atherosclerotic coronary artery calcific location. No pericardial or pleural effusion. There is calcified atherosclerosis of the normal caliber aorta and many of the other arteries. There is a moderate 60% stenosis at the origin of the superior mesenteric artery, 70% stenosis at the origin of the right common iliac artery, 50% stenosis along the right internal iliac artery and 50% stenosis at the right common femoral artery. Liver, gallbladder, spleen, pancreas, bilateral adrenal glands and kidneys are normal. Marked distention of the bladder which extends into the right lower quadrant above the level of the umbilicus measuring approximately 18.6 x 13.7 x 11.3 cm. There is fluid throughout the colon consistent with nonspecific diarrhea. No bowel obstruction. The appendix is not visualized. No pericecal inflammatory change to suggest acute appendicitis. No bowel wall thickening and uniform mucosal enhancement throughout the bowels. No free intraperitoneal gas or fluid. No pathologically enlarged abdominal or pelvic lymphadenopathy. Severe upper lumbar spondylosis. Bilateral vasectomy clips along the spermatic cords at the base of the scrotum. Likely old healed avulsion fracture fragment at the right ischial tuberosity. IMPRESSION: 1. Nonspecific diarrhea. No other acute intra-abdominal/pelvic process. 2. Prominent distention of the bladder. 3. Scattered atherosclerotic disease consistent with a prominent coronary artery calcifications and with moderate stenosis at the superior mesenteric and right common iliac arteries and mild to moderate stenosis at the right internal iliac and right common femoral arteries. 4. Persistent increased interstitial pattern and groundglass opacities at the bilateral lung bases with dependent predominance which could represent atelectasis, mild pulmonary edema or pneumonia in the acute setting or more chronic interstitial lung disease. CT scan - chest: Radiologist's impression: EXAMINATION: CT diagnostic chest wo con DATE: 04/14/2025 14:13 INDICATION: Cough, fever and hypotension TECHNIQUE: Computed tomography (CT) of the chest was performed without intravenous contrast. The dose-length product was 183.71 mGy-cm. Automated exposure control and iterative reconstruction technique were employed. COMPARISON: Chest x-ray dated 03/09/[address] dated 04/14/2025 FINDINGS: There are groundglass opacities and nodular opacities of the right middle and lower lobes predominantly, consistent with pneumonia. No endobronchial abnormality. No pneumothorax. No significant mediastinal or hilar lymph node enlargement. There is atherosclerosis of the aorta and coronary arteries. There is dependent atelectasis in the left lower lobe. No pneumothorax. There is residual contrast in the renal collecting systems and ureters, consistent with prior contrast study. IMPRESSION: 1. Persistent mixed groundglass and nodular opacities of the right middle and lower lobes, consistent with pneumonia. Assessment and Plan Assessment and plan (1) Lower abdominal pain: Code(s): R10.30 - Lower abdominal pain, unspecified Status: Acute Assessment and Plan: patient with acute onset of abdominal pain, diarrhea, vomiting and pre-syncope patient reported it was similar to his previous episodes of colitis final read on abdomen CT does not show acute colitis GI was consulted CLD for now pain control (2) Diarrhea: Code(s): R19.7 - Diarrhea, unspecified Status: Acute Assessment and Plan: CT abdomen does not show acute colitis GI consulted IV fluids CLD for now (3) Pre-syncope: Code(s): R55 - Syncope and collapse Status: Acute Assessment and Plan: patient with pre-syncope with diaphoresis at home prior to arriving s/p fluid resucitation admit to IMU telemetry continue IV fluids IV abx for pneumonia (4) Pneumonia: Code(s): J18.9 - Pneumonia, unspecified organism Status: Acute Assessment and Plan: s/p CT chest shows Persistent mixed groundglass and nodular opacities of the right middle and lower lobes, consistent with pneumonia. patient reports he developed a new productive cough a few days ago patient on oxygen by NC, normally on room air MRSA negative febrile continue IV Zosyn add IV azthromycin AM labs (5) Hypothermia: Qualifiers: Encounter type: initial encounter Qualified Code(s): T68.XXXA - Hypothermia, initial encounter Code(s): T68.XXXA - Hypothermia, initial encounter Status: Acute Assessment and Plan: s/p valerie hugger in ED resolved (6) Acute hypotension: Code(s): I95.9 - Hypotension, unspecified Status: Acute Assessment and Plan: patient hypotensive on arrival to ED s/p fluid resuscitation continue IV fluids hold home BP medications for now (7) Diabetes: Code(s): E11.9 - Type 2 diabetes mellitus without complications Status: Acute Assessment and Plan: continue home insulin pump patient able to operate monitor blood sugars (8) BPH (benign prostatic hyperplasia): Code(s): N40.0 - Benign prostatic hyperplasia without lower urinary tract symptoms Status: Acute Assessment and Plan: patient with urinary retention in ED requiring placement of valentino catheter UA reviewed and no signs of infection continue finasteride (9) HTN (hypertension): Code(s): I10 - Essential (primary) hypertension Status: Acute Assessment and Plan: patient was hypotensive on arrival hold home furosemide, metoprolol and lisinopril for now (10) Seizure disorder: Code(s): G40.909 - Epilepsy, unspecified, not intractable, without status epilepticus Status: Acute Assessment and Plan: seizure precautions continue home phenytoin, Keppra, lacosamide Quality VTE Prophylaxis VTE prophylaxis: mechanical ordered
--- OUTSIDE RECORDS SUMMARY | 2025-04-14 08:10 | XMS_ITS | Clinical Summary ---
Author Organization [facility] Address [address] [place] [address] Care Team Providers Care Engraver Tire Mold Name Role Phone Radha Arauz MD Primary Care Provider [phone] Source Comments [facility],non-owned Affiliates and Associated Physician Practices is amultiple site organization consisting of ambulatory clinics and hospital sitesin [place], [place], [place] and [place]. This disclosure is being madepursuant to the Care Everywhere program and may not contain all information available regarding this patient. 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 [address] PCP - General 12/05/22
--- OUTSIDE RECORDS SUMMARY | 2025-04-14 08:10 | XMS_ITS | Encounter Summary ---
Author Organization [facility] Address [address] [place] [address] Care Team Providers Care Fish Filleter Name Role Phone Radha Arauz MD Primary Care Provider [phone] Encounter Details Date Type Department Care Team (Late st Contact Info) Description 08/28/2023 Lab Requisition [facility] - DermPath Lab [address] [place] [id number] Cally Huntley MD [address] [facility] [place] [address] Social History Tobacco Use Types Packs/Day Years Used Date Smoking Tobacco: Never Assessed Sex and Gender Information Value Date Recorded Sex Assigned at Not on file 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 Gender Identity Not on file Sexual Orientation Not on file documented as of this encounter Plan of Treatment Not on file documented as of this encounter Procedures Procedure Name Priority Date/Time Associated Diagnosis Comments DERMATOPATHOLOGY Routine 08/28/2023 3:50 PM PRODUCT SAFETY LEAD documented in this encounter Results * DERMATOPATHOLOGY (08/28/2023 3:50 PM PRODUCT SAFETY LEAD) Case Report Dermatopathology Report Case: [id number] Authorizing Provider: Cally Huntley MD Collected: 08/28/2023 03:50 PM Ordering Location: [facility] DermPath Lab Received: 09/01/2023 10:54 AM Pathologist: Nhi Xiao MD Specimen: Skin, right forearm 4:26 PM PRODUCT SAFETY LEAD DERMATOPATHOLOGY LABORATORY Final Diagnosis Specimen A. 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 Check margins. 4:26 PM [facility] DERMATOPATHOLOGY LABORATORY Gross Description Specimen A: Received is one formalin filled container labeled with the patient's name and designated right forearm.The specimen consists of an ellipse measuring [id number] mm and is oriented with the suture/notch [...] in cassettes 3-5. Jar 0. 4:26 PM [facility] DERMATOPATHOLOGY LABORATORY Microscopic Description Specimen [...] perpendicular to the skin surface. 4:26 PM [facility] DERMATOPATHOLOGY LABORATORY Disclaimer An external and internal positive and negative controls are appropriate for the histochemical, immunohistochemical and immunofluorescence stain(s) in this case (if any), except where stated explicitly. The performance characteristics of the stain(s) cited in this report were developed and its performance characteristic determined by the Dermatopathology Laboratory at [facility], directed by Dr. Caleb Goldman. These tests need not be, and therefore are not, approved by the [place] Food and Drug Administration. The tests are used for clinical purposes. Billing Codes Specimen Charges Stain Charges 58454 1 4:26 PM [facility] DERMATOPATHOLOGY LABORATORY Embedded Images 4:26 PM [facility] DERMATOPATHOLOGY LABORATORY Pathology/Cytolo gy TISSUE SPECIMEN FROM SKIN / Unknown 08/28/2023 3:50 PM [facility] 09/01/2023 10:54 AM PRODUCT SAFETY LEAD us Cally Huntley MD LAB - PATHOLOGY/CYTOLOGY ORD ERABLES Final Result DERMATOPATHOLOGY LABORATORY [facility] - Department of Dermatology [facility] [address] [place] [address], [address] [phone] documented in this encounter Visit Diagnoses Not on filedocumented in this encounter Care Teams Fish Filleter Relationship Specialty Start Date End Date Radha Arauz MD [address] [place] [address] [place] [phone] PCP - General 12/05/22 documented as of this encounter
--- OUTSIDE RECORDS SUMMARY | 2025-04-14 08:10 | XMS_ITS | Clinical Summary ---
Author Organization [facility] Address [address] [place] [id number] Care Team Providers Care Unarmed Security Officer Name Role Phone Dev Guzman MD Primary Care Provider [phone] Social History Tobacco Use Types Packs/Day Years [...] COVID-19 Vaccine ( - 2023-2 5 season) 2025 Meningococcal B Vaccine Aged Out No l onger eligible based on patient's age to complete this topic Meningococcal Vaccine Aged Out No goldie po eligible based on patient's age to complete this topic RSV Immunizations Under 20 Months Aged Out No longer eligible based on patient's age to complete this topic Care Teams Unarmed Security Officer Relationship Specialty Start Date End Date Dev Guzman MD PCP - General 02/13/13
--- OUTSIDE RECORDS SUMMARY | 2025-04-14 08:10 | XMS_ITS | Clinical Summary ---
[facility] Organization [facility] Address [address] [place] [address] Care Team Providers Care Ordnance Handler Name Role Phone Gus Alatorre DO Unavailable [phone] Cha Atkins NP Primary Care Provider [phone] Allergies No known active allergies Medications lancets (ONETOUCH SURESOFT LANCING DEV) misc Test sugars daily and as directed patient tests 4-6 times daily 750 3 7 Active phenytoin ER (DILANTIN) 100 mg ER capsuleIndication s:wean off over 3 months as instructed by neurology Take three by mouth one time per day 0 0 9 Active multivitamin tablet tablet take 1 tablet by oral route every day with food 0 1 Active simvastatin (ZOCOR) 40 mg tablet take 1 tablet (40MG) by oral route every day in the evening 90 3 1 Active aspirin 81 mg tablet take 1 tablet (81MG) by oral route every day 0 2 Active finasteride (PROSCAR) 5 mg tablet take 1 tablet (5MG) by oral route every day 0 2 Active dorzolamide-timol ol (COSOPT) 22.3-6.8 mg/mL ophthalmic solution instill 1 drop by ophthalmic route 2 times every day into affected eye(s) 0 3 Active levETIRAcetam (KEPPRA) 1,000 mg tablet take 2 tablet by oral route every 12 hours 0 0 3 Active Additional Information Patient taking differently: 2,000 mg oral 2 times daily, Reported on 02/23/2025 simethicone 125 mg tablet Take 1 tablet by mouth as needed Active DEXCOM G6 SENSOR deviceIndications :Type 1 diabetes mellitus with hyperglycemia (HCC) Change sensor every 10 days 3 Device 13 9 Active glucagon (glucagon) 1 mg kit Use as directed for low blood sugar. 1 kit 3 0 Active nitroglycerin (NITROSTAT) 0.[address] 1 tablet (0.4 mg total) under the tongue every 5 (five) minutes as needed for chest pain 90 tablet 2 Active tamsulosin (FLOMAX) 0.4 mg extended release capsule Take 1 capsule (0.4 mg total) by mouth daily with dinner 30 capsule 3 2 Active multivit beynjgwg-xwhk-SW- calcium (THERA-M) 9 mg iron-400 mcg tablet Take 1 tablet by mouth daily 30 tablet 3 2 Active lidocaine (LIDODERM) 5 % Place 3 patches on the skin daily as needed for pain (back or hip pain) Remove & discard patch within 12 hours or as directed by MD. 30 patch 3 2 Active lacosamide (VIMPAT) 100 mg tablet Take 1 tablet (100 mg total) by mouth 2 (two) times a day 60 tablet 3 2 Active albuterol HFA (PROVENTIL HFA,VENTOLIN HFA,PROAIR HFA) 90 mcg/actuation inhaler 2 puffs every 4 (four) hours as needed 2 Active benzonatate (TESSALON) 100 mg capsule TAKE 1 CAPSULE BY MOUTH EVERY 8 HOURS NEEDED 2 Active doxazosin (CARDURA) 4 mg tablet Take 1 tablet (4 mg total) by mouth daily 2 Active celecoxib (CeleBREX) 200 mg capsule celecoxib [...] tablet (20 mg total) by mouth daily 3 Active furosemide (LASIX) 40 mg tablet Take 1 tablet (40 mg total) by mouth daily 3 Active glucagon (Baqsimi) 3 mg/actuation spray,non-aerosol Administer 1 spray (3 mg total) into one nostril as needed (to treat severe hypoglycemia) 2 each 11 3 Active metoprolol tartrate (LOPRESSOR) 25 mg immediate release tabletIndications :Ventricular ectopy,Ventricula r trigeminy TAKE 1 TABLET(25 MG) BY MOUTH TWICE DAILY 180 tablet 3 5 Active blood glucose diagnostic ([employer] Ultra Blue Test Strip) stripIndications: Type 1 diabetes mellitus with hyperglycemia ([facility]) Use to test glucose 8 times daily on pump therapy 800 each 1 5 Active clopidogreL (PLAVIX) 75 mg tablet TAKE 1 TABLET(75 MG) BY MOUTH DAILY 90 tablet 2 5 Active isosorbide mononitrate ER (IMDUR) 30 mg 24 hr tablet TAKE 1 TABLET BY MOUTH EVERY DAY 90 tablet 2 5 Active latanoprost (XALATAN) 0.005 % ophthalmic solution INSTILL 1 DROP IN BOTH EYES EVERY DAY AT BEDTIME 5 Active triamcinolone (KENALOG) 0.1 % cream APPLY TOPICALLY TO ITCHY AREA EVERY DAY NEEDED 5 Active insulin aspart (NovoLOG) 100 unit/mL vial for injectionIndicati ons:Type 1 diabetes mellitus with hyperglycemia, with long-term current use of insulin ([facility]) INJECT UP TO 100 UNITS VIA INSULIN PUMP DAILY 90 mL [address] (PROTONIX) 40 mg EC tabletIndications :Gastroesophageal reflux disease, unspecified whether esophagitis present TAKE 1 TABLET BY MOUTH EVERY DAY 90 tablet 5 Active Active Problems Problem Noted Date Diagnosed Date BMI 22.0-22.9, adult 09/03/2022 Assessment & Plan (09/03/2022 11:29 AM NUCLEAR POWERPLANT MECHANIC): Discussed healthy diet and importance of regular physical activity (20- 30min/day, 150min/wk). Abnormal stress test 08/30/2022 Overview (08/30/2022): Added automatically from request for surgery [id number] Gastroesophageal reflux disease 08/16/2022 Chest pain 08/16/2022 BPH (benign prostatic hyperplasia) 03/10/2022 Fracture of multiple ribs 03/10/2022 Patellar fracture 03/10/2022 Fall 03/10/2022 Convulsions 03/09/2022 Dysuria 01/15/2022 Assessment & Plan (01/15/2022 1:14 PM CDT): UA reflex urine culture PSA Coronary artery disease of [place] artery of [place] heart with stable angina pectoris 12/04/2021 CAD, multiple vessel 10/08/2021 Overview (10/08/2021): Added automatically from request for surgery [id number] Exertional chest pain 08/24/2021 Bilateral lower extremity edema 04/18/2021 Ventricular ectopy 06/15/2019 LANGE (dyspnea on exertion) 05/03/2019 Ventricular trigeminy 05/03/2019 JEAN CLAUDE (obstructive sleep apnea) 05/03/2019 Other fatigue 05/03/2019 Bradycardia 05/03/2019 Anemia, unspecified 11/27/2018 Iron deficiency anemia 09/18/2018 Mixed diabetic hyperlipidemi a associated with type 1 diabetes mellitus ([facility]) 07/09/2018 Assessment & Plan (02/21/2025 3:13 PM CDT): Chronic problem. Currently taking simvastatin 40mg daily. Last lipid panel: 12/02/24 GNX=407, TG=74. Assessment & Plan (12/02/2024 11:36 AM CDT): Chronic problem. Currently taking simvastatin 40mg daily. Last lipid panel: 09/18/23 LDL=99, OP=311. Will update labs.Verified that he uses [employer]. Aware to check results/results letter in [employer]. Will contact by phone if needed. Assessment & Plan (07/06/2024 2:00 PM NUCLEAR POWERPLANT MECHANIC): Chronic problem. Currently taking simvastatin 40mg daily. Last lipid panel: 09/18/23 LDL=99, MT=724. Assessment & Plan (03/24/2024 2:03 PM CDT): Chronic problem. Currently taking simvastatin 40mg daily. Last lipid panel: 09/18/23 LDL=99, MJ=409. Assessment & Plan (01/06/2024 11:33 AM CDT): Chronic problem. Currently taking simvastatin 40mg daily. Last lipid panel: 09/18/23 LDL=99, CT=182. Assessment & Plan (09/18/2023 2:22 PM NUCLEAR POWERPLANT MECHANIC): Chronic problem. Currently taking simvastatin 40mg daily. Last lipid panel: 09/03/22 LDL=83, TG=90. Will update labs today. Verified that he uses [employer]. Aware to check results/results letter in [employer]. Will contact by phone if needed. Assessment [...] time. Assessment & Plan (09/02/2022 1:15 PM NUCLEAR POWERPLANT MECHANIC): Chronic problem. Currently taking simvastatin 40mg daily. Will update lipid panel today. Verified that he uses [employer]. Aware to check results/results letter in [employer]. Will contact by phone if needed. Assessment & Plan (06/06/2022 1:18 PM CDT): Chronic problem. On statin therapy, no changes. Assessment & Plan (10/11/2021 10:56 AM NUCLEAR POWERPLANT MECHANIC): Chronic problem. On statin therapy, no changes. Assessment & Plan (07/12/2021 4:55 PM NUCLEAR POWERPLANT MECHANIC): LDL cholesterol goal under 80 Continue simvastatin 40 mg daily Check lipid profile today Assessment & Plan (05/10/2021 11:41 AM CDT): Chronic problem. On statin therapy, no changes. Assessment & Plan (01/26/2021 11:55 AM CDT): Continue statin Assessment & Plan (10/27/2020 11:32 AM CDT): LDL 91. Controlled on current medications. Continue plan. Assessment & Plan (06/29/2020 2:12 PM NUCLEAR POWERPLANT MECHANIC): Goal of treatment , LDL cholesterol less [...] therapy. Assessment & Plan (09/19/2019 3:13 PM NUCLEAR POWERPLANT MECHANIC): At goal on current medications. Continue statin [...] therapy Assessment & Plan (10/15/2018 2:37 PM NUCLEAR POWERPLANT MECHANIC): Continue statin therapy Assessment & Plan (07/09/2018 11:57 AM NUCLEAR POWERPLANT MECHANIC): Goal of treatment , LDL cholesterol less [...] Diabetic peripheral neuropathy 10/02/2017 Assessment & Plan (02/21/2025 3:50 PM CDT): Chronic problem. Reviewed foot care; needs to lotion daily. Aware to check feet nightly, not to go barefoot. Again discussed checking with neurologist to see if he can use Gabapentin for nerve pain. Discussed OTC pain creams that may be helpful. Assessment & Plan (12/02/2024 12:03 PM CDT): Chronic problem. Reviewed foot care; needs to lotion daily. Aware to check feet nightly, not to go barefoot. Check with neurologist to see if you can use Gabapentin for nerve pain. Discussed OTC pain creams that may be helpful. Assessment & Plan (07/06/2024 2:00 PM NUCLEAR POWERPLANT MECHANIC): Chronic problem. Reviewed foot care; needs to [...] barefoot. Assessment & Plan (09/18/2023 2:22 PM NUCLEAR POWERPLANT MECHANIC): Chronic problem. Aware to check feet nightly & to not go barefoot. Assessment & Plan (06/12/2023 2:13 PM CDT): Chronic problem. Aware to check feet nightly & to not go barefoot. Assessment & Plan (10/02/2017 11:33 AM NUCLEAR POWERPLANT MECHANIC): foot care discussed. Insulin pump status 04/08/2017 Assessment & Plan (02/21/2025 3:35 PM CDT): Blood sugars persistently upper limits normal/hyperglycemia from 1p-3a Pump setting changes -add 8a 0.9 units/hr -add 12p 0.8 units/hr Current medications: Novolog via T-slimx2 insulin pump, CIQ on BR 12a 0.7, 8a 0.9, 12p 0.8 CR 18 CF 45 Target 110 AIT 5 hours Assessment & Plan (12/02/2024 12:03 PM CDT): [...] hours Assessment & Plan (07/06/2024 1:59 PM NUCLEAR POWERPLANT MECHANIC): No changes. Will take off exercise mode at HS to see if BG will come back into range overnoc. Assessment & Plan (03/24/2024 2:03 PM CDT): No pump setting at this time. Bolus with evening snack. Assessment & Plan (09/18/2023 3:45 PM NUCLEAR POWERPLANT MECHANIC): No pump setting changes at this time. Will contact [employer] about either software upgrade or new pump. Assessment & Plan (06/12/2023 2:27 PM CDT): No pump setting changes at this time. Discussed correctional bolus. Not to undercalculate HS snack bolus. Assessment & Plan (12/03/2022 12:14 PM CDT): No pump setting changes at this time. Assessment & Plan (09/03/2022 12:59 PM NUCLEAR POWERPLANT MECHANIC): No pump setting changes. Assessment & Plan (06/06/2022 3:47 PM CDT): No pump setting changes. Assessment & Plan (01/15/2022 12:04 PM CDT): In case of pump failure, take long acting insulin ( e.g Tresiba ), 18 units every 24 hours and bolus with Humalog, calculating according with your carbs and sugars readings. Assessment & Plan (10/11/2021 12:58 PM NUCLEAR POWERPLANT MECHANIC): No pump setting changes. Assessment & Plan [...] prefers. Instruction for use reviewed. Will contact [employer] to provide link for training and download for Control IQ Assessment & Plan (09/19/2019 3:09 PM NUCLEAR POWERPLANT MECHANIC): No change to settings. Dexcom set up and connected with pump which will prevent hypoglycemia with basal IQ. Also instructed on use of temp basal for increased activity like shopping Assessment & Plan (01/28/2019 4:16 PM CDT): No change to settings today Assessment & Plan (07/09/2018 11:56 AM NUCLEAR POWERPLANT MECHANIC): Have long acting , basal insulin ( [...] use of insulin 01/16/2017 Assessment & Plan (02/21/2025 3:38 PM CDT): Chronic problem. A1c not at goal and worsened from 7.7% 12/02/24 to now 7.2%. Blood sugars are persistently upper limits normal/hyperglycemia from 1p-3a. Pump setting changes -add 8a 0.9 units/hr -add 12p 0.8 units/hr Current medications: Novolog via T-slimx2 insulin pump, CIQ on BR 12a 0.7, 8a 0.9, 12p 0.8 CR 18 CF 45 Target 110 AIT 5 hours UTD on labs. UTD DM eye exam (11/04/[address] [facility]). Has appt q10-11 weeks for injections. Strive for regular exercise (30min most days) and diet (get at least 4-5 servings of fruit and veggies daily, avoid processed foods, increase lean protein intake and decrease carb portions as well as fruit juices, regular soda & desserts). Watch carbs and simple sugars. Check the blood sugar dexcom. Check the feet daily for skin breakdown and infection. Assessment & Plan (12/02/2024 12:09 PM CDT): [...] Will update labs. Verified that he uses my[employer]. Aware to check results/results letter in [employer]. Will contact by phone if needed. UTD DM eye exam (09/2023). Has appt q10-11 weeks; letter sent to [facility] to get copy of recent eye [...] infection. Assessment & Plan (07/06/2024 1:59 PM NUCLEAR POWERPLANT MECHANIC): Chronic problem. A1c at goal at 6.9%. [...] infection. Assessment & Plan (09/18/2023 3:45 PM NUCLEAR POWERPLANT MECHANIC): Chronic problem. A1c near goal at 7.6%. has risen from 7.3% 06/12/23. No pump setting changes at this time. Unable to download Dexcom & Tandem today. To contact [employer] to get software update so we can [...] mychart. Aware to check results/results letter in [employer]. Will contact by phone if needed. UTD [...] lows. Assessment & Plan (09/03/2022 1:03 PM NUCLEAR POWERPLANT MECHANIC): Chronic problem. Unable to download today. States that he calibrated today as dexcom stated 206 & [id number]. Current medications: T-slim with Dexcom Basal 12a 0.6, 430a 0.7, 630a 0.7, 8p 0.6, 10p 0.6 IC 19 SF 45 AI 4 Will update labs today. Verified that he uses [employer]. Aware to check results/results letter in [employer]. Will contact by phone if needed. Assessment [...] today. Assessment & Plan (10/15/2018 2:39 PM NUCLEAR POWERPLANT MECHANIC): A1c 7.1. Will not recommend any changes to insulin pump settings. Reviewed importance of rotating site to improve absorption and reduce site fatigue. Can change to stainless needle if continues with issues with current infusion sets crimping. Assessment & Plan (10/02/2017 11:17 AM NUCLEAR POWERPLANT MECHANIC): Hba1c was 7.6 today, indicating sub-optimal DM [...] Overview (11/14/2016): HYPERTENSION NOS Assessment & Plan (02/21/2025 3:56 PM CDT): Chronic problem. Well controlled with current lisinopril 20mg daily, metoprolol tartrate 25mg bid, Imdur ER 30mg daily & lasix 40mg daily. No changes at this time. Assessment & Plan (12/02/2024 11:36 AM CDT): Chronic problem. Well controlled with current lisinopril 20mg daily, metoprolol tartrate 25mg bid, Imdur ER 30mg daily & lasix 20mg daily. No changes at this time. Will update labs. Verified that he uses [employer]. Aware to check results/results letter in [employer]. Will contact by phone if needed. Assessment & Plan (07/06/2024 2:00 PM NUCLEAR POWERPLANT MECHANIC): Chronic problem. Well controlled with current lisinopril [...] time. Assessment & Plan (09/18/2023 2:22 PM NUCLEAR POWERPLANT MECHANIC): Chronic problem. Well controlled with current lisinopril 20mg daily, metoprolol tartrate 25mg bid, Imdur ER 30mg daily & lasix 20mg daily. No changes at this time. Will update labs today. Verified that he uses [employer]. Aware to check results/results letter in [employer]. Will contact by phone if needed. Assessment [...] time. Assessment & Plan (09/02/2022 1:16 PM NUCLEAR POWERPLANT MECHANIC): Chronic problem. Well controlled with current quinapril 20mg daily, metoprolol tartrate 25mg bid & lasix 20mg daily. Will update labs today. Verified that he uses [employer]. Aware to check results/results letter in [employer]. Will contact by phone if needed. Assessment & Plan (06/06/2022 1:17 PM CDT): Controlled on current medications, no changes. Assessment & Plan (10/11/2021 10:56 AM NUCLEAR POWERPLANT MECHANIC): Controlled on current medications, no changes. Assessment & Plan (07/12/2021 4:55 PM NUCLEAR POWERPLANT MECHANIC): Well controlled Continue quinapril 20 mg daily Check microalbumin today Assessment & Plan (05/10/2021 11:40 AM CDT): Controlled on current medications, no changes. Assessment & Plan (01/26/2021 11:55 AM CDT): Controlled on current medications. Continue plan. Assessment & Plan (10/27/2020 11:31 AM CDT): Controlled on current medications. Continue plan. Assessment & Plan (06/29/2020 2:12 PM NUCLEAR POWERPLANT MECHANIC): Goal blood pressure is less than 140/85 Low salt diet was discussed andd recommended The importance of daily aerobic exercise was also emphasized. Continue current meds, including RUPERT-I or ARB, e.g. Assessment & Plan (03/30/2020 3:42 PM CDT): Controlled on current medications. Continue plan. Assessment & Plan (01/06/2020 2:31 PM CDT): Controlled on current medications. Continue plan. Assessment & Plan (09/19/2019 3:12 PM NUCLEAR POWERPLANT MECHANIC): Controlled on current medications. Continue plan. Assessment & Plan (05/06/2019 11:50 AM CDT): Goal blood pressure is less than 140/85 Low salt diet recommended Daily aerobic exercise Continue current meds, including RUPERT-I or ARB Assessment & Plan (01/28/2019 4:20 PM CDT): Controlled on current medications. Assessment & Plan (10/15/2018 2:41 PM NUCLEAR POWERPLANT MECHANIC): Controlled on current medications. Assessment & Plan (07/09/2018 11:57 AM NUCLEAR POWERPLANT MECHANIC): Goal blood pressure is less than 140/85 Low salt diet recommended Daily aerobic exercise Continue current meds, including RUPERT-I or ARB Assessment & Plan (03/26/2018 2:58 PM CDT): Controlled on current medications. Assessment & Plan (10/02/2017 11:16 AM NUCLEAR POWERPLANT MECHANIC): Goal blood pressure is less than 140/85 Low salt diet recommended Daily aerobic exercise Continue current meds, including RUPERT-I or ARB Assessment & Plan (07/10/2017 3:17 PM NUCLEAR POWERPLANT MECHANIC): Goal blood pressure is less than 140/85 [...] 4 Assessment & Plan (10/11/2021 1:03 PM NUCLEAR POWERPLANT MECHANIC): Chronic problem, overall stable. No pump setting [...] issues. Assessment & Plan (07/12/2021 4:54 PM NUCLEAR POWERPLANT MECHANIC): Hba1c was Lab Results Component Value Date [...] settings. Assessment & Plan (06/29/2020 2:09 PM NUCLEAR POWERPLANT MECHANIC): Hba1c was Lab Results Component Value Date [...] reviewed. Assessment & Plan (09/19/2019 3:12 PM NUCLEAR POWERPLANT MECHANIC): A1c 7.1. Variability will be addressed now that sensor is connected to pump. Will be further helped with in next month when Leonardo Rosado has Connect IQ. Rx sent for Vizimax. Advised to download pump once Connect IQ [...] upward. Assessment & Plan (07/09/2018 11:56 AM NUCLEAR POWERPLANT MECHANIC): Hba1c was Lab Results Component Value Date [...] goal hba1c is under 7.0 to prevent residential diabetes complications ( eye , kidney and [...] 110 Assessment & Plan (07/10/2017 3:31 PM NUCLEAR POWERPLANT MECHANIC): Hba1c was today, indicating DM control 1800 [...] it. Assessment & Plan (07/10/2017 3:35 PM NUCLEAR POWERPLANT MECHANIC): Prevention and treatment of hypoglycemia were discussed [...] statin Assessment & Plan (10/02/2017 11:18 AM NUCLEAR POWERPLANT MECHANIC): Goal of treatment , LDL cholesterol less [...] therapy Assessment & Plan (07/10/2017 3:17 PM NUCLEAR POWERPLANT MECHANIC): Goal of treatment , LDL cholesterol less [...] Encounters Date Type Department Care Team Description 02/23/2025 11:30 AM CDT Office Visit [facility] Cardiology [address] [place] [id number] Kevin Ocasio MD Coronary artery disease of [place] artery of [place] heart with stable angina pectoris (Primary Dx); Hypertension associated with type 1 diabetes mellitus (HCC); 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 (CMS/HCC) (HCC); Ventricular trigeminy; JEAN CLAUDE (obstructive sleep apnea) 02/21/2025 3:00 PM CDT Office Visit [facility] Medical [facility] Diabetes and Endocrinology [facility] [address] [place] [address] Jenna Jha NP Type 1 diabetes mellitus with hyperglycemia, with long-term current use of insulin (HCC) (Primary Dx); Hypertension associated with type 1 diabetes mellitus (HCC); 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 (CMS/HCC) (HCC); Diabetic peripheral neuropathy (HCC); Insulin pump status from Last 3 Months Immunizations Immunization Administration [...] Hx Other Medical Not Claustropho bic; Comments: [facility] 06/01/2014 - Diabetes mellitus (HCC) Sleep apnea Osteoarthritis of lower back BPH (benign prostatic hyperplasia) Pneumonia Glaucoma Cataracts, bilateral Enlarged prostate Retinopathy Bradycardia Ventricular ectopy Hard to intubate Hypertension Lung nodule Ischemic colitis GERD (gastroesophageal reflux disease) Diabetes mellitus type I (HCC) Petit mal History of skin cancer History of blood [...] on file Legal Sex Male 10:32 AM NUCLEAR POWERPLANT MECHANIC Gender Identity Not on file Sexual Orientation Not on file 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 Not on file Not on file Obstetrics History Last Filed Vital Signs Vital Sign Reading Time Taken Comments Blood Pressure 124/56 02/23/2025 10:54 AM CDT Pulse 64 02/23/2025 10:54 AM CDT Temperature 37.8 C (100 F) 03/24/2024 1:22 PM CDT Respiratory Rate 18 02/21/2025 2:49 PM CDT Oxygen Saturation 96% 02/23/2025 10:54 AM CDT Inhaled Oxygen Concentration - - Weight 68.9 kg (152 lb) 02/23/2025 10:54 AM CDT Height 170.2 cm (5' 7) 02/23/2025 10:54 AM CDT Body Mass Index 23.81 02/23/2025 10:54 AM CDT Plan of Treatment Health Maintenance [...] Fall Risk Assessment 09/12/2023 09/12/2022 Covid-19 Vaccine (2024-2 6 season) 2025 05/10/2021, 09/25/2020, 09/04/2020, Additional history exists Influenza Vaccine (#1) 2025 , 04/17/2021, 04/12/2021, Additional history exists Hemoglobin A1C 08/24/2025 02/21/2025, 11/10, 07/06/2024, Additional history exists Dilated Eye Exam 11/04/2025 11/04/2024, 02/2024, 06/11/2023, Additional history exists Albumin Creatinine Ratio, Urine 12/02/2025 12/02/2024, 09/18/2023, 09/03/2022, Additional history exists Foot Exam 12/02/2025 12/02/2024, 06/12, 06/12/2023, Additional history exists Lipid Panel 12/02/2025 12/02/2024, 03/2024, 09/03/2022, Additional history exists eGFR 12/02/2025 12/02/2024, 0 03/2024, 09/09/2022, Additional history exists Medical Devices Implanted Type Area Supervisor Hot Dip Plating Device Identifier Shelf Expiration Date Model / Serial / Lot Perclose 6fr Vascular Closure 61823-62 - [id number] Implanted:Qty: 1 on 11/15/2021 by Walter Green MD at [facility] [employer] 07/10/2023 [id number] / / Perclose 6fr Vascular Closure 37530-09 - [id number] Implanted:Qty: 1 on 11/15/2021 by Walter Green MD at [facility] [employer] 07/10/2023 [id number] / / Impella Cp Percutaneous Left Ventricular Assist Device 9808-3758 - [id number] Implanted:Qty: 1 on 11/15/2021 by Walter Green MD at [facility] [employer] 06/10/2023 [id number] / / Medtronic [employer] X [id number] Resolute Jaden 3mm 2.1-2.7fr 12mm 140cm Rapid Exchange Radiopaque - [id number] Implanted:Qty: 1 on 11/15/2021 by Walter Green MD at [facility] [employer] 08/25/2024 [id number] / / [employer] X [id number] Resolute Jaden 2.75mm 2.1-2.7fr 22mm 140cm Rapid Exchange - [id number] Implanted:Qty: 1 on 11/15/2021 by Walter Green MD at [facility] [employer] 07/19/2024 [id number] / / [employer] X [id number] Resolute [place] 3mm 2.1-2.7fr 34mm 140cm Rapid Exchange Radiopaque - [id number] Implanted:Qty: 1 on 11/15/2021 by Walter Green MD at [facility] [employer] 08/22/2024 [id number] / / Perclose 6fr Vascular Closure 39254-16 - [id number] Implanted:Qty: 1 on 11/15/2021 by Walter Green MD at [facility] [employer] 07/10/2023 [id number] / / [employer] Medical Bob Angio-Seal Vip Bondek-Plus 8fr .038in 70cm Hemostatic Latex Free [id number] - [id number] Implanted:Qty: 1 on 11/15/2021 by Walter Green MD at [facility] [employer] 06/10/2022 [id number] / / [employer] Vascade 6/7fr Bioabsorbable Vascular System Compression Collagen [id number] - [id number] Implanted:Qty: 1 on 09/12/2022 by Walter Green MD at [facility] [employer] 01/03/2024 [id number] / / [id number] 3.5 X 12mm [employer] [employer] Coronary Stent [id number] - [id number] Implanted:Qty: 1 on 09/12/2022 by Walter Green MD at [facility] Surgery 01/21/2024 [id number] / / [id number] Procedures Procedure Name Priority Date/Time Associated Diagnosis Comments POCT GLUCOSE Routine 02/21/2025 2:54 PM CDT Type 1 diabetes mellitus with hyperglycemia, with long-term current use of insulin ([facility]) POCT HEMOGLOBIN A1C Routine 02/21/2025 2 :54 PM CDT Type 1 diabetes mellitus with hyperglycemia, with long-term current use of insulin ([facility]) EGFR Routine 12/02/2024 12:00 PM CDT Type 1 diabetes mellitus with hyperglycemia, with long-term current use of insulin (HCC) Hypertension associated with type 1 diabetes mellitus (HCC) LIPID PANEL Routine 12/02/2024 12:00 PM CDT Type 1 diabetes mellitus with hyperglycemia, with long-term current use of insulin (HCC) 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 (CMS/HCC) (HCC) ALBUMIN CREATININE RATIO, URINE Routine 12/02/2024 12:00 PM CDT Type 1 diabetes mellitus with hyperglycemia, with long-term current use of insulin (HCC) HM DIABETES EYE EXAM Routine 11/04/2024 7:53 AM CDT THYROID FUNCTION CASCADE STAT 03/09/2022 8:58 PM CDT from Last 3 Months or Most Recently Relevant to Health Maintenance Results * (ABNORMAL) POCT hemoglobin A1c (02/21/2025 2:54 PM CDT) Hemoglobin A1C, POC 7.2(A) 4.0 - 5.6 % Capillary blood 02/21/2025 2 :54 PM CDT us Jenna Jha DIESEL SCOOP OPERATOR POINT OF CARE TEST ORDERA BLES Final Result * (ABNORMAL) POCT glucose (02/21/2025 2:54 PM CDT) Pathologist [facility] Glucose Blood, POC 236 Normal Fasting 70 - 100, Random <200 mg/dL Comment:PPG 2 Hrs Blood 02/21/2025 2:54 PM CDT us Jenna Jha DIESEL SCOOP OPERATOR POINT OF CARE TEST ORDERA BLES Final Result * eGFR (12/02/2024 12:00 PM CDT) Pathologist [facility] eGFR 78 >=60 mL/min/1. 73 m2 Comment: [...] 0 PM CDT 12/02/2024 9:36 PM CDT Jenna Jha DIESEL SCOOP OPERATOR LAB BLOOD ORDERABLES María l Result Performing Organization Address [facility] Co de Phone Number BALJIT FLOREZ [address] [place] [address] * Albumin Creatinine Ratio, Urine (12/02/2024 12:00 PM CDT) Albumin Ur <12.0 mg/L Comment: Interpretive Data No reference range established. Current interpretive data was last revised 2018. Creatinine Ur 33.0 mg/dL BALJIT Comment: Interpretive Data No reference range established. Current interpretive data was last revised 2018. Albumin Creatinine Ratio, Ur See Comment 1 - 29 BALJIT Comment:Unable to calculate Urine 12/02/2024 12:0 0 PM CDT 12/02/2024 9:27 PM CDT Jenna Jha DIESEL SCOOP OPERATOR LAB URINE ORDERABLES María l Result Performing Organization Address [facility] de Phone Number BALJIT FLOREZ [address] [place] [address] * Lipid panel (12/02/2024 12:00 PM CDT) [...] on 2018. Triglycerides 74 <=149 mg/dL BALJIT Comment: Interpretive Data Ages < or = [...] on 2018. HDL 78 >=40 mg/dL BALJIT Comment: Interpretive Data Ages < or = [...] 2018. LDL, calculated 101 <=129 mg/dL BALJIT Comment: Interpretive Data Ages < or = [...] NCEP Expert Panel. Circulation 2004;110:227 3. Soren Hawthorne al. CHARLY Cardiol. 2020 December 09;5(5):540-548. doi: 10.1001/jamacardio.2020.0013 Current Interpretive Data was last revised on 2024. Non-HDL Cholesterol 114 mg/dL BALJIT Comment: Interpretive Data Ages < or = [...] last revised on 2018. Chol/HDL ratio 2 BALJIT Blood 12/02/2024 12:0 0 PM CDT 12/02/2024 9:27 PM CDT us Jenna Jha DIESEL SCOOP OPERATOR LAB BLOOD ORDERABLES María l Result BALJIT [id number] Department [place] [address] * (ABNORMAL) DIABETES EYE EXAM (11/04/2024 7:53 AM CDT) Historical Provider MD HEALTH MAINTENANCE Final Result * TSH reflex to free T4 (03/09/2022 8:58 PM CDT) TSH 0.57 0.30 - 4.20 mcIUnit/mL BALJIT Blood 03/09/2022 8:58 PM CDT 03/09/2022 9:08 PM CDT Sienna Man DIESEL SCOOP OPERATOR LAB BLOOD ORDERABLES Fi nal Result BALJIT [address] [facility] Department [place] [address] from Last 3 Months or Most Recently Relevant to Health Maintenance Insurance [employer] MEDICARE [id number] UHC MEDICARE ADVANTAGE [employer] MEDICARE Advance Directives For more information, please contact: [phone] * LIMITED - No CPR (Latest Code [...] 8:28 PM 03/10/2022 2:25 AM Care Teams Ordnance Handler Relationship Specialty Start Date End Date Cha Atkins NP [address] [place] [address] [place] [address] PCP - General Family Medicine 02/23/25 Gus Alatorre DO [address] [place] [id number] Medical Oncologist/[facility] H[facility] On[facility] 09/21/18
--- OUTSIDE RECORDS SUMMARY | 2025-04-14 08:10 | XMS_ITS | Encounter Summary ---
Author Organization [facility] Address [address] [place] [address] Care Team Providers Care Nozzleman Name Role Phone Radha Arauz MD Primary Care Provider Encounter Details Date Type Department Care Team (Late st Contact Info) Description 12/08/2018 Lab Requisition [facility] Care Pathology Lab [address] [place] [address] Claudio Ballard MD [address] [facility] [address] [place] [id number] Anemia Social History Tobacco Use Types Packs/Day Years Used Date Smoking Tobacco: Never Assessed Sex and Gender Information Value Date Recorded Sex Assigned at Not on file 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 Gender Identity Not on file Sexual Orientation Not on file documented as of this encounter Plan of Treatment Not on file documented as of this encounter Procedures Procedure Name Priority Date/Time Associated Diagnosis Comments FLOW CYTOMETRY BONE MARROW Routine 12/08/2018 10:00 AM CDT Anemia documented in this encounter Results * FLOW CYTOMETRY BONE MARROW (12/08/2018 10:00 AM CDT) Case Report Flow Cytometry Case: [id number] Authorizing Provider: Claudio Ballard MD Collected: 12/08/2018 10:00 AM Pathologist: Luz Marina Alfredo MD Received: 12/08/2018 01:06 PM Specimen: Bone Marrow 12/09/2018 9:55 AM CDT [facility] Final Diagnosis Bone marrow, flow cytometric immunophenotypic analysis ([id number]): - No evidence of non-Hodgkin lymphoma or high-grade myeloid neoplasm. - See interpretation. 12/09/2018 9:55 AM CDT [facility] at [address] Flow Cytometry Interpretation The bone marrow specimen [...] the flow cytometry specimen is reviewed for quality control lab tech purposes. The bone marrow aspirate specimen shows no evidence of involvement by non-Hodgkin lymphoma or a high-grade myeloid neoplasm. Correlation with clinical findings, concurrent bone marrow core biopsy, and relevant cytogenetic/molecu lar studies is required. AQ/NW 12/09/2018 9:55 AM [facility] PATHOLOGY LAB Flow Cytometry Results Differential Result Comment Flow Cell Count /uL 21786 Total Viability % 89.0 Lymphocytes % 15 Dim CD45 Region % 1 Monocytes % 12 Granulocytes % 68 12/09/2018 9:55 AM [facility] Reason for test Anemia 285.9 019 9:55 AM [facility] PATHOLOGY LAB Client Specimen ID # [id number] 12/09/2018 9:55 AM [facility] PATHOLOGY LAB Number of markers 10 were performed. A Flow CD10 A Flow CD13 A Flow CD20 A Flow CD5 A Flow CD19 A Flow CD33 A Flow CD34 A Flow CD45 A Hodgen+CD19+ A Lambda+CD19+ 12/09/2018 9:55 AM [facility] PATHOLOGY LAB Disclaimer Test performed at [facility], [address] [place] [address], [address]. *The established laboratory minimum viability is 70%. [...] complexity clinical testing. 12/09/2018 9:55 AM CDT [facility] PATHOLOGY LAB Embedded Images 9:55 AM CDT [facility] PATHOLOGY LAB Pathology/Cytolo gy BONE MARROW SPECIMEN / Unknown 12/08/2018 10:00 AM CDT 12/08/2018 1:06 PM CDT Claudio Ballard MD LAB - PATHOLOGY/CYTOLOGY ORDER JEFFERSON Final Result Performing Organization Address City/State/[facility] Co de Phone Number [facility] PATHOLOGY LAB [address] [phone] documented in this encounter Visit Diagnoses Diagnosis Anemia Anemia, unspecified documented in this encounter Care Teams Nozzleman Relationship Specialty Start Date End Date Radha Arauz MD [address] [place] [address] PCP - General 12/05/22 documented as of this encounter
--- OUTSIDE RECORDS SUMMARY | 2025-04-14 08:10 | XMS_ITS | Encounter Summary ---
Author Organization [facility] Address [address] [facility] [place] [address] Care Team Providers Care Cuff Matcher Name Role Phone Radha Arauz MD Primary Care Provider Encounter Details Date Type Department Care Team (Late st Contact Info) Description 07/28/2023 Lab Requisition [facility] - DermPath Lab [address] [facility], [place] [phone] Cally Huntley MD [address] [place] [address] Social History Tobacco Use Types Packs/Day Years Used Date Smoking Tobacco: Never Assessed Sex and Gender Information Value Date Recorded Sex Assigned at Not on file 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 Gender Identity Not on file Sexual Orientation Not on file documented as of this encounter Plan of Treatment Not on file documented as of this encounter Procedures Procedure Name Priority Date/Time Associated Diagnosis Comments DERMATOPATHOLOGY Routine 07/28/2023 2:25 PM INVESTMENT RECOVERY TECHNICIAN documented in this encounter Results * DERMATOPATHOLOGY (07/28/2023 2:25 PM INVESTMENT RECOVERY TECHNICIAN) Case Report Dermatopathology Report Case: [id number] Authorizing Provider: Cally Huntley MD Collected: 07/28/2023 02:25 PM Ordering Location: [facility] Derm[facility] Lab Received: 07/29/2023 01:10 PM Pathologist: Sunshine Garcia MD Specimens: A) - Skin, left islam B) - Skin, right forearm 11:34 AM INVESTMENT RECOVERY TECHNICIAN DERMATOPATHOLOGY LABORATORY Final Diagnosis Specimen A. 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 SKIN, right forearm: SQUAMOUS CELL CARCINOMA IN SITU (SNOWDEN'S DISEASE), PIGMENTED (D04.61) 11:34 AM [facility] DERMATOPATHOLOGY LABORATORY at [address] INVESTMENT RECOVERY TECHNICIAN Clinical History A: R/O Keeler Plaque, Drug Eruption, Nevus, SCC B: R/O Brown papule, Melanoma, Other 11:34 AM [facility] DERMATOPATHOLOGY LABORATORY Gross Description Specimen A: Received is one formalin filled container labeled with the patient's name and designated left islam. The specimen consists of a shave biopsy measuring 56j24k3 mm. Jar 0. Specimen B: Received is one formalin filled container labeled with the patient's name and designated right forearm. The specimen consists of a shave biopsy measuring 6x4x1 mm. Jar 0. 11:34 AM [facility] DERMATOPATHOLOGY LABORATORY Microscopic Description Specimen A. SKIN, left islam: The epidermis shows parakeratosis, full thickness disorderly maturation of keratinocytes, mitoses at different levels, and dyskeratotic cells. There is overlying parakeratosis with serum and neutrophils. Specimen B. SKIN, right forearm: The epidermis shows focal parakeratosis, full thickness disorderly maturation of keratinocytes, and mitoses at different levels. There is prominent basilar hyperpigmentation. 11:34 AM [facility] DERMATOPATHOLOGY LABORATORY Disclaimer An external and internal positive and negative controls are appropriate for the histochemical, immunohistochemical and immunofluorescence stain(s) in this case (if any), except where stated explicitly. The performance characteristics of the stain(s) cited in this report were developed and its performance characteristic determined by the Dermatopathology Laboratory at [facility], directed by Dr. Caleb Goldman. These tests need not be, and therefore are not, approved by the [place] Food and Drug Administration. The tests are used for clinical purposes. Billing Codes Specimen Charges Stain Charges 54338 62139 1 1 3 11:34 AM [facility] DERMATOPATHOLOGY LABORATORY Embedded Images 11:34 AM [facility] DERMATOPATHOLOGY LABORATORY Pathology/Cytology TISSUE SPECIMEN FROM SKIN / Unknown 07/28/2023 2:25 PM INVESTMENT RECOVERY TECHNICIAN 07/29/2023 1:10 PM INVESTMENT RECOVERY TECHNICIAN Miscellaneous samples (specimen) TISSUE SPECIMEN FROM SKIN / Unknown 07/28/2023 2:25 PM INVESTMENT RECOVERY TECHNICIAN 07/29/2023 1:10 PM INVESTMENT RECOVERY TECHNICIAN Cally Huntley MD LAB - PATHOLOGY/CYTOLOGY ORD ERABLES Final Result DERMATOPATHOLOGY LABORATORY [facility] - Department of Dermatology [facility] Specialized Medicine [address] [place] [address], [address] [phone] documented in this encounter Visit Diagnoses Not on filedocumented in this encounter Care Teams Cuff Matcher Relationship Specialty Start Date End Date Radha Arauz MD [address] [place] [address] PCP - General 12/05/22 documented as of this encounter
--- OUTSIDE RECORDS SUMMARY | 2025-04-14 08:10 | XMS_ITS | Encounter Summary ---
Author Organization [facility] Address [address] [place] [address] Care Team Providers Care Supply Manager Name Role Phone Radha Arauz MD Primary Care Provider [phone] Encounter Details Date Type Department Care Team (Late st Contact Info) Description 12/10/2018 Lab Requisition [facility] Care Pathology Lab [address] [place] [address] Claudio Ballard MD [address] [facility] [address] [place] [address] Social History Tobacco Use Types Packs/Day Years Used Date Smoking Tobacco: Never Assessed Sex and Gender Information Value Date Recorded Sex Assigned at Not on file 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 - See description. 12/11/2018 10:16 AM [facility] PATHOLOGY LAB at [address] [facility] Comment Overall, the bone marrow specimen is mildly hypocellular for age with maturing trilineage hematopoiesis and no evidence of lymphoma, a high-grade myeloid neoplasm, a plasma cell dyscrasia, or significant dyspoiesis. Due to the inadequate nature of the aspirate smears, adequate evaluation for dyspoiesis is hindered. Concurrent bone marrow flow cytometry ([id number]) demonstrates no evidence of non-Hodgkin lymphoma or a high-grade myeloid neoplasm. Correlation with clinical findings and relevant cytogenetic/molecular testing is required. AQ/NW 12/11/2018 10:16 AM [facility] PATH[facility] Peripheral Smear Description Outside CBC [...] normal. Platelet morphology: normal. 12/11/2018 10:16 AM [facility] PATH[facility] Bone Marrow Aspirate Due to [...] erythroid progenitor cells present. 12/11/2018 10:16 AM [facility] Bone Marrow Core Biopsy and [...] are performed on the clot in the [facility] Department of Pathology, with appropriately reactive controls, and demonstrate the following: CD34 shows no increase in blasts (estimated less than 1%). CD138 highlights a population of plasma cells comprising an estimated 2-3% of marrow cellularity. [place] and lambda each highlight appropriate proportions of the plasma cells, confirming a polyclonal population. 12/11/2018 10:16 AM [facility] Flow Cytometry Summary Concurrent bone marrow flow cytometry ([id number]) demonstrates no evidence of non-Hodgkin lymphoma or a high-grade myeloid neoplasm. 12/11/2018 10:16 AM [facility] Clinical History 12/11/2018 10:16 AM [facility] PATH[facility] Materials Received Received are 15 slides and 2 blocks labeled as [id number] along with the outside pathology report. [place] [address]. All materials are returned to the referring institution, along with a copy of our final report. 12/11/2018 10:16 AM [facility] Disclaimer The performance characteristics of all immunohistochemical and indirect immunofluorescence stains (if any) cited in this report were determined by the Histopathology Laboratory of [facility]. Some of these tests were developed [...] attending (teaching) pathologist. 12/11/2018 10:16 AM CDT [facility] PATHOLOGY LAB Embedded Images 12/11/2018 10:16 AM CDT [facility] PATHOLOGY LAB Pathology/Cytology SPECIMEN FROM [...] LAB - PATHOLOGY/CYTOLOGY ORDER JEFFERSON Final Result [facility] PATHOLOGY LAB [address] [phone] documented in this encounter Visit Diagnoses Not on filedocumented in this encounter Care Teams Supply Manager Relationship Specialty Start Date End Date Radha Arauz MD [address] [place] [phone] PCP - General 12/05/22 documented as of this encounter
[2025-04-14] MEDS: ISOSORBIDE MONONITRATE 30 MG TAB.ER.24H PO (09:55)
[2025-04-14] MEDS: ASPIRIN 81 MG ENTERIC TABLET PO (09:55)
[2025-04-14] MEDS: FINASTERIDE 5 MG TABLET PO (09:55)
[2025-04-14] MEDS: CLOPIDOGREL BISULFATE 75 MG TABLET PO (09:55)
[2025-04-14] MEDS: LACOSAMIDE (*CRX) 100 MG TABLET 150 MG BY MOUTH ×2 (09:55→21:21)
[2025-04-14] MEDS: PHENYTOIN SODIUM 100 MG EXTENDED RELEASE CAP BY MOUTH (09:56)
[2025-04-14] MEDS: PANTOPRAZOLE 40 MG TABLET PO (09:56)
[2025-04-14] MEDS: MULTIVITAMINS THERAPEUTIC TAB (*BKC) 1 TABLET PO (09:56)
[2025-04-14 10:18] LABS: Glucose Urine UA Negative (Negative); Leukocyte Esterase Ur Negative LEU/UL (Negative); Nitrate Urine Negative (Negative); Specific Grav Ur 1.031 (1.001-1.035)
[2025-04-14 10:20] LABS: Add Urine Microscopic? NO; Appearance Urine Clear (Clear)
[2025-04-14 11:21] LABS: MRSA (PCR) NOT DETECTED (NOT DETECTE)
[2025-04-14] MEDS: PIPERACILLIN/TAZOBACTAM SOD 3.375 GM in SODIUM CHLORIDE 0.9% IV 50 ML 100 ML IVPB ×2 (11:31→18:06)
[2025-04-14] MEDS: ACETAMINOPHEN 500 MG TABLET 1000 MG PO (11:31)
[2025-04-14] MEDS: SODIUM CHLORIDE 0.9% IV 1,000 ML 100 ML IV CONT (13:54)
--- NOTE | 2025-04-14 16:22 | WPDGICN ---
Assessment and Plan Assessment and plan (1) Diarrhea: Code(s): R19.7 - Diarrhea, unspecified Status: Acute Assessment and Plan: no obvious colitis in ct scan, no blood in stools but he has known recurrent ischemic colitis he completed CTA scan abdomen continue medical support, fluids, abx (also pneumonia and dehydration) (2) Dehydration: Code(s): E86.0 - Dehydration Status: Acute (3) Pre-syncope: Code(s): R55 - Syncope and collapse Status: Acute Assessment and Plan: from episode of diarrhea and n/v (4) CAD (coronary artery disease): Code(s): I25.10 - Atherosclerotic heart disease of [place] coronary artery without angina pectoris Status: Acute Assessment and Plan: on plavix (5) Pneumonia: Code(s): J18.9 - Pneumonia, unspecified organism Status: Acute Assessment and Plan: on rx (6) Diabetes: Code(s): E11.9 - Type 2 diabetes mellitus without complications Status: Acute (7) Lower abdominal pain: Code(s): R10.30 - Lower abdominal pain, unspecified Status: Acute GI Consult Note Consult date/time: 04/14/25 16:22 Reason for consult: diarrhea HPI: Pablo Almeida is a 80 year old male with history of diabetes, JEAN CLAUDE, hyperlipidemia, hypertension, CAD Status post stents x2, recurrent ischemic colitis for almost 12 years- confirmed with previous colonoscopy. He is here with new onset of abdominal pain and almost 2 hours of diarrhea- denies blood in stool- with nausea and vomiting, he was so weak that almost passed out and admitted to hospital, also had left lower quadrant abdominal pain. He states this was similar to his prior episodes ischemic colitis, last episode 11/2024, he has been in hospital at least 5-6 times for similar condition but some times he does not have to come in. He also had chills and sweat. CT did not show colitis but pneumonia. On iv fluids, feeling better. Initial lactic acid 2.9 then 1.2, wbc 7.7. Better with iv fluids and abx. Review of Systems Constitutional: Constitutional: Reports chills Eyes: Eyes: Denies blurry vision ENT: Reports Normal hearing present Cardiovascular: Cardiovascular: Denies chest pain Respiratory: Respiratory: Denies chest congestion Gastrointestinal: Gastrointestinal: Reports abdominal pain, Reports diarrhea, Reports nausea and Reports vomiting Genitourinary: Genitourinary: Denies hematuria Musculoskeletal: Musculoskeletal: Denies neck pain Integumentary/Breasts: Skin/Breast: Denies rash Neurologic: Comments: near syncope Psychiatric: Psychiatric: Denies behavioral changes [facility] Past Medical History Medical History (Updated 04/14/25 @ 16:27 by Camron Bowers MD) Lower abdominal pain Pneumonia Pre-syncope Dehydration Diarrhea Broken collarbone Insulin pump in place Diabetes Osteoarthritis BPH (benign prostatic hyperplasia) JEAN CLAUDE (obstructive sleep apnea) Hyperlipidemia HTN (hypertension) CAD (coronary artery disease) Bloody diarrhea Acute ischemic colitis Seizure disorder Red blood cell abnormality Irregular heart beat Surgical History Surgical History 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 of left restorationist History of cataract surgery Stented coronary artery Family History Family History Father Heart disease Diabetes mellitus Heart attack Mother Diabetes mellitus Lung cancer Social History Social History Social History: Caffeine- daily Smoking packs per day: 3 Smoking cigarettes per day: 60.0 Years smoked: 30 Smoking pack-years: 90.00 Smoking status: Former smoker Second hand tobacco smoke exposure: Yes Alcohol intake: never Substance use: never Substance use type: does not use Lack of Transportation: No Lack of Food: Never True Current Housing: I Have Housing Concerned About Future Housing: No Difficulty Paying Gas/Electric Bills: No Difficulty Paying for Meds: No Currently Unemployed: No Education: Bachelor's Degree Difficulty w/ Childcare or Family Care: No Spiritual care concerns: No Meds Home Medications and Allergies Home Medications ?Medication ?Instructions ?Recorded ?Confirmed ?Type aspirin 81 mg tablet,delayed 81 mg PO DAILY 02/21/21 04/14/25 History release (Day Low Dose Aspirin) dorzolamide-timolol (PF) 2 %-0.5 % 1 drp EACH EYE BID 02/21/21 11/18/22 History eye drops in a dropperette finasteride 5 mg tablet 5 mg PO DAILY 02/21/21 04/14/25 History insulin lispro 100 unit/mL 100 unit subcut DAILY 02/21/21 04/14/25 History subcutaneous pen multivitamin 1 tablet PO DAILY 02/21/21 04/14/25 History simvastatin 40 mg tablet 40 mg PO HS 02/21/21 04/14/25 History furosemide 40 mg tablet 40 mg PO DAILY 10/05/21 04/14/25 History metoprolol tartrate 25 mg tablet 25 mg PO BID 10/05/21 04/14/25 History clopidogrel 75 mg tablet 75 mg PO DAILY 12/25/21 04/14/25 History isosorbide mononitrate 30 mg 30 mg PO DAILY 12/25/21 04/14/25 History tablet,extended release 24 hr lisinopril 20 mg tablet 20 mg PO DAILY 11/18/22 04/14/25 History diclofenac sodium 0.1 % eye drops 1 drp EACH EYE QID 11/13/23 History nitroglycerin 0.4 mg sublingual 0.4 mg sublingual Q5M PRN chest 11/13/23 04/14/25 History tablet pain lacosamide 150 mg tablet 150 mg PO Q12H #180 tabs 01/17/25 04/14/25 Rx levetiracetam 1,000 mg tablet See Rx Instructions .Route 01/17/25 04/14/25 Rx .COMPLEX #360 tabs phenytoin sodium extended 100 mg See Rx Instructions .Route 01/17/25 04/14/25 Rx capsule .COMPLEX #270 caps latanoprost 0.005 % eye drops 1 drp EACH EYE QPM 04/14/25 04/14/25 History pantoprazole 40 mg tablet,delayed 40 mg PO DAILY 04/14/25 04/14/25 History release Allergies Allergy/AdvReac Type Severity Reaction Status Date / Time No Known Allergies Allergy Unknown Other Verified 01/17/25 14:28 Vital Signs Vital Signs - 24 hr 04/14/25 03:17 04/14/25 03:30 04/14/25 03:35 Temperature 94.7 F L Pulse Rate 68 63 58 L Respiratory Rate 18 18 18 Blood Pressure 105/50 L 90/40 L 90/40 L Pulse Oximetry 95 98 96 Oxygen Delivery Oxygen Flow Rate 04/14/25 03:42 04/14/25 03:45 04/14/25 03:52 Temperature 94.7 F L Pulse Rate 62 60 Respiratory Rate 18 18 Blood Pressure 110/37 L 108/39 L Pulse Oximetry 97 97 Oxygen Delivery Oxygen Flow Rate 04/14/25 04:00 04/14/25 04:26 04/14/25 04:30 Temperature Pulse Rate 84 87 84 Respiratory Rate 18 18 18 Blood Pressure 114/40 L 140/48 L 143/48 H Pulse Oximetry 97 96 99 Oxygen Delivery Oxygen Flow Rate 04/14/25 04:53 04/14/25 05:00 04/14/25 05:30 Temperature 95.1 F L 95.6 F L Pulse Rate 79 84 Respiratory Rate 18 18 18 Blood Pressure 115/56 L 117/46 L 123/53 L Pulse Oximetry 97 97 98 Oxygen Delivery Oxygen Flow Rate 04/14/25 05:30 04/14/25 05:45 04/14/25 06:00 Temperature 95.6 F L 95.9 F L 96.4 F L Pulse Rate 84 87 89 Respiratory Rate 18 18 18 Blood Pressure 123/53 L 139/46 L 153/51 H Pulse Oximetry 97 99 99 Oxygen Delivery Oxygen Flow Rate 04/14/25 06:15 04/14/25 06:37 04/14/25 06:45 Temperature 96.9 F L 98.0 F Pulse Rate 85 87 90 Respiratory Rate 18 18 18 Blood Pressure 120/42 L 118/42 L 131/38 L Pulse Oximetry 97 92 87 L Oxygen Delivery Oxygen Flow Rate 04/14/25 06:59 04/14/25 08:00 04/14/25 08:00 Temperature 99.0 F 100.8 F H Pulse Rate 94 101 H Respiratory Rate 18 12 Blood Pressure 150/53 H Pulse Oximetry 95 98 97 Oxygen Delivery Nasal Cannula Oxygen Flow Rate 2 04/14/25 08:00 04/14/25 09:49 04/14/25 10:00 Temperature Pulse Rate 105 H 104 H 103 H Respiratory Rate 18 Blood Pressure Pulse Oximetry 97 Oxygen Delivery Nasal Cannula Oxygen Flow Rate 2 04/14/25 11:31 04/14/25 11:39 04/14/25 12:00 Temperature 101.6 F H 101.4 F H Pulse Rate 97 Respiratory Rate 15 Blood Pressure 110/38 L Pulse Oximetry 97 98 Oxygen Delivery Nasal Cannula Oxygen Flow Rate 2 04/14/25 12:00 04/14/25 13:53 04/14/25 14:00 Temperature 100.8 F H Pulse Rate 100 96 Respiratory Rate Blood Pressure Pulse Oximetry Oxygen Delivery Oxygen Flow Rate 04/14/25 16:00 04/14/25 16:00 Temperature 100.5 F H Pulse Rate 87 Respiratory Rate 16 Blood Pressure 118/43 L Pulse Oximetry 96 99 Oxygen Delivery Nasal Cannula Oxygen Flow Rate 2 Exam Const: General: comfortable and no acute distress HENMT: Face/Nose/Sinus: Normal nares present Eyes: General: appearance normal, both eyes and all related structures Neck: Neck: supple Resp: Auscultation: clear to auscultation bilaterally Cardio: Rate: regular rate Rhythm: regular rhythm GI: Inspection: non-distended GI Palp: Yes Soft to palpation and No Guarding due to palpation present (GI) Auscultation: normal bowel sounds Other: mild ttp in llq Skin: General skin exam: normal color Neuro: Speech: normal speech Extrem: General: normal to inspection Psych: Mental Status: mental status grossly normal Results Labs 04/14/25 03:23 04/14/25 03:23 Labs: Short CBC 04/14/25 Range/Units 03:23 WBC 7.7 (4.5-10.0) K/mm3 Hgb 10.0 L (14.0-18.0) g/dL Hct 32.2 L (42.0-52.0) % Plt Count 335 (150-375) k/mm3 BMP 04/14/25 03:23 Sodium 135 L Potassium 4.8 Chloride 100 Carbon Dioxide 22 BUN 29 H Creatinine 1.38 H Glucose 166 H Calcium 9.0 Liver Function 04/14/25 Range/Units 03:23 Total Bilirubin 0.2 (0.2-1.3) mg/dL AST 57 (17-59) U/L ALT 34 (6-50) U/L Alkaline Phosphatase 198 H (38-126) U/L Albumin 4.5 (3.5-5.1) g/dL Urine 04/14/25 Range/Units 09:52 Urine Color Yellow (Yellow) Urine Appearance Clear (Clear) Urine pH 5.5 (5.0-9.0) Ur Specific [place] 1.031 (1.001-1.035) Urine Protein Negative (Negative) mg/dL Urine Glucose (UA) Negative (Negative) mg/dL
[2025-04-14 17:04] LABS: Influenza A QL RT-PCR Negative (Negative); Influenza B QL RT-PCR Negative (Negative); RSV RNA, RT-PCR Negative (Negative); SARS-CoV-2 RNA PCR Negative (Negative)
--- NOTE | 2025-04-14 17:59 | PC.NURSE ---
This patient, Pablo Almeida, was received from ICU on 04/14/25 at 1800. Patient/family oriented to unit policies and routines.
[2025-04-14] MEDS: AZITHROMYCIN IV 500 MG in SODIUM CHLORIDE 0.9% IV 250 ML IVPB (18:06)
[2025-04-14] MEDS: LATANOPROST 0.005% OP SOLN 2.5 ML BTL 1 DROP EACH EYE (18:07)
--- NOTE | 2025-04-14 19:34 | ECG_ITS ---
Test Date: 2025-04-14 19:37:27 Measurements Intervals [place] Rate: 119 P: 0 TN: 0 QRS: 92 QRSD: 113 T: 36 QT: 340 QTc: 479 Interpretive Statements SINUS TACHYCARDIA WITH DIFFUSE ST DEPRESSIONS SUGGESTIVE OF GLOBAL ISCHEMIA BORDERLINE RIGHT AXIS DEVIATION [QRS AXIS > 90] ABNORMAL RHYTHM ECG Compared to ECG 04/14/2025 03:13:39 ST DEPRESSIONS ARE NEW Sinus bradycardia no longer present Electronically Signed On 04-15-2025 12:21:17 CDT by Ender Castillo M.D.
[2025-04-14] MEDS: NITROGLYCERIN SL 0.4 MG TABLET (19:35)
[2025-04-14 20:33] LABS: Anion Gap 9 mmol/L (4-12); Blood Urea Nitrogen 21 mg/dL (9-20); Calcium 7.5 mg/dL (8.4-10.2); Carbon Dioxide 15 mmol/L (22-30); Chloride 108 mmol/L (98-107); Estimated CRCL calculation 41 ml/min; Estimated Glomerular Filt Rate 59; Glucose 254 mg/dL (65-110); Magnesium 2.0 mg/dL (1.6-2.3); Potassium 4.5 mmol/L (3.4-5.0); Sodium 132 mmol/L (137-145); Troponin I 0.018 ng/mL (0.000-0.034)
[2025-04-14] MEDS: SIMVASTATIN 20 MG TABLET 40 MG PO (21:21)
[2025-04-14] MEDS: PHENYTOIN SODIUM 100 MG EXTENDED RELEASE CAP 200 MG BY MOUTH (21:22)
[2025-04-15] VITALS (22 sets, daily range): BP systolic 128–170; BP diastolic 45–63; PULSE 92–114; RESP 16–18; TEMP 36.8–37.8; O2SAT 94–98; BMI 24.1
--- NOTE | 2025-04-15 | ECHO_ITS ---
Patient Info Name: Pablo Almeida Age: 80 years : 1945 Gender: Male Ht: 67 in Wt: 154 lbs BSA: 1.82 m2 HR: 91 bpm BP: 155 / 61 mmHg Technical Quality: Good Exam Date: 04/15/2025 2:04 PM Patient Status: I Admit Date: 04/15/2025 Exam Type: CA echo doppler color flow Complete two-dimensional, color flow and Doppler transthoracic echocardiogram is performed. Staff Referring Physician: Angie Briscoe Software Support Specialist: Marlena Atkins Attending Provider: Iqra Abdi Summary 1. Complete two-dimensional, color flow and Doppler transthoracic echocardiogram is performed. 2. There is normal biventricular size and systolic function. 3. There is mild mitral valve prolapse of the anterior leaflet with mild mitral regurgitation. There is mitral annular calcification. 4. The left atrium is mildly dilated. Left Ventricle The left ventricle is normal in size and systolic function. The left ventricular ejection fraction is visually estimated to be 55-60%. There are no regional wall motion abnormalities. Right Ventricle The right ventricle is normal in size and systolic function. Left Atria The left atrium is mildly dilated. Right Atria The right atrium is normal size. Atrial Septum The atrial septum is normal. Aortic Valve The aortic valve is trileaflet and sclerotic. There is no aortic stenosis. There is no aortic regurgitation. Pulmonic Valve The pulmonic valve is normal. There is trace pulmonic valve regurgitation. Mitral Valve There is mild mitral valve prolapse of the anterior leaflet with mild mitral regurgitation. There is mitral annular calcification. Tricuspid Valve The tricuspid valve is normal. There is trace tricuspid regurgitation. Pericardium/Pleural Pericardium is normal in appearance with no evidence for significant pericardial effusion. Inferior Vena Cava Dilated inferior vena cava with >50% collapse upon inspiration consistent with normal right atrial pressure, 8 mmHg. Aorta The aortic root at the level of the sinus of Valsalva measures 3.1 cm in diameter. Left Ventricular Outflow Tract Name Value Normal LVOT 2D LVOT Diameter 2.0 cm LVOT Doppler LVOT Peak Velocity 125 cm/s LVOT Peak Gradient 6 mmHg LVOT Mean Gradient 3 mmHg LVOT VTI 26 cm LVOT Stroke Volume 82 ml LVOT CO 7.5 l/min LVOT CI 4.1 l/min/m2 Pulmonic Valve Name Value Normal RVOT Doppler RVOT Peak Velocity 98 cm/s RVOT Peak Gradient 4 mmHg PV Doppler PV Peak Velocity 117 cm/s PV Peak Gradient 5 mmHg Mitral Valve Name Value Normal MV Diastolic Function MV E Peak Velocity 90 cm/s MV A Peak Velocity 134 cm/s MV E/A 0.7 MV Decel Time (PW) 139 ms MV Annular TDI MV E/e' (Septal) 10.8 MV E/e' (Lateral) 7.3 MV E/e' (Average) 9.0 Tricuspid Valve Name Value Normal Estimated PAP/RSVP RA Pressure 8 mmHg <=5 Aortic Valve Name Value Normal AV Doppler AV Peak Velocity 164 cm/s AV Peak Gradient 11 mmHg AV Area (Cont Eq [place]) 2.4 cm2 AV DI ([place]) 0.76 AV Regurgitation 2D LVOT Area 3.2 cm2 Ventricles Name Value Normal LV Dimensions 2D/MM IVS Diastolic Thickness (2D) 1.2 cm 0.6-1.0 LVID Diastole (2D) 4.7 cm 4.2-5.8 LVIW Diastolic Thickness (2D) 1.1 cm 0.6-1.0 LVID Systole (2D) 3.4 cm 2.5-4.0 LVOT Diameter 2.0 cm LV Mass (2D Cubed) 202.09 g 88.00-224.00 LV Mass Index (2D Cubed) 111 g/m2 49-115 Relative Wall Thickness (2D) 0.47 <=0.42 LV Fractional Shortening/Ejection Fraction 2D/MM LV Fractional Shortening (2D) 29 % 25-43 LV EF (2D [place]) 55 % LV Diastolic Volume (4C MOD) 94 ml LV EF (4C MOD) 63 % LV Diastolic Volume (2C MOD) 101 ml LV EF (2C MOD) 55 % LV Diastolic Volume (BP MOD) 99 ml 62-150 LV Diastolic Volume Index (BP MOD) 54 ml/m2 34-74 LV Systolic Volume (BP MOD) 43 ml 21-61 LV Systolic Volume Index (BP MOD) 24 ml/m2 11-31 LV EF (BP MOD) 57 % 52-72 LV Diastolic Length (4C) 8.5 cm LV Systolic Length (4C) 7.4 cm LV Stroke Volume (4C MOD) 59 ml Atria Name Value Normal LA Dimensions LA Volume (4C A-L) 76 ml LA Volume (BP A-L) 71 ml RA Dimensions RA Systolic Major [place] Length (4C) 5.2 cm 2.1-2.7 RA Area (4C) 13.0 cm2 <=18.0 Report Signatures
[2025-04-15] MEDS: PIPERACILLIN/TAZOBACTAM SOD 3.375 GM in SODIUM CHLORIDE 0.9% IV 50 ML 100 ML IVPB ×4 (00:25→18:43)
[2025-04-15] MEDS: SODIUM CHLORIDE 0.9% IV 1,000 ML 100 ML IV CONT (00:25)
[2025-04-15 02:45] LABS: Hematocrit 21.0 % (42.0-52.0); Immature Granulocyte Percent A 0.6 % (0-0.5); Lymphocytes Absolute Auto 1.35 K/mm3 (0.9-3.2); Mean Corpuscular HGB Conc 31.0 g/dl (32-36); Mean Corpuscular Hemoglobin 27.8 pg (26-34); Mean Corpuscular Volume 89.7 fl (80-100); Nucleated Red Blood Cells Absolute Auto 0.000 K/mm3 (0.0-0.012); Nucleated Red Blood Cells Perc 0.0 % (0.0-0.2); Platelet Count Result 213 k/mm3 (150-375); Red Blood Count 2.34 M/mm3 (4.6-6.20); White Blood Count 9.1 K/mm3 (4.5-10.0)
[2025-04-15 02:48] LABS: Hemoglobin 6.5 g/dL (14.0-18.0)
[2025-04-15 02:59] LABS: Alanine Aminotransferase 21 U/L (6-50); Albumin Level 2.9 g/dL (3.5-5.1); Alkaline Phosphatase 93 U/L (38-126); Anion Gap 5 mmol/L (4-12); Aspartate Amino Transferase 31 U/L (17-59); Bilirubin,Total 0.1 mg/dL (0.2-1.3); Blood Urea Nitrogen 19 mg/dL (9-20); Calcium 7.7 mg/dL (8.4-10.2); Carbon Dioxide 20 mmol/L (22-30); Chloride 107 mmol/L (98-107); Estimated CRCL calculation 42 ml/min; Estimated Glomerular Filt Rate > 60; Glucose 145 mg/dL (65-110); Potassium 4.1 mmol/L (3.4-5.0); Sodium 132 mmol/L (137-145); Total Protein 5.3 g/dL (6.3-8.2)
[2025-04-15 03:16] LABS: Troponin I 0.310 ng/mL (0.000-0.034)
[2025-04-15 03:49] LABS: Hematocrit 21.4 % (42.0-52.0)
[2025-04-15 03:51] LABS: Hemoglobin 6.7 g/dL (14.0-18.0)
[2025-04-15 04:06] LABS: INR 1.1; Prothrombin Time 14.2 Seconds (11.1-14.7)
[2025-04-15 04:07] LABS: Partial Thromboplastin Time 33.4 Seconds (22.3-36.8)
--- NOTE | 2025-04-15 08:01 | ECG_ITS ---
Test Date: 2025-04-15 08:08:30 Measurements Intervals [place] Rate: 114 P: 73 CT: 186 QRS: 85 QRSD: 113 T: 8 QT: 319 QTc: 440 Interpretive Statements SINUS TACHYCARDIA DIFFUSE ST DEPRESSIONS SUGGESTIVE OF GLOBAL ISCHEMIA Compared to ECG 04/14/2025 19:37:27 NO SIGNIFICANT CHANGES Electronically Signed On 04-15-2025 12:37:27 CDT by Ender Castillo M.D.
[2025-04-15 08:55] LABS: Troponin I 0.923 ng/mL (0.000-0.034)
--- NOTE | 2025-04-15 08:55 | P.PNIM_ITS ---
Progress Note: A&P Assessment and Plan (1) Lower abdominal pain: Code(s): R10.30 - Lower abdominal pain, unspecified Status: Acute Assessment and Plan: * patient with acute onset of abdominal pain, diarrhea, vomiting and pre-syncope * patient reported it was similar to his previous episodes of colitis * final read on abdomen CT does not show acute colitis * GI was consulted * CLD for now * pain control (2) Diarrhea: Code(s): R19.7 - Diarrhea, unspecified Status: Acute Assessment and Plan: * CT abdomen does not show acute colitis * GI consulted * IV fluids * CLD for now (3) NSTEMI (non-ST elevated myocardial infarction): Code(s): I21.4 - Non-ST elevation (NSTEMI) myocardial infarction Status: Acute Assessment and Plan: * Troponins obtained this AM as pt endorsing chest pain last night/early this am - uptrending from 0.018 -> 0.310 - > 0.923. * EKG not indicative of PR * Cardio consult * Could be 2/2 low hgb (drop from 10.0 -> 6.5) * Continue aspirin/plavix * Resume metoprolol 25mg * Trend troponins and repeat EKG once hgb > 8.0 * Echo (4) Anemia: Qualifiers: Anemia type: unspecified type Qualified Code(s): D64.9 - Anemia, unspecified Code(s): D64.9 - Anemia, unspecified Status: Acute Assessment and Plan: * Upon admission, Hgb 10.0 * add iron, TIBC, ferritin, B12, folic acid, and TSH * transfuse if <7 * trend H&H * 04/15: Hgb drop from 10.0 ->6.5 * Will transfuse 2 units PRBC * Discuss with GI further recommendations - no obvious signs of bleeding (5) Pre-syncope: Code(s): R55 - Syncope and collapse Status: Acute Assessment and Plan: * patient with pre-syncope with diaphoresis at home prior to arriving * s/p fluid resucitation * admit to IMU * telemetry * continue IV fluids * IV abx for pneumonia (6) Pneumonia: Code(s): J18.9 - Pneumonia, unspecified organism Status: Acute Assessment and Plan: * s/p CT chest shows Persistent mixed groundglass and nodular opacities of the right middle and lower lobes, consistent with pneumonia. * patient reports he developed a new productive cough a few days ago * patient on oxygen by NC, normally on room air * MRSA negative * febrile * continue IV Zosyn, add azithromycin * AM labs (7) Hypothermia: Qualifiers: Encounter type: initial encounter Qualified Code(s): T68.XXXA - Hypothermia, initial encounter Code(s): T68.XXXA - Hypothermia, initial encounter Status: Acute Assessment and Plan: * s/p valerie hugger in ED * resolved (8) Acute hypotension: Code(s): I95.9 - Hypotension, unspecified Status: Acute Assessment and Plan: * patient hypotensive on arrival to ED * s/p fluid resuscitation * continue IV fluids * hold home BP medications for now (9) Diabetes: Code(s): E11.9 - Type 2 diabetes mellitus without complications Status: Acute Assessment and Plan: * continue home insulin pump * patient able to operate * monitor blood sugars (10) BPH (benign prostatic hyperplasia): Code(s): N40.0 - Benign prostatic hyperplasia without lower urinary tract symptoms Status: Acute Assessment and Plan: * patient with urinary retention in ED requiring placement of valentnio catheter * UA reviewed and no signs of infection * continue finasteride (11) HTN (hypertension): Code(s): I10 - Essential (primary) hypertension Status: Acute Assessment and Plan: * patient was hypotensive on arrival * hold home furosemide, metoprolol and lisinopril for now (12) Seizure disorder: Code(s): G40.909 - Epilepsy, unspecified, not intractable, without status epilepticus Status: Acute Assessment and Plan: * seizure precautions * continue home phenytoin, Keppra, lacosamide (13) Hyperlipidemia: Code(s): E78.5 - Hyperlipidemia, unspecified Status: Acute Assessment and Plan: * Continue Simvastatin 40mg qHS * Outpt Repatha (14) CAD (coronary artery disease): Code(s): I25.10 - Atherosclerotic heart disease of [place] coronary artery without angina pectoris Status: Acute Assessment and Plan: * Continue DAPT * Isosorbide mononitrate 30mg daily Subjective Date/time seen: 04/15/25 08:55 Interval history: 80 year old male with PMH of DM, HTN, HLD, CAD, seizure disorder, BPH, JEAN CLAUDE and colitis. Patient presented to the ER with complaints of acute onset of abdomnial pain, diarrhea, vomiting and diaphoresis. Patient reports he was feeling well prior to this and tolerating a regular diet. Patient does report a productive cough that started a few days ago. 04/15/2025 Patient is sitting comfortably in bed at time of exam. Denies any chest pain, SOB, n/v or dizziness at this time. Troponins obtained this AM as pt endorsing chest pain last night/early this am - uptrending from 0.018 -> 0.310 - > 0.923. EKG does not indicate PR. Cardio consulted - agree that likely demand ischemia as Hgb dropped from 10 -> 6.5. Spoke with GI - recommend giving 2 units of blood. Cardio recommends echo adn reevaluation after blood transfusion, along with continuing Aspirin and Plavix 75mg. Will reassess patient after transfusion but right now he has no complaints of concerns. Review of Systems Review of Systems: All systems reviewed & are unremarkable except as noted in HPI and below Exam Narrative: General: alert, elderly, in no acute distress HEENT: normocephalic, . Mucous membranes moist. EOMI Respiratory: crackles to bilateral bases. Cardiovascular: Regular rate and rhythm, normal S1-S2 upon ascultation. No murmurs, rubs, or clicks. Abdomen: Soft, round, no pulsatile masses, nondistended and nontender. No rebound, no guarding. Bowel sounds present to all four quadrants Extremities: No cyanosis, clubbing, or edema present. Neuro: Alert and orientated x 4. Cranial nerves 2-12 intact without focal deficit. Skin: Warm, dry, and intact, without rash, erythema, or lesion.? Psych: pleasant, cooperative, normal speech, normal affect Objective Data Vital Signs Vital Signs: Vital Signs - 24 hr 04/14/25 09:49 04/14/25 10:00 04/14/25 11:31 Temperature 101.6 F H Pulse Rate 104 H 103 H Respiratory Rate 18 Blood Pressure Pulse Oximetry 97 Oxygen Delivery Nasal Cannula Oxygen Flow Rate 2 04/14/25 11:39 04/14/25 12:00 04/14/25 12:00 Temperature 101.4 F H Pulse Rate 97 100 Respiratory Rate 15 Blood Pressure 110/38 L Pulse Oximetry 97 98 Oxygen Delivery Nasal Cannula Oxygen Flow Rate 2 04/14/25 13:53 04/14/25 14:00 04/14/25 16:00 Temperature 100.8 F H Pulse Rate 96 Respiratory Rate Blood Pressure Pulse Oximetry 96 Oxygen Delivery Nasal Cannula Oxygen Flow Rate 2 04/14/25 16:00 04/14/25 16:00 04/14/25 18:00 Temperature 100.5 F H Pulse Rate 87 87 79 Respiratory Rate 16 Blood Pressure 118/43 L Pulse Oximetry 99 Oxygen Delivery Oxygen Flow Rate 04/14/25 18:40 04/14/25 20:00 04/14/25 20:00 Temperature 100 F H 99 F Pulse Rate 100 119 H 111 H Respiratory Rate 18 16 16 Blood Pressure 136/45 L 135/46 L Pulse Oximetry 94 96 94 Oxygen Delivery CPAP Oxygen Flow Rate 04/14/25 20:00 04/14/25 21:06 04/14/25 22:00 Temperature Pulse Rate 111 H 111 H 102 H Respiratory Rate Blood Pressure Pulse Oximetry 94 Oxygen Delivery CPAP Oxygen Flow Rate 04/15/25 00:00 04/15/25 00:00 04/15/25 00:00 Temperature 99.9 F H Pulse Rate 103 H 102 H 103 H Respiratory Rate 16 16 Blood Pressure 128/45 L Pulse Oximetry 94 95 Oxygen Delivery CPAP Oxygen Flow Rate 04/15/25 02:00 04/15/25 02:14 04/15/25 04:00 Temperature Pulse Rate 92 92 Respiratory Rate 16 Blood Pressure Pulse Oximetry 94 Oxygen Delivery CPAP CPAP Oxygen Flow Rate 04/15/25 04:00 04/15/25 04:00 04/15/25 06:00 Temperature 99.3 F Pulse Rate 92 94 100 Respiratory Rate 18 Blood Pressure 134/53 L Pulse Oximetry 98 Oxygen Delivery Oxygen Flow Rate 04/15/25 07:57 Temperature 99.2 F Pulse Rate 96 Respiratory Rate 18 Blood Pressure 155/61 H Pulse Oximetry 94 Oxygen Delivery Oxygen Flow Rate Intake/Output Intake/Output: Intake & Output 04/12/25 04/13/25 04/14/25 04/15/25 23:59 23:59 23:59 23:59 Intake Total 4090 350 Output Total 2500 850 Balance 1590 -500 Meds/Results Medications: Active Medications Generic Name Dose Route Start Last Admin Trade Name Freq PRN Reason Stop Dose Admin Acetaminophen 1,000 mg 04/14/25 10:52 04/14/25 11:31 Acetaminophen 500 Mg Tablet PO 1,000 mg Q6H PRN Administration Mild Pain (1-3) or Fever Aspirin 81 mg 04/14/25 09:00 04/14/25 09:55 Aspirin 81 Mg Enteric Tablet PO 81 mg DAILY RODOLFO Administration Clopidogrel Bisulfate 75 mg 04/14/25 09:00 04/14/25 09:55 Clopidogrel Bisulfate 75 Mg Tablet PO 75 mg DAILY RODOLFO Administration Dextrose 12.5 gm 04/14/25 11:42 Dextrose 50% 25 Gm/50 Ml Syringe IV PUSH PRN PRN Hypoglycemia Protocol Finasteride 5 mg 04/14/25 09:00 04/14/25 09:55 Finasteride 5 Mg Tablet PO 5 mg DAILY RODOLFO Administration Glucagon 1 mg 04/14/25 11:42 Glucagon For Inj 1 Mg Vial IM PRN PRN Hypoglycemia Protocol Glucose 15 gm 04/14/25 11:42 Glucose Oral Gel 15 Gm Of Glucse In 37.5 Gm Tube PO PRN PRN Hypoglycemia Protocol Piperacillin Sod/Tazobactam 50 mls @ 100 mls/hr 04/14/25 12:00 04/15/25 06:44 Sod 3.375 gm/ Sodium Chloride IVPB 100 mls/hr Q6H RODOLFO Administration Dextrose 1,000 mls @ 100 mls/hr 04/14/25 11:42 Dextrose 5% 1,000 Ml IVPB PRN PRN Hypoglycemia Protocol Sodium Chloride 1,000 mls @ 100 mls/hr 04/14/25 13:30 04/15/25 00:25 Normal Saline Iv IV CONT 100 mls/hr .Q10H RODOLFO Administration Isosorbide Mononitrate 30 mg 04/14/25 09:00 04/14/25 09:55 Isosorbide Mononitrate 30 Mg Tab.Er.24h PO 30 mg DAILY RODOLFO Administration Lacosamide 150 mg 04/14/25 09:00 04/14/25 21:21 Lacosamide (*Crx) 100 Mg Tablet BY MOUTH 100 mg Q12HR RODOLFO Administration Latanoprost 1 drop 04/14/25 18:00 04/14/25 18:07 Latanoprost 0.005% Op Soln 2.5 Ml Btl EACH EYE 1 drop QPM RODOLFO Administration Levetiracetam 2,000 mg 04/14/25 09:10 04/14/25 21:23 Levetiracetam 500 Mg Tablet PO 2,000 mg Q12HR RODOLFO Administration Multivitamins Therapeutic 1 tablet 04/14/25 09:00 04/14/25 09:56 Multivitamins Therapeutic Tab (*Bkc) PO 1 tablet DAILY RODOLFO Administration Nitroglycerin 0.4 mg 04/14/25 21:44 Nitroglycerin Sl 0.4 Mg Tablet SUBLINGUAL Q5MIN PRN Chest Pain Pantoprazole Sodium 40 mg 04/14/25 09:00 04/14/25 09:56 Pantoprazole 40 Mg Tablet PO 40 mg DAILY RODOLFO Administration Phenytoin Sodium 100 mg 04/14/25 09:00 04/14/25 09:56 Phenytoin Sodium 100 Mg Extended Release Cap BY MOUTH 100 mg QAM RODOLFO Administration Phenytoin Sodium 200 mg 04/14/25 21:00 04/14/25 21:22 Phenytoin Sodium 100 Mg Extended Release Cap BY MOUTH 200 mg HS RODOLFO Administration Simvastatin 40 mg 04/14/25 21:00 04/14/25 21:21 Simvastatin 20 Mg Tablet PO 40 mg HS RODOLFO Administration Radiology Results: ITS Impressions Abdomen/Pelvis CTA 04/14/25 11:11 IMPRESSION: 1. Nonspecific diarrhea. No other acute intra-abdominal/pelvic process. 2. Prominent distention of the bladder. 3. Scattered atherosclerotic disease consistent with a prominent coronary artery calcifications and with moderate stenosis at the superior mesenteric and right common iliac arteries and mild to moderate stenosis at the right internal iliac and right common femoral arteries. 4. Persistent increased interstitial pattern and groundglass opacities at the bilateral lung bases with dependent predominance which could represent atelectasis, mild pulmonary edema or pneumonia in the acute setting or more chronic interstitial lung disease. Chest CT 04/14/25 14:16 IMPRESSION: 1. Persistent mixed groundglass and nodular opacities of the right middle and lower lobes, consistent with pneumonia. Labs Labs: Laboratory Results - last 24 hr 04/14/25 04/14/25 04/14/25 09:52 09:53 16:00 WBC RBC Hgb Hct MCV MCH MCHC RDW Plt Count MPV Immature Gran % (Auto) Neut % (Auto) Lymph % (Auto) [place] % (Auto) Eos % (Auto) Baso % (Auto) Lymph # (Auto) [place] # (Auto) Eos # (Auto) Baso # (Auto) Abs Immat Gran (auto) Absolute Neuts (auto) Absolute Nucleated RBC Nucleated RBC % PT INR APTT Sodium Potassium Chloride Carbon Dioxide Anion Gap BUN Creatinine Estim Creat Clear Calc Estimated GFR Glucose POC Capillary Glucose Calcium Phosphorus Magnesium Total Bilirubin AST ALT Alkaline Phosphatase Troponin I Total Protein Albumin Urine Color Yellow Urine Appearance Clear Urine pH 5.5 Ur Specific [place] 1.031 Urine Protein Negative Urine Glucose (UA) Negative Urine Ketones Negative Ur Blood (Man) Negative Urine Nitrate Negative Urine Bilirubin Negative Urine Urobilinogen 0.2 Leukocyte Esterase Rfl Negative Nasal MRSA (PCR) Not detected Influenza A (RT-PCR) Negative Influenza B (RT-PCR) Negative RSV (RT-PCR) Negative SARS-CoV-2 RNA (RT-PCR) Negative 04/14/25 04/14/25 04/14/25 17:15 19:43 19:45 WBC RBC Hgb Hct MCV MCH MCHC RDW Plt Count MPV Immature Gran % (Auto) Neut % (Auto) Lymph % (Auto) [place] % (Auto) Eos % (Auto) Baso % (Auto) Lymph # (Auto) [place] # (Auto) Eos # (Auto) Baso # (Auto) Abs Immat Gran (auto) Absolute Neuts (auto) Absolute Nucleated RBC Nucleated RBC % PT INR APTT Sodium 132 L Potassium 4.5 Chloride 108 H Carbon Dioxide 15 L Anion Gap 9 BUN 21 H Creatinine 1.19 Estim Creat Clear Calc 41 Estimated GFR 59 Glucose 254 H POC Capillary Glucose 151 H 255 H Calcium 7.5 L Phosphorus 4.1 Magnesium 2.0 Total Bilirubin AST ALT Alkaline Phosphatase Troponin I 0.018 Total Protein Albumin Urine Color Urine Appearance Urine pH Ur Specific [place] Urine Protein Urine Glucose (UA) Urine Ketones Ur Blood (Man) Urine Nitrate Urine Bilirubin Urine Urobilinogen Leukocyte Esterase Rfl Nasal MRSA (PCR) Influenza A (RT-PCR) Influenza B (RT-PCR) RSV (RT-PCR) SARS-CoV-2 RNA (RT-PCR) 04/15/25 04/15/25 04/15/25 02:10 03:44 07:25 WBC 9.1 RBC 2.34 L Hgb 6.5 L* D 6.7 L* Hct 21.0 L 21.4 L MCV 89.7 MCH 27.8 MCHC 31.0 L RDW 13.5 Plt Count 213 MPV 9.4 Immature Gran % (Auto) 0.6 H Neut % (Auto) 75.9 H Lymph % (Auto) 14.9 L [place] % (Auto) 8.3 Eos % (Auto) 0.1 Baso % (Auto) 0.2 Lymph # (Auto) 1.35 [place] # (Auto) 0.8 H Eos # (Auto) 0.0 Baso # (Auto) 0.0 Abs Immat Gran (auto) 0.05 H Absolute Neuts (auto) 6.9 H Absolute Nucleated RBC 0.000 Nucleated RBC % 0.0 PT 14.2 INR 1.1 APTT 33.4 Sodium 132 L Potassium 4.1 Chloride 107 Carbon Dioxide 20 L Anion Gap 5 BUN 19 Creatinine 1.14 Estim Creat Clear Calc 42 Estimated GFR > 60 Glucose 145 H POC Capillary Glucose 89 Calcium 7.7 L Phosphorus Magnesium Total Bilirubin 0.1 L AST 31 ALT 21 Alkaline Phosphatase 93 Troponin I 0.310 H* D Total Protein 5.3 L Albumin 2.9 L Urine Color Urine Appearance Urine pH Ur Specific [place] Urine Protein Urine Glucose (UA) Urine Ketones Ur Blood (Man) Urine Nitrate Urine Bilirubin Urine Urobilinogen Leukocyte Esterase Rfl Nasal MRSA (PCR) Influenza A (RT-PCR) Influenza B (RT-PCR) RSV (RT-PCR) SARS-CoV-2 RNA (RT-PCR) 04/15/25 08:22 WBC RBC Hgb Hct MCV MCH MCHC RDW Plt Count MPV Immature Gran % (Auto) Neut % (Auto) Lymph % (Auto) [place] % (Auto) Eos % (Auto) Baso % (Auto) Lymph # (Auto) [place] # (Auto) Eos # (Auto) Baso # (Auto) Abs Immat Gran (auto) Absolute Neuts (auto) Absolute Nucleated RBC Nucleated RBC % PT INR APTT Sodium Potassium Chloride Carbon Dioxide Anion Gap BUN Creatinine Estim Creat Clear Calc Estimated GFR Glucose POC Capillary Glucose Calcium Phosphorus Magnesium Total Bilirubin AST ALT Alkaline Phosphatase Troponin I 0.923 H* D Total Protein Albumin Urine Color Urine Appearance Urine pH Ur Specific [place] Urine Protein Urine Glucose (UA) Urine Ketones Ur Blood (Man) Urine Nitrate Urine Bilirubin Urine Urobilinogen Leukocyte Esterase Rfl Nasal MRSA (PCR) Influenza A (RT-PCR) Influenza B (RT-PCR) RSV (RT-PCR) SARS-CoV-2 RNA (RT-PCR) Quality VTE Prophylaxis VTE prophylaxis: mechanical ordered
[2025-04-15] MEDS: PANTOPRAZOLE 40 MG TABLET PO (09:53)
[2025-04-15] MEDS: PHENYTOIN SODIUM 100 MG EXTENDED RELEASE CAP BY MOUTH (09:53)
[2025-04-15] MEDS: ASPIRIN 81 MG ENTERIC TABLET PO (09:53)
[2025-04-15] MEDS: MULTIVITAMINS THERAPEUTIC TAB (*BKC) 1 TABLET PO (09:53)
[2025-04-15] MEDS: ISOSORBIDE MONONITRATE 30 MG TAB.ER.24H PO (09:53)
[2025-04-15] MEDS: LACOSAMIDE (*CRX) 100 MG TABLET 150 MG BY MOUTH ×2 (09:54→21:30)
[2025-04-15] MEDS: CLOPIDOGREL BISULFATE 75 MG TABLET PO (09:54)
[2025-04-15] MEDS: FINASTERIDE 5 MG TABLET PO (09:54)
--- NOTE | 2025-04-15 11:24 | PM.CNCAR ---
Assessment and Plan Assessment and plan (1) CAD (coronary artery disease): Code(s): I25.10 - Atherosclerotic heart disease of [place] coronary artery without angina pectoris Status: Acute (2) Hyperlipidemia: Code(s): E78.5 - Hyperlipidemia, unspecified Status: Acute (3) NSTEMI (non-ST elevated myocardial infarction): Code(s): I21.4 - Non-ST elevation (NSTEMI) myocardial infarction Status: Acute Plan 80-year-old man with CAD status post PCI, diabetes, hypertension, hyperlipidemia, JEAN CLAUDE, and colitis initially presented with abdominal pain, diarrhea, vomiting, and diaphoresis now it has chest discomfort who was found to have a hemoglobin of 6.5 NSTEMI -this potentially could be demand related from his low hemoglobin count -given that he does have troponin elevations, would keep his hemoglobin >8 -continue aspirin 81 mg p.o. daily and Plavix 75 mg p.o. daily -would resume his metoprolol at metoprolol succinate 25 mg p.o. daily -continue to trend his troponins and repeat an EKG once hemoglobin is above 8 -can proceed with echo CAD status post PCI -continue dual anti-platelet therapy -continue isosorbide mononitrate 30 mg p.o. daily Hyperlipidemia -continue simvastatin 40 mg every evening -on outpatient repatha Follows Dr. Ocasio in clinic History of Present Illness History of Present Illness Consult date/time: 04/15/25 11:24 Requesting physician: Edward Blevins PADiyaC Consult reason: chest pain Reason For Visit: Colitis/Hypotension/Urinary Retension Narrative: 80-year-old man with CAD status post PCI diabetes, hypertension, hyperlipidemia, JEAN CLAUDE, and colitis initially presented with abdominal pain, diarrhea, vomiting, and diaphoresis now it has chest discomfort who was found to have a hemoglobin of 6.5. States that last evening he had some chest discomfort that was pressure-like in sensation that is different from his previous pain that led to PCI in the sense that there was no radiation of the pain to his arms. The pain had completely resolved. This morning he had another episode of the same chest discomfort after eating and drinking some cold liquid. Once again had resolved. He and his had noted that at home he has been getting more fatigued in the last 3 months. Did not have any exertional chest discomfort. States that at times when he stands for too long or walk for too long his legs will become weak and give out. Denies syncopal events or orthopnea. Sleeps with 2 pillows at night and uses a CPAP machine. That has been his baseline for several years now. Review of Systems Cardiovascular: Cardiovascular: Reports as per HPI Respiratory: Respiratory: Reports as per HPI [facility] Past Medical History Medical History (Updated 04/15/25 @ 11:35 by Ender Castillo MD) Lower abdominal pain Pneumonia Pre-syncope Dehydration Diarrhea Broken collarbone Insulin pump in place Diabetes Osteoarthritis BPH (benign prostatic hyperplasia) JEAN CLAUDE (obstructive sleep apnea) Hyperlipidemia HTN (hypertension) CAD (coronary artery disease) Bloody diarrhea Acute ischemic colitis Seizure disorder Red blood cell abnormality Irregular heart beat Surgical History Surgical History 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 History of cataract surgery Stented coronary artery Family History Family History Father Heart disease Diabetes mellitus Heart attack Mother Diabetes mellitus Lung cancer Social History Social History Social History: Caffeine- daily Smoking packs per day: 3 Smoking cigarettes per day: 60.0 Years smoked: 30 Smoking pack-years: 90.00 Smoking status: Former smoker Second hand tobacco smoke exposure: Yes Alcohol intake: never Substance use: never Substance use type: does not use Lack of Transportation: No Lack of Food: Never True Current Housing: I Have Housing Concerned About Future Housing: No Difficulty Paying Gas/Electric Bills: No Difficulty Paying for Meds: No Currently Unemployed: No Education: Bachelor's Degree Difficulty w/ Childcare or Family Care: No Spiritual care concerns: No Meds Home Medications and Allergies Home Medications ?Medication ?Instructions ?Recorded ?Confirmed ?Type aspirin 81 mg tablet,delayed 81 mg PO DAILY 02/21/21 04/14/25 History release (Day Low Dose Aspirin) dorzolamide-timolol (PF) 2 %-0.5 % 1 drp EACH EYE BID 02/21/21 04/15/25 History eye drops in a dropperette finasteride 5 mg tablet 5 mg PO DAILY 02/21/21 04/14/25 History insulin lispro 100 unit/mL 100 unit subcut DAILY 02/21/21 04/14/25 History subcutaneous pen multivitamin 1 tablet PO DAILY 02/21/21 04/14/25 History simvastatin 40 mg tablet 40 mg PO HS 02/21/21 04/14/25 History furosemide 40 mg tablet 40 mg PO DAILY 10/05/21 04/14/25 History metoprolol tartrate 25 mg tablet 25 mg PO BID 10/05/21 04/14/25 History clopidogrel 75 mg tablet 75 mg PO DAILY 12/25/21 04/14/25 History isosorbide mononitrate 30 mg 30 mg PO DAILY 12/25/21 04/14/25 History tablet,extended release 24 hr lisinopril 20 mg tablet 20 mg PO DAILY 11/18/22 04/14/25 History diclofenac sodium 0.1 % eye drops 1 drp EACH EYE QID 11/13/23 04/15/25 History nitroglycerin 0.4 mg sublingual 0.4 mg sublingual Q5M PRN chest 11/13/23 04/14/25 History tablet pain lacosamide 150 mg tablet 150 mg PO Q12H #180 tabs 01/17/25 04/14/25 Rx levetiracetam 1,000 mg tablet See Rx Instructions .Route 01/17/25 04/14/25 Rx .COMPLEX #360 tabs phenytoin sodium extended 100 mg See Rx Instructions .Route 01/17/25 04/14/25 Rx capsule .COMPLEX #270 caps latanoprost 0.005 % eye drops 1 drp EACH EYE QPM 04/14/25 04/14/25 History pantoprazole 40 mg tablet,delayed 40 mg PO DAILY 04/14/25 04/14/25 History release Allergies Allergy/AdvReac Type Severity Reaction Status Date / Time No Known Allergies Allergy Unknown Other Verified 01/17/25 14:28 Vital Signs Vital Signs - 24 hr 04/14/25 11:31 04/14/25 11:39 04/14/25 12:00 Temperature 38.7 C H 38.6 C H Pulse Rate 97 Respiratory Rate 15 Blood Pressure 110/38 L Pulse Oximetry 97 98 Oxygen Delivery Nasal Cannula Oxygen Flow Rate 2 04/14/25 12:00 04/14/25 13:53 04/14/25 14:00 Temperature 38.2 C H Pulse Rate 100 96 Respiratory Rate Blood Pressure Pulse Oximetry Oxygen Delivery Oxygen Flow Rate 04/14/25 16:00 04/14/25 16:00 04/14/25 16:00 Temperature 38.1 C H Pulse Rate 87 87 Respiratory Rate 16 Blood Pressure 118/43 L Pulse Oximetry 96 99 Oxygen Delivery Nasal Cannula Oxygen Flow Rate 2 04/14/25 18:00 04/14/25 18:40 04/14/25 20:00 Temperature 37.7 C H 37.2 C Pulse Rate 79 100 119 H Respiratory Rate 18 16 Blood Pressure 136/45 L 135/46 L Pulse Oximetry 94 96 Oxygen Delivery Oxygen Flow Rate 04/14/25 20:00 04/14/25 20:00 04/14/25 21:06 Temperature Pulse Rate 111 H 111 H 111 H Respiratory Rate 16 Blood Pressure Pulse Oximetry 94 94 Oxygen Delivery CPAP CPAP Oxygen Flow Rate 04/14/25 22:00 04/15/25 00:00 04/15/25 00:00 Temperature Pulse Rate 102 H 103 H 102 H Respiratory Rate 16 Blood Pressure Pulse Oximetry 94 Oxygen Delivery CPAP Oxygen Flow Rate 04/15/25 00:00 04/15/25 02:00 04/15/25 02:14 Temperature 37.7 C H Pulse Rate 103 H 92 Respiratory Rate 16 Blood Pressure 128/45 L Pulse Oximetry 95 Oxygen Delivery CPAP Oxygen Flow Rate 04/15/25 04:00 04/15/25 04:00 04/15/25 04:00 Temperature 37.4 C Pulse Rate 92 92 94 Respiratory Rate 16 18 Blood Pressure 134/53 L Pulse Oximetry 94 98 Oxygen Delivery CPAP Oxygen Flow Rate 04/15/25 06:00 04/15/25 07:57 Temperature 37.3 C Pulse Rate 100 96 Respiratory Rate 18 Blood Pressure 155/61 H Pulse Oximetry 94 Oxygen Delivery Oxygen Flow Rate Exam Const: General: comfortable HENMT: Mouth: Yes moist mucous membranes Eyes: EOM: EOMs intact bilaterally Neck: Neck: no JVD Resp: Effort & Inspection: normal respiratory effort Auscultation: diminished lung sounds Cardio: Rate: regular rate Rhythm: regular rhythm Neuro: Speech: normal speech Extrem: General: no pedal edema Results Labs and Meds 04/15/25 03:44 04/15/25 02:10 Lab results: Cardiac Enzymes 04/14/25 04/15/25 04/15/25 Range/Units 19:43 02:10 08:22 AST 31 (17-59) U/L Troponin I 0.018 0.310 H* D 0.923 H* D (0.000-0.034) ng/mL Coagulation 04/15/25 Range/Units 03:44 PT 14.2 (11.1-14.7) Seconds APTT 33.4 (22.3-36.8) Seconds CBC 04/15/25 04/15/25 Range/Units 02:10 03:44 WBC 9.1 (4.5-10.0) K/mm3 RBC 2.34 L (4.6-6.20) M/mm3 Hgb 6.5 L* D 6.7 L* (14.0-18.0) g/dL Hct 21.0 L 21.4 L (42.0-52.0) % Plt Count 213 (150-375) k/mm3 Lymph # (Auto) 1.35 (0.9-3.2) K/mm3 [place] # (Auto) 0.8 H (0.1-0.6) K/mm3 Eos # (Auto) 0.0 (0-0.3) K/mm3 Baso # (Auto) 0.0 (0.0-0.1) K/mm3 Comprehensive Metabolic Panel 04/14/25 04/15/25 Range/Units 19:43 02:10 Sodium 132 L 132 L (137-145) mmol/L Potassium 4.5 4.1 (3.4-5.0) mmol/L Chloride 108 H 107 (98-107) mmol/L Carbon Dioxide 15 L 20 L (22-30) mmol/L BUN 21 H 19 (9-20) mg/dL Creatinine 1.19 1.14 (0.7-1.3) mg/dL Glucose 254 H 145 H (65-110) mg/dL Calcium 7.5 L 7.7 L (8.4-10.2) mg/dL AST 31 (17-59) U/L ALT 21 (6-50) U/L Alkaline Phosphatase 93 (38-126) U/L Total Protein 5.3 L (6.3-8.2) g/dL Albumin 2.9 L (3.5-5.1) g/dL Intake and Output 04/14/25 04/15/25 04/15/25 23:59 07:59 15:59 Intake Total 1150 350 0 Output Total 1400 850 Balance -250 -500 0 Intake: IV 1050 50 Sodium Chloride 0.9% IV 1,000 1000 ml @ 100 mls/hr IV CONT .Q10H [facility] Rx#:[id number] Piperacillin/Tazobactam Sod 3. 50 50 375 gm In Sodium Chloride 0.9% IV 50 ml @ 100 mls/hr IVPB Q6H [facility] Rx#:[id number] Oral 100 300 0 Output: Catheter Urine 1400 850 Urethral Catheter 1400 850 Patient Weight 04/15/25 23:59 Weight 70 kg
[2025-04-15] MEDS: TUBING, BLOOD PLUM PUMP TUBING 1 EACH XX ×2 (12:16→14:47)
[2025-04-15] MEDS: SODIUM CHLORIDE 0.9% IV 250 ML 30 ML IV CONT ×2 (12:17→18:43)
--- NOTE | 2025-04-15 16:37 | P.PNGI_ITS ---
Progress Note: A&P Assessment and Plan (1) Diarrhea: Code(s): R19.7 - Diarrhea, unspecified Status: Acute Assessment and Plan: resolved he has known recurrent ischemic colitis, this time denies blood in stool and CT scan negative for colitis he had CTA abd- reviewed (2) Acute on chronic anemia: Code(s): D64.9 - Anemia, unspecified Status: Acute Assessment and Plan: today given blood transfusion no obvious gib he never had EGD will monitor for signs of bleeding, may need egd based on hospital course (3) Lower abdominal pain: Code(s): R10.30 - Lower abdominal pain, unspecified Status: Acute Assessment and Plan: resolved (4) NSTEMI (non-ST elevated myocardial infarction): Code(s): I21.4 - Non-ST elevation (NSTEMI) myocardial infarction Status: Acute Assessment and Plan: probably triggered by anemia cardiology on board he has known CAD with stents on plavix (5) Pre-syncope: Code(s): R55 - Syncope and collapse Status: Acute (6) Pneumonia: Code(s): J18.9 - Pneumonia, unspecified organism Status: Acute Assessment and Plan: on iv abx (7) Nausea and vomiting in adult: Code(s): R11.2 - Nausea with vomiting, unspecified Status: Acute Assessment and Plan: on admission, resolved Subjective Date/time seen: 04/15/25 16:37 Interval history: no more abdominal pain or diarrhea but fatigue, noted drop in h/h however he denies obvious gib also noted elevated 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 Review of Systems Review of Systems: All systems reviewed & are unremarkable except as noted in HPI and below Exam Const: General: comfortable HENMT: Mouth: Yes moist mucous membranes Eyes: EOM: EOMs intact bilaterally Neck: Neck: supple Resp: Effort & Inspection: normal respiratory effort Auscultation: diminished lung sounds Cardio: Rate: regular rate Rhythm: regular rhythm GI: GI Palp: Yes Soft to palpation and No Tenderness to palpation present (GI) Auscultation: normal bowel sounds Skin: General skin exam: no rashes or lesions noted Neuro: Speech: normal speech Motor exam (neuro): 5/5 motor strength present throughout Extrem: General: no pedal edema Psych: Mental Status: mental status grossly normal Objective Data Vital Signs Vital Signs: Vital Signs - 24 hr 04/14/25 18:00 04/14/25 18:40 04/14/25 20:00 Temperature 100 F H 99 F Pulse Rate 79 100 119 H Respiratory Rate 18 16 Blood Pressure 136/45 L 135/46 L Pulse Oximetry 94 96 Oxygen Delivery 04/14/25 20:00 04/14/25 20:00 04/14/25 21:06 Temperature Pulse Rate 111 H 111 H 111 H Respiratory Rate 16 Blood Pressure Pulse Oximetry 94 94 Oxygen Delivery CPAP CPAP 04/14/25 22:00 04/15/25 00:00 04/15/25 00:00 Temperature Pulse Rate 102 H 103 H 102 H Respiratory Rate 16 Blood Pressure Pulse Oximetry 94 Oxygen Delivery CPAP 04/15/25 00:00 04/15/25 02:00 04/15/25 02:14 Temperature 99.9 F H Pulse Rate 103 H 92 Respiratory Rate 16 Blood Pressure 128/45 L Pulse Oximetry 95 Oxygen Delivery CPAP 04/15/25 04:00 04/15/25 04:00 04/15/25 04:00 Temperature 99.3 F Pulse Rate 92 92 94 Respiratory Rate 16 18 Blood Pressure 134/53 L Pulse Oximetry 94 98 Oxygen Delivery CPAP 04/15/25 06:00 04/15/25 07:57 04/15/25 08:00 Temperature 99.2 F Pulse Rate 100 96 Respiratory Rate 18 Blood Pressure 155/61 H Pulse Oximetry 94 Oxygen Delivery Room Air 04/15/25 08:00 04/15/25 10:00 04/15/25 11:45 Temperature 98.9 F Pulse Rate 111 H 107 H 114 H Respiratory Rate 16 Blood Pressure 170/62 H Pulse Oximetry 97 Oxygen Delivery 04/15/25 11:45 04/15/25 12:00 04/15/25 12:00 Temperature 98.8 F Pulse Rate 103 H 112 H Respiratory Rate 18 Blood Pressure 138/56 L Pulse Oximetry 95 Oxygen Delivery Room Air 04/15/25 12:01 04/15/25 13:01 04/15/25 14:00 Temperature 98.3 F 99.2 F Pulse Rate 108 H 100 109 H Respiratory Rate 16 18 Blood Pressure 147/59 H 148/55 H Pulse Oximetry 96 97 Oxygen Delivery 04/15/25 14:01 04/15/25 14:40 04/15/25 15:59 Temperature 100.0 F H 98.8 F Pulse Rate 97 97 Respiratory Rate 18 18 Blood Pressure 149/57 H 144/61 H Pulse Oximetry 98 97 95 Oxygen Delivery Room Air 04/15/25 16:01 04/15/25 16:17 Temperature 99.2 F 99.9 F H Pulse Rate 95 93 Respiratory Rate 16 16 Blood Pressure 138/54 L 141/63 H Pulse Oximetry 96 95 Oxygen Delivery Intake/Output Intake/Output: Intake & Output 04/12/25 04/13/25 04/14/25 04/15/25 23:59 23:59 23:59 23:59 Intake Total 4090 750 Output Total 2500 850 Balance 1590 -100 Meds/Results Medications: Active Medications Generic Name Dose Route Start Last Admin Trade Name Freq PRN Reason Stop Dose Admin Acetaminophen 1,000 mg 04/14/25 10:52 04/14/25 11:31 Acetaminophen 500 Mg Tablet PO 1,000 mg Q6H PRN Administration Mild Pain (1-3) or Fever Aspirin 81 mg 04/14/25 09:00 04/15/25 09:53 Aspirin 81 Mg Enteric Tablet PO 81 mg DAILY RODOLFO Administration Clopidogrel Bisulfate 75 mg 04/14/25 09:00 04/15/25 09:54 Clopidogrel Bisulfate 75 Mg Tablet PO 75 mg DAILY RODOLFO Administration Dextrose 12.5 gm 04/14/25 11:42 Dextrose 50% 25 Gm/50 Ml Syringe IV PUSH PRN PRN Hypoglycemia Protocol Finasteride 5 mg 04/14/25 09:00 04/15/25 09:54 Finasteride 5 Mg Tablet PO 5 mg DAILY RODOLFO Administration Glucagon 1 mg 04/14/25 11:42 Glucagon For Inj 1 Mg Vial IM PRN PRN Hypoglycemia Protocol Glucose 15 gm 04/14/25 11:42 Glucose Oral Gel 15 Gm Of Glucse In 37.5 Gm Tube PO PRN PRN Hypoglycemia Protocol Piperacillin Sod/Tazobactam 50 mls @ 100 mls/hr 04/14/25 12:00 04/15/25 14:55 Sod 3.375 gm/ Sodium Chloride IVPB 100 mls/hr Q6H RODOLFO Administration Dextrose 1,000 mls @ 100 mls/hr 04/14/25 11:42 Dextrose 5% 1,000 Ml IVPB PRN PRN Hypoglycemia Protocol Sodium Chloride 1,000 mls @ 100 mls/hr 04/14/25 13:30 04/15/25 00:25 Normal Saline Iv IV CONT 100 mls/hr .Q10H RODOLFO Administration Sodium Chloride 250 mls @ 30 mls/hr 04/15/25 09:07 04/15/25 12:17 Normal Saline Iv IV CONT 04/15/25 17:26 30 mls/hr .Q8H20M STA Administration Sodium Chloride 250 mls @ 30 mls/hr 04/15/25 11:37 Normal Saline Iv IV CONT 04/15/25 19:56 .Q8H20M STA Isosorbide Mononitrate 30 mg 04/14/25 09:00 04/15/25 09:53 Isosorbide Mononitrate 30 Mg Tab.Er.24h PO 30 mg DAILY RODOLFO Administration Lacosamide 150 mg 04/14/25 09:00 04/15/25 09:54 Lacosamide (*Crx) 100 Mg Tablet BY MOUTH 150 mg Q12HR RODOLFO Administration Latanoprost 1 drop 04/14/25 18:00 04/14/25 18:07 Latanoprost 0.005% Op Soln 2.5 Ml Btl EACH EYE 1 drop QPM RODOLFO Administration Levetiracetam 2,000 mg 04/14/25 09:10 04/15/25 09:54 Levetiracetam 500 Mg Tablet PO 2,000 mg Q12HR RODOLFO Administration Metoprolol Succinate 25 mg 04/16/25 09:00 Metoprolol Succinate Ext Rel 25 Mg Tabcr PO QAM RODOLFO Multivitamins Therapeutic 1 tablet 04/14/25 09:00 04/15/25 09:53 Multivitamins Therapeutic Tab (*Bkc) PO 1 tablet DAILY RODOLFO Administration Nitroglycerin 0.4 mg 04/14/25 21:44 Nitroglycerin Sl 0.4 Mg Tablet SUBLINGUAL Q5MIN PRN Chest Pain Pantoprazole Sodium 40 mg 04/14/25 09:00 04/15/25 09:53 Pantoprazole 40 Mg Tablet PO 40 mg DAILY RODOLFO Administration Perflutren Lipid Microsphere 0 ml 04/15/25 11:37 Perflutren Lipid Microspheres 1.5 Ml Vial Diluted To 10 Ml Total Volume IV PUSH 04/18/25 11:37 ONCE PRN adequate visualization Protocol Phenytoin Sodium 100 mg 04/14/25 09:00 04/15/25 09:53 Phenytoin Sodium 100 Mg Extended Release Cap BY MOUTH 100 mg QAM RODOLFO Administration Phenytoin Sodium 200 mg 04/14/25 21:00 04/14/25 21:22 Phenytoin Sodium 100 Mg Extended Release Cap BY MOUTH 200 mg HS RODOLFO Administration Simvastatin 40 mg 04/14/25 21:00 04/14/25 21:21 Simvastatin 20 Mg Tablet PO 40 mg HS RODOLFO Administration Radiology Results: ITS Impressions Abdomen/Pelvis CTA 04/14/25 11:11 IMPRESSION: 1. Nonspecific diarrhea. No other acute intra-abdominal/pelvic process. 2. Prominent distention of the bladder. 3. Scattered atherosclerotic disease consistent with a prominent coronary artery calcifications and with moderate stenosis at the superior mesenteric and right common iliac arteries and mild to moderate stenosis at the right internal iliac and right common femoral arteries. 4. Persistent increased interstitial pattern and groundglass opacities at the bilateral lung bases with dependent predominance which could represent atelectasis, mild pulmonary edema or pneumonia in the acute setting or more chronic interstitial lung disease. Chest CT 04/14/25 14:16 IMPRESSION: 1. Persistent mixed groundglass and nodular opacities of the right middle and lower lobes, consistent with pneumonia. Labs Labs: Laboratory Results - last 24 hr 04/14/25 04/14/25 04/14/25 03:23 16:00 17:15 WBC RBC Hgb Hct MCV MCH MCHC RDW Plt Count MPV Immature Gran % (Auto) Neut % (Auto) Lymph % (Auto) [place] % (Auto) Eos % (Auto) Baso % (Auto) Lymph # (Auto) [place] # (Auto) Eos # (Auto) Baso # (Auto) Abs Immat Gran (auto) Absolute Neuts (auto) Absolute Nucleated RBC Nucleated RBC % PT INR APTT Sodium Potassium Chloride Carbon Dioxide Anion Gap BUN Creatinine Estim Creat Clear Calc Estimated GFR Glucose POC Capillary Glucose 151 H Calcium Phosphorus Magnesium Total Bilirubin AST ALT Alkaline Phosphatase Troponin I Total Protein Albumin Influenza A (RT-PCR) Negative Influenza B (RT-PCR) Negative RSV (RT-PCR) Negative SARS-CoV-2 RNA (RT-PCR) Negative Blood Type A Positive Antibody Screen Negative Crossmatch See Detail 04/14/25 04/14/25 04/15/25 19:43 19:45 02:10 WBC 9.1 RBC 2.34 L Hgb 6.5 L* D Hct 21.0 L MCV 89.7 MCH 27.8 MCHC 31.0 L RDW 13.5 Plt Count 213 MPV 9.4 Immature Gran % (Auto) 0.6 H Neut % (Auto) 75.9 H Lymph % (Auto) 14.9 L [place] % (Auto) 8.3 Eos % (Auto) 0.1 Baso % (Auto) 0.2 Lymph # (Auto) 1.35 [place] # (Auto) 0.8 H Eos # (Auto) 0.0 Baso # (Auto) 0.0 Abs Immat Gran (auto) 0.05 H Absolute Neuts (auto) 6.9 H Absolute Nucleated RBC 0.000 Nucleated RBC % 0.0 PT INR APTT Sodium 132 L 132 L Potassium 4.5 4.1 Chloride 108 H 107 Carbon Dioxide 15 L 20 L Anion Gap 9 5 BUN 21 H 19 Creatinine 1.19 1.14 Estim Creat Clear Calc 41 42 Estimated GFR 59 > 60 Glucose 254 H 145 H POC Capillary Glucose 255 H Calcium 7.5 L 7.7 L Phosphorus 4.1 Magnesium 2.0 Total Bilirubin 0.1 L AST 31 ALT 21 Alkaline Phosphatase 93 Troponin I 0.018 0.310 H* D Total Protein 5.3 L Albumin 2.9 L Influenza A (RT-PCR) Influenza B (RT-PCR) RSV (RT-PCR) SARS-CoV-2 RNA (RT-PCR) Blood Type Antibody Screen Crossmatch 04/15/25 04/15/25 04/15/25 03:44 07:25 08:22 WBC RBC Hgb 6.7 L* Hct 21.4 L MCV MCH MCHC RDW Plt Count MPV Immature Gran % (Auto) Neut % (Auto) Lymph % (Auto) [place] % (Auto) Eos % (Auto) Baso % (Auto) Lymph # (Auto) [place] # (Auto) Eos # (Auto) Baso # (Auto) Abs Immat Gran (auto) Absolute Neuts (auto) Absolute Nucleated RBC Nucleated RBC % PT 14.2 INR 1.1 APTT 33.4 Sodium Potassium Chloride Carbon Dioxide Anion Gap BUN Creatinine Estim Creat Clear Calc Estimated GFR Glucose POC Capillary Glucose 89 Calcium Phosphorus Magnesium Total Bilirubin AST ALT Alkaline Phosphatase Troponin I 0.923 H* D Total Protein Albumin Influenza A (RT-PCR) Influenza B (RT-PCR) RSV (RT-PCR) SARS-CoV-2 RNA (RT-PCR) Blood Type Antibody Screen Crossmatch 04/15/25 11:12 WBC RBC Hgb Hct MCV MCH MCHC RDW Plt Count MPV Immature Gran % (Auto) Neut % (Auto) Lymph % (Auto) [place] % (Auto) Eos % (Auto) Baso % (Auto) Lymph # (Auto) [place] # (Auto) Eos # (Auto) Baso # (Auto) Abs Immat Gran (auto) Absolute Neuts (auto) Absolute Nucleated RBC Nucleated RBC % PT INR APTT Sodium Potassium Chloride Carbon Dioxide Anion Gap BUN Creatinine Estim Creat Clear Calc Estimated GFR Glucose POC Capillary Glucose 169 H Calcium Phosphorus Magnesium Total Bilirubin AST ALT Alkaline Phosphatase Troponin I Total Protein Albumin Influenza A (RT-PCR) Influenza B (RT-PCR) RSV (RT-PCR) SARS-CoV-2 RNA (RT-PCR) Blood Type Antibody Screen Crossmatch
[2025-04-15] MEDS: LATANOPROST 0.005% OP SOLN 2.5 ML BTL 1 DROP EACH EYE (18:43)
[2025-04-15 19:57] LABS: Hematocrit 27.0 % (42.0-52.0); Hemoglobin 8.7 g/dL (14.0-18.0)
[2025-04-15 20:22] LABS: Troponin I 1.350 ng/mL (0.000-0.034)
[2025-04-15] MEDS: SIMVASTATIN 20 MG TABLET 40 MG PO (21:30)
[2025-04-15] MEDS: PHENYTOIN SODIUM 100 MG EXTENDED RELEASE CAP 200 MG BY MOUTH (21:31)
[2025-04-16] VITALS (18 sets, daily range): BP systolic 146–163; BP diastolic 59–77; PULSE 67–97; RESP 16–21; TEMP 36.4–37.2; O2SAT 96–98
[2025-04-16] MEDS: PIPERACILLIN/TAZOBACTAM SOD 3.375 GM in SODIUM CHLORIDE 0.9% IV 50 ML 100 ML IVPB ×4 (00:19→21:27)
[2025-04-16] MEDS: SODIUM CHLORIDE 0.9% IV 1,000 ML 100 ML IV CONT ×2 (06:33→19:03)
--- NOTE | 2025-04-16 07:37 | P.PNIM_ITS ---
Progress Note: A&P Assessment and Plan (1) NSTEMI (non-ST elevated myocardial infarction): Code(s): I21.4 - Non-ST elevation (NSTEMI) myocardial infarction Status: Acute Assessment and Plan: * Troponins obtained this AM as pt endorsing chest pain last night/early this am - uptrending from 0.018 -> 0.310 - > 0.923. * EKG not indicative of DE * Cardio consult * Could be 2/2 low hgb (drop from 10.0 -> 6.5) * Continue aspirin/plavix * Resume metoprolol 25mg * Trend troponins and repeat EKG once hgb > 8.0 * Echo - pending * Repeat trop last night showed increase from 0.923 -> 1.35, however denies any chest pain, SOB or diaphoresis * Continue to follow along side Cardiology (2) Diarrhea: Code(s): R19.7 - Diarrhea, unspecified Status: Acute Assessment and Plan: * Known history of ischemic colitis * CT abdomen does not show acute colitis * GI consulted * IV fluids * CLD for now * Endorses bowel movement last night, more formed however described it as dark and tarry (3) Lower abdominal pain: Code(s): R10.30 - Lower abdominal pain, unspecified Status: Acute Assessment and Plan: * patient with acute onset of abdominal pain, diarrhea, vomiting and pre-syncope * patient reported it was similar to his previous episodes of colitis * final read on abdomen CT does not show acute colitis * GI was consulted * CLD for now * pain control (4) Anemia: Qualifiers: Anemia type: unspecified type Qualified Code(s): D64.9 - Anemia, unspecified Code(s): D64.9 - Anemia, unspecified Status: Acute Assessment and Plan: * Upon admission, Hgb 10.0 * add iron, TIBC, ferritin, B12, folic acid, and TSH * transfuse if <7 * trend H&H * Transfused 2 units PRBC on 04/15 * 04/16: Hemoglobin increased from 6.7 to 9.3 * Had a bowel movement this morning and states that it appeared dark/tarry (5) Pre-syncope: Code(s): R55 - Syncope and collapse Status: Acute Assessment and Plan: * patient with pre-syncope with diaphoresis at home prior to arriving * s/p fluid resucitation * admit to IMU * telemetry * continue IV fluids * IV abx for pneumonia (6) Pneumonia: Code(s): J18.9 - Pneumonia, unspecified organism Status: Acute Assessment and Plan: * s/p CT chest shows Persistent mixed groundglass and nodular opacities of the right middle and lower lobes, consistent with pneumonia. * patient reports he developed a new productive cough a few days ago * patient on oxygen by [place], normally on room air * MRSA negative * febrile * continue IV Zosyn, add azithromycin * AM labs (7) Hypothermia: Qualifiers: Encounter type: initial encounter Qualified Code(s): T68.XXXA - Hypothermia, initial encounter Code(s): T68.XXXA - Hypothermia, initial encounter Status: Acute Assessment and Plan: * s/p valerie hugger in ED * resolved (8) Acute hypotension: Code(s): I95.9 - Hypotension, unspecified Status: Acute Assessment and Plan: * patient hypotensive on arrival to ED * s/p fluid resuscitation * continue IV fluids * hold home BP medications for now (9) Diabetes: Code(s): E11.9 - Type 2 diabetes mellitus without complications Status: Acute Assessment and Plan: * continue home insulin pump * patient able to operate * monitor blood sugars (10) BPH (benign prostatic hyperplasia): Code(s): N40.0 - Benign prostatic hyperplasia without lower urinary tract symptoms Status: Acute Assessment and Plan: * patient with urinary retention in ED requiring placement of valentino catheter * UA reviewed and no signs of infection * continue finasteride (11) HTN (hypertension): Code(s): I10 - Essential (primary) hypertension Status: Acute Assessment and Plan: * patient was hypotensive on arrival * hold home furosemide, metoprolol and lisinopril for now (12) Seizure disorder: Code(s): G40.909 - Epilepsy, unspecified, not intractable, without status epilepticus Status: Acute Assessment and Plan: * seizure precautions * continue home phenytoin, Keppra, lacosamide (13) Hyperlipidemia: Code(s): E78.5 - Hyperlipidemia, unspecified Status: Acute Assessment and Plan: * Continue Simvastatin 40mg qHS * Outpt Repatha (14) CAD (coronary artery disease): Code(s): I25.10 - Atherosclerotic heart disease of [place] coronary artery without angina pectoris Status: Acute Assessment and Plan: * Continue DAPT * Isosorbide mononitrate 30mg daily Subjective Date/time seen: 04/16/25 07:37 Interval history: 80 year old male with PMH of DM, HTN, HLD, CAD, seizure disorder, BPH, JEAN CLAUDE and colitis. Patient presented to the ER with complaints of acute onset of abdominal pain, diarrhea, vomiting and diaphoresis. Patient reports he was feeling well prior to this and tolerating a regular diet. Patient does report a productive cough that started a few days ago. 04/16/2025 Patient is sitting comfortably in bed at time of exam. Denies any chest pain, SOB, n/v or dizziness at this time. Repeat H&H shows a hemoglobin increase from 6.7 yesterday to 9.3 today. Although troponin has continued to increase from 0.923 to 1.35, patient denies any chest pain, dizziness, diaphoresis or shortness of breath. Reports a bowel movement last night which appeared dark and tarry. Continue to follow-up with cardiology and GI. Review of Systems Review of Systems: All systems reviewed & are unremarkable except as noted in HPI and below Exam Narrative: General: alert, elderly, in no acute distress HEENT: normocephalic, . Mucous membranes moist. EOMI Respiratory: crackles to bilateral bases. Cardiovascular: Regular rate and rhythm, normal S1-S2 upon ascultation. No murmurs, rubs, or clicks. Abdomen: Soft, round, no pulsatile masses, nondistended and nontender. No rebound, no guarding. Bowel sounds present to all four quadrants Extremities: No cyanosis, clubbing, or edema present. Neuro: Alert and orientated x 4. Cranial nerves 2-12 intact without focal deficit. Skin: Warm, dry, and intact, without rash, erythema, or lesion.? Psych: pleasant, cooperative, normal speech, normal affect Objective Data Vital Signs Vital Signs: Vital Signs - 24 hr 04/15/25 07:57 04/15/25 08:00 04/15/25 08:00 Temperature 99.2 F Pulse Rate 96 111 H Respiratory Rate 18 Blood Pressure 155/61 H Pulse Oximetry 94 Oxygen Delivery Room Air Fraction of Inspired Oxygen 04/15/25 10:00 04/15/25 11:45 04/15/25 11:45 Temperature 98.9 F 98.8 F Pulse Rate 107 H 114 H 103 H Respiratory Rate 16 18 Blood Pressure 170/62 H 138/56 L Pulse Oximetry 97 95 Oxygen Delivery Fraction of Inspired Oxygen 04/15/25 12:00 04/15/25 12:00 04/15/25 12:01 Temperature 98.3 F Pulse Rate 112 H 108 H Respiratory Rate 16 Blood Pressure 147/59 H Pulse Oximetry 96 Oxygen Delivery Room Air Fraction of Inspired Oxygen 04/15/25 13:01 04/15/25 14:00 04/15/25 14:01 Temperature 99.2 F 100.0 F H Pulse Rate 100 109 H 97 Respiratory Rate 18 18 Blood Pressure 148/55 H 149/57 H Pulse Oximetry 97 98 Oxygen Delivery Fraction of Inspired Oxygen 04/15/25 14:40 04/15/25 15:59 04/15/25 16:00 Temperature 98.8 F Pulse Rate 97 Respiratory Rate 18 Blood Pressure 144/61 H Pulse Oximetry 97 95 Oxygen Delivery Room Air Room Air Fraction of Inspired Oxygen 04/15/25 16:00 04/15/25 16:01 04/15/25 16:17 Temperature 99.2 F 99.9 F H Pulse Rate 94 95 93 Respiratory Rate 16 16 Blood Pressure 138/54 L 141/63 H Pulse Oximetry 96 95 Oxygen Delivery Fraction of Inspired Oxygen 04/15/25 17:17 04/15/25 18:23 04/15/25 20:00 Temperature 98.9 F 99.6 F Pulse Rate 102 H 96 93 Respiratory Rate 16 16 Blood Pressure 151/58 H 151/58 H Pulse Oximetry 96 98 Oxygen Delivery Fraction of Inspired Oxygen 04/15/25 20:00 04/15/25 20:00 04/15/25 22:15 Temperature 99.4 F Pulse Rate 95 95 Respiratory Rate 18 Blood Pressure 150/57 H Pulse Oximetry 96 96 Oxygen Delivery Room Air CPAP Fraction of Inspired Oxygen 04/15/25 22:15 04/16/25 00:00 04/16/25 00:00 Temperature 99 F Pulse Rate 94 94 Respiratory Rate 20 Blood Pressure 149/64 H Pulse Oximetry 96 97 Oxygen Delivery CPAP Fraction of Inspired Oxygen 21 04/16/25 00:00 04/16/25 02:35 04/16/25 02:45 Temperature Pulse Rate 94 94 84 Respiratory Rate 20 Blood Pressure Pulse Oximetry 97 96 Oxygen Delivery CPAP CPAP Fraction of Inspired Oxygen 21 04/16/25 04:00 04/16/25 04:00 04/16/25 04:00 Temperature 98.8 F Pulse Rate 88 88 79 Respiratory Rate 20 16 Blood Pressure 146/65 H Pulse Oximetry 97 96 Oxygen Delivery CPAP Fraction of Inspired Oxygen 21 04/16/25 06:00 Temperature Pulse Rate 81 Respiratory Rate Blood Pressure Pulse Oximetry Oxygen Delivery Fraction of Inspired Oxygen Intake/Output Intake/Output: Intake & Output 04/13/25 04/14/25 04/15/25 04/16/25 23:59 23:59 23:59 23:59 Intake Total 4090 2680 650 Output Total 2500 2050 1900 Balance 1590 630 -1250 Meds/Results Medications: Active Medications Generic Name Dose Route Start Last Admin Trade Name Freq PRN Reason Stop Dose Admin Acetaminophen 1,000 mg 04/14/25 10:52 04/14/25 11:31 Acetaminophen 500 Mg Tablet PO 1,000 mg Q6H PRN Administration Mild Pain (1-3) or Fever Aspirin 81 mg 04/14/25 09:00 04/15/25 09:53 Aspirin 81 Mg Enteric Tablet PO 81 mg DAILY RODOLFO Administration Clopidogrel Bisulfate 75 mg 04/14/25 09:00 04/15/25 09:54 Clopidogrel Bisulfate 75 Mg Tablet PO 75 mg DAILY RODOLFO Administration Dextrose 12.5 gm 04/14/25 11:42 Dextrose 50% 25 Gm/50 Ml Syringe IV PUSH PRN PRN Hypoglycemia Protocol Finasteride 5 mg 04/14/25 09:00 04/15/25 09:54 Finasteride 5 Mg Tablet PO 5 mg DAILY RODOLFO Administration Glucagon 1 mg 04/14/25 11:42 Glucagon For Inj 1 Mg Vial IM PRN PRN Hypoglycemia Protocol Glucose 15 gm 04/14/25 11:42 Glucose Oral Gel 15 Gm Of Glucse In 37.5 Gm Tube PO PRN PRN Hypoglycemia Protocol Piperacillin Sod/Tazobactam 50 mls @ 100 mls/hr 04/14/25 12:00 04/16/25 06:34 Sod 3.375 gm/ Sodium Chloride IVPB 100 mls/hr Q6H RODOLFO Administration Dextrose 1,000 mls @ 100 mls/hr 04/14/25 11:42 Dextrose 5% 1,000 Ml IVPB PRN PRN Hypoglycemia Protocol Sodium Chloride 1,000 mls @ 100 mls/hr 04/14/25 13:30 04/16/25 06:33 Normal Saline Iv IV CONT 100 mls/hr .Q10H RODOLFO Administration Isosorbide Mononitrate 30 mg 04/14/25 09:00 04/15/25 09:53 Isosorbide Mononitrate 30 Mg Tab.Er.24h PO 30 mg DAILY RODOLFO Administration Lacosamide 150 mg 04/14/25 09:00 04/15/25 21:30 Lacosamide (*Crx) 100 Mg Tablet BY MOUTH 150 mg Q12HR RODOLFO Administration Latanoprost 1 drop 04/14/25 18:00 04/15/25 18:43 Latanoprost 0.005% Op Soln 2.5 Ml Btl EACH EYE 1 drop QPM RODOLFO Administration Levetiracetam 2,000 mg 04/14/25 09:10 04/15/25 21:30 Levetiracetam 500 Mg Tablet PO 2,000 mg Q12HR RODOLFO Administration Metoprolol Succinate 25 mg 04/16/25 09:00 Metoprolol Succinate Ext Rel 25 Mg Tabcr PO QAM [facility] Multivitamins Therapeutic 1 tablet 04/14/25 09:00 04/15/25 09:53 Multivitamins Therapeutic Tab (*Bkc) PO 1 tablet DAILY RODOLFO Administration Nitroglycerin 0.4 mg 04/14/25 21:44 Nitroglycerin Sl 0.4 Mg Tablet SUBLINGUAL Q5MIN PRN Chest Pain Pantoprazole Sodium 40 mg 04/14/25 09:00 04/15/25 09:53 Pantoprazole 40 Mg Tablet PO 40 mg DAILY RODOLFO Administration Perflutren Lipid Microsphere 0 ml 04/15/25 11:37 Perflutren Lipid Microspheres 1.5 Ml Vial Diluted To 10 Ml Total Volume IV PUSH 04/18/25 11:37 ONCE PRN adequate visualization Protocol Phenytoin Sodium 100 mg 04/14/25 09:00 04/15/25 09:53 Phenytoin Sodium 100 Mg Extended Release Cap BY MOUTH 100 mg QAM RODOLFO Administration Phenytoin Sodium 200 mg 04/14/25 21:00 04/15/25 21:31 Phenytoin Sodium 100 Mg Extended Release Cap BY MOUTH 200 mg HS RODOLFO Administration Simvastatin 40 mg 04/14/25 21:00 04/15/25 21:30 Simvastatin 20 Mg Tablet PO 40 mg HS RODOLFO Administration Radiology Results: ITS Impressions Abdomen/Pelvis CTA 04/14/25 11:11 IMPRESSION: 1. Nonspecific diarrhea. No other acute intra-abdominal/pelvic process. 2. Prominent distention of the bladder. 3. Scattered atherosclerotic disease consistent with a prominent coronary artery calcifications and with moderate stenosis at the superior mesenteric and right common iliac arteries and mild to moderate stenosis at the right internal iliac and right common femoral arteries. 4. Persistent increased interstitial pattern and groundglass opacities at the bilateral lung bases with dependent predominance which could represent atelectasis, mild pulmonary edema or pneumonia in the acute setting or more chronic interstitial lung disease. Chest CT 04/14/25 14:16 IMPRESSION: 1. Persistent mixed groundglass and nodular opacities of the right middle and lower lobes, consistent with pneumonia. Labs Labs: Laboratory Results - last 24 hr 04/14/25 04/15/25 04/15/25 03:23 08:22 11:12 Hgb Hct POC Capillary Glucose 169 H Troponin I 0.923 H* D Blood Type A Positive Antibody Screen Negative Crossmatch See Detail 04/15/25 04/15/25 04/15/25 15:28 19:43 19:49 Hgb 8.7 L Hct 27.0 L POC Capillary Glucose 120 H 201 H Troponin I 1.350 H* Blood Type Antibody Screen Crossmatch Quality VTE Prophylaxis VTE prophylaxis: mechanical ordered
[2025-04-16] MEDS: PHENYTOIN SODIUM 100 MG EXTENDED RELEASE CAP BY MOUTH (08:47)
[2025-04-16] MEDS: LACOSAMIDE (*CRX) 100 MG TABLET 150 MG BY MOUTH ×2 (08:47→21:24)
[2025-04-16] MEDS: PANTOPRAZOLE 40 MG TABLET PO (08:47)
[2025-04-16 08:52] LABS: Hematocrit 29.4 % (42.0-52.0); Hemoglobin 9.3 g/dL (14.0-18.0); Immature Granulocyte Percent A 0.6 % (0-0.5); Lymphocytes Absolute Auto 1.29 K/mm3 (0.9-3.2); Mean Corpuscular HGB Conc 31.6 g/dl (32-36); Mean Corpuscular Hemoglobin 28.0 pg (26-34); Mean Corpuscular Volume 88.6 fl (80-100); Nucleated Red Blood Cells Absolute Auto 0.000 K/mm3 (0.0-0.012); Nucleated Red Blood Cells Perc 0.0 % (0.0-0.2); Platelet Count Result 183 k/mm3 (150-375); Red Blood Count 3.32 M/mm3 (4.6-6.20); White Blood Count 8.5 K/mm3 (4.5-10.0)
[2025-04-16] MEDS: ASPIRIN 81 MG ENTERIC TABLET PO (08:52)
[2025-04-16] MEDS: CLOPIDOGREL BISULFATE 75 MG TABLET PO (08:52)
[2025-04-16] MEDS: METOPROLOL SUCCINATE EXT REL 25 MG TABCR PO (08:52)
[2025-04-16] MEDS: ISOSORBIDE MONONITRATE 30 MG TAB.ER.24H PO (08:52)
[2025-04-16] MEDS: FINASTERIDE 5 MG TABLET PO (08:53)
[2025-04-16] MEDS: MULTIVITAMINS THERAPEUTIC TAB (*BKC) 1 TABLET PO (08:53)
[2025-04-16 09:20] LABS: Alanine Aminotransferase 25 U/L (6-50); Albumin Level 3.3 g/dL (3.5-5.1); Alkaline Phosphatase 100 U/L (38-126); Anion Gap 8 mmol/L (4-12); Aspartate Amino Transferase 36 U/L (17-59); Bilirubin,Total 0.3 mg/dL (0.2-1.3); Blood Urea Nitrogen 7 mg/dL (9-20); Calcium 8.3 mg/dL (8.4-10.2); Carbon Dioxide 18 mmol/L (22-30); Chloride 109 mmol/L (98-107); Estimated CRCL calculation 49 ml/min; Estimated Glomerular Filt Rate > 60; Glucose 198 mg/dL (65-110); Potassium 3.5 mmol/L (3.4-5.0); Sodium 135 mmol/L (137-145); Total Protein 6.1 g/dL (6.3-8.2)
--- NOTE | 2025-04-16 11:20 | P.PNGI_ITS ---
Progress Note: A&P Assessment and Plan (1) Diarrhea: Code(s): R19.7 - Diarrhea, unspecified Status: Acute Assessment and Plan: The patient believes his twice-yearly episodes of diarrhea are due to ischemic colitis. He was admitted with severe hypovolemia, presenting with hypotension and hypothermia. While his symptoms may be related to food intolerance or simple gastroenteritis, his clinical picture is complicated by chronic anemia. At this time there is no evidence of ischemic colitis. His hemoglobin dropped from 10 on admission to 6.5 after fluid resuscitation, which is a consistent with hemodilution. Review of his past labs shows a history of anemia, with a hemoglobin of 8.8 in November 2022 and 10.6 in November 2023. Despite previous workups, including multiple EGDs and colonoscopies, no clear cause for his iron-deficiency anemia has been found, and he has previously received iron infusions. As a result of his anemia, he also suffered a NSTEMI. His hemoglobin has since risen appropriately to 8.7 after a transfusion. Given his history of unexplained chronic anemia, a capsule endoscopy will be scheduled as an outpatient study to evaluate for small bowel bleeding, which has not been done before. He will continue to receive iron therapy in the interim. Subjective Date/time seen: 04/16/25 11:20 Interval history: The patient denies abdominal pain and had a semi loose bowel movement this morning. Tolerating food well. Exam Narrative: Abdomen: Soft, nontender, nondistended, no hepatosplenomegaly. Rectal examination: Empty rectal vault but scant amount of clear brown stools in the glove (verified with the nurse). Objective Data Vital Signs Vital Signs: Vital Signs - 24 hr 04/15/25 11:45 04/15/25 11:45 04/15/25 12:00 Temperature 98.9 F 98.8 F Pulse Rate 114 H 103 H Respiratory Rate 16 18 Blood Pressure 170/62 H 138/56 L Pulse Oximetry 97 95 Oxygen Delivery Room Air Fraction of Inspired Oxygen 04/15/25 12:00 04/15/25 12:01 04/15/25 13:01 Temperature 98.3 F 99.2 F Pulse Rate 112 H 108 H 100 Respiratory Rate 16 18 Blood Pressure 147/59 H 148/55 H Pulse Oximetry 96 97 Oxygen Delivery Fraction of Inspired Oxygen 04/15/25 14:00 04/15/25 14:01 04/15/25 14:40 Temperature 100.0 F H Pulse Rate 109 H 97 Respiratory Rate 18 Blood Pressure 149/57 H Pulse Oximetry 98 97 Oxygen Delivery Room Air Fraction of Inspired Oxygen 04/15/25 15:59 04/15/25 16:00 04/15/25 16:00 Temperature 98.8 F Pulse Rate 97 94 Respiratory Rate 18 Blood Pressure 144/61 H Pulse Oximetry 95 Oxygen Delivery Room Air Fraction of Inspired Oxygen 04/15/25 16:01 04/15/25 16:17 04/15/25 17:17 Temperature 99.2 F 99.9 F H 98.9 F Pulse Rate 95 93 102 H Respiratory Rate 16 16 16 Blood Pressure 138/54 L 141/63 H 151/58 H Pulse Oximetry 96 95 96 Oxygen Delivery Fraction of Inspired Oxygen 04/15/25 18:23 04/15/25 20:00 04/15/25 20:00 Temperature 99.6 F Pulse Rate 96 93 Respiratory Rate 16 Blood Pressure 151/58 H Pulse Oximetry 98 Oxygen Delivery Room Air Fraction of Inspired Oxygen 04/15/25 20:00 04/15/25 22:15 04/15/25 22:15 Temperature 99.4 F Pulse Rate 95 95 Respiratory Rate 18 Blood Pressure 150/57 H Pulse Oximetry 96 96 96 Oxygen Delivery CPAP CPAP Fraction of Inspired Oxygen 21 04/16/25 00:00 04/16/25 00:00 04/16/25 00:00 Temperature 99 F Pulse Rate 94 94 94 Respiratory Rate 20 20 Blood Pressure 149/64 H Pulse Oximetry 97 97 Oxygen Delivery CPAP Fraction of Inspired Oxygen 21 04/16/25 02:35 04/16/25 02:45 04/16/25 04:00 Temperature Pulse Rate 94 84 88 Respiratory Rate 20 Blood Pressure Pulse Oximetry 96 97 Oxygen Delivery CPAP CPAP Fraction of Inspired Oxygen 21 04/16/25 04:00 04/16/25 04:00 04/16/25 06:00 Temperature 98.8 F Pulse Rate 88 79 81 Respiratory Rate 16 Blood Pressure 146/65 H Pulse Oximetry 96 Oxygen Delivery Fraction of Inspired Oxygen 04/16/25 08:00 04/16/25 08:52 Temperature 98.5 F Pulse Rate 83 97 Respiratory Rate 16 Blood Pressure 148/77 H Pulse Oximetry 96 Oxygen Delivery Fraction of Inspired Oxygen Intake/Output Intake/Output: Intake & Output 09/11/0204/14/25 04/15/25 04/16/25 23:59 23:59 23:59 23:59 Intake Total 4097 9670 1150 Output Total 8779 8353 4530 Balance 1598 009 -9415 Meds/Results Medications: Active Medications Generic Name Dose Route Start Last Admin Trade Name Freq PRN Reason Stop Dose Admin Acetaminophen 1,000 mg 04/14/25 10:52 04/14/25 11:31 Acetaminophen 500 Mg Tablet PO 1,000 mg Q6H PRN Administration Mild Pain (1-3) or Fever Aspirin 81 mg 04/14/25 09:00 04/16/25 08:52 Aspirin 81 Mg Enteric Tablet PO 81 mg DAILY RODOLFO Administration Clopidogrel Bisulfate 75 mg 04/14/25 09:00 04/16/25 08:52 Clopidogrel Bisulfate 75 Mg Tablet PO 75 mg DAILY RODOLFO Administration Dextrose 12.5 gm 04/14/25 11:42 Dextrose 50% 25 Gm/50 Ml Syringe IV PUSH PRN PRN Hypoglycemia Protocol Finasteride 5 mg 04/14/25 09:00 04/16/25 08:53 Finasteride 5 Mg Tablet PO 5 mg DAILY RODOLFO Administration Glucagon 1 mg 04/14/25 11:42 Glucagon For Inj 1 Mg Vial IM PRN PRN Hypoglycemia Protocol Glucose 15 gm 04/14/25 11:42 Glucose Oral Gel 15 Gm Of Glucse In 37.5 Gm Tube PO PRN PRN Hypoglycemia Protocol Piperacillin Sod/Tazobactam 50 mls @ 100 mls/hr 04/14/25 12:00 04/16/25 06:34 Sod 3.375 gm/ Sodium Chloride IVPB 100 mls/hr Q6H RODOLFO Administration Dextrose 1,000 mls @ 100 mls/hr 04/14/25 11:42 Dextrose 5% 1,000 Ml IVPB PRN PRN Hypoglycemia Protocol Sodium Chloride 1,000 mls @ 100 mls/hr 04/14/25 13:30 04/16/25 06:33 Normal Saline Iv IV CONT 100 mls/hr .Q10H RODOLFO Administration Isosorbide Mononitrate 30 mg 04/14/25 09:00 04/16/25 08:52 Isosorbide Mononitrate 30 Mg Tab.Er.24h PO 30 mg DAILY RODOLFO Administration Lacosamide 150 mg 04/14/25 09:00 04/16/25 08:47 Lacosamide (*Crx) 100 Mg Tablet BY MOUTH 150 mg Q12HR RODOLFO Administration Latanoprost 1 drop 04/14/25 18:00 04/15/25 18:43 Latanoprost 0.005% Op Soln 2.5 Ml Btl EACH EYE 1 drop QPM RODOLFO Administration Levetiracetam 2,000 mg 04/14/25 09:10 04/16/25 08:52 Levetiracetam 500 Mg Tablet PO 2,000 mg Q12HR RODOLFO Administration Metoprolol Succinate 25 mg 04/16/25 09:00 04/16/25 08:52 Metoprolol Succinate Ext Rel 25 Mg Tabcr PO 25 mg QAM RODOLFO Administration Multivitamins Therapeutic 1 tablet 04/14/25 09:00 04/16/25 08:53 Multivitamins Therapeutic Tab (*Bkc) PO 1 tablet DAILY RODOLFO Administration Nitroglycerin 0.4 mg 04/14/25 21:44 Nitroglycerin Sl 0.4 Mg Tablet SUBLINGUAL Q5MIN PRN Chest Pain Pantoprazole Sodium 40 mg 04/14/25 09:00 04/16/25 08:47 Pantoprazole 40 Mg Tablet PO 40 mg DAILY RODOLFO Administration Perflutren Lipid Microsphere 0 ml 04/15/25 11:37 Perflutren Lipid Microspheres 1.5 Ml Vial Diluted To 10 Ml Total Volume IV PUSH 04/18/25 11:37 ONCE PRN adequate visualization Protocol Phenytoin Sodium 100 mg 04/14/25 09:00 04/16/25 08:47 Phenytoin Sodium 100 Mg Extended Release Cap BY MOUTH 100 mg QAM RODOLFO Administration Phenytoin Sodium 200 mg 04/14/25 21:00 04/15/25 21:31 Phenytoin Sodium 100 Mg Extended Release Cap BY MOUTH 200 mg HS RODOLFO Administration Simvastatin 40 mg 04/14/25 21:00 04/15/25 21:30 Simvastatin 20 Mg Tablet PO 40 mg HS RODOLFO Administration Radiology Results: ITS Impressions Abdomen/Pelvis CTA 04/14/25 11:11 IMPRESSION: 1. Nonspecific diarrhea. No other acute intra-abdominal/pelvic process. 2. Prominent distention of the bladder. 3. Scattered atherosclerotic disease consistent with a prominent coronary artery calcifications and with moderate stenosis at the superior mesenteric and right common iliac arteries and mild to moderate stenosis at the right internal iliac and right common femoral arteries. 4. Persistent increased interstitial pattern and groundglass opacities at the bilateral lung bases with dependent predominance which could represent atelectasis, mild pulmonary edema or pneumonia in the acute setting or more chronic interstitial lung disease. Chest CT 04/14/25 14:16 IMPRESSION: 1. Persistent mixed groundglass and nodular opacities of the right middle and lower lobes, consistent with pneumonia. Labs Labs: Laboratory Results - last 24 hr 04/14/25 04/15/25 04/15/25 03:23 15:28 19:43 WBC RBC Hgb 8.7 L Hct 27.0 L MCV MCH MCHC RDW Plt Count MPV Immature Gran % (Auto) Neut % (Auto) Lymph % (Auto) [place] % (Auto) Eos % (Auto) Baso % (Auto) Lymph # (Auto) [place] # (Auto) Eos # (Auto) Baso # (Auto) Abs Immat Gran (auto) Absolute Neuts (auto) Absolute Nucleated RBC Nucleated RBC % Sodium Potassium Chloride Carbon Dioxide Anion Gap BUN Creatinine Estim Creat Clear Calc Estimated GFR Glucose POC Capillary Glucose 120 H Calcium Total Bilirubin AST ALT Alkaline Phosphatase Troponin I 1.350 H* Total Protein Albumin Blood Type A Positive Antibody Screen Negative Crossmatch See Detail 04/15/25 04/16/25 04/16/25 19:49 08:04 08:46 WBC 8.5 RBC 3.32 L Hgb 9.3 L Hct 29.4 L MCV 88.6 MCH 28.0 MCHC 31.6 L RDW 13.4 Plt Count 183 MPV 8.9 Immature Gran % (Auto) 0.6 H Neut % (Auto) 71.1 Lymph % (Auto) 15.2 L [place] % (Auto) 11.2 H Eos % (Auto) 1.5 Baso % (Auto) 0.4 Lymph # (Auto) 1.29 [place] # (Auto) 1.0 H Eos # (Auto) 0.1 Baso # (Auto) 0.0 Abs Immat Gran (auto) 0.05 H Absolute Neuts (auto) 6.0 Absolute Nucleated RBC 0.000 Nucleated RBC % 0.0 Sodium 135 L Potassium 3.5 Chloride 109 H Carbon Dioxide 18 L Anion Gap 8 BUN 7 L D Creatinine 0.97 Estim Creat Clear Calc 49 Estimated GFR > 60 Glucose 198 H POC Capillary Glucose 201 H 163 H Calcium 8.3 L Total Bilirubin 0.3 AST 36 ALT 25 Alkaline Phosphatase 100 Troponin I Total Protein 6.1 L Albumin 3.3 L Blood Type Antibody Screen Crossmatch 04/16/25 11:07 WBC RBC Hgb Hct MCV MCH MCHC RDW Plt Count MPV Immature Gran % (Auto) Neut % (Auto) Lymph % (Auto) [place] % (Auto) Eos % (Auto) Baso % (Auto) Lymph # (Auto) [place] # (Auto) Eos # (Auto) Baso # (Auto) Abs Immat Gran (auto) Absolute Neuts (auto) Absolute Nucleated RBC Nucleated RBC % Sodium Potassium Chloride Carbon Dioxide Anion Gap BUN Creatinine Estim Creat Clear Calc Estimated GFR Glucose POC Capillary Glucose 169 H Calcium Total Bilirubin AST ALT Alkaline Phosphatase Troponin I Total Protein Albumin Blood Type Antibody Screen Crossmatch
--- NOTE | 2025-04-16 11:37 | ECG_ITS ---
Test Date: 2025-04-16 11:53:43 Measurements Intervals [place] Rate: 75 P: 60 AL: 204 QRS: 75 QRSD: 98 T: 43 QT: 361 QTc: 403 Interpretive Statements SINUS RHYTHM WITH OCCASIONAL VENTRICULAR PREMATURE COMPLEXES Compared to ECG 04/15/2025 08:08:30 Ventricular premature complex(es) now present Sinus tachycardia no longer present ST (T wave) deviation no longer present Possible ischemia no longer present Electronically Signed On 04-16-2025 13:29:15 CDT by Ender Castillo M.D.
--- NOTE | 2025-04-16 13:10 | P.PNCA_ITS ---
Progress Note: A&P Assessment and Plan (1) NSTEMI (non-ST elevated myocardial infarction): Code(s): I21.4 - Non-ST elevation (NSTEMI) myocardial infarction Status: Acute (2) CAD (coronary artery disease): Code(s): I25.10 - Atherosclerotic heart disease of [place] coronary artery without angina pectoris Status: Acute (3) Hyperlipidemia: Code(s): E78.5 - Hyperlipidemia, unspecified Status: Acute Plan 80-year-old man with CAD status post PCI, diabetes, hypertension, hyperlipidemia, JEAN CLAUDE, and colitis initially presented with abdominal pain, diarrhea, vomiting, and diaphoresis now it has chest discomfort who was found to have a hemoglobin of 6.5 NSTEMI -this potentially could be demand related from his low hemoglobin count -given that he does have troponin elevations, would keep his hemoglobin >8 -continue aspirin 81 mg p.o. daily and Plavix 75 mg p.o. daily; increase metoprolol succinate to 50 mg p.o. daily -repeat EKG after the hb stabilized shows resolution of ischemic changes and echocardiogram is unremarkable -trend his troponins to peak CAD status post PCI -continue dual anti-platelet therapy -continue isosorbide mononitrate 30 mg p.o. daily Hyperlipidemia -continue simvastatin 40 mg every evening -on outpatient repatha He can proceed with physical therapy with no cardio pulmonary limitations today. If troponins are downtrending then he can follow up Dr. Ocasio in clinic. Please call with additional questions. Subjective Date/time seen: 04/16/25 13:10 Interval history: Denies any chest discomfort Review of Systems Cardiovascular: Cardiovascular: Reports as per HPI Respiratory: Respiratory: Reports as per HPI Exam Const: General: comfortable HENMT: Mouth: Yes moist mucous membranes Eyes: EOM: EOMs intact bilaterally Neck: Neck: no JVD Resp: Effort & Inspection: normal respiratory effort Auscultation: diminished lung sounds Cardio: Rate: regular rate Rhythm: regular rhythm Extrem: General: no pedal edema Objective Data Vital Signs Vital Signs: Vital Signs - 24 hr 04/15/25 14:00 04/15/25 14:01 04/15/25 14:40 Temperature 37.8 C H Pulse Rate 109 H 97 Respiratory Rate 18 Blood Pressure 149/57 H Pulse Oximetry 98 97 Oxygen Delivery Room Air Fraction of Inspired Oxygen 04/15/25 15:59 04/15/25 16:00 04/15/25 16:00 Temperature 37.1 C Pulse Rate 97 94 Respiratory Rate 18 Blood Pressure 144/61 H Pulse Oximetry 95 Oxygen Delivery Room Air Fraction of Inspired Oxygen 04/15/25 16:01 04/15/25 16:17 04/15/25 17:17 Temperature 37.3 C 37.7 C H 37.2 C Pulse Rate 95 93 102 H Respiratory Rate 16 16 16 Blood Pressure 138/54 L 141/63 H 151/58 H Pulse Oximetry 96 95 96 Oxygen Delivery Fraction of Inspired Oxygen 04/15/25 18:23 04/15/25 20:00 04/15/25 20:00 Temperature 37.6 C Pulse Rate 96 93 Respiratory Rate 16 Blood Pressure 151/58 H Pulse Oximetry 98 Oxygen Delivery Room Air Fraction of Inspired Oxygen 04/15/25 20:00 04/15/25 22:15 04/15/25 22:15 Temperature 37.4 C Pulse Rate 95 95 Respiratory Rate 18 Blood Pressure 150/57 H Pulse Oximetry 96 96 96 Oxygen Delivery CPAP CPAP Fraction of Inspired Oxygen 21 04/16/25 00:00 04/16/25 00:00 04/16/25 00:00 Temperature 37.2 C Pulse Rate 94 94 94 Respiratory Rate 20 20 Blood Pressure 149/64 H Pulse Oximetry 97 97 Oxygen Delivery CPAP Fraction of Inspired Oxygen 21 04/16/25 02:35 04/16/25 02:45 04/16/25 04:00 Temperature Pulse Rate 94 84 88 Respiratory Rate 20 Blood Pressure Pulse Oximetry 96 97 Oxygen Delivery CPAP CPAP Fraction of Inspired Oxygen 21 04/16/25 04:00 04/16/25 04:00 04/16/25 06:00 Temperature 37.1 C Pulse Rate 88 79 81 Respiratory Rate 16 Blood Pressure 146/65 H Pulse Oximetry 96 Oxygen Delivery Fraction of Inspired Oxygen 04/16/25 08:00 04/16/25 08:00 04/16/25 08:52 Temperature 36.9 C Pulse Rate 83 84 97 Respiratory Rate 16 Blood Pressure 148/77 H Pulse Oximetry 96 Oxygen Delivery Fraction of Inspired Oxygen 04/16/25 10:00 04/16/25 12:00 Temperature 36.4 C L Pulse Rate 76 79 Respiratory Rate 16 Blood Pressure 163/69 H Pulse Oximetry 97 Oxygen Delivery Fraction of Inspired Oxygen Intake/Output Intake/Output: Intake & Output 04/13/25 04/14/25 04/15/25 04/16/25 23:59 23:59 23:59 23:59 Intake Total 4090 2680 1150 Output Total 5350 0 2875 Balance 1597 936 -6525 Meds/Results Medications: Active Medications Generic Name Dose Route Start Last Admin Trade Name Freq PRN Reason Stop Dose Admin Acetaminophen 1,000 mg 04/14/25 10:52 04/14/25 11:31 Acetaminophen 500 Mg Tablet PO 1,000 mg Q6H PRN Administration Mild Pain (1-3) or Fever Aspirin 81 mg 04/14/25 09:00 04/16/25 08:52 Aspirin 81 Mg Enteric Tablet PO 81 mg DAILY RODOLFO Administration Clopidogrel Bisulfate 75 mg 04/14/25 09:00 04/16/25 08:52 Clopidogrel Bisulfate 75 Mg Tablet PO 75 mg DAILY RODOLFO Administration Dextrose 12.5 gm 04/14/25 11:42 Dextrose 50% 25 Gm/50 Ml Syringe IV PUSH PRN PRN Hypoglycemia Protocol Finasteride 5 mg 04/14/25 09:00 04/16/25 08:53 Finasteride 5 Mg Tablet PO 5 mg DAILY RODOLFO Administration Glucagon 1 mg 04/14/25 11:42 Glucagon For Inj 1 Mg Vial IM PRN PRN Hypoglycemia Protocol Glucose 15 gm 04/14/25 11:42 Glucose Oral Gel 15 Gm Of Glucse In 37.5 Gm Tube PO PRN PRN Hypoglycemia Protocol Piperacillin Sod/Tazobactam 50 mls @ 100 mls/hr 04/14/25 12:00 04/16/25 06:34 Sod 3.375 gm/ Sodium Chloride IVPB 100 mls/hr Q6H RODOLFO Administration Dextrose 1,000 mls @ 100 mls/hr 04/14/25 11:42 Dextrose 5% 1,000 Ml IVPB PRN PRN Hypoglycemia Protocol Sodium Chloride 1,000 mls @ 100 mls/hr 04/14/25 13:30 04/16/25 06:33 Normal Saline Iv IV CONT 100 mls/hr .Q10H RODOLFO Administration Isosorbide Mononitrate 30 mg 04/14/25 09:00 04/16/25 08:52 Isosorbide Mononitrate 30 Mg Tab.Er.24h PO 30 mg DAILY RODOLFO Administration Lacosamide 150 mg 04/14/25 09:00 04/16/25 08:47 Lacosamide (*Crx) 100 Mg Tablet BY MOUTH 150 mg Q12HR RODOLFO Administration Latanoprost 1 drop 04/14/25 18:00 04/15/25 18:43 Latanoprost 0.005% Op Soln 2.5 Ml Btl EACH EYE 1 drop QPM RODOLFO Administration Levetiracetam 2,000 mg 04/14/25 09:10 04/16/25 08:52 Levetiracetam 500 Mg Tablet PO 2,000 mg Q12HR RODOLFO Administration Metoprolol Succinate 50 mg 04/17/25 09:00 Metoprolol Succinate Ext Rel 50 Mg Tabcr PO QAM [facility] Multivitamins Therapeutic 1 tablet 04/14/25 09:00 04/16/25 08:53 Multivitamins Therapeutic Tab (*Bkc) PO 1 tablet DAILY RODOLFO Administration Nitroglycerin 0.4 mg 04/14/25 21:44 Nitroglycerin Sl 0.4 Mg Tablet SUBLINGUAL Q5MIN PRN Chest Pain Pantoprazole Sodium 40 mg 04/14/25 09:00 04/16/25 08:47 Pantoprazole 40 Mg Tablet PO 40 mg DAILY RODOLFO Administration Perflutren Lipid Microsphere 0 ml 04/15/25 11:37 Perflutren Lipid Microspheres 1.5 Ml Vial Diluted To 10 Ml Total Volume IV PUSH 04/18/25 11:37 ONCE PRN adequate visualization Protocol Phenytoin Sodium 100 mg 04/14/25 09:00 04/16/25 08:47 Phenytoin Sodium 100 Mg Extended Release Cap BY MOUTH 100 mg QAM RODOLFO Administration Phenytoin Sodium 200 mg 04/14/25 21:00 04/15/25 21:31 Phenytoin Sodium 100 Mg Extended Release Cap BY MOUTH 200 mg HS RODOLFO Administration Simvastatin 40 mg 04/14/25 21:00 04/15/25 21:30 Simvastatin 20 Mg Tablet PO 40 mg HS RODOLFO Administration Radiology Results: ITS Impressions Abdomen/Pelvis CTA 04/14/25 11:11 IMPRESSION: 1. Nonspecific diarrhea. No other acute intra-abdominal/pelvic process. 2. Prominent distention of the bladder. 3. Scattered atherosclerotic disease consistent with a prominent coronary artery calcifications and with moderate stenosis at the superior mesenteric and right common iliac arteries and mild to moderate stenosis at the right internal iliac and right common femoral arteries. 4. Persistent increased interstitial pattern and groundglass opacities at the bilateral lung bases with dependent predominance which could represent atelectasis, mild pulmonary edema or pneumonia in the acute setting or more chronic interstitial lung disease. Chest CT 04/14/25 14:16 IMPRESSION: 1. Persistent mixed groundglass and nodular opacities of the right middle and lower lobes, consistent with pneumonia. Labs Labs: Laboratory Results - last 24 hr 04/14/25 04/15/25 04/15/25 03:23 15:28 19:43 WBC RBC Hgb 8.7 L Hct 27.0 L MCV MCH MCHC RDW Plt Count MPV Immature Gran % (Auto) Neut % (Auto) Lymph % (Auto) [place] % (Auto) Eos % (Auto) Baso % (Auto) Lymph # (Auto) [place] # (Auto) Eos # (Auto) Baso # (Auto) Abs Immat Gran (auto) Absolute Neuts (auto) Absolute Nucleated RBC Nucleated RBC % Sodium Potassium Chloride Carbon Dioxide Anion Gap BUN Creatinine Estim Creat Clear Calc Estimated GFR Glucose POC Capillary Glucose 120 H Calcium Total Bilirubin AST ALT Alkaline Phosphatase Troponin I 1.350 H* Total Protein Albumin Blood Type A Positive Antibody Screen Negative Crossmatch See Detail 04/15/25 04/16/25 04/16/25 19:49 08:04 08:46 WBC 8.5 RBC 3.32 L Hgb 9.3 L Hct 29.4 L MCV 88.6 MCH 28.0 MCHC 31.6 L RDW 13.4 Plt Count 183 MPV 8.9 Immature Gran % (Auto) 0.6 H Neut % (Auto) 71.1 Lymph % (Auto) 15.2 L [place] % (Auto) 11.2 H Eos % (Auto) 1.5 Baso % (Auto) 0.4 Lymph # (Auto) 1.29 [place] # (Auto) 1.0 H Eos # (Auto) 0.1 Baso # (Auto) 0.0 Abs Immat Gran (auto) 0.05 H Absolute Neuts (auto) 6.0 Absolute Nucleated RBC 0.000 Nucleated RBC % 0.0 Sodium 135 L Potassium 3.5 Chloride 109 H Carbon Dioxide 18 L Anion Gap 8 BUN 7 L D Creatinine 0.97 Estim Creat Clear Calc 49 Estimated GFR > 60 Glucose 198 H POC Capillary Glucose 201 H 163 H Calcium 8.3 L Total Bilirubin 0.3 AST 36 ALT 25 Alkaline Phosphatase 100 Troponin I Total Protein 6.1 L Albumin 3.3 L Blood Type Antibody Screen Crossmatch 04/16/25 11:07 WBC RBC Hgb Hct MCV MCH MCHC RDW Plt Count MPV Immature Gran % (Auto) Neut % (Auto) Lymph % (Auto) [place] % (Auto) Eos % (Auto) Baso % (Auto) Lymph # (Auto) [place] # (Auto) Eos # (Auto) Baso # (Auto) Abs Immat Gran (auto) Absolute Neuts (auto) Absolute Nucleated RBC Nucleated RBC % Sodium Potassium Chloride Carbon Dioxide Anion Gap BUN Creatinine Estim Creat Clear Calc Estimated GFR Glucose POC Capillary Glucose 169 H Calcium Total Bilirubin AST ALT Alkaline Phosphatase Troponin I Total Protein Albumin Blood Type Antibody Screen Crossmatch
[2025-04-16 13:22] LABS: Troponin I 0.730 ng/mL (0.000-0.034)
[2025-04-16] MEDS: LATANOPROST 0.005% OP SOLN 2.5 ML BTL 1 DROP EACH EYE (18:24)
[2025-04-16] MEDS: PHENYTOIN SODIUM 100 MG EXTENDED RELEASE CAP 200 MG BY MOUTH (21:26)
[2025-04-16] MEDS: SIMVASTATIN 20 MG TABLET 40 MG PO (21:27)
[2025-04-17] VITALS (13 sets, daily range): BP systolic 138–151; BP diastolic 50–65; PULSE 65–95; RESP 17–19; TEMP 36.4–36.6; O2SAT 97–100
[2025-04-17 03:48] LABS: Hematocrit 27.5 % (42.0-52.0); Hemoglobin 9.1 g/dL (14.0-18.0); Immature Granulocyte Percent A 0.3 % (0-0.5); Lymphocytes Absolute Auto 1.17 K/mm3 (0.9-3.2); Mean Corpuscular HGB Conc 33.1 g/dl (32-36); Mean Corpuscular Hemoglobin 28.9 pg (26-34); Mean Corpuscular Volume 87.3 fl (80-100); Nucleated Red Blood Cells Absolute Auto 0.000 K/mm3 (0.0-0.012); Nucleated Red Blood Cells Perc 0.0 % (0.0-0.2); Platelet Count Result 183 k/mm3 (150-375); Red Blood Count 3.15 M/mm3 (4.6-6.20); White Blood Count 6.6 K/mm3 (4.5-10.0)
[2025-04-17] MEDS: PIPERACILLIN/TAZOBACTAM SOD 3.375 GM in SODIUM CHLORIDE 0.9% IV 50 ML 100 ML IVPB ×2 (04:22→11:42)
[2025-04-17 04:33] LABS: Alanine Aminotransferase 17 U/L (6-50); Albumin Level 3.0 g/dL (3.5-5.1); Alkaline Phosphatase 101 U/L (38-126); Anion Gap 5 mmol/L (4-12); Aspartate Amino Transferase 27 U/L (17-59); Bilirubin,Total 0.3 mg/dL (0.2-1.3); Blood Urea Nitrogen 6 mg/dL (9-20); Calcium 8.3 mg/dL (8.4-10.2); Carbon Dioxide 20 mmol/L (22-30); Chloride 109 mmol/L (98-107); Estimated CRCL calculation 53 ml/min; Estimated Glomerular Filt Rate > 60; Glucose 129 mg/dL (65-110); Potassium 3.9 mmol/L (3.4-5.0); Sodium 134 mmol/L (137-145); Total Protein 5.8 g/dL (6.3-8.2); Troponin I 0.382 ng/mL (0.000-0.034)
[2025-04-17] MEDS: SODIUM CHLORIDE 0.9% IV 1,000 ML 100 ML IV CONT (06:27)
[2025-04-17] MEDS: ISOSORBIDE MONONITRATE 30 MG TAB.ER.24H PO (08:37)
[2025-04-17] MEDS: LACOSAMIDE (*CRX) 100 MG TABLET 150 MG BY MOUTH (08:37)
[2025-04-17] MEDS: MULTIVITAMINS THERAPEUTIC TAB (*BKC) 1 TABLET PO (08:38)
[2025-04-17] MEDS: ASPIRIN 81 MG ENTERIC TABLET PO (08:38)
[2025-04-17] MEDS: FINASTERIDE 5 MG TABLET PO (08:38)
[2025-04-17] MEDS: METOPROLOL SUCCINATE EXT REL 50 MG TABCR PO (08:39)
[2025-04-17] MEDS: PANTOPRAZOLE 40 MG TABLET PO (08:40)
[2025-04-17] MEDS: CLOPIDOGREL BISULFATE 75 MG TABLET PO (08:40)
[2025-04-17] MEDS: PHENYTOIN SODIUM 100 MG EXTENDED RELEASE CAP BY MOUTH (08:40)
--- NOTE | 2025-04-17 11:26 | P.DS_ITS ---
DS: Admitting Diagnosis Discharge Date 04/17/2025 Admitting Diagnosis Diarrhea DS: Discharge Diagnosis Discharge Diagnosis (1) NSTEMI (non-ST elevated myocardial infarction): Code(s): I21.4 - Non-ST elevation (NSTEMI) myocardial infarction Status: Acute (2) Diarrhea: Code(s): R19.7 - Diarrhea, unspecified Status: Acute (3) Lower abdominal pain: Code(s): R10.30 - Lower abdominal pain, unspecified Status: Acute (4) Anemia: Qualifiers: Anemia type: unspecified type Qualified Code(s): D64.9 - Anemia, unspecified Code(s): D64.9 - Anemia, unspecified Status: Acute (5) Pre-syncope: Code(s): R55 - Syncope and collapse Status: Acute (6) Pneumonia: Code(s): J18.9 - Pneumonia, unspecified organism Status: Acute (7) Hypothermia: Qualifiers: Encounter type: initial encounter Qualified Code(s): T68.XXXA - Hypothermia, initial encounter Code(s): T68.XXXA - Hypothermia, initial encounter Status: Acute (8) Acute hypotension: Code(s): I95.9 - Hypotension, unspecified Status: Acute (9) Diabetes: Code(s): E11.9 - Type 2 diabetes mellitus without complications Status: Acute (10) BPH (benign prostatic hyperplasia): Code(s): N40.0 - Benign prostatic hyperplasia without lower urinary tract symptoms Status: Acute (11) HTN (hypertension): Code(s): I10 - Essential (primary) hypertension Status: Acute (12) Seizure disorder: Code(s): G40.909 - Epilepsy, unspecified, not intractable, without status epilepticus Status: Acute (13) Hyperlipidemia: Code(s): E78.5 - Hyperlipidemia, unspecified Status: Acute (14) CAD (coronary artery disease): Code(s): I25.10 - Atherosclerotic heart disease of [place] coronary artery without angina pectoris Status: Acute DS: Summary Hospital Course Hospital Course: # NSTEMI (non-ST elevated myocardial infarction): * Troponins obtained for chest discomfort on 04/15/2025- uptrending from 0.018 - > 0.310 - > 0.923-1.[address] elevation [place]. be demand ischemia d ue to anemia Cardiology was consulted. H&H dropped from 10-6.5. Patient remain on aspirin and Plavix. Resumed metoprolol. H&H remains stable post transfusion. Echocardiogram unremarkable. Continue isosorbide mononitrate follow-up with cardiology as an outpatient basis # Diarrhea, unspecified: * Known history of ischemic colitis * CT abdomen does not show acute colitis * GI consulted * IV fluids * CLD for now and advanced further and tolerating diet * Diarrhea has resolved. # Lower abdominal pain: * patient with acute onset of abdominal pain, diarrhea, vomiting and pre-syncope * patient reported it was similar to his previous episodes of colitis * final read on abdomen CT does not show acute colitis * GI was consulted * CLD for now and advance further and tolerating diet * pain control # Anemia: * Upon admission, Hgb 10.0 lowered down to 6.5 next day transfused and post transfusion H&H remained stable. GI consulted. His plan for capsule endoscopy as an outpatient basis. He has multiple EGDs and colonoscopies done in the past with no clear cause of iron- deficiency anemia. He will be followed up as an outpatient basis # Pre-syncope: * patient with pre-syncope with diaphoresis at home prior to arriving * s/p fluid resucitation * telemetry * continue IV fluids * IV abx for pneumonia # Pneumonia: * s/p CT chest shows Persistent mixed groundglass and nodular opacities of the right middle and lower lobes, consistent with pneumonia. * patient reports he developed a new productive cough a few days ago * patient on oxygen by [place] this has been tapered off * MRSA negative * febrile * continue IV Zosyn, add azithromycin Will switch to oral antibiotics at discharge # Hypothermia: * s/p valerie hugger in ED * resolved # Acute hypotension: * patient hypotensive on arrival to ED * s/p fluid resuscitation * continue IV fluids * hold home BP medications for now but resumed lisinopril and metoprolol at discharge. # Diabetes: * continue home insulin pump * patient able to operate * monitor blood sugars # BPH (benign prostatic hyperplasia): * patient with urinary retention in ED requiring placement of valentino catheter * UA reviewed and no signs of infection * continue finasteride Add Flomax Follow-up with urology as an outpatient basis # HTN (hypertension): * patient was hypotensive on arrival * hold home furosemide, metoprolol and lisinopril for now # Seizure disorder: * seizure precautions * continue home phenytoin, Keppra, lacosamide # Hyperlipidemia: * Continue Simvastatin 40mg qHS * Outpt Repatha # CAD (coronary artery disease): * Continue DAPT * Isosorbide mononitrate 30mg daily Time Spent with Patient Time attestation: Total time spent providing and/or coordinating discharge services: 40 minutes Exam Narrative: General: alert, elderly, in no acute distress HEENT: normocephalic, . Mucous membranes moist. EOMI Respiratory: crackles to bilateral bases. Cardiovascular: Regular rate and rhythm, normal S1-S2 upon ascultation. No murmurs, rubs, or clicks. Abdomen: Soft, round, no pulsatile masses, nondistended and nontender. No rebound, no guarding. Bowel sounds present to all four quadrants Extremities: No cyanosis, clubbing, or edema present. Neuro: Alert and orientated x 4. Cranial nerves 2-12 intact without focal deficit. Skin: Warm, dry, and intact, without rash, erythema, or lesion.? Psych: pleasant, cooperative, normal speech, normal affect DS: Data Data Completed and Pending Labs on day of discharge: Labs from last 24 hours 04/17/25 04/17/25 04/16/25 06:45 03:28 20:04 WBC 6.6 RBC 3.15 L Hgb 9.1 L Hct 27.5 L MCV 87.3 MCH 28.9 MCHC 33.1 RDW 13.3 Plt Count 183 MPV 9.3 Immature Gran % (Auto) 0.3 Neut % (Auto) 67.6 Lymph % (Auto) 17.7 L [place] % (Auto) 11.1 H Eos % (Auto) 3.0 Baso % (Auto) 0.3 Lymph # (Auto) 1.17 [place] # (Auto) 0.7 H Eos # (Auto) 0.2 Baso # (Auto) 0.0 Abs Immat Gran (auto) 0.02 Absolute Neuts (auto) 4.5 Absolute Nucleated RBC 0.000 Nucleated RBC % 0.0 Sodium 134 L Potassium 3.9 Chloride 109 H Carbon Dioxide 20 L Anion Gap 5 BUN 6 L Creatinine 0.89 Estim Creat Clear Calc 53 Estimated GFR > 60 Glucose 129 H POC Capillary Glucose 120 H 201 H Calcium 8.3 L Total Bilirubin 0.3 AST 27 ALT 17 Alkaline Phosphatase 101 Troponin I 0.382 H* Total Protein 5.8 L Albumin 3.0 L 04/16/25 04/16/25 16:19 12:53 WBC RBC Hgb Hct MCV MCH MCHC RDW Plt Count MPV Immature Gran % (Auto) Neut % (Auto) Lymph % (Auto) [place] % (Auto) Eos % (Auto) Baso % (Auto) Lymph # (Auto) [place] # (Auto) Eos # (Auto) Baso # (Auto) Abs Immat Gran (auto) Absolute Neuts (auto) Absolute Nucleated RBC Nucleated RBC % Sodium Potassium Chloride Carbon Dioxide Anion Gap BUN Creatinine Estim Creat Clear Calc Estimated GFR Glucose POC Capillary Glucose 121 H Calcium Total Bilirubin AST ALT Alkaline Phosphatase Troponin I 0.730 H* Total Protein Albumin Preliminary micro results at discharge 04/14/25 06:19 Blood Culture - Preliminary Blood 04/14/25 06:20 Blood Culture - Preliminary Blood Imaging Radiologist's impression: ITS Impressions Abdomen/Pelvis CTA 04/14/25 11:11 IMPRESSION: 1. Nonspecific diarrhea. No other acute intra-abdominal/pelvic process. 2. Prominent distention of the bladder. 3. Scattered atherosclerotic disease consistent with a prominent coronary artery calcifications and with moderate stenosis at the superior mesenteric and right common iliac arteries and mild to moderate stenosis at the right internal iliac and right common femoral arteries. 4. Persistent increased interstitial pattern and groundglass opacities at the bilateral lung bases with dependent predominance which could represent atelectasis, mild pulmonary edema or pneumonia in the acute setting or more chronic interstitial lung disease. Chest CT 04/14/25 14:16 IMPRESSION: 1. Persistent mixed groundglass and nodular opacities of the right middle and lower lobes, consistent with pneumonia. Discharge Plan Discharge Attending physician on discharge: Gabe Monson Consulting providers: Kevin Ocasio; Edward Blevins; Romina Estrada Discharging Clinician: Gabe Monson Anticipated Discharge Date/Time: 04/17/25 11:34 Patient Disposition: Home with Home Health Service Activity: as tolerated Diet: heart healthy and diabetic Discharge Instructions: Valentino catheter to continue at discharge. Follow-up with Urology for void trial in 1-2 weeks. Patient Instructions: Antibiotic Form Patient Language: Ethiopian Stand Alone Forms: General Discharge Information Follow-up/Referrals: Kevin Ocasio MD [Physician, Cardiology] - 2 Weeks Claudio Caraballo MD [Physician, Urology] - 1 Week Sin Minor MD [Physician, Gastroenterology] - 1 Week Wilbert,Cha Larose NP [Primary Care Provider, Unknown] - 1 Week Discharge Medications: New metoprolol succinate 50 mg Tablet Extended Release 24 Hr 50 mg PO QAM Qty: 30 0RF amoxicillin-pot clavulanate 875-125 mg tablet 1 tablet PO Q12H Qty: 10 0RF tamsulosin [Flomax] 0.4 mg capsule 0.4 mg PO DAILY Qty: 30 0RF Continued insulin lispro 100 unit/mL insulin pen 100 unit subcut DAILY Patient Comments: insulin pump- last bolus 10/07/21 1800 3.6 units Rx Instructions: use as directed simvastatin 40 mg tablet 40 mg PO HS finasteride 5 mg tablet 5 mg PO DAILY dorzolamide-timolol (PF) 2-0.5 % dropperette 1 drp EACH EYE BID aspirin [Day Low Dose Aspirin] 81 mg tablet,delayed release (DR/EC) 81 mg PO DAILY multivitamin Tablet 1 tablet PO DAILY diclofenac sodium 0.1 % drops 1 drp EACH EYE QID nitroglycerin 0.4 mg tablet, sublingual 0.4 mg sublingual Q5M PRN (Reason: chest pain) Rx Instructions: do not exceed 3 doses per episode lacosamide 150 mg tablet 150 mg PO Q12H Qty: 180 1RF levetiracetam 1,000 mg tablet See Rx Instructions .ROUTE .COMPLEX Qty: 360 3RF Dose Instruction: TAKE 2 TABLETS BY MOUTH EVERY 12 HOURS Rx Instructions: TAKE 2 TABLETS BY MOUTH EVERY 12 HOURS phenytoin sodium extended 100 mg capsule See Rx Instructions .ROUTE .COMPLEX Qty: 270 3RF Dose Instruction: TAKE ONE CAPSULE BY MOUTH EVERY MORNING AND 2 CAPSULES AT BEDTIME Rx Instructions: TAKE ONE CAPSULE BY MOUTH EVERY MORNING AND 2 CAPSULES AT BEDTIME clopidogrel 75 mg Tablet 75 mg PO DAILY isosorbide mononitrate 30 mg Tablet Extended Release 24 Hr 30 mg PO DAILY lisinopril 20 mg tablet 20 mg PO DAILY latanoprost 0.005 % drops 1 drp EACH EYE QPM pantoprazole 40 mg tablet,delayed release (DR/EC) 40 mg PO DAILY Discontinued furosemide 40 mg tablet 40 mg PO DAILY metoprolol tartrate 25 mg tablet 25 mg PO BID Other Ambulatory Orders: Complete Blood Count with Diff (Routine) Timeframe: 1 Week Location: Determined by Patient Ordered By: Gabe Monson Comprehensive Metabolic Panel (Routine) Timeframe: 1 Week Location: Determined by Patient Ordered By: Gabe Monson Date of admission: 04/15/25 10:08 Primary Care Provider: Wilbert,Cha Larose Admitting Provider: Iqra Abdi Attending physician on admission: Iqra Abdi Condition: Improved
--- NOTE | 2025-04-27 15:53 | PCCDE ---
04/27/25: DM Educator courtesy follow up call completed. Patient c/o some hypoglycemia events - treats - is considering tweaks to basal rate in insulin pump. - Has appt with ENVIRONMENTAL SERVICES TECH at Endo office in May. - Enc'd to create list of questions for endo appt. - Declines OP DSMT/MNT
== END 2025-04-17 14:10 | disposition home or self-care (01) | DRG 391 ==
LOC: ANHED 06:31 → ANHICU 08:09 → ANHIMU 18:06
PROVIDERS: Internal Medicine; Nurse Practitioner; Nurse Practitioner Adult Health; Physician Assistant; Admitting Provider General Practice; Emergency Provider Student in an Organized Health Care Education/Training Program; PCP Nurse Practitioner Family; Visit Provider Internal Medicine
DX: R19.7 Diarrhea, unspecified (principal); I21.A1 Myocardial infarction type 2; J18.9 Pneumonia, unspecified organism; D50.9 Iron deficiency anemia, unspecified; Z87.19 Personal history of other diseases of the digestive system; I10 Essential (primary) hypertension; I95.9 Hypotension, unspecified; G40.909 Epilepsy, unspecified, not intractable, without status epilepticus; R68.0 Hypothermia, not associated with low environmental temperature; R55 Syncope and collapse; E86.0 Dehydration; E11.9 Type 2 diabetes mellitus without complications; M19.90 Unspecified osteoarthritis, unspecified site; N40.1 Benign prostatic hyperplasia with lower urinary tract symptoms; R33.8 Other retention of urine; G47.33 Obstructive sleep apnea (adult) (pediatric); E78.5 Hyperlipidemia, unspecified; I25.10 Atherosclerotic heart disease of native coronary artery without angina pectoris; Z85.828 Personal history of other malignant neoplasm of skin; Z95.5 Presence of coronary angioplasty implant and graft; Z87.891 Personal history of nicotine dependence
CPT/HCPCS: 36415; 36430; 71250; 74174; 80048; 80053; 81003; 82948; 83605; 83690; 83735; 84100; 84484; 85014; 85018; 85025; 85610; 85730; 86850; 86900; 86901; 86923; 87040; 87637; 87641; 93005; 93306; 96361; 96365; 96367; 96375; 97161; 97165; 99285; A9270; G0378; J0456; J2270; J2405; J2543; J3373; J7030; J7050; P9016; Q9967

== ENCOUNTER 2025-05-01 22:26 | Emergency (ER) | payer MEDICARE, SELFPAY ==
--- OUTSIDE RECORDS SUMMARY | 2025-05-01 22:29 | XMS_ITS | Clinical Summary ---
Author Organization [facility] Address [address] [place] [address] Care Team Providers Care C++ Quant Developer Name Role Phone Gus Alatorre DO Unavailable [phone] Cha Atkins NP Primary Care Provider Allergies No known active allergies Medications lancets [...] dinner 30 capsule 3 2 Active multivit shrwgxrb-tfjp-JT- calcium (THERA-M) 9 mg iron-400 mcg tablet [...] tablet 3 5 Active blood glucose diagnostic (AT Internet Ultra Blue Test Strip) stripIndications: Type 1 diabetes mellitus with hyperglycemia ([facility]) Use to test glucose 8 times daily [...] hyperglycemia, with long-term current use of insulin ([facility]) INJECT UP TO 100 UNITS VIA INSULIN PUMP DAILY 90 mL [address] (PROTONIX) 40 mg EC tabletIndications :Gastroesophageal reflux disease, unspecified whether esophagitis present TAKE 1 TABLET BY MOUTH EVERY DAY 90 tablet 5 Active Active Problems Problem Noted Date Diagnosed Date BMI 22.0-22.9, adult 09/03/2022 Assessment & Plan (09/03/2022 11:29 AM STAFF RESEARCH SCIENTIST): Discussed healthy diet and importance of regular physical activity (20- 30min/day, 150min/wk). 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 12/04/2021 CAD, multiple vessel 10/08/2021 Overview (10/08/2021): Added automatically from request for surgery [id number] Exertional chest pain 08/24/2021 Bilateral lower extremity edema 04/18/2021 Ventricular ectopy 06/15/2019 LANGE (dyspnea on exertion) 05/03/2019 Ventricular trigeminy 05/03/2019 JEAN CLAUDE (obstructive sleep apnea) 05/03/2019 Other fatigue 05/03/2019 Bradycardia 05/03/2019 Anemia, unspecified 11/27/2018 Iron deficiency anemia 09/18/2018 Mixed diabetic hyperlipidemi a associated with type 1 diabetes mellitus ([facility]) 07/09/2018 Assessment & Plan (02/21/2025 3:13 PM CDT): Chronic problem. Currently taking simvastatin 40mg daily. Last lipid panel: 12/02/24 SQU=896, TG=74. Assessment & Plan (12/02/2024 11:36 AM CDT): Chronic problem. Currently taking simvastatin 40mg daily. Last lipid panel: 09/18/23 LDL=99, QF=428. Will update labs.Verified that he uses [employer]. Aware to check results/results letter in [employer] Will contact by phone if needed. Assessment & Plan (07/06/2024 2:00 PM STAFF RESEARCH SCIENTIST): Chronic problem. Currently taking simvastatin 40mg daily. Last lipid panel: 09/18/23 LDL=99, PU=143. Assessment & Plan (03/24/2024 2:03 PM CDT): Chronic problem. Currently taking simvastatin 40mg daily. Last lipid panel: 09/18/23 LDL=99, YL=319. Assessment & Plan (01/06/2024 11:33 AM CDT): Chronic problem. Currently taking simvastatin 40mg daily. Last lipid panel: 09/18/23 LDL=99, RF=093. Assessment & Plan (09/18/2023 2:22 PM STAFF RESEARCH SCIENTIST): Chronic problem. Currently taking simvastatin 40mg daily. Last lipid panel: 09/03/22 LDL=83, TG=90. Will update labs today. Verified that he uses [employer] Aware to check results/results letter in [employer] Will contact by phone if needed. Assessment [...] time. Assessment & Plan (09/02/2022 1:15 PM STAFF RESEARCH SCIENTIST): Chronic problem. Currently taking simvastatin 40mg daily. Will update lipid panel today. Verified that he uses [employer] Aware to check results/results letter in [employer] Will contact by phone if needed. Assessment & Plan (06/06/2022 1:18 PM CDT): Chronic problem. On statin therapy, no changes. Assessment & Plan (10/11/2021 10:56 AM STAFF RESEARCH SCIENTIST): Chronic problem. On statin therapy, no changes. Assessment & Plan (07/12/2021 4:55 PM STAFF RESEARCH SCIENTIST): LDL cholesterol goal under 80 Continue simvastatin 40 mg daily Check lipid profile today Assessment & Plan (05/10/2021 11:41 AM CDT): Chronic problem. On statin therapy, no changes. Assessment & Plan (01/26/2021 11:55 AM CDT): Continue statin Assessment & Plan (10/27/2020 11:32 AM CDT): LDL 91. Controlled on current medications. Continue plan. Assessment & Plan (06/29/2020 2:12 PM STAFF RESEARCH SCIENTIST): Goal of treatment , LDL cholesterol less [...] therapy. Assessment & Plan (09/19/2019 3:13 PM STAFF RESEARCH SCIENTIST): At goal on current medications. Continue statin [...] therapy Assessment & Plan (10/15/2018 2:37 PM STAFF RESEARCH SCIENTIST): Continue statin therapy Assessment & Plan (07/09/2018 11:57 AM STAFF RESEARCH SCIENTIST): Goal of treatment , LDL cholesterol less [...] helpful. Assessment & Plan (07/06/2024 2:00 PM STAFF RESEARCH SCIENTIST): Chronic problem. Reviewed foot care; needs to [...] barefoot. Assessment & Plan (09/18/2023 2:22 PM STAFF RESEARCH SCIENTIST): Chronic problem. Aware to check feet nightly & to not go barefoot. Assessment & Plan (06/12/2023 2:13 PM CDT): Chronic problem. Aware to check feet nightly & to not go barefoot. Assessment & Plan (10/02/2017 11:33 AM STAFF RESEARCH SCIENTIST): foot care discussed. Insulin pump status 04/08/2017 [...] hours Assessment & Plan (07/06/2024 1:59 PM STAFF RESEARCH SCIENTIST): No changes. Will take off exercise mode at HS to see if BG will come back into range overnoc. Assessment & Plan (03/24/2024 2:03 PM CDT): No pump setting at this time. Bolus with evening snack. Assessment & Plan (09/18/2023 3:45 PM STAFF RESEARCH SCIENTIST): No pump setting changes at this time. Will contact [employer] about either software upgrade or new pump. Assessment & Plan (06/12/2023 2:27 PM CDT): No pump setting changes at this time. Discussed correctional bolus. Not to undercalculate HS snack bolus. Assessment & Plan (12/03/2022 12:14 PM CDT): No pump setting changes at this time. Assessment & Plan (09/03/2022 12:59 PM STAFF RESEARCH SCIENTIST): No pump setting changes. Assessment & Plan (06/06/2022 3:47 PM CDT): No pump setting changes. Assessment & Plan (01/15/2022 12:04 PM CDT): In case of pump failure, take long acting insulin ( e.g Tresiba ), 18 units every 24 hours and bolus with Humalog, calculating according with your carbs and sugars readings. Assessment & Plan (10/11/2021 12:58 PM STAFF RESEARCH SCIENTIST): No pump setting changes. Assessment & Plan [...] prefers. Instruction for use reviewed. Will contact [employer] to provide link for training and download for Control IQ Assessment & Plan (09/19/2019 3:09 PM STAFF RESEARCH SCIENTIST): No change to settings. Dexcom set up and connected with pump which will prevent hypoglycemia with basal IQ. Also instructed on use of temp basal for increased activity like shopping Assessment & Plan (01/28/2019 4:16 PM CDT): No change to settings today Assessment & Plan (07/09/2018 11:56 AM STAFF RESEARCH SCIENTIST): Have long acting , basal insulin ( [...] UTD DM eye exam (11/04/24 mild NPDR [facility]). Has appt q10-11 weeks for injections. Strive [...] mychart. Aware to check results/results letter in [employer] Will contact by phone if needed. UTD DM eye exam (09/2023). Has appt q10-11 weeks; letter sent to [facility] to get copy of recent eye [...] infection. Assessment & Plan (07/06/2024 1:59 PM STAFF RESEARCH SCIENTIST): Chronic problem. A1c at goal at 6.9%. [...] infection. Assessment & Plan (09/18/2023 3:45 PM STAFF RESEARCH SCIENTIST): Chronic problem. A1c near goal at 7.6%. has risen from 7.3% 06/12/23. No pump setting changes at this time. Unable to download Dexcom & Tandem today. To contact [employer] to get software update so we can [...] mychart. Aware to check results/results letter in [employer] Will contact by phone if needed. UTD [...] lows. Assessment & Plan (09/03/2022 1:03 PM STAFF RESEARCH SCIENTIST): Chronic problem. Unable to download today. States that he calibrated today as dexcom stated 206 & fnuwrhxrvpj=012. Current medications: T-slim with Dexcom Basal 12a 0.6, 430a 0.7, 630a 0.7, 8p 0.6, 10p 0.6 IC 19 SF 45 AI 4 Will update labs today. Verified that he uses [employer] Aware to check results/results letter in [employer] Will contact by phone if needed. Assessment [...] today. Assessment & Plan (10/15/2018 2:39 PM STAFF RESEARCH SCIENTIST): A1c 7.1. Will not recommend any changes to insulin pump settings. Reviewed importance of rotating site to improve absorption and reduce site fatigue. Can change to stainless needle if continues with issues with current infusion sets crimping. Assessment & Plan (10/02/2017 11:17 AM STAFF RESEARCH SCIENTIST): Hba1c was 7.6 today, indicating sub-optimal DM [...] Will update labs. Verified that he uses [employer] Aware to check results/results letter in [employer] Will contact by phone if needed. Assessment & Plan (07/06/2024 2:00 PM STAFF RESEARCH SCIENTIST): Chronic problem. Well controlled with current lisinopril [...] time. Assessment & Plan (09/18/2023 2:22 PM STAFF RESEARCH SCIENTIST): Chronic problem. Well controlled with current lisinopril 20mg daily, metoprolol tartrate 25mg bid, Imdur ER 30mg daily & lasix 20mg daily. No changes at this time. Will update labs today. Verified that he uses [employer] Aware to check results/results letter in [employer] Will contact by phone if needed. Assessment [...] time. Assessment & Plan (09/02/2022 1:16 PM STAFF RESEARCH SCIENTIST): Chronic problem. Well controlled with current quinapril 20mg daily, metoprolol tartrate 25mg bid & lasix 20mg daily. Will update labs today. Verified that he uses [employer] Aware to check results/results letter in [employer] Will contact by phone if needed. Assessment & Plan (06/06/2022 1:17 PM CDT): Controlled on current medications, no changes. Assessment & Plan (10/11/2021 10:56 AM STAFF RESEARCH SCIENTIST): Controlled on current medications, no changes. Assessment & Plan (07/12/2021 4:55 PM STAFF RESEARCH SCIENTIST): Well controlled Continue quinapril 20 mg daily Check microalbumin today Assessment & Plan (05/10/2021 11:40 AM CDT): Controlled on current medications, no changes. Assessment & Plan (01/26/2021 11:55 AM CDT): Controlled on current medications. Continue plan. Assessment & Plan (10/27/2020 11:31 AM CDT): Controlled on current medications. Continue plan. Assessment & Plan (06/29/2020 2:12 PM STAFF RESEARCH SCIENTIST): Goal blood pressure is less than 140/85 Low salt diet was discussed andd recommended The importance of daily aerobic exercise was also emphasized. Continue current meds, including RUPERT-I or ARB, e.g. Assessment & Plan (03/30/2020 3:42 PM CDT): Controlled on current medications. Continue plan. Assessment & Plan (01/06/2020 2:31 PM CDT): Controlled on current medications. Continue plan. Assessment & Plan (09/19/2019 3:12 PM STAFF RESEARCH SCIENTIST): Controlled on current medications. Continue plan. Assessment & Plan (05/06/2019 11:50 AM CDT): Goal blood pressure is less than 140/85 Low salt diet recommended Daily aerobic exercise Continue current meds, including RUPERT-I or ARB Assessment & Plan (01/28/2019 4:20 PM CDT): Controlled on current medications. Assessment & Plan (10/15/2018 2:41 PM STAFF RESEARCH SCIENTIST): Controlled on current medications. Assessment & Plan (07/09/2018 11:57 AM STAFF RESEARCH SCIENTIST): Goal blood pressure is less than 140/85 Low salt diet recommended Daily aerobic exercise Continue current meds, including RUPERT-I or ARB Assessment & Plan (03/26/2018 2:58 PM CDT): Controlled on current medications. Assessment & Plan (10/02/2017 11:16 AM STAFF RESEARCH SCIENTIST): Goal blood pressure is less than 140/85 Low salt diet recommended Daily aerobic exercise Continue current meds, including RUPERT-I or ARB Assessment & Plan (07/10/2017 3:17 PM STAFF RESEARCH SCIENTIST): Goal blood pressure is less than 140/85 [...] 4 Assessment & Plan (10/11/2021 1:03 PM STAFF RESEARCH SCIENTIST): Chronic problem, overall stable. No pump setting [...] issues. Assessment & Plan (07/12/2021 4:54 PM STAFF RESEARCH SCIENTIST): Hba1c was Lab Results Component Value Date [...] settings. Assessment & Plan (06/29/2020 2:09 PM STAFF RESEARCH SCIENTIST): Hba1c was Lab Results Component Value Date [...] reviewed. Assessment & Plan (09/19/2019 3:12 PM STAFF RESEARCH SCIENTIST): A1c 7.1. Variability will be addressed now that sensor is connected to pump. Will be further helped with in next month when Leonardo Rosado has Connect IQ. Rx sent for Geor[employer]. Advised to download pump once Connect IQ [...] upward. 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 Assessment & Plan (07/10/2017 3:35 PM STAFF RESEARCH SCIENTIST): Prevention and treatment of hypoglycemia were discussed [...] statin Assessment & Plan (10/02/2017 11:18 AM STAFF RESEARCH SCIENTIST): Goal of treatment , LDL cholesterol less [...] therapy Assessment & Plan (07/10/2017 3:17 PM STAFF RESEARCH SCIENTIST): Goal of treatment , LDL cholesterol less [...] Encounters Date Type Department Care Team Description 04/20/[address] [facility] Cardiology [address] [place] [address] Ender Castillo MD 04/15/2025 Orders Only [facility] Health Information Management [address] [place] [address] Ender Castillo MD 02/23/2025 11:30 AM CDT Office Visit [facility] Cardiology [address] [place] [address] Kevin Ocasio MD Coronary artery disease of chippe[place]-cree artery of chip[place]cree heart with stable angina pectoris (Primary Dx); Hypertension associated with type 1 diabetes mellitus (HCC); 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 (CMS/HCC) (HCC); Ventricular trigeminy; JEAN CLAUDE (obstructive sleep apnea) 02/21/2025 3:00 PM CDT Office Visit [facility] Diabetes and Endocrinology [facility] [place] [address] Jenna Jha NP Type 1 diabetes mellitus [...] Hx Other Medical Not Claustropho bic; Comments: GF 06/01/2014 - Diabetes mellitus (HCC) Sleep apnea [...] on file Legal Sex Male 10:32 AM STAFF RESEARCH SCIENTIST Gender Identity Not on file Sexual Orientation [...] Health Maintenance Due Date Last Done Comments Hepatitis B Screening 1963 Abdominal Aortic Aneurysm (A AA) Screen 2009 Well Visit 65+ 2009 Pneumococcal vaccine 65+ (2 of 2 - PCV) 08/11/2017 08/11/2016 Depression Screening 01/15/2023 01/15/2022, 05/10/2021, 06/29/2020, Additional history exists TSH Level 03/09/2023 03/09/2022, 05/06/2019 Fall Risk Assessment 09/12/2023 09/12/2022 Covid-19 Vaccine (5 - 2024-2 6 season) 2025 05/10/2021, 09/25/2020, 09/04/2020, Additional history exists Influenza Vaccine (#1) 2025 , 04/17/2021, 04/12/2021, Additional history exists Hemoglobin A1C 08/24/2025 02/21/2025, 11/10, 07/06/2024, Additional history exists Dilated Eye Exam 11/04/2025 11/04/2024, 02/2024, 06/11/2023, Additional history exists Albumin Creatinine Ratio, Urine 12/02/2025 12/02/2024, 09/18/2023, 09/03/2022, Additional history exists Foot Exam 12/02/2025 12/02/2024, 06/12, 06/12/2023, Additional history exists Lipid Panel 12/02/2025 12/02/2024, 02/0 03/2024, 09/03/2022, Additional history exists eGFR 12/02/2025 12/02/2024, 02/0 03/2024, 09/09/2022, Additional history exists DTaP/Tdap/Td Vaccine (2 - Td or Tdap) 03/02/2032 03/02/2022 Zoster Vaccine Completed 07/29/2023, 01/2023, 03/06/2016, Additional history exists Medical Devices Implanted Type Area Line Runner Device Identifier Shelf Expiration Date Model / Serial / Lot Perclose 6fr Vascular Closure 71161-92 - [id number] Implanted:Qty: 1 on 11/15/2021 by Walter Green MD at [facility] 07/10/2023 [id number] / / Perclose 6fr Vascular Closure 16312-56 - [id number] Implanted:Qty: 1 on 11/15/2021 by Walter Green MD at [facility] 07/10/2023 [id number] / / Impella Cp Percutaneous Left Ventricular Assist Device [id number] - [id number] Implanted:Qty: 1 on 11/15/2021 by Walter Green MD at [facility] [employer] 06/10/2023 [id number] / / Medtronic [employer] X [id number] Resolute Patten 3mm 2.1-2.7fr 12mm 140cm Rapid Exchange Radiopaque - [id number] Implanted:Qty: 1 on 11/15/2021 by Walter Green MD at [facility] [employer] 08/25/2024 [id number] / / Med[employer] X [id number] Resolute Patten 2.75mm 2.1-2.7fr 22mm 140cm Rapid Exchange - [id number] Implanted:Qty: 1 on 11/15/2021 by Waletr Green MD at [facility] [employer] 07/19/2024 [id number] / / Med[employer] X [id number] Resolute Patten 3mm 2.1-2.7fr 34mm 140cm Rapid Exchange Radiopaque - [id number] Implanted:Qty: 1 on 11/15/2021 by Walter Green MD at [facility] [employer] 08/22/2024 [id number] / / Perclose 6fr Vascular Closure [id number] - [id number] Implanted:Qty: 1 on 11/15/2021 by Walter Green MD at [facility] [employer] 07/10/2023 [id number] / / VDI Space Angio-Seal Vip Bondek-Plus 8fr .038in 70cm Hemostatic Latex Free [id number] - [id number] Implanted:Qty: 1 on 11/15/2021 by Walter Green MD at [facility] [employer] [facility] 06/10/2022 [id number] / / [employer] Vascade 6/7fr Bioabsorbable Vascular System Compression Collagen [id number] - [id number] Implanted:Qty: 1 on 09/12/2022 by Walter Green MD at [facility] [employer] [facility] 01/03/2024 [id number] / / [id number] Medtronic Card Vasc Surgery 3.5 X 12mm Jaden Fountain Rx Coronary Stent [id number] - [id number] Implanted:Qty: 1 on 09/12/2022 by Walter Green MD at [facility] [employer] Card Vasc Surgery 01/21/2024 [id number] / / [id number] Procedures Procedure Name Priority Date/Time Associated Diagnosis Comments CARDIOLOGY DOCUMENT SCAN Routine 04/16/2025 4:33 PM CDT CARDIOLOGY DOCUMENT SCAN Routine 04/15/2025 4:32 PM CDT CARDIOLOGY DOCUMENT SCAN 04/15/2025 POCT GLUCOSE Routine 02/21/2025 2:54 PM CDT Type 1 diabetes mellitus with hyperglycemia, with long-term current use of insulin (HCC) POCT HEMOGLOBIN A1C Routine 02/21/2025 2 :54 PM CDT Type 1 diabetes mellitus with hyperglycemia, with long-term current use of insulin (HCC) EGFR Routine 12/02/2024 12:00 PM CDT Type [...] Recently Relevant to Health Maintenance Results * Cardiology Document Scan (04/16/2025 4:33 PM CDT) Anatomical Region Laterality Modality Other us Ender Castillo MD CV CARDIAC SERVICES PROCEDURES F inal Result * Cardiology Document Scan (04/15/2025 4:32 PM CDT) Anatomical Region Laterality Modality Other us Ender Castillo MD CV CARDIAC SERVICES PROCEDURES F inal Result * Cardiology Document Scan (04/15/2025) Anatomical Region Laterality Modality Other Result Tobi Castillo MD CV CARDIAC SERVICES PROCEDURES F inal Result * (ABNORMAL) POCT hemoglobin A1c (02/21/2025 2:54 PM CDT) Hemoglobin A1C, POC 7.2(A) 4.0 - 5.6 % Capillary blood 02/21/2025 2 :54 PM CDT us Jenna Jha CLINICAL TRANSFORMATION SPECIALIST POINT OF CARE TEST ORDERA BLES Final Result * (ABNORMAL) POCT glucose (02/21/2025 2:54 PM CDT) Glucose Blood, POC 236 Normal Fasting 70 - 100, Random <200 mg/dL Comment:PPG 2 Hrs Blood 02/21/2025 2:54 PM CDT us Jenna Jha NP POINT OF CARE TEST ORDERA BLES Final Result * eGFR (12/02/2024 12:00 PM CDT) eGFR [...] CDT 12/02/2024 9:36 PM CDT Jenna Jha CLINICAL TRANSFORMATION SPECIALIST LAB BLOOD ORDERABLES María l Result BALJIT FLOREZ [id number] [place] [address] * Albumin Creatinine Ratio, Urine (12/02/2024 12:00 [...] Jenna Jha NP LAB URINE ORDERABLES María reed Result BALJIT FLOREZ [address] [place] [address] * Lipid panel (12/02/2024 12:00 PM CDT) [...] revised on 2018. Chol/HDL ratio 2 BALJIT FLOREZ Blood 12/02/2024 12:0 0 PM CDT 12/02/2024 9:27 PM CDT us Jenna Jha NP LAB BLOOD ORDERABLES María reed Result BALJIT FLOREZ [address] [place] [address] * (ABNORMAL) DIABETES EYE EXAM (11/04/2024 7:53 AM CDT) Historical Provider MD HEALTH MAINTENANCE Final Result * TSH reflex to free T4 (03/09/2022 8:58 PM CDT) TSH 0.57 0.30 - 4.20 mcIUnit/mL BALJIT LAWLER Blood 03/09/2022 8:58 PM CDT 03/09/2022 9:08 PM CDT Sienna Man NP LAB BLOOD ORDERABLES nal Result BALJIT LAWLER [address] [facility] Department [place] [address] from Last 3 Months or Most Recently Relevant to Health Maintenance Insurance FOR[facility] MEDICARE [facility] MEDICARE [facility] Address: [address] [address] [place] [address] FORMERLY [facility] MEDICARE [facility] MEDICARE Address: [facility] [id number] [place] [address] Advance Directives For more information, please contact: [phone] * LIMITED - No CPR (Latest Code [...] 8:28 PM 03/10/2022 2:25 AM Care Teams C++ Quant Developer Relationship Specialty Start Date End Date Cha Atkins NP [address] [place] [address] [place] [address] PCP - General Family Medicine 02/23/25 Gus Alatorre DO [address] [place] [id number] Medical Oncologist/Open Hearth Furnace Operator Helper Hematology and Oncology 09/21/18
--- OUTSIDE RECORDS SUMMARY | 2025-05-01 22:29 | XMS_ITS | Clinical Summary ---
Author Organization [facility] Address [address] [place] [address] Care Team Providers Care Room Service Food Server Name Role Phone Dev Guzman MD Primary Care Provider [phone] Social History Tobacco Use Types Packs/Day Years [...] age to complete this topic Care Teams Room Service Food Server Relationship Specialty Start Date End Date Dev Guzman MD PCP - General 02/13/13
--- OUTSIDE RECORDS SUMMARY | 2025-05-01 22:29 | XMS_ITS | Encounter Summary ---
Author Organization [facility] Address [address] [place] [address] Care Team Providers Care Recordist Name Role Phone Radha Arauz MD Primary Care Provider [phone] Encounter Details Date Type Department Care Team (Late st Contact Info) Description 07/28/2023 Lab Requisition [facility] - DermPath Lab [address] 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 Gender Identity Not on file Sexual Orientation Not on file documented as of this encounter Plan of Treatment Not on file documented as of this encounter Procedures Procedure Name Priority Date/Time Associated Diagnosis Comments DERMATOPATHOLOGY Routine 07/28/2023 2:25 PM DYNAMIC BALANCER SET UP WORKER documented in this encounter Results * DERMATOPATHOLOGY (07/28/2023 2:25 PM DYNAMIC BALANCER SET UP WORKER) Case Report Dermatopathology Report Case: [id number] Authorizing Provider: Cally Huntley MD Collected: 07/28/2023 02:25 PM Ordering Location: [facility] DermPath Lab Received: 07/29/2023 01:10 PM Pathologist: Sunshine Garcia MD Specimens: A) - Skin, left mandaen B) - Skin, right forearm 11:34 AM DYNAMIC BALANCER SET UP WORKER DERMATOPATHOLOGY LABORATORY Final Diagnosis Specimen A. 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 SKIN, right forearm: SQUAMOUS CELL CARCINOMA IN SITU (SNOWDEN'S DISEASE), PIGMENTED (D04.61) 11:34 AM [facility] DERMATOPATHOLOGY LABORATORY at [address]4 DYNAMIC BALANCER SET UP WORKER Clinical History A: R/O Brunson Plaque, Drug Eruption, Nevus, SCC B: R/O Brown papule, Melanoma, Other 11:34 AM [facility] DERMATOPATHOLOGY LABORATORY Gross Description Specimen A: Received is one formalin filled container labeled with the patient's name and designated left mandaen. The specimen consists of a shave biopsy measuring 46w35e3 mm. Jar 0. Specimen B: Received is one formalin filled container labeled with the patient's name and designated right forearm. The specimen consists of a shave biopsy measuring 6x4x1 mm. Jar 0. 11:34 AM [facility] DERMATOPATHOLOGY LABORATORY Microscopic Description Specimen A. SKIN, left mandaen: The epidermis shows parakeratosis, full thickness disorderly maturation of keratinocytes, mitoses at different levels, and dyskeratotic cells. There is overlying parakeratosis with serum and neutrophils. Specimen B. SKIN, right forearm: The epidermis shows focal parakeratosis, full thickness disorderly maturation of keratinocytes, and mitoses at different levels. There is prominent basilar hyperpigmentation. 11:34 AM [facility] DERMATOPATHOLOGY LABORATORY Disclaimer An external and internal positive and negative controls are appropriate for the histochemical, immunohistochemical and immunofluorescence stain(s) in this case (if any), except where stated explicitly. The performance characteristics of the stain(s) cited in this report were developed and its performance characteristic determined by the Dermatopathology Laboratory at [facility], directed by Dr. Caleb Goldman. These tests need not be, and therefore are not, approved by the [place] Food and Drug Administration. The tests are used for clinical purposes. Billing Codes Specimen Charges Stain Charges 98597 34333 1 1 3 11:34 AM [facility] DERMATOPATHOLOGY LABORATORY Embedded Images 11:34 AM [facility] DERMATOPATHOLOGY LABORATORY Pathology/Cytology TISSUE SPECIMEN FROM SKIN / Unknown 07/28/2023 2:25 PM DYNAMIC BALANCER SET UP WORKER 07/29/2023 1:10 PM DYNAMIC BALANCER SET UP WORKER Miscellaneous samples (specimen) TISSUE SPECIMEN FROM SKIN / Unknown 07/28/2023 2:25 PM DYNAMIC BALANCER SET UP WORKER 07/29/2023 1:10 PM DYNAMIC BALANCER SET UP WORKER Cally Huntley MD LAB - PATHOLOGY/CYTOLOGY ORD ERABLES Final Result DERMATOPATHOLOGY LABORATORY [facility] - Department of Dermatology [facility] Specialized Medicine [address] [place] [address], [address] [phone] documented in this encounter Visit Diagnoses Not on filedocumented in this encounter Care Teams Recordist Relationship Specialty Start Date End Date Radha Arazu MD [address] [place] [address] PCP - General 12/05/22 documented as of this encounter
--- OUTSIDE RECORDS SUMMARY | 2025-05-01 22:29 | XMS_ITS | Encounter Summary ---
Author Organization [facility] Address [address] [place] [address] Care Team Providers Care Clinical Transplant Coordinator Name Role Phone Radha Arauz MD Primary Care Provider [phone] Encounter Details Date Type Department Care Team (Late st Contact Info) Description 08/28/2023 Lab Requisition [facility] - DermPath Lab [address] [facility], [place] [phone] Cally Huntley MD [address] [facility] 3 [place] [address] Social History Tobacco Use Types Packs/Day Years Used Date Smoking Tobacco: Never Assessed Sex and Gender Information Value Date Recorded Sex Assigned at Not on file Legal Sex Male 6:02 PM ERP CONSULTANT Gender Identity Not on file Sexual Orientation Not on file documented as of this encounter Plan of Treatment Not on file documented as of this encounter Procedures Procedure Name Priority Date/Time Associated Diagnosis Comments DERMATOPATHOLOGY Routine 08/28/2023 3:50 PM ERP CONSULTANT documented in this encounter Results * DERMATOPATHOLOGY (08/28/2023 3:50 PM ERP CONSULTANT) Case Report Dermatopathology Report Case: [id number] Authorizing Provider: Cally Huntley MD Collected: 08/28/2023 03:50 PM Ordering Location: [facility] DermPath Lab Received: 09/01/2023 10:54 AM Pathologist: Nhi Xiao MD Specimen: Skin, right forearm 4:26 PM ERP CONSULTANT DERMATOPATHOLOGY LABORATORY Final Diagnosis Specimen A. 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 Check margins. 4:26 PM [facility] DERMATOPATHOLOGY LABORATORY Gross Description Specimen A: Received is one formalin filled container labeled with the patient's name and designated right forearm.The specimen consists of an ellipse measuring 95u68h3 mm and is oriented with the suture/notch [...] in cassettes 3-5. Jar 0. 4:26 PM [facility] DERMATOPATHOLOGY LABORATORY Microscopic Description Specimen [...] perpendicular to the skin surface. 4:26 PM [facility] DERMATOPATHOLOGY LABORATORY Disclaimer An external and internal positive and negative controls are appropriate for the histochemical, immunohistochemical and immunofluorescence stain(s) in this case (if any), except where stated explicitly. The performance characteristics of the stain(s) cited in this report were developed and its performance characteristic determined by the Dermatopathology Laboratory at [facility], directed by Dr. Caleb Goldman. These tests need not be, and therefore are not, approved by the [place] Food and Drug Administration. The tests are used for clinical purposes. Billing Codes Specimen Charges Stain Charges 88541 1 4:26 PM [facility] DERMATOPATHOLOGY LABORATORY Embedded Images 4:26 PM [facility] DERMATOPATHOLOGY LABORATORY Pathology/Cytolo gy TISSUE SPECIMEN FROM SKIN / Unknown 08/28/2023 3:50 PM [facility] 09/01/2023 10:54 AM ERP CONSULTANT us Cally Huntley MD LAB - PATHOLOGY/CYTOLOGY ORD ERABLES Final Result DERMATOPATHOLOGY LABORATORY [facility] - Department of Dermatology [facility] Medicine [address] [place] [address], [address] [phone] documented in this encounter Visit Diagnoses Not on filedocumented in this encounter Care Teams Clinical Transplant Coordinator Relationship Specialty Start Date End Date Radha Arauz MD [address] [place] [address] [place] [phone] PCP - General 12/05/22 documented as of this encounter
--- OUTSIDE RECORDS SUMMARY | 2025-05-01 22:29 | XMS_ITS | Encounter Summary ---
Author Organization [facility] Healthcare Address [address] [place] [address] Care Team Providers Care Solar Pv Installer Name Role Phone Radha Arauz MD Primary Care Provider + Gus Alatorre DO Unavailable [phone] Cj Ireland MD Primary Care Provider [phone] Cha Atkins NP Primary Care Provider [phone] Encounter Details Date Type Department Care Team (Late st Contact Info) Description 11/17/2022 Orders Only [facility] Health Information Management [address] [place] [address] Scanning, Provider Social History Tobacco Use Types Packs/Day Years [...] staff should administer the PHQ-9) 0 01/15/2022 Sex and Gender Information Value Date Recorded Sex Assigned at Not on file Legal Sex Male 10:32 AM ZINC SKIMMER Gender Identity Not on file Sexual Orientation Not on file 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 Not on file Not on file documented as of this encounter Plan of Treatment Not on file documented as of this encounter Procedures Procedure Name Priority Date/Time Associated Diagnosis Comments SCAN - RADIOLOGY/IMAGING 11/17/2022 documented in this encounter Results * SCAN - RADIOLOGY/IMAGING (11/17/2022) Anatomical Region Laterality Modality Other us Provider Scanning Final Result documented in this encounter Visit Diagnoses Not on filedocumented in this encounter Care Teams Solar Pv Installer Relationship Specialty Start Date End Date Radha Arauz MD PCP - General Family Medicine 07/10/17 02/02/24 Cj Ireland MD [address] [address] PCP - General Family Medicine 02/03/24 02/22/25 Cha Atkins NP [address] [place] [address] [place] [address] PCP - General Family Medicine 02/23/25 Gus Alatorre DO [address] [place] [address] Medical Oncologist/Varnish Maker Helper Hematology and Oncology 09/21/18 documented as of this encounter
--- OUTSIDE RECORDS SUMMARY | 2025-05-01 22:29 | XMS_ITS | Encounter Summary ---
Author Organization [facility] Address [address] [facility] [place] [address] Care Team Providers Care Placement Assistant Name Role Phone Radha Arauz MD Primary Care Provider [phone] Encounter Details Date Type Department Care Team (Late st Contact Info) Description 12/10/2018 Lab Requisition [facility] Care Pathology Lab [address] [place] [address] Claudio Ballard MD [address] [facility] [address] [place] [address] Social History Tobacco Use Types Packs/Day Years Used Date Smoking Tobacco: Never Assessed Sex and Gender Information Value Date Recorded Sex Assigned at Not on file Legal Sex Male 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 - See description. 12/11/2018 10:16 AM [facility] at [address] [facility] AP Comment Overall, the bone marrow specimen is mildly hypocellular for age with maturing trilineage hematopoiesis and no evidence of lymphoma, a high-grade myeloid neoplasm, a plasma cell dyscrasia, or significant dyspoiesis. Due to the inadequate nature of the aspirate smears, adequate evaluation for dyspoiesis is hindered. Concurrent bone marrow flow cytometry ([id number]) demonstrates no evidence of non-Hodgkin lymphoma or a high-grade myeloid neoplasm. Correlation with clinical findings and relevant cytogenetic/molecular testing is required. AQ/NW 12/11/2018 10:16 AM [facility] Peripheral Smear Description Outside CBC [...] normal. Platelet morphology: normal. 12/11/2018 10:16 AM [facility] Bone Marrow Aspirate Due to [...] erythroid progenitor cells present. 12/11/2018 10:16 AM [facility] Bone Marrow Core Biopsy and [...] are performed on the clot in the [facility] Department of Pathology, with appropriately reactive controls, and demonstrate the following: CD34 shows no increase in blasts (estimated less than 1%). CD138 highlights a population of plasma cells comprising an estimated 2-3% of marrow cellularity. [place] and lambda each highlight appropriate proportions of the plasma cells, confirming a polyclonal population. 12/11/2018 10:16 AM [facility] Flow Cytometry Summary Concurrent bone marrow flow cytometry ([id number]) demonstrates no evidence of non-Hodgkin lymphoma or a high-grade myeloid neoplasm. 12/11/2018 10:16 AM [facility] Clinical History 12/11/2018 10:16 AM [facility] Materials Received Received are 15 slides and 2 blocks labeled as [id number] along with the outside pathology report[place] [address]. All materials are returned to the referring institution, along with a copy of our final report. 12/11/2018 10:16 AM [facility] Disclaimer The performance characteristics of all immunohistochemical and indirect immunofluorescence stains (if any) cited in this report were determined by the Histopathology Laboratory of [facility]. Some of these tests were developed by [...] attending (teaching) pathologist. 12/11/2018 10:16 AM CDT [facility] PATHOLOGY LAB Embedded Images 12/11/2018 10:16 AM CDT [facility] PATHOLOGY LAB Pathology/Cytology SPECIMEN FROM BONE [...] LAB - PATHOLOGY/CYTOLOGY ORDER JEFFERSON Final Result [facility] PATHOLOGY LAB [address] [phone] documented in this encounter Visit Diagnoses Not on filedocumented in this encounter Care Teams Placement Assistant Relationship Specialty Start Date End Date Radha Arauz MD [address] [place] [phone] PCP - General 12/05/22 documented as of this encounter
--- OUTSIDE RECORDS SUMMARY | 2025-05-01 22:29 | XMS_ITS | Clinical Summary ---
Author Organization [facility] Address [address] [place] [address] Care Team Providers Care Water Systems Engineer Name Role Phone Radha Arauz MD Primary Care Provider [phone] Source Comments [facility],non-owned Affiliates and Associated Physician Practices is amultiple site organization consisting of ambulatory clinics and hospital sitesin [place], [place], [place] and [place]. This disclosure is being madepursuant to the Care Everywhere program and may not contain all information available regarding this patient. 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 Gender Identity Not on file Sexual Orientation Not on file Plan of Treatment Health Maintenance Due Date Last Done Comments DTAP/TDAP/TD VACCINES (1 - Tdap) 1963 PNEUMOCOCCAL VACCINE 50+ (1 of 1 - PCV) 1994 ZOSTER VACCINE (1 of 2) 1994 Respiratory Syncytial Virus (RSV) Vaccine Pt: or over 60 yrs (1 - 1-dose 75+ series) 2019 DEPRESSION SCREENING 08/11/2024 MEDICARE AWV CALENDAR YEAR 2024 COVID-19 VACCINE (1 - 2023-2 5 season) 2025 INFLUENZA VACCINE (#1) 2025 HEPATITIS B VACCINE [...] complete this topic Insurance AETNA AETNA MEDICARE COUNTS INCLUDE 234 BEDS AT THE [facility] Care Teams Water Systems Engineer Relationship Specialty Start Date End Date Radha Arauz MD [address] [place] [address] [place] [address] PCP - General 12/05/22
--- OUTSIDE RECORDS SUMMARY | 2025-05-01 22:29 | XMS_ITS | Encounter Summary ---
Author Organization [facility] Address [address] [place] [address] Care Team Providers Care Edge Setter Name Role Phone Radha Arauz MD Primary Care Provider [phone] Encounter Details Date Type Department Care Team (Late st Contact Info) Description 12/08/2018 Lab Requisition [facility] Care Pathology Lab [address] [place] [address] Claudio Ballard MD [address] [facility] [address] [place] [address] Anemia Social History Tobacco Use Types Packs/Day Years Used Date Smoking Tobacco: Never Assessed Sex and Gender Information Value Date Recorded Sex Assigned at Not on file Legal Sex Male 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 ROOM 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 The bone marrow aspirate specimen shows no evidence of involvement by non-Hodgkin lymphoma or a high-grade myeloid neoplasm. Correlation with clinical findings, concurrent bone marrow core biopsy, and relevant cytogenetic/molecu lar studies is required. AQ/NW 12/09/2018 9:55 AM [facility] PATHOLOGY LAB Flow Cytometry Results Differential Result Comment Flow Cell Count /uL 12665 Total Viability % 89.0 Lymphocytes % 15 Dim CD45 Region % 1 Monocytes % 12 Granulocytes % 68 12/09/2018 9:55 AM [facility] Reason for test Anemia 285.9 019 9:55 AM [facility] PATHOLOGY LAB Client Specimen ID # [id number] 12/09/2018 9:55 AM [facility] PATHOLOGY LAB Number of markers 10 were performed. A Flow CD10 A Flow CD13 A Flow CD20 A Flow CD5 A Flow CD19 A Flow CD33 A Flow CD34 A Flow CD45 A [place]+CD19+ A Lambda+CD19+ 12/09/2018 9:55 AM [facility] PATHOLOGY LAB Disclaimer Test performed at [facility], [address] [place] [address], [address]. *The established laboratory minimum viability is 70%. [...] complexity clinical testing. 12/09/2018 9:55 AM CDT [facility] PATHOLOGY LAB Embedded Images 9:55 AM CDT [facility] PATH[facility] LAB Pathology/Cytolo gy BONE MARROW SPECIMEN / Unknown 12/08/2018 10:00 AM CDT 12/08/2018 1:06 PM CDT Claudio Ballard MD LAB - PATHOLOGY/CYTOLOGY ORDER JEFFERSON Final Result Performing Organization Address City/State/[facility] Co de Phone Number [facility] PATHOLOGY LAB [address] [phone] documented in this encounter Visit Diagnoses Diagnosis Anemia Anemia, unspecified documented in this encounter Care Teams Edge Setter Relationship Specialty Start Date End Date Radha Arauz MD [address] [place] [address] PCP - General 12/05/22 documented as of this encounter
[2025-05-01 22:38] VITALS: BP 177/75; PULSE 98; RESP 16; TEMP 36.8; O2SAT 100
--- NOTE | 2025-05-01 23:36 | ED.MALEGU ---
HPI - Male Genitourinary General Chief complaint: Urogenital-Male Stated complaint: BLOOD IN URINE ON BLOOD THINNERS Time Seen by Provider: 05/01/25 23:09 History of Present Illness HPI Narrative: Patient is an 80-year-old male who presents to the ER with concerns for hematuria. He reports he was here approximately 2 weeks ago and had a catheter placed due to urinary retention. Patient reports he saw his urologist who took the catheter out but advised him to I&O cath once a day at home. He reports after he I&O cathed this morning he has had blood in his urine. Patient reports he is on a blood thinner due to cardiac stents. He reports he has been on the blood thinner for approximately 4 years. Patient also endorses a history of diabetes, high blood pressure, and seizures. He denies any recent fevers, urinary symptoms, abdominal pain or back pain. Related Data Home Medications ?Medication ?Instructions ?Recorded ?Confirmed ?Last Taken ?Type aspirin 81 mg tablet,delayed 81 mg PO DAILY 02/21/21 04/14/25 04/13/25 History release (Day Low Dose Aspirin) dorzolamide-timolol (PF) 2 %-0.5 % 1 drp EACH EYE BID 02/21/21 04/15/25 11/16/22 History eye drops in a dropperette finasteride 5 mg tablet 5 mg PO DAILY 02/21/21 04/14/25 04/13/25 History insulin lispro 100 unit/mL 100 unit subcut DAILY 02/21/21 04/14/25 04/14/25 History subcutaneous pen multivitamin 1 tablet PO DAILY 02/21/21 04/14/25 04/13/25 History simvastatin 40 mg tablet 40 mg PO HS 02/21/21 04/14/25 04/13/25 History clopidogrel 75 mg tablet 75 mg PO DAILY 12/25/21 04/14/25 04/13/25 History isosorbide mononitrate 30 mg 30 mg PO DAILY 12/25/21 04/14/25 04/13/25 History tablet,extended release 24 hr lisinopril 20 mg tablet 20 mg PO DAILY 11/18/22 04/14/25 04/13/25 History diclofenac sodium 0.1 % eye drops 1 drp EACH EYE QID 11/13/23 04/15/25 Unknown History nitroglycerin 0.4 mg sublingual 0.4 mg sublingual Q5M PRN chest 11/13/23 04/14/25 Unknown History tablet pain latanoprost 0.005 % eye drops 1 drp EACH EYE QPM 04/14/25 04/14/25 04/13/25 History pantoprazole 40 mg tablet,delayed 40 mg PO DAILY 04/14/25 04/14/25 04/13/25 History release Allergies Allergy/AdvReac Type Severity Reaction Status Date / Time No Known Allergies Allergy Unknown Other Verified 05/01/25 22:27 Review of Systems Review of Systems: All systems reviewed & are unremarkable except as noted in HPI and below PMFSH Past Medical History Medical History (Updated 05/02/25 @ 01:20 by Lorelei Perez APRN) Nausea and vomiting in adult Acute on chronic anemia Lower abdominal pain Pneumonia Pre-syncope Dehydration Diarrhea Broken collarbone Insulin pump in place Diabetes Osteoarthritis BPH (benign prostatic hyperplasia) JEAN CLAUDE (obstructive sleep apnea) Hyperlipidemia HTN (hypertension) CAD (coronary artery disease) Bloody diarrhea Acute ischemic colitis Seizure disorder Red blood cell abnormality Irregular heart beat Surgical History Surgical History 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 History of cataract surgery Stented coronary artery Family History Family History Father Heart disease Diabetes mellitus Heart attack Mother Diabetes mellitus Lung cancer Social History Social History Social History: Caffeine- daily Smoking packs per day: 3 Smoking cigarettes per day: 60.0 Years smoked: 30 Smoking pack-years: 90.00 Smoking status: Former smoker Second hand tobacco smoke exposure: Yes Alcohol intake: never Substance use: never Substance use type: does not use Lack of Transportation: No Lack of Food: Never True Current Housing: I Have Housing Concerned About Future Housing: No Difficulty Paying Gas/Electric Bills: No Difficulty Paying for Meds: No Currently Unemployed: No Education: Bachelor's Degree Difficulty w/ Childcare or Family Care: No Spiritual care concerns: No Exam Narrative: GENERAL: Well appearing, well-nourished, non-toxic, in no acute distress. HEAD: Normocephalic, atraumatic. NECK: Supple. No adenopathy, no masses. RESPIRATORY: Airway patent, respirations nonlabored. Clear to auscultation bilaterally, no rales, rhonchi, wheezing. CARDIOVASCULAR: Regular rate, + murmur, No rubs, or gallops. Peripheral pulses 2+ and equal bilaterally. ABDOMINAL: Soft, nontender, mildly distended, no hepatosplenomegaly. Normoactive BS. MUSCULOSKELETAL: Moves all extremities. Strength/ROM intact without gross deformities. SKIN: Warm, dry, normal color. No rashes. NEURO: A&O X3. Speech clear. Cranial nerves II-XII intact. No ataxic movements. PSYCHIATRIC: Appropriate mood and affect. Normal interaction. : hematuria Course Vital Signs Vital signs: Vital Signs Temperature 36.8 C 05/01/25 22:38 Pulse Rate 98 05/01/25 22:38 Respiratory Rate 16 05/01/25 22:38 Blood Pressure 177/75 H 05/01/25 22:38 Pulse Oximetry 100 05/01/25 22:38 Oxygen Delivery Room Air 05/01/25 22:38 Temperature 36.8 C 05/01/25 22:38 Pulse Rate 98 05/01/25 22:38 Respiratory Rate 16 05/01/25 22:38 Blood Pressure 177/75 H 05/01/25 22:38 Pulse Oximetry 100 05/01/25 22:38 Oxygen Delivery Room Air 05/01/25 22:38 MDM - Male Genitourinary MDM Narrative Medical decision making narrative: Patient is an 80-year-old male who presents to the ER with concerns for hematuria. He reports he was here approximately 2 weeks ago and had a catheter placed due to urinary retention. Patient reports he saw his urologist who took the catheter out but advised him to I&O cath once a day at home. He reports after he I&O cathed this morning he has had blood in his urine. Patient reports he is on a blood thinner due to cardiac stents. He reports he has been on the blood thinner for approximately 4 years. Patient also endorses a history of diabetes, high blood pressure, and seizures. He denies any recent fevers, urinary symptoms, abdominal pain or back pain. Labs Ordered: CBC, CMP, INR, PTT, UA Imaging Ordered: Bladder scan Medications Ordered: None necessary Results: Patient's CBC indicates white blood cell count of 11.2, red blood cell count of 3.51, hemoglobin of 10.1, hematocrit of 31.9%. His chemistry indicates a sodium of 136, glucose of 122, calcium of 8.2, alk-phos of 145. Patient's urinalysis indicates a protein of 2+, blood of 3+, rbcs 51-75, and white blood cells of 6-10 Diagnosis: Hematuria, urinary retention, urinary tract infection Consults: urology (outpatient)- pt already sees Dr. Ingram Patient Education/Shared MDM: Patient's initial bladder scan was greater than 800. He urinated and was rescanned with results of 700 cc urine in his bladder. Initially patient's Ruiz catheter was draining dark red urine, but approximately 30 minutes after placement the urine changed to a pink color. Upon further discussion, patient reports his I&O cath this morning was slightly traumatic and he had to apply a fair amount of pressure to get the catheter past his prostate. He will be given a dose of Ceftriaxone IV prior to discharge. Results of lab work shared with patient. His Ruiz catheter will remain in place until he sees urology. Patient strongly advised to maintain hydration status upon discharge and follow-up with his urologist as soon as possible. He will be discharged home with a prescription for Macrobid x 5 days. Strict return precautions provided. Patient verbalized understanding and is in agreement with plan. Vital signs stable at time of discharge. All questions answered. Differential Diagnosis Differential diagnosis: Likely urinary tract infection, prostatitis, acute retention of urine and other (Hematuria) Lab Data Attestation: I reviewed the patient's lab results. 05/01/25 23:30 05/01/25 23:30 Labs: Lab Results 05/01/25 05/01/25 Range/Units 23:30 23:40 WBC 11.2 H (4.5-10.0) K/mm3 RBC 3.51 L (4.6-6.20) M/mm3 Hgb 10.1 L (14.0-18.0) g/dL Hct 31.9 L (42.0-52.0) % MCV 90.9 (80-100) fl MCH 28.8 (26-34) pg MCHC 31.7 L (32-36) g/dl RDW 14.3 (11.5-14.5) % Plt Count 333 D (150-375) k/mm3 MPV 9.4 (7.4-10.4) fl Immature Gran % (Auto) 0.4 (0-0.5) % Neut % (Auto) 71.2 (45.5-73.1) % Lymph % (Auto) 18.2 L (18.3-44.2) % [place] % (Auto) 8.7 H (2.6-8.5) % Eos % (Auto) 1.0 (0-4.4) % Baso % (Auto) 0.5 (0.2-1.2) % Lymph # (Auto) 2.04 (0.9-3.2) K/mm3 [place] # (Auto) 1.0 H (0.1-0.6) K/mm3 Eos # (Auto) 0.1 (0-0.3) K/mm3 Baso # (Auto) 0.1 (0.0-0.1) K/mm3 Abs Immat Gran (auto) 0.04 H (0.00-0.031) K/mm3 Absolute Neuts (auto) 8.0 H (1.3-6.7) K/mm3 Absolute Nucleated RBC 0.000 (0.0-0.012) K/mm3 Nucleated RBC % 0.0 (0.0-0.2) % PT 13.1 (11.1-14.7) Seconds INR 1.0 APTT 25.5 (22.3-36.8) Seconds Sodium 136 L (137-145) mmol/L Potassium 5.0 (3.4-5.0) mmol/L Chloride 104 (98-107) mmol/L Carbon Dioxide 26 (22-30) mmol/L Anion Gap 6 (4-12) mmol/L BUN 16 D (9-20) mg/dL Creatinine 1.04 (0.7-1.3) mg/dL Estim Creat Clear Calc 46 ml/min Estimated GFR > 60 (59 - ) Glucose 122 H (65-110) mg/dL Calcium 8.2 L (8.4-10.2) mg/dL Total Bilirubin 0.2 (0.2-1.3) mg/dL AST 45 (17-59) U/L ALT 39 (6-50) U/L Alkaline Phosphatase 145 H (38-126) U/L Total Protein 7.0 (6.3-8.2) g/dL Albumin 4.0 (3.5-5.1) g/dL Urine Color Red H (Yellow) Urine Appearance Clear (Clear) Urine pH 7.0 (5.0-9.0) Ur Specific [place] 1.020 (1.001-1.035) Urine Protein 2+ H (Negative) mg/dL Urine Glucose (UA) Negative (Negative) mg/dL Urine Ketones Negative (Negative) mg/dL Ur Blood (Man) 3+ H (Negative) Urine Nitrate Negative (Negative) Urine Bilirubin Negative (Negative) Urine Urobilinogen 0.2 (<2.0) mg/dL Leukocyte Esterase Rfl Negative (Negative) ДМИТРИЙ/UL Urine RBC 51-75 H (0-2) /hpf Urine WBC 6-10 H (0-3) /hpf Ur Squamous Epith Cells Rare (Few) /hpf Discharge Plan Discharge Clinical Impression: Hematuria, Acute urinary retention, Urinary tract infection, BPH (benign prostatic hyperplasia) Patient Disposition: Home Condition: Stable Instructions: Antibiotic Form, Urinary Tract Infection in Men (ED), Ruiz Catheter Placement and Care (ED) Additional Instructions: Please return to the ER with any worsening symptoms. Follow-up with your urologist as soon as possible. Take all medications as prescribed, including regularly scheduled medications. Complete your full dose of antibiotics. Patient Language: Micronesian Prescriptions: New nitrofurantoin monohyd/m-cryst [Macrobid] 100 mg capsule 100 mg PO Q12H 5 Days Qty: 10 0RF Rx Instructions: must administer with a meal/food No Action insulin lispro 100 unit/mL insulin pen 100 unit subcut DAILY Patient Comments: insulin pump- last bolus 10/07/21 1800 3.6 units Rx Instructions: use as directed simvastatin 40 mg tablet 40 mg PO HS finasteride 5 mg tablet 5 mg PO DAILY dorzolamide-timolol (PF) 2-0.5 % dropperette 1 drp EACH EYE BID aspirin [Day Low Dose Aspirin] 81 mg tablet,delayed release (DR/EC) 81 mg PO DAILY multivitamin Tablet 1 tablet PO DAILY diclofenac sodium 0.1 % drops 1 drp EACH EYE QID nitroglycerin 0.4 mg tablet, sublingual 0.4 mg sublingual Q5M PRN (Reason: chest pain) Rx Instructions: do not exceed 3 doses per episode lacosamide 150 mg tablet 150 mg PO Q12H Qty: 180 1RF levetiracetam 1,000 mg tablet See Rx Instructions .ROUTE .COMPLEX Qty: 360 3RF Dose Instruction: TAKE 2 TABLETS BY MOUTH EVERY 12 HOURS Rx Instructions: TAKE 2 TABLETS BY MOUTH EVERY 12 HOURS phenytoin sodium extended 100 mg capsule See Rx Instructions .ROUTE .COMPLEX Qty: 270 3RF Dose Instruction: TAKE ONE CAPSULE BY MOUTH EVERY MORNING AND 2 CAPSULES AT BEDTIME Rx Instructions: TAKE ONE CAPSULE BY MOUTH EVERY MORNING AND 2 CAPSULES AT BEDTIME clopidogrel 75 mg Tablet 75 mg PO DAILY isosorbide mononitrate 30 mg Tablet Extended Release 24 Hr 30 mg PO DAILY lisinopril 20 mg tablet 20 mg PO DAILY latanoprost 0.005 % drops 1 drp EACH EYE QPM pantoprazole 40 mg tablet,delayed release (DR/EC) 40 mg PO DAILY metoprolol succinate 50 mg Tablet Extended Release 24 Hr 50 mg PO QAM Qty: 30 0RF amoxicillin-pot clavulanate 875-125 mg tablet 1 tablet PO Q12H Qty: 10 0RF tamsulosin [Flomax] 0.4 mg capsule 0.4 mg PO DAILY Qty: 30 0RF Follow-up/Referrals: Juan Jose,Eric Calderon MD [Physician, Urology] Referral Note: urology Wilbert,Cha Larose NP [Primary Care Provider, Unknown] Time of Disposition: 01:23
[2025-05-01 23:42] LABS: Hematocrit 31.9 % (42.0-52.0); Hemoglobin 10.1 g/dL (14.0-18.0); Immature Granulocyte Percent A 0.4 % (0-0.5); Lymphocytes Absolute Auto 2.04 K/mm3 (0.9-3.2); Mean Corpuscular HGB Conc 31.7 g/dl (32-36); Mean Corpuscular Hemoglobin 28.8 pg (26-34); Mean Corpuscular Volume 90.9 fl (80-100); Nucleated Red Blood Cells Absolute Auto 0.000 K/mm3 (0.0-0.012); Nucleated Red Blood Cells Perc 0.0 % (0.0-0.2); Platelet Count Result 333 k/mm3 (150-375); Red Blood Count 3.51 M/mm3 (4.6-6.20); White Blood Count 11.2 K/mm3 (4.5-10.0)
[2025-05-01 23:48] LABS: Alanine Aminotransferase 39 U/L (6-50); Albumin Level 4.0 g/dL (3.5-5.1); Alkaline Phosphatase 145 U/L (38-126); Anion Gap 6 mmol/L (4-12); Aspartate Amino Transferase 45 U/L (17-59); Bilirubin,Total 0.2 mg/dL (0.2-1.3); Blood Urea Nitrogen 16 mg/dL (9-20); Calcium 8.2 mg/dL (8.4-10.2); Carbon Dioxide 26 mmol/L (22-30); Chloride 104 mmol/L (98-107); Estimated CRCL calculation 46 ml/min; Estimated Glomerular Filt Rate > 60; Glucose 122 mg/dL (65-110); Potassium 5.0 mmol/L (3.4-5.0); Sodium 136 mmol/L (137-145); Total Protein 7.0 g/dL (6.3-8.2)
[2025-05-02 00:53] LABS: Glucose Urine UA Negative (Negative)
[2025-05-02 00:54] LABS: Add Urine Microscopic? YES; Leukocyte Esterase Ur Negative LEU/UL (Negative)
[2025-05-02 00:55] LABS: Appearance Urine Clear (Clear)
[2025-05-02 00:56] LABS: Nitrate Urine Negative (Negative); Specific Grav Ur 1.020 (1.001-1.035)
[2025-05-02] MEDS: cefTRIAXone 1 GM in SODIUM CHLORIDE 0.9% IV 50 ML 100 ML IVPB (01:08)
[2025-05-02 01:19] LABS: INR 1.0; Partial Thromboplastin Time 25.5 Seconds (22.3-36.8); Prothrombin Time 13.1 Seconds (11.1-14.7)
[2025-05-02 02:04] VITALS: BP 133/64; PULSE 64; RESP 14; TEMP 36.5; O2SAT 97
--- NOTE | 2025-05-02 02:06 | PC.NURSE ---
pt changed to leg bag prior to d/c home per pt request.
== END 2025-05-02 02:06 | disposition home or self-care (01) ==
PROVIDERS: Emergency Medicine; Emergency Provider Registered Nurse; PCP Nurse Practitioner Family
DX: N39.0 Urinary tract infection, site not specified (principal); N40.0 Benign prostatic hyperplasia without lower urinary tract symptoms; E11.9 Type 2 diabetes mellitus without complications; Z79.4 Long term (current) use of insulin; Z96.41 Presence of insulin pump (external) (internal); M19.90 Unspecified osteoarthritis, unspecified site; G47.30 Sleep apnea, unspecified; E78.5 Hyperlipidemia, unspecified; I10 Essential (primary) hypertension; I25.10 Atherosclerotic heart disease of native coronary artery without angina pectoris; G40.909 Epilepsy, unspecified, not intractable, without status epilepticus
CPT/HCPCS: 36415; 51702; 80053; 81001; 85025; 85610; 85730; 87086; 96365; 99284; J0696

== ENCOUNTER 2025-07-25 11:09 | Emergency (ER) | payer MEDICARE, SELFPAY ==
--- NOTE | ~2025-07-25 | CT_ITS ---
EXAMINATION: CT abdomen pelvis w con DATE: 07/25/2025 12:46 INDICATION: Abdominal pain, low back pain and weakness. TECHNIQUE: Computed tomography (CT) of the abdomen and pelvis was performed with 100 mL Omnipaque-350 intravenous contrast. Automated exposure control and iterative reconstruction technique were employed. The dose-length product was 323.41 mGy-cm. COMPARISON: CT dated 04/14/2025 FINDINGS: Small calcified nodules in the right lower lobe consistent with old granulomatous disease. Mild peripheral reticular opacities in bilateral lower lungs. Heart size is normal. Atherosclerotic coronary artery calcifications. No pericardial or pleural effusion. Liver, gallbladder, spleen, pancreas and ava ateral adrenal glands are normal. 9 mm cyst at the upper pole the left kidney. Atherosclerotic calcifications at the bilateral renal veto. Moderate to large amount of stool scattered throughout the colon and extending into the distal ileum suggestive of constipation. No dilated gas-filled loops of bowel to suggest obstruction. Marked dilation of the bladder which measures 19.1 x 9.6 x 13.4 cm. Unremarkable prostate which measures 3.3 x 2.6 cm. No free intraperitoneal gas or fluid. No pathologically enlarged abdominal or pelvic lymphadenopathy. There is calcified atherosclerosis of the aorta and many of the other arteries. Results in persistent moderate stenosis at the superior mesenteric, left renal and right common iliac arteries and mild to moderate stenosis at the right renal, left internal iliac and right common femoral arteries. Again seen are bilateral vasectomy clips at the base of the scrotum along the spermatic cords. Severe upper lumbar and mild to moderate lower thoracic spondylosis. Again seen is a likely old healed avulsion fracture deformity at the right ischial tuberosity. IMPRESSION: 1. Moderate to large amount of stool throughout the colon extending into the distal ileum suggestive of constipation. 2. Persistent prominent dilation of the bladder. 3. Extensive atherosclerotic disease with moderate stenosis at the superior mesenteric, left renal and right common iliac arteries and multiple moderate stenosis at the right renal, left internal iliac and right common femoral arteries. Reviewed, dictated and finalized at location A. SURGEON IMPRESSION: 1. Moderate to large amount of stool throughout the colon extending into the di stal ileum suggestive of constipation. 2. Persistent prominent dilation of the bladder. 3. Extensive atherosclerotic disease with moderate stenosis at the superior mes enteric, left renal and right common iliac arteries and multiple moderate steno sis at the right renal, left internal iliac and right common femoral arteries.
--- NOTE | ~2025-07-25 | XR_ITS ---
EXAMINATION: XR chest 2V DATE: 07/25/2025 11:54 INDICATION: Cough and weakness TECHNIQUE: PA and lateral views of the chest were obtained. COMPARISON: Chest CT dated 04/14/2025 FINDINGS: The lungs are clear with no focal airspace opacities, pulmonary edema, pleural effusion or pneumothorax. The cardiomediastinal silhouette is normal. Coronary artery stenting. Atherosclerotic aorta. Mild thoracic dextrocurvature with mild spondylosis. Prominent atherosclerotic calcifications at the bilateral carotid arteries. IMPRESSION: 1. No acute cardiopulmonary disease. Reviewed, dictated and finalized at location A. IALTY MOLDER
[2025-07-25 11:09] VITALS: BP 181/52; PULSE 77; RESP 16; TEMP 36.3; O2SAT 100
--- NOTE | 2025-07-25 11:15 | ECG_ITS ---
Test Date: 2025-07-25 11:21:43 Measurements Intervals [place] Rate: 76 P: 25 MA: 157 QRS: 92 QRSD: 92 T: 65 QT: 353 QTc: 399 Interpretive Statements SINUS RHYTHM NORMAL ECG Compared to ECG 04/16/2025 11:53:43 Ventricular premature complex(es) no longer present Electronically Signed On 07-25-2025 11:40:12 OPERATIONS RESEARCH ANALYST by Sim Collins D.O.
[2025-07-25 11:21] VITALS: PULSE 81; RESP 17; O2SAT 99
[2025-07-25 11:25] VITALS: BP 182/60; PULSE 87; RESP 17; O2SAT 99
[2025-07-25 11:31] VITALS: BP 163/66; PULSE 84; RESP 14; O2SAT 99
--- NOTE | 2025-07-25 11:37 | PC.NURSE ---
pt unable to give urine sample. pt states he self caths 3x a day and is unable to give a sample.
[2025-07-25 11:47] LABS: Hematocrit 30.2 % (42.0-52.0); Hemoglobin 10.0 g/dL (14.0-18.0); Immature Granulocyte Percent A 0.3 % (0-0.5); Lymphocytes Absolute Auto 2.40 K/mm3 (0.9-3.2); Mean Corpuscular HGB Conc 33.1 g/dl (32-36); Mean Corpuscular Hemoglobin 31.2 pg (26-34); Mean Corpuscular Volume 94.1 fl (80-100); Nucleated Red Blood Cells Absolute Auto 0.000 K/mm3 (0.0-0.012); Nucleated Red Blood Cells Perc 0.0 % (0.0-0.2); Platelet Count Result 288 k/mm3 (150-375); Red Blood Count 3.21 M/mm3 (4.6-6.20); White Blood Count 7.3 K/mm3 (4.5-10.0)
[2025-07-25 12:00] LABS: Alanine Aminotransferase 34 U/L (6-50); Albumin Level 4.1 g/dL (3.5-5.1); Alkaline Phosphatase 170 U/L (38-126); Anion Gap 5 mmol/L (4-12); Aspartate Amino Transferase 41 U/L (17-59); Bilirubin,Total 0.3 mg/dL (0.2-1.3); Blood Urea Nitrogen 24 mg/dL (9-20); Calcium 8.5 mg/dL (8.4-10.2); Carbon Dioxide 26 mmol/L (22-30); Chloride 100 mmol/L (98-107); Estimated CRCL calculation 50 ml/min; Estimated Glomerular Filt Rate > 60; Glucose 330 mg/dL (65-110); Potassium 5.3 mmol/L (3.4-5.0); Sodium 131 mmol/L (137-145); Total Protein 7.1 g/dL (6.3-8.2)
--- NOTE | 2025-07-25 12:28 | ED_ITS ---
HPI - Weakness General Chief complaint: Fall Stated complaint: fall Time Seen by Provider: 07/25/25 11:58 Source: patient Mode of arrival: wheelchair Limitations: no limitations History of Present Illness HPI Narrative: This is a an 80-year-old male with history of diabetes, CAD, and hypertension who presents the ED for weakness and back pain. Patient states that for the past several months he has been dealing with low back pain that has worsened over the past few days. He has had weakness to his legs because of this. Last night, he states that he was trying to take his pants off to go the bathroom process balance due to the weakness and slumped over against the door fell onto his butt. Denies hitting his head, lost consciousness. He reports some tingling to his legs from the knees. Denies saddle anesthesia. Patient straight caths 3 times daily. No bowel changes. Related Data Home Medications ?Medication ?Instructions ?Recorded ?Confirmed ?Last Taken ?Type aspirin 81 mg tablet,delayed 81 mg PO DAILY 02/21/21 0 04/14/25 04/13/25 History release (Day Low Dose Aspirin) dorzolamide-timolol (PF) 2 %-0.5 % 1 drp EACH EYE BID 02/21/21 04/15/25 11/16/22 History eye drops in a dropperette finasteride 5 mg tablet 5 mg PO DAILY 02/21/2104/1404/13/25 History insulin lispro 100 unit/mL 100 unit subcut DAILY 02/2104/14/25 04/14/25 History subcutaneous pen multivitamin 1 tablet PO DAILY 02/21/21 0 04/14/25 04/13/25 History simvastatin 40 mg tablet 40 mg PO HS 02/21/21 5 04/13/25 History clopidogrel 75 mg tablet 75 mg PO DAILY 12/25/21 09/0 12/0304/13/25 History isosorbide mononitrate 30 mg 30 mg PO DAILY 12/25/21 0 04/14/25 04/13/25 History tablet,extended release 24 hr lisinopril 20 mg tablet 20 mg PO DAILY 11/18/22 09/0 12/0304/13/25 History diclofenac sodium 0.1 % eye drops 1 drp EACH EYE QID 0 11/13/23 04/15/25 Unknown History nitroglycerin 0.4 mg sublingual 0.4 mg sublingual Q5M PRN chest 11/13/23 04/14/25 Unknown History tablet pain latanoprost 0.005 % eye drops 1 drp EACH EYE QPM 04/1404/14/25 04/13/25 History pantoprazole 40 mg tablet,delayed 40 mg PO DAILY 04/1404/14/25 04/13/25 History release Allergies Allergy/AdvReac Type Severity Reaction Status Date / Time No Known Allergies Allergy Unknown Other Verified 07/25/25 11:27 Review of Systems 2 Review of Systems: Gen.: Denies fevers or chills Eyes: Denies eye pain or visual change ENT: Denies congestion Respiratory: Denies shortness of breath or cough CV: Denies chest pain or palpitations GI: Denies abdominal pain nausea, emesis or diarrhea denies burning, urgency, frequency or hematuria Musculoskeletal: As per HPI Neuro: Denies numbness, tingling, weakness or focal weakness Skin: Denies rash Except as documented, all other systems reviewed and negative [facility] Past Medical History Medical History Nausea and vomiting in adult Acute on chronic anemia Lower abdominal pain Pneumonia Pre-syncope Dehydration Diarrhea Broken collarbone Insulin pump in place Diabetes Osteoarthritis BPH (benign prostatic hyperplasia) JEAN CLAUDE (obstructive sleep apnea) Hyperlipidemia HTN (hypertension) CAD (coronary artery disease) Bloody diarrhea Acute ischemic colitis Seizure disorder Red blood cell abnormality Irregular heart beat Surgical History Surgical History 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 History of cataract surgery Stented coronary artery Family History Family History Father Heart disease Diabetes mellitus Heart attack Mother Diabetes mellitus Lung cancer Social History Social History Social History: Caffeine- daily Smoking packs per day: 3 Smoking cigarettes per day: 60.0 Years smoked: 30 Smoking pack-years: 90.00 Smoking status: Former smoker Second hand tobacco smoke exposure: Yes Alcohol intake: never Substance use: never Substance use type: does not use Lack of Transportation: No Lack of Food: Never True Current Housing: I Have Housing Concerned About Future Housing: No Difficulty Paying Gas/Electric Bills: No Difficulty Paying for Meds: No Currently Unemployed: No Education: Bachelor's Degree Difficulty w/ Childcare or Family Care: No Spiritual care concerns: No Exam 2 Narrative: APPEARANCE: No acute distress, nontoxic, resting in bed EYES: EOMI HEENT: Normocephalic, atraumatic, OMM RESPIRATORY: No respiratory distress Clear to auscultation bilaterally with no rhonchi wheezing or rales. CARDIOVASCULAR: Regular rate and rhythm without murmurs rubs or gallops. ABDOMINAL: Soft, nontender, nondistended, no rebound or guarding MUSCULOSKELETAl: Moves all extremities. Left lower lumbar paraspinal tenderness to palpation. 4/5 strength to the bilateral lower extremities NEURO: Awake and alert. Following commands, speech normal, no focal deficits SKIN:: Warm, dry. No rashes lesions or abrasions PSYCHIATRIC: Normal affect/mood, Course Vital Signs Vital signs: Vital Signs Temperature 97.3 F L 07/25/25 11:09 Pulse Rate 77 07/25/25 11:09 Respiratory Rate 16 07/25/25 11:09 Blood Pressure 181/52 H 07/25/25 11:09 Pulse Oximetry 100 07/25/25 11:09 Temperature 97.3 F L 07/25/25 11:09 Pulse Rate 81 07/25/25 15:39 Respiratory Rate 17 07/25/25 15:39 Blood Pressure 164/64 H 07/25/25 15:39 Pulse Oximetry 99 07/25/25 15:39 Oxygen Delivery Room Air 07/25/25 11:21 [facility] Narrative Medical decision making narrative: 80-year-old male Presenting for low back pain and weakness. On initial evaluation patient was in no acute distress afebrile, hemodynamic stable. Differentials include but are not limited to: UTI, musculoskeletal pain, constipation, cancer, cauda equina Notable exam findings: Left lower lumbar paraspinal tenderness to palpation. 4/5 strength to the bilateral lower extremities. I personally reviewed the patient's lab result. Notable lab findings: Stable anemia at [place]. Potassium mildly elevated at 5.3, mild hypo natremia at 1:31 a.m., hyperglycemia at 3:30 a.m.. I personally reviewed the patient's images and interpret as follows: Chest x- ray: Normal cardiac silhouette, no consolidations, no pleural effusions, no pulmonary vascular congestion CT abdomen/pelvis: Severe constipation and extensive atherosclerotic disease of the superior mesenteric, left renal and right common iliac arteries and multiple moderate stenosis at the right renal, left internal iliac and right common femoral arteries I personally reviewed the patient's EKGs: Normal sinus rhythm, normal axis, normal intervals, no acute ST or T-wave changes No red flags for cauda equina. I have a low suspicion for cauda equina at this time. Patient was able to ambulate at his baseline. He was given pain medications with improvement of his back pain. Suspect that his constipation is likely contributing to his acute on chronic back pain. He will be given a bowel regimen for this. He was advised follow-up with his PCP in the next week for re-evaluation. Patient was agreeable to this plan. Given strict return precautions. Differential Diagnosis Differential Diagnosis: UTI, musculoskeletal pain, constipation, cancer, cauda equina Lab Data 07/25/25 11:42 07/25/25 11:42 Labs: Lab Results 07/25/25 07/25/25 Range/Units 11:42 13:21 WBC 7.3 (4.5-10.0) K/mm3 RBC 3.21 L (4.6-6.20) M/mm3 Hgb 10.0 L (14.0-18.0) g/dL Hct 30.2 L (42.0-52.0) % MCV 94.1 (80-100) fl MCH 31.2 (26-34) pg MCHC 33.1 (32-36) g/dl RDW 12.8 (11.5-14.5) % Plt Count 288 (150-375) k/mm3 MPV 8.9 (7.4-10.4) fl Immature Gran % (Auto) 0.3 (0-0.5) % Neut % (Auto) 53.2 (45.5-73.1) % Lymph % (Auto) 32.8 (18.3-44.2) % [place] % (Auto) 10.1 H (2.6-8.5) % Eos % (Auto) 2.9 (0-4.4) % Baso % (Auto) 0.7 (0.2-1.2) % Lymph # (Auto) 2.40 (0.9-3.2) K/mm3 [place] # (Auto) 0.7 H (0.1-0.6) K/mm3 Eos # (Auto) 0.2 (0-0.3) K/mm3 Baso # (Auto) 0.1 (0.0-0.1) K/mm3 Abs Immat Gran (auto) 0.02 (0.00-0.031) K/mm3 Absolute Neuts (auto) 3.9 (1.3-6.7) K/mm3 Absolute Nucleated RBC 0.000 (0.0-0.012) K/mm3 Nucleated RBC % 0.0 (0.0-0.2) % Sodium 131 L (137-145) mmol/L Potassium 5.3 H (3.4-5.0) mmol/L Chloride 100 (98-107) mmol/L Carbon Dioxide 26 (22-30) mmol/L Anion Gap 5 (4-12) mmol/L BUN 24 H (9-20) mg/dL Creatinine 0.96 (0.7-1.3) mg/dL Estim Creat Clear Calc 50 ml/min Estimated GFR > 60 (59 - ) Glucose 330 H (65-110) mg/dL Calcium 8.5 (8.4-10.2) mg/dL Total Bilirubin 0.3 (0.2-1.3) mg/dL AST 41 (17-59) U/L ALT 34 (6-50) U/L Alkaline Phosphatase 170 H (38-126) U/L Troponin I < 0.012 (0.000-0.034) ng/mL Total Protein 7.1 (6.3-8.2) g/dL Albumin 4.1 (3.5-5.1) g/dL Urine Color Yellow (Yellow) Urine Appearance Clear (Clear) Urine pH 6.0 (5.0-9.0) Ur Specific [place] 1.011 (1.001-1.035) Urine Protein Negative (Negative) mg/dL Urine Glucose (UA) 2+ H (Negative) mg/dL Urine Ketones Negative (Negative) mg/dL Ur Blood (Man) Negative (Negative) Urine Nitrate Negative (Negative) Urine Bilirubin Negative (Negative) Urine Urobilinogen 0.2 (<2.0) mg/dL Leukocyte Esterase Rfl Negative (Negative) ДМИТРИЙ/UL Imaging Data Attestation: I personally reviewed and interpreted this imaging study as follows: Radiologist's impression: ITS Impressions Chest X-Ray 07/25/25 11:56 IMPRESSION: 1. No acute cardiopulmonary disease. Abdomen/Pelvis CT 07/25/25 12:48 IMPRESSION: 1. Moderate to large amount of stool throughout the colon extending into the distal ileum suggestive of constipation. 2. Persistent prominent dilation of the bladder. 3. Extensive atherosclerotic disease with moderate stenosis at the superior mesenteric, left renal and right common iliac arteries and multiple moderate stenosis at the right renal, left internal iliac and right common femoral arteries. Discharge Plan Discharge Clinical Impression: Bilateral leg weakness Constipation Qualifiers: Constipation type: unspecified constipation type Qualified Code(s): K59.00 - Constipation, unspecified Patient Disposition: Home Condition: Stable Instructions: Antibiotic Form, Constipation (ED), Weakness (ED) Additional Instructions: Your weakness appeared to improve. You were found to have severe constipation on your CT scan. This may be causing worsening back pain and weakness. You were given prescriptions for miralax,docusate, and senna, take these as prescribed. Please drink plenty of water as dehydration contributes to constipation. Follow up with your pcp in the next week for reevaluation. Return to the ED for new worsening symptoms. Patient Language: Amharic Prescriptions: New polyethylene glycol 3350 [Miralax] 17 gram/dose powder 17 g PO DAILY PRN (Reason: constipation) Qty: 238 0RF docusate sodium 100 mg capsule 100 mg PO DAILY Qty: 30 0RF senna 8.6 mg capsule 8.6 mg PO DAILY PRN (Reason: constipation) Qty: 30 0RF No Action insulin lispro 100 unit/mL insulin pen 100 unit subcut DAILY Patient Comments: insulin pump- last bolus 10/07/21 1800 3.6 units Rx Instructions: use as directed simvastatin 40 mg tablet 40 mg PO HS finasteride 5 mg tablet 5 mg PO DAILY dorzolamide-timolol (PF) 2-0.5 % dropperette 1 drp EACH EYE BID aspirin [Day Low Dose Aspirin] 81 mg tablet,delayed release (DR/EC) 81 mg PO DAILY multivitamin Tablet 1 tablet PO DAILY diclofenac sodium 0.1 % drops 1 drp EACH EYE QID nitroglycerin 0.4 mg tablet, sublingual 0.4 mg sublingual Q5M PRN (Reason: chest pain) Rx Instructions: do not exceed 3 doses per episode lacosamide 150 mg tablet 150 mg PO Q12H Qty: 180 1RF levetiracetam 1,000 mg tablet See Rx Instructions .ROUTE .COMPLEX Qty: 360 3RF Dose Instruction: TAKE 2 TABLETS BY MOUTH EVERY 12 HOURS Rx Instructions: TAKE 2 TABLETS BY MOUTH EVERY 12 HOURS phenytoin sodium extended 100 mg capsule See Rx Instructions .ROUTE .COMPLEX Qty: 270 3RF Dose Instruction: TAKE ONE CAPSULE BY MOUTH EVERY MORNING AND 2 CAPSULES AT BEDTIME Rx Instructions: TAKE ONE CAPSULE BY MOUTH EVERY MORNING AND 2 CAPSULES AT BEDTIME clopidogrel 75 mg Tablet 75 mg PO DAILY isosorbide mononitrate 30 mg Tablet Extended Release 24 Hr 30 mg PO DAILY nitrofurantoin monohyd/m-cryst [Macrobid] 100 mg capsule 100 mg PO Q12H 5 Days Qty: 10 0RF Rx Instructions: must administer with a meal/food lisinopril 20 mg tablet 20 mg PO DAILY latanoprost 0.005 % drops 1 drp EACH EYE QPM pantoprazole 40 mg tablet,delayed release (DR/EC) 40 mg PO DAILY metoprolol succinate 50 mg Tablet Extended Release 24 Hr 50 mg PO QAM Qty: 30 0RF amoxicillin-pot clavulanate 875-125 mg tablet 1 tablet PO Q12H Qty: 10 0RF tamsulosin [Flomax] 0.4 mg capsule 0.4 mg PO DAILY Qty: 30 0RF Follow-up/Referrals: Wilbert,Cha Larose NP [Primary Care Provider, Unknown]
[2025-07-25] MEDS: MORPHINE SULFATE (*CRX) 4 MG/ML INJ IV PUSH (12:48)
[2025-07-25] MEDS: SODIUM ZIRCONIUM CYCLOSILICATE 10 GM POWD.PACK PO (12:48)
[2025-07-25] MEDS: LIDOCAINE 5% PATCH 1 PATCH TRANSDERM (12:51)
[2025-07-25] MEDS: CYCLOBENZAPRINE HCL 10 MG TABLET PO (12:51)
[2025-07-25 12:53] LABS: Troponin I < 0.012 ng/mL (0.000-0.034)
[2025-07-25 13:01] VITALS: BP 180/71; PULSE 87; RESP 14; O2SAT 98
[2025-07-25 13:27] LABS: Add Urine Microscopic? NO; Appearance Urine Clear (Clear); Glucose Urine UA 2+ mg/dL (Negative); Leukocyte Esterase Ur Negative LEU/UL (Negative); Nitrate Urine Negative (Negative); Specific Grav Ur 1.011 (1.001-1.035)
[2025-07-25] MEDS: SODIUM CHLORIDE 0.9% IV 1,000 ML 999 ML IV CONT (14:49)
[2025-07-25 15:39] VITALS: BP 164/64; PULSE 81; RESP 17; O2SAT 99
== END 2025-07-25 15:39 | disposition home or self-care (01) ==
PROVIDERS: Emergency Medicine; Emergency Provider Student in an Organized Health Care Education/Training Program; PCP Nurse Practitioner Family
DX: R53.1 Weakness (principal); K59.00 Constipation, unspecified; E11.9 Type 2 diabetes mellitus without complications; Z79.4 Long term (current) use of insulin; Z96.41 Presence of insulin pump (external) (internal); M19.90 Unspecified osteoarthritis, unspecified site; I10 Essential (primary) hypertension; I25.10 Atherosclerotic heart disease of native coronary artery without angina pectoris; G40.909 Epilepsy, unspecified, not intractable, without status epilepticus
CPT/HCPCS: 36415; 71046; 74177; 80053; 81003; 84484; 85025; 93005; 96361; 96374; 96375; 99284; A9270; J2270; J7030; Q9967